=== PATIENT | male | born 1965 | race Two or more races ===

== ENCOUNTER 2023-04-23 14:32 | Outpatient (REF) | payer OTHER, SELFPAY ==
[2023-04-23 17:08] LABS: Alanine Aminotransferase 30 U/L (0-40); Albumin Level 4.4 g/dL (3.5-5.0); Alkaline Phosphatase 66 U/L (39-117); Aspartate Amino Transferase 29 U/L (5-37); Bilirubin Direct 0.1 mg/dL (0.0-0.5); Bilirubin Total 0.4 mg/dL (0.0-1.0); Total Protein 7.9 g/dL (6.5-8.0)
[2023-04-24 04:56] LABS: ~HepC Num1 0.17 S/CO (0.00-0.79); ~Hepatitis C Antibody Nonreactive (Nonreactive)
[2023-04-24 05:01] LABS: HBc Num1 0.12 S/CO (0.00-0.79); Hepatitis B Core Antibody Nonreactive (Nonreactive)
[2023-04-24 05:11] LABS: Hepatitis A Antibody IgG REACTIVE (Nonreactive); ~Hepatitis A Antibody IgG 11.66 S/CO (0.00-0.99)
[2023-04-24 05:17] LABS: HBsAGNum1 0.34 S/CO (0.00-0.99); HIV AB/AG Nonreactive (Nonreactive); HIV Num 1 0.06 S/CO (0.00-0.99); Hepatitis B Surface Antigen Negative (Negative)
== END 2023-04-23 14:33 | disposition home or self-care (01) ==
LOC: HO.HHCL 14:32
PROVIDERS: Visit Provider Emergency Medicine
DX: F11.20 Opioid dependence, uncomplicated (principal)
CPT/HCPCS: 36415; 80076; 86704; 86708; 86803; 87340; 87389

== ENCOUNTER 2023-05-24 00:02 | Emergency (ER) | payer MEDICARE, SELFPAY ==
--- NOTE | 2023-05-24 | ECG_ITS ---
Test Reason : chest pain Blood Pressure : / mmHG Vent. Rate : 090 BPM Atrial Rate : 090 BPM P-R Int : 158 ms QRS Dur : 080 ms QT Int : 384 ms P-R-T Axes : 064 005 023 degrees QTc Int : 469 ms Normal sinus rhythm Possible Left atrial enlargement Borderline ECG When compared with ECG of 23-OCT-2004 02:49, Non-specific change in ST segment in Inferior leads QT has lengthened Referred By: Generic ED Physician Electronically Signed By:JARED DIETRICH
[2023-05-24 00:11] VITALS: BP 122/76; BP 132/78; PULSE 91; PULSE 93; RESP 15; TEMP 36.6; O2SAT 93; O2SAT 94; BMI 32.8
[2023-05-24 00:39] LABS: MANUAL DIFF FLAG NO
[2023-05-24 00:40] VITALS: BP 111/73; PULSE 95; RESP 18; O2SAT 100
[2023-05-24 00:43] LABS: Basophils Absolute Auto 0.1 X10*3/uL (0.0-0.2); Basophils Percent Auto 0.6 % (0-2); Eosinophils Absolute Auto 0.1 X10*3/uL (0.0-0.4); Eosinophils Percent Auto 0.6 % (0-4); Hematocrit 42.5 % (42.0-52.0); Hemoglobin 14.4 g/dl (14.0-18.0); Imm Gran Abs Auto 0.03 X10*3/uL (0.00-0.03); Imm Gran Pct Auto 0.3 % (0.0-0.4); Lymphocytes Absolute Auto 2.8 X10*3/uL (1.2-4.9); Lymphocytes Percent Auto 32.1 % (20-40); Mean Corpuscular HGB Conc 33.9 g/dl (31.0-36.0); Mean Corpuscular Hemoglobin 30.8 pg (27.0-33.0); Mean Corpuscular Volume 90.8 fL (80.0-98.0); Mean Platelet Volume 8.3 fL (9.4-12.4); Monocytes Absolute Auto 0.9 X10*3/uL (0.1-1.2); Monocytes Percent Auto 10.3 % (2-11); Neutrophils Absolute Auto 4.9 x10*3/uL (2.0-8.3); Neutrophils Percent Auto 56.1 % (45-73); Platelet Count 261 X10*3/uL (160-400); Red Blood Count 4.68 X10*6/uL (4.60-5.80); Red Cell Distribution Width 14.6 % (11.0-16.0); White Blood Count 8.7 X10*3/uL (4.8-10.8)
[2023-05-24 00:56] LABS: Alanine Aminotransferase 42 U/L (0-40); Albumin Level 4.5 g/dL (3.5-5.0); Alkaline Phosphatase 71 U/L (39-117); Anion Gap 18 (12-20); Aspartate Amino Transferase 66 U/L (5-37); Bilirubin Total 0.3 mg/dL (0.0-1.0); Blood Urea Nitrogen 22 mg/dL (9-16); Carbon Dioxide 21 mmol/L (22-29); Chloride 105 mmol/L (96-108); Creatinine Clr Calc Pharmacy 97.4; Estimated Glomerular Filt Rate > 60; Ethanol 83 mg/dL; Glucose Random 109 mg/dL (60-115); Potassium 3.8 mmol/L (3.3-5.1); Sodium 140 mmol/L (135-145)
--- OUTSIDE RECORDS SUMMARY | 2023-05-24 00:58 | XMS_ITS | Continuity of Care Document ---
Author Name Unknown Organization [facility] ter Address [address] [place] [id number] Care Team Providers Care Bulb Inspector Name Role Phone Mathieu Christina MD Primary Care Physician Encounter [facility] Date(s): 01/12/23 - 01/16/[address] [id number] Discharge Disposition: Disch/Trans to IP Rehab or unit w/in Hos Attending Physician: Ponce LIND, Noor Admitting Physician: Bart Pino MD Referring Physician: Not on Staff, Referring MD Allergies, Adverse Reactions, Alerts No Known Allergies Immunizations Given and Recorded Vaccine Date Status Refusal Reason SARS-CoV-2 (COVID-19) mRNA-1273 vaccine 03/03/21 R ecorded SARS-CoV-2 (COVID-19) mRNA-1273 vaccine 02/02/21 R ecorded influenza virus vaccine, inactivated 1 10/21/20 Gi angélica influenza virus vaccine, inactivated 06/25/19 Jairo rded influenza virus vaccine, inactivated 07/21/18 Jairo rded influenza virus vaccine, inactivated 2 08/22/16 Re corded influenza virus vaccine, inactivated 07/25/15 Give n influenza virus vaccine, inactivated 10/20/11 Give n tetanus/diphtheria/pertussis, acel(Tdap) 06/08/15 Given pneumococcal 23-valent vaccine 10/20/11 Given 1Result Comment: [facility] [place] 2[place]# [id number] 2Location History[facility] Medications 1 each 1 each, See Instructions, # 1 each, Refills 0, Tot. Refills 0, Maintenance, please supply one knee brace. diagnosis: left knee injury, 01/15/19 13:39:43 EDT, Compound Start Date: 01/15/19 Status: Ordered Albuterol (Eqv-ProAir HFA) 90 mcg/inh inhalation aerosol 1 puffs, Inhalation, Every 6 hours, PRN NEEDED FOR WHEEZING/SHORTNESS OF BREATH, # 8.5 each, 5 Refills, 11/08/22 15:58:00 EST, [facility]/pharmacy #[id number], 30, 1 puffs Inhalation Every 6 hours,PRN: NEEDED FOR WHEEZING/SHORTNESS OF BREATH, 165, cm, ... Start Date: 11/08/22 Status: Ordered albuterol-ipratropium 3 mg-0.5 mg/3 ml inhalation solution 1 vials, Inhalation, 4 times a day, # 360 mL, 0 Refills, Maintenance, 11/08/22 15:58:00 EST, [facility]/pharmacy #[id number], 30, 1 vials Inhalation 4 times a day, 165, cm, 08/17/22 7:14:00 EST, Height, 82, kg, 08/06/22 12:30:00 EDT, Dry Weight Start Date: 11/08/22 Status: Ordered amoxicillin-clavulanate 875 mg-125 mg oral tablet 1 tablet, By Mouth, 2 times a day, for 2 days, # 4 tablet, 0 Refills, Acute 01/17/23 12:40:00 EDT, 01/15/23 12:40:00 EDT, Tablet, [facility], Partial fill upon patient request if the prescription is for a schedule II opioid drug., 164, c... Start Date: 01/15/23 Stop Date: 01/17/23 Status: Ordered buprenorphine-naloxone 2 mg-0.5 mg sublingual film 1 film, Sublingual, Daily, dissolve under the tongue, # 14 film, 0 Refills, Maintenance, 01/16/23 11:03:00 EDT, Film, [facility], Partial fill upon patient request if the prescription is for a schedule II opioid drug., 1 film Sublingual... Start Date: 01/16/23 Stop Date: 01/30/23 Status: Ordered buprenorphine-naloxone 8 mg-2 mg sublingual film 2 film, Sublingual, Daily, # 28 film, 0 Refills, Maintenance, 01/16/23 11:04:00 EDT, Film, [facility], Partial fill upon patient request if the prescription is for a schedule II opioid drug., 2 film Sublingual Daily,x14 days, 164, cm, 04... Start Date: 01/16/23 Stop Date: 01/30/23 Status: Ordered docusate sodium 100 mg oral capsule 1 capsule, By Mouth, 2 times a day, PRN NEEDED FOR CONSTIPATION, # 100 capsule, 0 Refills, Maintenance, 09/13/20 17:22:00 EST, [facility] STORE [id number], 166, cm, 07/26/20 9:41:00 EDT, Height, 87, kg, 10/14/18 13:06:00 EST, Dry Weight Start Date: 09/13/20 Status: Ordered doxycycline monohydrate 100 mg oral tablet = 100 mg, By Mouth, Every 12 hours, for 2 days, # 4 tablet, 0 Refills, Acute 01/17/23 12:40:00 EDT,01/15/23 12:40:00 EDT, Tablet, [facility] 3, Partial fill upon patient request if the prescription is for a schedule II opioid drug., 164,... Start Date: 01/15/23 Stop Date: 01/17/23 Status: Ordered Mouth piece for Nebulizer Mouth piece for Nebulizer, See Instructions, # 3 each, Refills 3, Tot. Refills 3, Maintenance, Use as instructed, 01/11/21 18:16:00 EDT, ICD 10 is J44.9, Supply, 166, cm, 12/21/20 16:08:00 EDT, Height Start Date: 01/11/21 Status: Ordered QUEtiapine 25 mg oral tablet 50 mg, 2, tablet, By Mouth, Daily, PRN, # 120 tablet, Refills 0, Maintenance, Anxiety, 01/12/23 12:26:00 EDT, Partial fill upon patient request if the prescription is for a schedule II opioid drug. Start Date: 01/12/23 Status: Ordered sildenafil 50 mg oral tablet 1 tablet = 50 mg, By Mouth, Daily, 1 hour before sexual activity, # 10 tablet, 3 Refills, Maintenance, 01/01/22 12:31:00 EDT, Tablet, [facility]/pharmacy #[id number], 165, cm, 10/14/21 14:50:00 EST, Height, 78.6,kg, 10/14/21 14:50:00 EST, Dry Weight Start Date: 01/01/22 Status: Ordered simvastatin 10 mg oral tablet 1, tablet, By Mouth, Daily at bedtime, # 90 tablet, Refills 1, Maintenance, 07/12/22 17:09:00 EDT, Route to Pharmacy Electronically, [id number], 165, cm, 05/30/22 13:27:00 EDT, Height, 78.6, kg,10/14/21 14:50:00 EST, Dry Weight Start Date: 07/12/22 Status: Ordered traZODone 100 mg oral tablet 2 tablets, By Mouth, Daily at bedtime, # 180 tablet, Refills 0, Maintenance, 10/09/18 9:38:26 EST Start Date: 10/09/18 Status: Ordered Problem List Condition Confirmation Course Effective Dates Status H ealth Status Informant Allergic rhinitis Confirmed Active Bipolar disorder Confirmed Active Chronic obstructive pulmonary disease (COPD) Confirmed Active Degeneration of lumbar intervertebral disc Confirmed Active Depression Confirmed Active GERD (gastroesophageal reflux disease) Confirmed Active Hoarseness Confirmed Active IFG (impaired fasting glucose) Confirmed Active Erectile dysfunction Confirmed Active Chronic pain of right knee Confirmed Active Left knee pain Confirmed Active Combined hyperlipidemia Confirmed Active Opioid dependence Confirmed Active Polysubstance abuse Confirmed Active Pterygium of left eye Confirmed Active PTSD - Post-traumatic stress disorder Confirmed Active Results Radiology Reports * Exam Date Time Procedure Performing Provider Status 01/12/23 6:37 AM Chest Portable Sandra Thibodeaux; Auth ( Verified) Notes: (Chest Portable) Reason For Exam: Shortness of Breath RESULT: Chest Portable Chest Portable Reason: Shortness of Breath; Clinical Question(s): CHF COMPARISON: 10/14/2021 FINDINGS: Right lung base opacity with small right pleural effusion. Left lung is clear. No left pleural effusion. No pneumothorax. Normal heart size. No acute osseous change. IMPRESSION: Right lung base opacity, which could represent atelectasis or infection, with small right pleural effusion. WSN: [id number] Ordering Physician: Yimi Jiménez Dictated By: Lili Awad MD Dictated Date/Time: 01/12/23 10:39 a Reviewed By: Lili Awad MD Signed By: Lili Awad MD Signed Date/Time: 01/12/23 10:39 am Transcribed By: DEEPTHI Transcribed Date/Time: 01/12/23 10:38 am Vital Signs Most recent to oldest [Reference Range]: 1 2 3 Height 164 cm (01/16/23 4:52 AM) 164 cm (01/15/23 7:47 PM) 164 cm (01/15/23 2:45 PM) Weight 77.1 kg (01/12/23 10:53 AM) 77.1 kg (01/12/23 10:00 AM) 75 kg (01/12/23 8:09 AM) Oxygen Saturation [94-100 %] 96 % (01/16/23 4:52 AM) 93 % *L* (01/15/23 7:47 PM) 97 % (01/15/23 2:45 PM) Pulse Rate [55-90 bpm] 93 bpm *H* (01/16/23 4:52 AM) 105 bpm *H* (01/15/23 7:47 PM) 92 bpm *H* (01/15/23 2:45 PM) Body Mass Index [18.5-24.99 kg/m2] 28.67 kg/m2 *H* (01/12/23 10:53 AM) 27.89 kg/m2 *H* (01/12/23 8:09 AM) 27.89 kg/m2 *H* (01/12/23 7:40 AM) Blood Pressure [90-138/55-84 mm Hg] 108/65mm Hg (01/16/23 4:52 AM) 125/76mm Hg (01/15/23 7:47 PM) 130/79mm Hg (01/15/23 2:45 PM) Respiratory Rate [16-30 br/min] 18 br/min (01/16/23 4:52 AM) 18 br/min (01/15/23 7:47 PM) 20 br/min (01/15/23 2:45 PM) Temperature [96.8-100.4 DegF] 97.9 DegF (01/16/23 4:52 AM) 97.5 DegF (01/15/23 7:47 PM) 98.6 DegF (01/15/23 2:45 PM) Liters per Minute 2 L/min (01/14/23 4:16 AM) 2 L/min (01/13/23 8:11 PM) 1 L/min (01/13/23 3:00 PM) Mode of Delivery (Oxygen) Room air (01/16/23 4:52 AM) Room air (01/15/23 7:47 PM) Room air (01/15/23 2:45 PM) Blood pressure sites Arm, left (01/16/23 4:52 AM) Arm, left (01/15/23 7:47 PM) Arm, left (01/15/23 2:45 PM) Temperature Route Oral (01/16/23 4:52 AM) Oral (01/15/23 7:47 PM) Oral (01/15/23 2:45 PM) Dry Weight 77.1 kg (01/12/23 10:53 AM) 75 kg (01/12/23 8:09 AM) 75 kg (01/12/23 7:40 AM) Weight Obtained Via Bed scale (01/12/23 10:00 AM) Social History Social History Type Response Smoking Status 5-9 cigarettes (betw een 1/4 to 1/2 pack)/day in last 30 days; Tobacco user in household: Yes entered on: 06/15/20 Sex History and physical note * Brissa LIND, Alexi Tejeda: PERFORM Event Display: History and Physical Hospital Authored Date: Patient: ??CATHRYN BROWN ? Age:??57 Years?Sex:??Male?:??1965?? Chief Complaint/Reason for Consultation Patient currently being treated at [facility] reh for opiate recovery. Was found by staff to be difficult to respond, nodding off. O2 on room air initially 76%, now 94% on 2 ltr. Pt drowsy but rouseable to voice. History of Present Illness 57-year-old male??with history of??COPD, tobacco abuse,??polysubstance abuse??(opioids, cocaine), bipolar disorder,??PTSD,??hyperlipidemia, GERD, and??impaired fasting glucose who was brought to the emergency department from [facility] inpatient detox earlier this morning with hypoxia.?? The patient ap parently checked into [facility] rehab yesterday for opiate recovery, and this morning was found to behypoxic to the 70s on room air.?? He was noted by staff to be somnolent, and complained of shortness of breath.?? EMS was called, and the patient was transitioned onto CPAP, satting in the high 90s.?? He did not complain of chest pain.?? He did not have a fever.?? Unfortunately there is no current EMR or written medical documentation aside from the nursing intake, and remaining history is unclearas the patient is on BiPAP.?? The patient is awake and speaking to me through the BiPAP mask,??stating that he does feel better but the mask is too tight.?? He is requesting water. ??He does not appear to be coughing.?? He denies??abdominal pain, diarrhea, or urinary symptoms. ?? In the emergency department, the patient's max temperature is 100.2.?? He is saturating 96 to 98% on BiPAP (he desatted to 88% on 4 L nasal cannula oxygen with significant tachypnea). ??He remainshemodynamically stable with mild tachycardia in the 90s and 100s, sinus tachycardia on the monitor.?? He is diffusely wheezy??at the time of my evaluation.?? Thus far he has received ceftriaxone 1 g and azithromycin 500 mg IV for possible community-acquired pneumonia.?? He received 4 mg of IV ondansetron earlier.?? No other medications given in the medical record. Review of Systems Other than those positives as noted in the HPI above, the remaining comprehensive 14-point review of systems is not obtainable at this time. Objective Measurements?? Height: 164 cm (01/12/23) Weight: 77.1 kg (01/12/23) Dry Weight: 77.1 kg (01/12/23) Body Mass Index:??28.67 kg/m2??High (01/12/23) ? Vital Signs?? Temperature: 100.2 DegF (01/12/23 12:00:00) Temperature Route: Temporal (01/12/23 12:00:00) Pulse Rate:??94 bpm??High (01/12/23 12:00:00) Heart Rate Monitored:??96 bpm??High (01/12/23 11:48:00) Respiratory Rate: 19 br/min (01/12/23 12:00:00) Systolic Blood Pressure: 120 mm Hg (01/12/23 12:00:00) Diastolic Blood Pressure: 71 mm Hg (01/12/23 12:00:00) Blood pressure sites: Arm, left (01/12/23 12:00:00) Mean Arterial Pressure: 106 mm Hg (01/12/23 10:53:00) Pulse Pressure: 49 mm Hg (01/12/23 12:00:00) Oxygen Saturation: 96 % (01/12/23 12:00:00) Liters per Minute: 40 L/min (01/12/23 08:09:00) Mode of Delivery (Oxygen): BiPAP (01/12/23 12:00:00) FiO2: 30 % (01/12/23 11:48:00) Early Warning Score: 0 (01/12/23 12:22:52) ? Pain Scores 1 - 10 Pain Scale Score: 0 (06:53) ? Physical Exam General Appearance: Alert, appears in mild respiratory distress,??mentating normally and able to answer questions yes/no and follow commands HEENT: Normocephalic, atraumatic, PERRL, EOMI, no scleral icterus, no facial droop, moist mucous membranes, no oropharynx lesions?? Neck: Supple, no JVD, no LAD Cardiac: Tachycardic, regular rhythm,??S1 & S2 present, no m / r / g appreciated Chest: Diffuse rhonchi and expiratory wheezes, no tenderness to percussion Abdomen: Soft, nontender, no distention, no rebound or guarding, no masses, no organomegaly, normalbowel sounds in all quadrants Extremities: No clubbing, cyanosis, or edema. ??2+ distal pulses. ??Capillary refill < 3 seconds. ??No calf tenderness or cords Skin: Warm, no rash or open wounds Neuro: ??A & O x 3, no focal motor or sensory deficits appreciated Psych: ??Stable mood Assessment/Plan Assessment:??57-year-old male with history of COPD, tobacco abuse, polysubstance abuse (opioids, cocaine), bipolar disorder, PTSD, hyperlipidemia, GERD, and impaired fasting glucose who was brought to the emergency department from [facility] earlier this morning with hypoxic respiratory failure.??Work-up is consistent with??COPD exacerbation and possible??right basilar??pneumonia. ?? Acute respiratory failure with hypoxia (J96.01):??I suspect acute??respiratory failure with hypoxiain the setting of COPD exacerbation. He is significantly bronchospastic on exam.??No steroids or bronchodilators??given??thus far??in the emergency department.??He does have right lung atelectasis versus small infiltrate with small effusion, and will be covered for community-acquired pneumonia as well.??He appears euvolemic on exam??with??negative troponin, BNP is pending.??No complaints of chestpain or ischemic EKG changes. He appears comfortable on BiPAP at this time with pulse oximetry 96 to 98%.??We will attempt to titrate??with goal pulse oximetry greater than 88%. Treatment plan as outlined. ?? COPD with acute exacerbation (J44.1):?? Significant bronchospasm on exam.?? Maintaining pulse oximetry on BiPap with less tachypnea. 1.?? Admit to [facility], continuous pulse oximetry monitoring 2.?? Titrate supplemental oxygen to keep pulse oximetry > 88% 3.?? Start Solumedrol 125 mg IV now, followed by??SoluMedrol 40 mg IV every??8 hours, with transition to oral prednisone??as he improves 4.?? Scheduled DuoNebs 4 times daily and every 4 hours as needed??for bronchospasm and shortness ofbreath 5.?? Continue antibiotics as outlined 6.?? Gentle IVF hydration wtih LR at 100 cc/hr while NPO on BiPap 7. ??Guaifenesin as needed for cough ?? Community acquired pneumonia (J18.9):??Currently the patient has max temp 100.2. No sick contacts and SARS-CoV-2 RNA testing is negative.?? Initial criteria for sepsis included heart rate greater than 90 and respiratory rate greater than 20.?? No significant leukocytosis, and??the patient remains hemodynamically stable, with lactic acid level reassuring. 1. Continue Rocephin 1 g IV daily and azithromycin 500 mg IV daily 2. Check sputum culture if he can expectorate 3. Check streptococcal and Legionella urinary antigens 4. Monitor CBC with differential and blood cultures; check procalcitonin level 5. Monitor metabolic panel ?? Polysubstance abuse (F19.10):??Patient reports last use of cocaine 2 days ago.??He has been prescribed Suboxone, unclear timing of last use of opiates. He denies??current alcohol abuse.??He does smoke cigarettes. We will continue??Suboxone as has been??recently??prescribed in the EMR??(2??mg- 0.5 mg??film once daily). Nicotine??patch??21 mg daily. Consider Addiction Medicine consultation when medically stable. ?? Bipolar disorder (F31.9):??The patient was previously prescribed quetiapine as needed for anxiety, and trazodone daily at bedtime. These will be continued in the hospital. No other current psychotropic medications prescribed in the outpatient medication reconciliation. ?? GERD (gastroesophageal reflux disease) (K21.9):??Start Protonix 40 mg IV??daily for stress ulcer prophylaxis. ?? VTE Prophylaxis:??Lovenox 40 mg subcutaneously daily. ?VTE Prophylaxis Assessment:??VTE Prophylaxis Ordered ?? Code Status:??FULL. ?Order Code Status:??Code Status Ordered ?? Discharge Planning:??Disposition pending;??anticipate 2 to 3 days??hospitalization. ?? I spent a total of??88 minutes today reviewing the chart / medical records, evaluating the patient,evaluating and interpreting laboratory and imaging data, formulating and discussing the treatment plan, and documenting the encounter. ? Histories Allergies Allergies ?(Active and Proposed Allergies Only) NKA? (Severity: Unknown severity, Onset: Unknown) ? Past Medical History/Problem List Active Problems??(16) Allergic rhinitis Bipolar disorder Chronic obstructive pulmonary disease (COPD) Chronic pain of right knee Combined hyperlipidemia Degeneration of lumbar intervertebral disc Depression Erectile dysfunction GERD (gastroesophageal reflux disease) Hoarseness IFG (impaired fasting glucose) Left knee pain Opioid dependence Polysubstance abuse Pterygium of left eye PTSD - Post-traumatic stress disorder ? Past Surgical History Arthroscopy, right knee (x3) Lumbar spine fusion x2, (L4-L5, L3-L4) ? Social History Alcohol Details:??Use: Past.?? Currently denies. Employment/School Details:??Status: Disabled. Exercise Details:??Regular exercise: No. Home/Environment Details:??Living situation: Home/Independent. ??Lives with: friend. ??Feels unsafe at home: No. Nutrition/Health Details:??Diet: Regular. Sexual Details:??Sexually involved in last 6 months: No. ??Sexual orientation: Heterosexual. ??Gender identity: Male. ??Preferred pronoun: She/her. Substance Abuse Details:??Use: Current. ??Type: Cocaine, Prescription medications.?? Currently at [facility]. Tobacco Details:??Use: 5-9 cigarettes (between 1/4 to 1/2 pack)/day in last 30 days. ??Tobacco user in household: Yes. ? Family History Father: Stroke; Throat cancer? Mother (): Heart disease? Medications Home Medications Albuterol (Albuterol (Eqv-ProAir HFA) 90 mcg/inh inhalation aerosol)?1?puff(s)?Inhalation?Every 6 hours?as needed? NEEDED FOR WHEEZING/SHORTNESS OF BREATH Albuterol/Ipratropium (albuterol-ipratropium 3 mg-0.5 mg/3 ml inhalation solution)?1?vials?Inhalation?4 times a day Buprenorphine-Naloxone (buprenorphine-naloxone 2 mg-0.5 mg sublingual film)?1?Film?Sublingual?Daily?dissolve under the tongue Docusate (docusate sodium 100 mg oral capsule)?1?capsule?By Mouth?2 times a day?as needed? NEEDED FOR CONSTIPATION Durable Medical Equipment (1 each)?See Instructions?please supply one knee brace.diagnosis: left knee injury Durable Medical Equipment (Mouth piece for Nebulizer)?See Instructions?Use as instructed Quetiapine (QUEtiapine 25 mg oral tablet)?50?Milligram?2?tablet?By Mouth?Daily?as needed?Anxiety Sildenafil (sildenafil 50 mg oral tablet)?1?tab(s)?50?Milligram?By Mouth?Daily?1 hour before sexual activity Simvastatin (simvastatin 10 mg oral tablet)?1?tablet?By Mouth?Daily at bedtime Trazodone (traZODone 100 mg oral tablet)?2 tablets?By Mouth?Daily at bedtime ? Results Recent Labs BLOOD COUNT & DIFF WBC 7.1 k/mm3 ()?? 01/12/2023 06:52 RBC 4.21 m/mm3 (Low)?? 01/12/2023 06:52 Hgb 13.5 Gm/dL (Low)?? 01/12/2023 06:52 Hct 41.0 % ()?? 01/12/2023 06:52 MCV 97.4 femtoliters (High)?? 01/12/2023 06:52 MCH 32.1 pg ()?? 01/12/2023 06:52 MCHC 32.9 g/dL (Low)?? 01/12/2023 06:52 Platelet Count 174 k/mm3 ()?? 01/12/2023 06:52 RDW-SD 45.2 femtoliters ()?? 01/12/2023 06:52 MPV 9.4 femtoliters ()?? 01/12/2023 06:52 Nucleated RBC (Automated) 0.0 #/100 WBC'S ()?? 01/12/2023 06:52 Abs. NRBC 0.0 k/mm3 ()?? 01/12/2023 06:52 Abs. Neut 4.4 k/mm3 ()?? 01/12/2023 06:52 Abs. Lymph 2.1 k/mm3 ()?? 01/12/2023 06:52 Abs. Clark 0.5 k/mm3 ()?? 01/12/2023 06:52 Abs. Eo 0.1 k/mm3 ()?? 01/12/2023 06:52 Abs. Baso 0.0 k/mm3 ()?? 01/12/2023 06:52 Neut % 61.6 % ()?? 01/12/2023 06:52 Lymph % 30.1 % ()?? 01/12/2023 06:52 Clark % 6.5 % ()?? 01/12/2023 06:52 Eos % 1.1 % ()?? 01/12/2023 06:52 Baso % 0.4 % ()?? 01/12/2023 06:52 Imm Gran 0.3 % ()?? 01/12/2023 06:52 Abs. Imm Gran 0.0 k/mm3 ()?? 01/12/2023 06:52 ?? CARDIAC High Sensitivity Troponin (HSTnT) 7 ng/L ()?? 01/12/2023 06:53 ?? CHEM GENERAL Sodium 140 mmol/L ()?? 01/12/2023 06:53 Potassium 4.2 mmol/L ()?? 01/12/2023 06:53 Chloride 107 mmol/L ()?? 01/12/2023 06:53 Bicarbonate Level 26 mmol/L ()?? 01/12/2023 06:53 Anion Gap 7 ()?? 01/12/2023 06:53 Glucose Level 105 mg/dL (High)?? 01/12/2023 06:53 BUN 11 mg/dL ()?? 01/12/2023 06:53 Creatinine-Blood 1.0 mg/dL ()?? 01/12/2023 06:53 Estimated GFR Creatinine 91 ML/MIN/1.73 M2 ()?? 01/12/2023 06:53 Lactate 1.1 mmol/L ()?? 01/12/2023 06:53 ?? TOXICOLOGY/TDM Ethanol, Serum or Plasma NONE DETECTED mg/dL ()?? 01/12/2023 06:53 ?? VIROLOGY COVID-19 by RT-PCR NEGATIVE ()?? 01/12/2023 06:30 ? Imaging(s) ?Chest Portable ?? 01/12/2023 06:37??by Lili Awad MD ?IMPRESSION: Right lung base opacity, which could represent atelectasis or infection, with small right pleural effusion. ?ECG 12-Lead ?? 01/12/2023 06:43??by Alexi Hodges DO ?Ventricular Rate: 86 BPM Atrial Rate: 86 BPM P-R Interval: 160 ms QRS Duration: 80 ms Q-T Interval: 360 ms QTC Calculation(Bazett): 430 ms P De Beque: 78 degrees R De Beque: 22 degrees T De Beque: 1 degrees Normal sinus rhythm Normal ECG When compared with ECG of 14-OCT-2018 09:45, No significant change was found Confirmed by ALEXI HODGES MD () on 01/12/2023 10:59:32 AM ? EKG study * Event Display: ECG 12-Lead Authored Date: Please click on pdf link to open report * Event Display: ECG 12-Lead Authored Date: Ventricular Rate: 86 BPM Atrial Rate: 86 BPM P-R Interval: 160 ms QRS Duration: 80 ms Q-T Interval: 360 ms QTC Calculation(Bazett): 430 ms P De Beque: 78 degrees R De Beque: 22 degrees T De Beque: 1 degrees Normal sinus rhythm Normal ECG When compared with ECG of 14-OCT-2018 09:45, No significant change was found Confirmed by ALEXI HODGES MD ([id number]) on 01/12/2023 10:59:32 AM Willard: ALEXI HODGES MD Note * Cali Webb RN: PERFORM Event Display: Discharge/Transfer Note Hospital Authored Date: Nursing Discharge Note Entered On: 01/16/2023 12:11 EDT Performed On: 01/16/2023 12:05 EDT by Cali Webb RN Nursing Discharge Note 2 Discharge Time : 01/16/2023 12:05 EDT Discharge Level of Care at Discharge : Inpatient Rehab Facility/Unit Patient Left Unit Via : Wheelchair Patient Accompanied Off Unit with : Other: S64 staff DC Instructions Provided & Signed by Pt : Yes Patient Understands D/C Instructions : Yes Patient Instructions Discharge Signed : Yes Discharge Comments : Patient discharged to [facility]. Agreeable with plan, instructions signed, able to teach back. No IV access. Pt alert & oriented, VSS, no signs of distress. Left unit with belongings. Escorted to d/c lounge, transport to be arranged. Did Pt have Specialty Bed or Wound Vac : No Tracey TAPIA, Cali - 01/16/2023 12:08 EDT * Ponce LIND, Noor: PERFORM Event Display: Discharge/Transfer Note Hospital Authored Date: [id number] Patient: ??CATHRYN BROWN ? Age:??57 Years?Sex:??Male?:??1965?? Patient Information Discharge Location: [facility] Primary Care Physician: Mathieu Christina MD Admit Date/Time: 01/12/23 08:14 Discharge Disposition Discharge Disposition: Detox facility Discharge Diagnosis Acute respiratory failure with hypoxia (J96.01) COPD with acute exacerbation (J44.1) Community acquired pneumonia (J18.9) Polysubstance abuse (F19.10) Bipolar disorder (F31.9) GERD (gastroesophageal reflux disease) (K21.9) ?? _ Discharge Medications Albuterol (Albuterol (Eqv-ProAir HFA) 90 mcg/inh inhalation aerosol)?1?puff(s)?Inhalation?Every 6 hours?as needed? NEEDED FOR WHEEZING/SHORTNESS OF BREATH Albuterol/Ipratropium (albuterol-ipratropium 3 mg-0.5 mg/3 ml inhalation solution)?1?vials?Inhalation?4 times a day Amoxicillin-Clavulanate (amoxicillin-clavulanate 875 mg-125 mg oral tablet)?1?tab(s)?By Mouth?2 times a day?for 2?Days Buprenorphine-Naloxone (buprenorphine-naloxone 2 mg-0.5 mg sublingual film)?1?Film?Sublingual?Daily?for 14?Days?dissolve under the tongue Buprenorphine-Naloxone (buprenorphine-naloxone 8 mg-2 mg sublingual film)?2?Film?Sublingual?Daily?for 14?Days Docusate (docusate sodium 100 mg oral capsule)?1?capsule?By Mouth?2 times a day?as needed? NEEDED FOR CONSTIPATION Doxycycline (doxycycline monohydrate 100 mg oral tablet)?100?Milligram?By Mouth?Every 12 hours?for 2?Days Durable Medical Equipment (1 each)?See Instructions?please supply one knee brace.diagnosis: left knee injury Durable Medical Equipment (Mouth piece for Nebulizer)?See Instructions?Use as instructed PredniSONE (predniSONE 20 mg oral tablet)?2?tab(s)?40?Milligram?By Mouth?Daily?for 1?Days Quetiapine (QUEtiapine 25 mg oral tablet)?50?Milligram?2?tablet?By Mouth?Daily?as needed?Anxiety Sildenafil (sildenafil 50 mg oral tablet)?1?tab(s)?50?Milligram?By Mouth?Daily?1 hour before sexual activity Simvastatin (simvastatin 10 mg oral tablet)?1?tablet?By Mouth?Daily at bedtime Trazodone (traZODone 100 mg oral tablet)?2 tablets?By Mouth?Daily at bedtime ? Quality Measures Tobacco Use Treatment:? Medications Started Augmentin??today will be last day -Continue??home Suboxone??as mentioned in instructions Allergies Allergies ?(Active and Proposed Allergies Only) NKA? (Severity: Unknown severity, Onset: Unknown) ? Future Appointments Saturday. 2022 10:00 AM EDT ?? With: Mathieu Christina MD Where: [facility] [place] [address]- Hospital Course 57 y/o M with a PMH COPD-not on home oxygen, Tobacco dependence, PSA incl cocaine inhalation, Bipolar disorder/PTSD who was admitted from [facility] detox program with acute severe SOB, wheezing and hypoxia. He does admit to active cocaine use/inhalation and urine tox screen positive suggestive very recent use.?Patient was??admitted for??acute on chronic??COPD exacerbation??as well as right lowerlung??pneumonia. .Was started on??antibiotics,??steroids and??breathing treatment which she responded well??and??successfully weaned off??oxygen supplementation and currently breathing??comfortably on room air??,??no wheeze??or respiratory distress noted??.?No other active issues ongoing??.?Hemodynamically stable and??okay to be discharged??preferably back to??Detox . ? Following recommendations??upon discharge??: -Take-Augmentin and Doxy??until??01/16/2023 to complete total 5 days of antibiotic??. -Continue taking inhalers as before.?? -Giving prescription??of Suboxone??for total 14 days.?He takes??Suboxone??8 mg??2 films??along with Suboxone 2 mg 1 film??daily??in the morning..?? -Continue rest of the home medications as before -Would recommend smoking cessation. -Continue detox program ? Objective Assessment and Plan Assessment:?Acute??Hypoxia ??PNA ??COPD exacerbation: ??Tobacco dependence: ??Probable crack lung: ??Procalcitonin 0.08 however CXR ~ RLL opacity and worsening leucocytosis, will start pt on Abx. ??- Augmentin and doxy for 5 days ??- Prednisone 40 mg po qd x 5 days?- Smoking cessation, NRT ??- Refrain from cocaine inhalation/snorting!!! (reviewed risk of lung injury in length with patient) ? PSA ??- Pt motivated to return to [facility] (he is homeless) ??- Refrain from illicit drug use! ?? Bipolar disorder: ??PTSD: ??- Seroquel 600 mg po qhs and 50 mg PRN ??- Trazodone 100 mg po qhs ? Vital Signs?? Temperature: 97.9 DegF (01/16/23 04:52:00) Temperature Route: Oral (01/16/23 04:52:00) Pulse Rate:??93 bpm??High (01/16/23 04:52:00) Respiratory Rate: 18 br/min (01/16/23 04:52:00) Systolic Blood Pressure: 108 mm Hg (01/16/23 04:52:00) Diastolic Blood Pressure: 65 mm Hg (01/16/23 04:52:00) Blood pressure sites: Arm, left (01/16/23 04:52:00) Mean Arterial Pressure: 79 mm Hg (01/16/23 04:52:00) Pulse Pressure: 43 mm Hg (01/16/23 04:52:00) Oxygen Saturation: 96 % (01/16/23 04:52:00) Mode of Delivery (Oxygen): Room air (01/16/23 04:52:00) Early Warning Score: 2 (01/16/23 04:52:28) ? . Physical Exam Respiratory:??CTAB, no wheezing Cardiovascular:??Heart sounds normal. No thrills. Regular rate and rhythm, no murmurs, rubs or gallops. Gastrointestinal:??Abdomen soft, non-tender, non-distended. Pending Results Add On Lab Order ordered on 01/12/2023 Add On Lab Order ordered on 01/13/2023 Add On Lab Order ordered on 01/13/2023 Sputum Culture w/ Gram Smear ordered on 01/12/2023 Follow-Up Appointments Added Follow Up ?Time Frame ?Comments Mathieu Christina MD?1 to 2 weeks Patient Instructions ?? Following recommendations upon discharge : -Take-Augmentin and Doxy until 01/16/2023 to complete total 5 days of antibiotic . -Continue taking inhalers as before.?? -Giving prescription of Suboxone for total 14 days. He takes Suboxone 8 mg 2 films along with Suboxone 2 mg 1 film daily in the morning.. -Continue rest of the home medications as before -Would recommend smoking cessation. -Continue detox program Post Discharge Care Diet: Regular Diet Code Status: ?? Full Resuscitation Condition: fair Prognosis: Fair Discharge ?01/16/23 11:08:00 EDT Discharge Prescriptions ?ePrescribed, ??01/16/23 11:08:00 EDT Home Health Face to Face ^HomeHealthFTF Results Discharge Labs BACTERIOLOGY MRSA PCR Result Negative, MRSA target DNA not detected. ()?? 01/13/2023 09:10 S Aureus ??PCR Result Negative, SA target DNA not detected. ()?? 01/13/2023 09:10 ?? BLOOD COUNT & DIFF WBC 15.0 k/mm3 (High)?? 01/15/2023 00:07 RBC 3.94 m/mm3 (Low)?? 01/15/2023 00:07 Hgb 12.5 Gm/dL (Low)?? 01/15/2023 00:07 Hct 37.9 % (Low)?? 01/15/2023 00:07 MCV 96.2 femtoliters (High)?? 01/15/2023 00:07 MCH 31.7 pg ()?? 01/15/2023 00:07 MCHC 33.0 g/dL ()?? 01/15/2023 00:07 Platelet Count 220 k/mm3 ()?? 01/15/2023 00:07 RDW-SD 46.1 femtoliters ()?? 01/15/2023 00:07 MPV 10.0 femtoliters ()?? 01/15/2023 00:07 Nucleated RBC (Automated) 0.0 #/100 WBC'S ()?? 01/15/2023 00:07 Abs. NRBC 0.0 k/mm3 ()?? 01/15/2023 00:07 Abs. Neut 19.3 k/mm3 (High)?? 01/14/2023 05:21 Abs. Lymph 2.1 k/mm3 ()?? 01/14/2023 05:21 Abs. Clark 1.3 k/mm3 ()?? 01/14/2023 05:21 Abs. Eo 0.0 k/mm3 ()?? 01/14/2023 05:21 Abs. Baso 0.0 k/mm3 ()?? 01/14/2023 05:21 Neut % 84.2 % (High)?? 01/14/2023 05:21 Lymph % 9.0 % (Low)?? 01/14/2023 05:21 Clark % 5.7 % ()?? 01/14/2023 05:21 Eos % 0.0 % ()?? 01/14/2023 05:21 Baso % 0.1 % ()?? 01/14/2023 05:21 Imm Gran 1.0 % ()?? 01/14/2023 05:21 Abs. Imm Gran 0.2 k/mm3 ()?? 01/14/2023 05:21 ?? CARDIAC Nt-Probnp 200 pg/mL (High)?? 01/12/2023 06:53 High Sensitivity Troponin (HSTnT) 7 ng/L ()?? 01/12/2023 06:53 ?? CHEM GENERAL Sodium 142 mmol/L ()?? 01/15/2023 00:07 Potassium 4.9 mmol/L ()?? 01/15/2023 00:07 Chloride 106 mmol/L ()?? 01/15/2023 00:07 Bicarbonate Level 26 mmol/L ()?? 01/15/2023 00:07 Anion Gap 10 ()?? 01/15/2023 00:07 Glucose Level 95 mg/dL ()?? 01/15/2023 00:07 BUN 14 mg/dL ()?? 01/15/2023 00:07 Creatinine-Blood 0.8 mg/dL ()?? 01/15/2023 00:07 Estimated GFR Creatinine 106 ML/MIN/1.73 M2 ()?? 01/15/2023 00:07 Calcium 9.3 mg/dL ()?? 01/15/2023 00:07 Phosphorus 1.9 mg/dL (Low)?? 01/13/2023 06:49 Magnesium 2.1 mg/dL ()?? 01/13/2023 06:49 Protein, Total 5.8 Gm/dL (Low)?? 01/13/2023 06:49 Albumin 3.6 Gm/dL ()?? 01/13/2023 06:49 AG Ratio 1.6 ()?? 01/13/2023 06:49 Alkaline Phosphatase 52 units/L ()?? 01/13/2023 06:49 AST (SGOT) 45 units/L (High)?? 01/13/2023 06:49 ALT (SGPT) 25 units/L ()?? 01/13/2023 06:49 Bilirubin, Total 0.3 mg/dL ()?? 01/13/2023 06:49 Lactate 1.1 mmol/L ()?? 01/12/2023 06:53 ?? MISC. CHEMISTRY Procalcitonin 0.08 ng/mL ()?? 01/13/2023 06:49 Hold Gel Top SPECIMEN DISCARDED AFTER 1 WEEK ()?? 01/14/2023 05:18 ?? SEROLOGY INF DISEASE Hepatitis C Ab NEGATIVE (N)?? 01/13/2023 06:49 Legionella pneumophila Antigen NEGATIVE ()?? 01/12/2023 19:10 S. Pneumococcus Urinary Ag NEGATIVE ()?? 01/12/2023 19:10 HIV 4th Generation Ab-Ag Result NEGATIVE (N)?? 01/13/2023 06:49 ?? TOXICOLOGY/TDM Ethanol, Serum or Plasma NONE DETECTED mg/dL ()?? 01/12/2023 06:53 Cocaine Metabolite Screen, Urine POSITIVE (Abnormal)?? 01/13/2023 08:35 Opiate Screen, Urine NONE DETECTED ()?? 01/13/2023 08:35 ? VIROLOGY Adenovirus by PCR NEGATIVE ()?? 01/12/2023 19:20 Coronavirus 229E by PCR (not COVID-19) NEGATIVE ()?? 01/12/2023 19:20 Coronavirus HKU1 by PCR (not COVID-19) NEGATIVE ()?? 01/12/2023 19:20 Coronavirus NL63 by PCR (not COVID-19) NEGATIVE ()?? 01/12/2023 19:20 Coronavirus OC43 by PCR (not COVID-19) NEGATIVE ()?? 01/12/2023 19:20 Human Metapneumovirus by PCR NEGATIVE ()?? 01/12/2023 19:20 Rhinovirus/Enterovirus by PCR NEGATIVE ()?? 01/12/2023 19:20 Influenza A by PCR NEGATIVE ()?? 01/12/2023 19:20 Influenza B by PCR NEGATIVE ()?? 01/12/2023 19:20 Parainfluenza 1 by PCR NEGATIVE ()?? 01/12/2023 19:20 Parainfluenza 2 by PCR NEGATIVE ()?? 01/12/2023 19:20 Parainfluenza 3 by PCR NEGATIVE ()?? 01/12/2023 19:20 Parainfluenza 4 by PCR NEGATIVE ()?? 01/12/2023 19:20 RSV by PCR NEGATIVE ()?? 01/12/2023 19:20 Bordetella Pertussis by PCR NEGATIVE ()?? 01/12/2023 19:20 Chlamydophila Pneumoniae by PCR NEGATIVE ()?? 01/12/2023 19:20 Mycoplasma Pneumoniae by PCR NEGATIVE ()?? 01/12/2023 19:20 COVID-19 by RT-PCR NEGATIVE ()?? 01/15/2023 13:35 COVID-19 (SARS-CoV-2) by PCR NEGATIVE ()?? 01/12/2023 19:20 Bordetella Parapertussis by PCR NEGATIVE ()?? 01/12/2023 19:20 ? 40 ??minutes spent on discharge * Cali Webb RN: PERFORM Event Display: Patient Education/Instruction Authored Date: Inpatient Adult Discharge Instructions [address] [address] Name: CATHRYN BROWN : 1965 Visit: 01/12/2023 08:14:00 Current Date: 01/16/2023 11:12 Account: [id number] Inpatient Adult Discharge Instructions We would like to thank you for allowing us to assist you with your healthcare needs. The following includes patient education materials and information regarding your injury/illness. Our entire staffstrives to provide an excellent experience for our patients and their families. PLEASE ENSURE YOU FOLLOW-UP PER THE INSTRUCTIONS BELOW! ?? YOUR OPINION IS IMPORTANT TO US! Please complete the survey you may receive by mail or email. Your feedback will be used to make improvements to the healthcare experiences of our patients and their families. Surveys are administered by [employer]. ?? If further treatment with your primary care physician or another doctor is recommended, it is important for you to keep the appointment. Call your primary care physician or return to the Emergency Department immediately if your condition worsens, fails to improve, or new symptoms develop. If you need to find a doctor, you can call [facility] [employer] for a referral at [phone] or toll free at [phone] ([phone]) or log in to [email or web address] ?? You can view and manage your care through the patient portal or by using a health care soto of your choosing. [employer] is a website that allows you to securely view your medical information including your hospital discharge summary, office visit summaries, medications and follow-up visits. You can also request appointments, renew medications, and request access to your medical information using a health care soto of your choosing, or just ask a question. You can enroll at [email or web address] or register during your next office visit. You have been discharged from [facility], Patient Care Unit: S64. If you have any questions regarding these instructions after you leave, please call us and we will be happy to assist you. [facility] Your Care Team Attending Physician Ponce LIND, Noor Discharging Providers Ponce LIND, Monicaor Reason for Admission Patient currently being treated at [facility] for opiate recovery. Was found by staff to be difficult to respond, nodding off. O2 on room air initially 76%, now 94% on 2 ltr. Pt drowsy but rouseable to voice. Your Diagnosis Acute respiratory failure with hypoxia COPD with acute exacerbation Community acquired pneumonia Bipolar disorder GERD (gastroesophageal reflux disease) Polysubstance abuse Tests Performed Below is a partial list of the tests performed during your hospitalization. You may have had other tests and procedures not included in this list. Please discuss all test results with your provider. Alcohol Level ANTI-HEPATITIS C Basic Metabolic Panel BUN CBC CBC w/ Differential Comprehensive Metabolic Panel COVID-19 (NOVEL CORONAVIRUS), PCR Creatinine Electrolytes Glucose Level High??Sensitivity??Troponin T HIV AB-AG 4TH GENERATION HOLD GEL TUBE Lactate Level Legionella Antigen Urine Magnesium Level MRSA PCR Nasal Swab Phosphorus Level PROBNP Procalcitonin Level Respiratory Pathogen PCR with COVID-19 Strep Pneumoniae Urinary Ag Urine Cocaine Screen Urine Opiate Screen XR Chest Portable Primary Care Provider Mathieu Christina MD Advance Directive Health Care Proxy on File No Discharge Vitals Temperature: 97.9 DegF Height: 164 cm Pulse Rate:??93 bpm??High Weight: 77.1 kg Respiratory Rate: 18 br/min Body Mass Index:??28.67 kg/m2??High Systolic Blood Pressure: 108 mm Hg Body surface area: 1.87 Diastolic Blood Pressure: 65 mm Hg ?? Oxygen Saturation: 96 % ?? Studies Pending All tests and labs ordered during this hospital stay have been completed unless listed below. Please discuss all pending results with your provider listed above in these instructions. ?? Add On Lab Order (Lab Add On Order) Sputum Culture w/ Gram Smear What to do next Instructions From Your Doctor ?? Following recommendations upon discharge : -Take-Augmentin and Doxy until 01/16/2023 to complete total 5 days of antibiotic . -Continue taking inhalers as before.?? -Giving prescription of Suboxone for total 14 days. He takes Suboxone 8 mg 2 films along with Suboxone 2 mg 1 film daily in the morning.. -Continue rest of the home medications as before -Would recommend smoking cessation. -Continue detox program Discharge Orders Diet:??Regular Diet Code Status:?? Full Resuscitation Condition:??fair Prognosis:??Fair Scheduled Follow-Up Appointments Saturday. 2022 10:00 AM EDT ?? With: Mathieu Christina MD Where: [address] [address]- You Need to Schedule the Following Appointments Follow Up with??Mathieu Christina MD When??Within 1 to 2 weeks Where: ?? Discharge Medications CATHRYN BROWN :1965 Visit Date:01/12/2023 Medications: Please continue your medications until treatment is completed or stopped by your provider. Medications not listed below should be discontinued. Discuss any questions related to medications with your provider. What How Much When Why Instructions Next Dose New Amoxicillin-Clavulanate (amoxicillin-clavulanate 875 mg-125 mg oral tablet) 1 tab(s) Oral Twice a day Duration: 2 Days Pickup at [address] 01/16 ?? Given once this morning New Doxycycline (doxycycline monohydrate 100 mg oral tablet) 100 Milligram Oral Every 12 hours Duration: 2 Days Pickup at [address] 01/16 ?? Given once this morning at 9am New PredniSONE (predniSONE 20 mg oral tablet) 2 tab(s) Oral Daily Duration: 1 Days Pickup at [place] [address] [place]/17 ?? Given this morning 01/16 Changed Buprenorphine-Naloxone (buprenorphine-naloxone 2 mg-0.5 mg sublingual film) 1 Film Sublingual Daily Duration: 14 Days dissolve under the tongue ?? Pickup at [place] [address] [place]17 ?? Given this morning 01/16 Changed Buprenorphine-Naloxone (buprenorphine-naloxone 8 mg-2 mg sublingual film) 2 Film Sublingual Daily Duration: 14 Days Pickup at [place] [address] [place]17 ?? Given this morning 01/16 Changed Docusate (docusate sodium 100 mg oral capsule) 1 capsule Oral Twice a day as needed for NEEDED FOR CONSTIPATION As needed ?? Not given today 01/16 Changed Quetiapine (QUEtiapine 25 mg oral tablet) 2 tab(s) Oral Daily as needed for Anxiety As needed ?? Not given today 01/16 Unchanged Albuterol (Albuterol (Eqv-ProAir HFA) 90 mcg/ inh inhalation aerosol) 1 puff(s) Inhalation Every 6 hours as needed for NEEDED FOR WHEEZING/SHORTNESS OF BREATH As needed ?? Not given today 01/16 Unchanged Albuterol/ Ipratropium (albuterol-ipratropium 3 mg-0.5 mg/ 3 ml inhalation solution) 1 vials Inhalation 4 times a day Three more doses today 01/16 ?? Given once this morning Unchanged Durable Medical Equipment (1 each) See instructions please supply one knee brace. diagnosis: left knee injury ?? Unchanged Durable Medical Equipment (Mouth piece for Nebulizer) See instructions Chronic obstructive pulmonary disease Use as instructed ?? Unchanged Sildenafil (sildenafil 50 mg oral tablet) 1 tab(s) Oral Daily 1 hour before sexual activity ?? Today 01/16 ?? Not given Unchanged Simvastatin (simvastatin 10 mg oral tablet) 1 tab(s) Oral Daily at Bedtime Tonight 01/16 Unchanged Trazodone (traZODone 100 mg oral tablet) 2 tablets Oral Daily at Bedtime Tonight 01/16 Pharmacy Information [facility] 3: [address], [place] [id number] [phone] ?? What How Much When Why Comments Stop Taking Betamethasone Topical (betamethasone topical dipropionate 0.05% cream) See instructions APPLY TO THE AFFECTED AREA TWICE A DAY ?? Stop Taking Chlorhexidine Topical (Hibiclens 4% soap) See instructions Wash affected areas twice daily. ?? Stop Taking Famotidine (famotidine 40 mg oral tablet) 1 tab(s) Oral Daily at Bedtime Stop Taking Fluticasone Nasal (Flonase 50 mcg/ inh nasal spray) 2 spray(s) Nares, Both Twice a day Stop Taking Ibuprofen (ibuprofen 800 mg oral tablet) 1 tab(s) Oral Twice a day with food or milk ?? Stop Taking Methylcellulose (Citrucel 2 gm/ 19 gm oral powder for reconstitution) 2 gram Oral Twice a day Stop Taking Omeprazole (omeprazole 20 mg oral enteric coated capsule) See instructions TAKE 1 CAPSULE BY MOUTH EVERY DAY -CAPS PER INSURANCE ?? Stop Taking PEG Electrolyte Solution (NuLYTELY with Flavor Packs oral powder for reconstitution) See instructions Drink 240mL every 15-20 minutes until first half is gone. ??Repeat 6 hours prior to procedure. ?? Stop Taking PEG Electrolyte Solution (NuLYTELY with Flavor Packs oral powder for reconstitution) See instructions Drink 240mL every 15-20 minutes until first half is gone. ??Repeat 6 hours prior to procedure. ?? Stop Taking Permethrin Topical (permethrin 5% topical cream) See instructions Rash 1 application Topically Once Apply from head to toe, leave on for 8-14 hr, rinse; may reapply in 7 days if live mites reappear ?? Stop Taking Sumatriptan (SUMAtriptan 50 mg oral tablet) 1 tab(s) Oral Daily as needed for NEEDED FOR MIGRAINES, MAY REPEAT DOSE AFTER 2 HOURS, MAXIMUM OF 2 DOSES Test Results Below is a partial list of the most recent Laboratory test results done prior to this discharge. You may have had other tests and procedures not included in this list. Please discuss all test resultswith your provider. Alcohol Level (01/12/2023) ???Ethanol, Serum or Plasma - NONE DETECTED ANTI-HEPATITIS C (01/13/2023) ???Hepatitis C Ab - NEGATIVE Basic Metabolic Panel (01/15/2023) ???Sodium - 142 mmol/L???Potassium - 4.9 mmol/L???Chloride - 106 mmol/L???Bicarbonate Level - 26 mmol/L???Anion Gap - 10???Glucose Level - 95 mg/dL???BUN - 14 mg/dL???Creatinine-Blood - 0.8 mg/dL???Estimated GFR Creatinine - 106 ML/MIN/1.73 M2???Calcium - 9.3 mg/dL BUN (01/12/2023) ???BUN - 11 mg/dL CBC (01/15/2023) ???WBC - 15.0 k/mm3???RBC - 3.94 m/mm3???Hgb - 12.5 Gm/dL???Hct - 37.9 %???MCV - 96.2 femtoliters???MCH - 31.7 pg???MCHC - 33.0 g/dL???Platelet Count - 220 k/mm3???RDW-SD - 46.1 femtoliters???MPV - 10.0 femtoliters???Nucleated RBC (Automated) - 0.0 #/100 WBC'S???Abs. NRBC - 0.0 k/mm3 CBC w/ Differential (01/14/2023) ???WBC - 23.0 k/mm3???RBC - 3.77 m/mm3???Hgb - 12.0 Gm/dL???Hct - 36.7 %???MCV - 97.3 femtoliters???MCH - 31.8 pg???MCHC - 32.7 g/dL???Platelet Count - 208 k/mm3???RDW-SD - 46.6 femtoliters???MPV - 10.1 femtoliters???Nucleated RBC (Automated) - 0.0 #/100 WBC'S???Abs. NRBC - 0.0 k/mm3???Abs. Neut - 19.3 k/mm3???Abs. Lymph - 2.1 k/mm3???Abs. Clark - 1.3 k/mm3???Abs. Eo - 0.0 k/mm3???Abs. Baso - 0.0 k/mm3???Neut % - 84.2 %???Lymph % - 9.0 %???Clark % - 5.7 %???Eos % - 0.0 %???Baso % - 0.1 %???Imm Gran - 1.0 %???Abs. Imm Gran - 0.2 k/mm3 Comprehensive Metabolic Panel (01/13/2023) ???Sodium - 140 mmol/L???Potassium - 4.4 mmol/L???Chloride - 106 mmol/L???Bicarbonate Level - 26 mmol/L???Anion Gap - 8???Glucose Level - 108 mg/dL???BUN - 14 mg/dL???Creatinine-Blood - 0.7 mg/dL???Estimated GFR Creatinine - 108 ML/MIN/1.73 M2???Calcium - 9.0 mg/dL???Protein, Total - 5.8 Gm/dL???Alb umin - 3.6 Gm/dL???AG Ratio - 1.6???Alkaline Phosphatase - 52 units/L???AST (SGOT) - 45 units/L???ALT (SGPT) - 25 units/L???Bilirubin, Total - 0.3 mg/dL COVID-19 (NOVEL CORONAVIRUS), PCR (01/15/2023) ???COVID-19 by RT-PCR - NEGATIVE Creatinine (01/12/2023) ???Creatinine-Blood - 1.0 mg/dL???Estimated GFR Creatinine - 91 ML/MIN/1.73 M2 Electrolytes (01/12/2023) ???Sodium - 140 mmol/L???Potassium - 4.2 mmol/L???Chloride - 107 mmol/L???Bicarbonate Level - 26 mmol/L???Anion Gap - 7 Glucose Level (01/12/2023) ???Glucose Level - 105 mg/dL High??Sensitivity??Troponin T (01/12/2023) ???High Sensitivity Troponin (HSTnT) - 7 ng/L HIV AB-AG 4TH GENERATION (01/13/2023) ???HIV 4th Generation Ab-Ag Result - NEGATIVE HOLD GEL TUBE (01/14/2023) ???Hold Gel Top - SPECIMEN DISCARDED AFTER 1 WEEK Lactate Level (01/12/2023) ???Lactate - 1.1 mmol/L Legionella Antigen Urine (01/12/2023) ???Legionella pneumophila Antigen - NEGATIVE Magnesium Level (01/13/2023) ???Magnesium - 2.1 mg/dL MRSA PCR Nasal Swab (01/13/2023) ???MRSA PCR Result - Negative, MRSA target DNA not detected.???S Aureus PCR Result - Negative, SA target DNA not detected. Phosphorus Level (01/13/2023) ???Phosphorus - 1.9 mg/dL PROBNP (01/12/2023) ???Nt-Probnp - 200 pg/mL Procalcitonin Level (01/13/2023) ???Procalcitonin - 0.08 ng/mL Respiratory Pathogen PCR with COVID-19 (01/12/2023) ???Adenovirus by PCR - NEGATIVE???Coronavirus 229E by PCR (not COVID-19) - NEGATIVE???Coronavirus HKU1 by PCR (not COVID-19) - NEGATIVE???Coronavirus NL63 by PCR (not COVID-19) - NEGATIVE???Coronavirus OC43 by PCR (not COVID-19) - NEGATIVE???Human Metapneumovirus by PCR - NEGATIVE???Rhinovirus/Enterovirus by PCR - NEGATIVE???Influenza A by PCR - NEGATIVE???Influenza B by PCR - NEGATIVE???Parainfluenza 1 by PCR - NEGATIVE???Parainfluenza 2 by PCR - NEGATIVE???Parainfluenza 3 by PCR - NEGATIVE???Parainfluenza 4 by PCR - NEGATIVE???RSV by PCR - NEGATIVE???Bordetella Pertussis by PCR - NEGATIVE??? Chlamydophila Pneumoniae by PCR - NEGATIVE???Mycoplasma Pneumoniae by PCR - NEGATIVE???COVID-19 (SARS-CoV-2) by PCR - NEGATIVE???Bordetella Parapertussis by PCR - NEGATIVE Strep Pneumoniae Urinary Ag (01/12/2023) ???S. Pneumococcus Urinary Ag - NEGATIVE Urine Cocaine Screen (01/13/2023) ???Cocaine Metabolite Screen, Urine - POSITIVE Urine Opiate Screen (01/13/2023) ???Opiate Screen, Urine - NONE DETECTED Allergies (NKA means No Known Allergies) NKA Problems Active Problems??(16) Allergic rhinitis?? Bipolar disorder?? Chronic obstructive pulmonary disease (COPD)?? Chronic pain of right knee?? Combined hyperlipidemia?? Degeneration of lumbar intervertebral disc?? Depression?? Erectile dysfunction?? GERD (gastroesophageal reflux disease)?? Hoarseness?? IFG (impaired fasting glucose)?? Left knee pain?? Opioid dependence?? Polysubstance abuse?? Pterygium of left eye?? PTSD - Post-traumatic stress disorder?? Education Materials Below is the list of Educational Leaflet Providered with your Discharge Instructions. Valuables and Belongings I fully understand and agree that [facility] accepts no responsibility for all my personal property including clothing, toilet articles, radios, jewelry, dentures, hearing aids, rings, money, or any other property that is in my possession or is brought to me after admission. I understand certain valuables may be placed in a hospital safe for a short period of time. I understand that the hospital is not liable for loss or damage due to accident, fire, or other natural occurrence while said property is in the safe. I accept full responsibility for any personal property that I keep with me, and will not hold the hospital responsible in case of loss or disappearance. I acknowledge that i have been encouraged to send valuables and belongings home. ?? No Valuables/Belongings: No valuables/belongings present Review of Valuable and Belonging List: With witness Date for Pt to Sign Valuables/Belongings: 01/12/23 10:52:00 ?? Other Discharge Information ? Pulmonary Rehab Status?? Pulmonary Rehab Discharge Status?? CPAP/BiPAP Mask Type: Full CPAP/BiPAP Mask Size: Medium Respiratory Rate: 18 br/min ? Common Emergency Awareness Tips IS IT A STROKE? Act FAST and Check for these signs: FACE Does the face look uneven? ARM Does one arm drift down? SPEECH Does their speech sound strange? TIME Call at any sign of stroke ?? Heart Attack Signs Chest discomfort: Most heart attacks involve discomfort in the center of the chest and lasts more than a few minutes, or goes away and comes back. It can feel like uncomfortable pressure, squeezing, fullness or pain. Discomfort in upper body: Symptoms can include pain or discomfort in one or both arms, back, neck, jaw or stomach. Shortness of breath: With or without discomfort. Other signs: Breaking out in a cold sweat, nausea, or lightheaded. Remember, MINUTES DO MATTER. If you experience any of these heart attack warning signs, call to get immediate medical attention! ?? Smoking can increase your chances of developing chronic health problems and can cause harmful effects to other family members in your house. If you smoke, you are strongly encouraged to quit. Please call [facility] at [phone] or [phone] ([phone]) or log in to [email or web address] for referrals to smoking cessation programs. ?? The National Suicide Prevention Hotline is available 29/04 if you or someone you know needs to find a reason to keep living. By calling 7-822-124-[employer] (0637) you'll be connected to a skilled, trained counselor at a crisis center in your area. INPATIENT DISCHARGE INSTRUCTIONS SIGNATURE YISEL BROWNSADAAN Location:[facility] Registration Date and Time:01/12/2023 08:14 EDT Primary Care Physician: Mathieu Christina MD, CATHRYN LANGE, have received the above patient education materials/instructions and have verbalizedunderstanding. If ambulance or transport services are being used I further acknowledge being given a choice of service. ?? If you need to contact me, please call me at this number: . Patient/Heavy Coil Winder Name: Patient/Heavy Coil Winder Signature: Relationship to Patient: Witness Name/Signature: Date: * Event Display: Cardiac Rhythm Strips Authored Date: * Ponce LIND, Noor: PERFORM, MODIFY Event Display: Discharge/Transfer Note Hospital Authored Date: Patient: ??CATHRYN BROWN ? Age:??57 Years?Sex:??Male?:??1965?? Patient Information Discharge Location: [facility] Primary Care Physician: Mathieu Christina MD Admit Date/Time: 01/12/23 08:14 Discharge Disposition Discharge Disposition: [facility]??detox program Discharge Diagnosis Acute respiratory failure with hypoxia (J96.01) COPD with acute exacerbation (J44.1) Community acquired pneumonia (J18.9) Polysubstance abuse (F19.10) Bipolar disorder (F31.9) GERD (gastroesophageal reflux disease) (K21.9) ?? _ Discharge Medications Albuterol (Albuterol (Eqv-ProAir HFA) 90 mcg/inh inhalation aerosol)?1?puff(s)?Inhalation?Every 6 hours?as needed? NEEDED FOR WHEEZING/SHORTNESS OF BREATH Albuterol/Ipratropium (albuterol-ipratropium 3 mg-0.5 mg/3 ml inhalation solution)?1?vials?Inhalation?4 times a day Amoxicillin-Clavulanate (amoxicillin-clavulanate 875 mg-125 mg oral tablet)?1?tab(s)?By Mouth?2 times a day?for 2?Days Buprenorphine-Naloxone (buprenorphine-naloxone 2 mg-0.5 mg sublingual film)?1?Film?Sublingual?Daily?dissolve under the tongue Docusate (docusate sodium 100 mg oral capsule)?1?capsule?By Mouth?2 times a day?as needed? NEEDED FOR CONSTIPATION Doxycycline (doxycycline monohydrate 100 mg oral tablet)?100?Milligram?By Mouth?Every 12 hours?for 2?Days Durable Medical Equipment (1 each)?See Instructions?please supply one knee brace.diagnosis: left knee injury Durable Medical Equipment (Mouth piece for Nebulizer)?See Instructions?Use as instructed PredniSONE (predniSONE 20 mg oral tablet)?2?tab(s)?40?Milligram?By Mouth?Daily?for 1?Days Quetiapine (QUEtiapine 25 mg oral tablet)?50?Milligram?2?tablet?By Mouth?Daily?as needed?Anxiety Sildenafil (sildenafil 50 mg oral tablet)?1?tab(s)?50?Milligram?By Mouth?Daily?1 hour before sexual activity Simvastatin (simvastatin 10 mg oral tablet)?1?tablet?By Mouth?Daily at bedtime Trazodone (traZODone 100 mg oral tablet)?2 tablets?By Mouth?Daily at bedtime ? Quality Measures Tobacco Use Treatment:? Medications Started Augmentin and doxycycline??until 01/16 Prednisone??40 mg??until 01/16 Allergies Allergies ?(Active and Proposed Allergies Only) NKA? (Severity: Unknown severity, Onset: Unknown) ? PCP Follow-Up/Heads-Up Smoking cessation, illicit drug use abstinence COPD??outpatient management Future Appointments Saturday. 2022 10:00 AM EDT ?? With: Carri LIND, Mathieu Where: [facility] [address] [address]- Hospital Course 57 y/o M with a PMH COPD-not on home oxygen, Tobacco dependence, PSA incl cocaine inhalation, Bipolar disorder/PTSD who was admitted from [facility] detox program with acute severe SOB, wheezing and hypoxia. He does admit to active cocaine use/inhalation and urine tox screen positive suggestive very recent use.?Patient was??admitted for??acute on chronic??COPD exacerbation??as well as right lowerlung??pneumonia. .Was started on??antibiotics,??steroids and??breathing treatment which she responded well??and??successfully weaned off??oxygen supplementation and currently breathing??comfortably on room air??,??no wheeze??or respiratory distress noted??.?No other active issues ongoing??.?Hemodynamically stable and??okay to be discharged??preferably back to??Detox . ? Following recommendations??upon discharge??: -Take-Augmentin and Doxy??until??01/16/2023 to complete total 5 days of antibiotic??. -Continue taking inhalers as before.?? -Continue rest of the home medications as before -Take 40 mg prednisone??tomorrow??only 1 dose.??To complete total 5-day course of steroid. -Would recommend smoking cessation. -Continue??detox program at [facility].. ? Objective Assessment and Plan Assessment:?Acute??Hypoxia ??PNA ??COPD exacerbation: ??Tobacco dependence: ??Probable crack lung: ??Procalcitonin 0.08 however CXR ~ RLL opacity and worsening leucocytosis, will start pt on Abx. ??- Augmentin and doxy for 5 days ??- Prednisone 40 mg po qd x 5 days?- Smoking cessation, NRT ??- Refrain from cocaine inhalation/snorting!!! (reviewed risk of lung injury in length with patient) ? PSA ??- Pt motivated to return to [facility] program (he is homeless) ??- Refrain from illicit drug use! ?? Bipolar disorder: ??PTSD: ??- Seroquel 600 mg po qhs and 50 mg PRN ??- Trazodone 100 mg po qhs ? Vital Signs?? Temperature: 97.7 DegF (01/15/23 06:00:00) Temperature Route: Oral (01/15/23 06:00:00) Pulse Rate:??95 bpm??High (01/15/23 06:00:00) Respiratory Rate: 19 br/min (01/15/23 06:00:00) Systolic Blood Pressure: 135 mm Hg (01/15/23 06:00:00) Diastolic Blood Pressure: 75 mm Hg (01/15/23 06:00:00) Blood pressure sites: Arm, left (01/15/23 06:00:00) Pulse Pressure: 41 mm Hg (01/14/23 14:00:00) Oxygen Saturation: 95 % (01/15/23 06:00:00) Mode of Delivery (Oxygen): Room air (01/15/23 06:00:00) Early Warning Score: 4 (01/15/23 06:10:25) ? . Physical Exam Respiratory:??CTAB, no wheezing Cardiovascular:??Heart sounds normal. No thrills. Regular rate and rhythm, no murmurs, rubs or gallops. Gastrointestinal:??Abdomen soft, non-tender, non-distended. Pending Results Add On Lab Order ordered on 01/12/2023 Add On Lab Order ordered on 01/13/2023 Add On Lab Order ordered on 01/13/2023 Sputum Culture w/ Gram Smear ordered on 01/12/2023 Follow-Up Appointments Added Follow Up ?Time Frame ?Comments Mathieu Christina MD?1 to 2 weeks Patient Instructions ? Following recommendations upon discharge : -Take-Augmentin and Doxy until 01/16/2023 to complete total 5 days of antibiotic . -Continue taking inhalers as before.?? -Continue rest of the home medications as before -Take 40 mg prednisone tomorrow only 1 dose. To complete total 5-day course of steroid. -Would recommend smoking cessation. -Continue detox program at [facility].. Post Discharge Care Diet: Regular Diet Code Status: ?? Full Resuscitation Condition: fair Home Health Face to Face ^HomeHealthFTF Results Discharge Labs BACTERIOLOGY MRSA PCR Result Negative, MRSA target DNA not detected. ()?? 01/13/2023 09:10 S Aureus ??PCR Result Negative, SA target DNA not detected. ()?? 01/13/2023 09:10 ?? BLOOD COUNT & DIFF WBC 15.0 k/mm3 (High)?? 01/15/2023 00:07 RBC 3.94 m/mm3 (Low)?? 01/15/2023 00:07 Hgb 12.5 Gm/dL (Low)?? 01/15/2023 00:07 Hct 37.9 % (Low)?? 01/15/2023 00:07 MCV 96.2 femtoliters (High)?? 01/15/2023 00:07 MCH 31.7 pg ()?? 01/15/2023 00:07 MCHC 33.0 g/dL ()?? 01/15/2023 00:07 Platelet Count 220 k/mm3 ()?? 01/15/2023 00:07 RDW-SD 46.1 femtoliters ()?? 01/15/2023 00:07 MPV 10.0 femtoliters ()?? 01/15/2023 00:07 Nucleated RBC (Automated) 0.0 #/100 WBC'S ()?? 01/15/2023 00:07 Abs. NRBC 0.0 k/mm3 ()?? 01/15/2023 00:07 Abs. Neut 19.3 k/mm3 (High)?? 01/14/2023 05:21 Abs. Lymph 2.1 k/mm3 ()?? 01/14/2023 05:21 Abs. Clark 1.3 k/mm3 ()?? 01/14/2023 05:21 Abs. Eo 0.0 k/mm3 ()?? 01/14/2023 05:21 Abs. Baso 0.0 k/mm3 ()?? 01/14/2023 05:21 Neut % 84.2 % (High)?? 01/14/2023 05:21 Lymph % 9.0 % (Low)?? 01/14/2023 05:21 Clark % 5.7 % ()?? 01/14/2023 05:21 Eos % 0.0 % ()?? 01/14/2023 05:21 Baso % 0.1 % ()?? 01/14/2023 05:21 Imm Gran 1.0 % ()?? 01/14/2023 05:21 Abs. Imm Gran 0.2 k/mm3 ()?? 01/14/2023 05:21 ?? CARDIAC Nt-Probnp 200 pg/mL (High)?? 01/12/2023 06:53 High Sensitivity Troponin (HSTnT) 7 ng/L ()?? 01/12/2023 06:53 ?? CHEM GENERAL Sodium 142 mmol/L ()?? 01/15/2023 00:07 Potassium 4.9 mmol/L ()?? 01/15/2023 00:07 Chloride 106 mmol/L ()?? 01/15/2023 00:07 Bicarbonate Level 26 mmol/L ()?? 01/15/2023 00:07 Anion Gap 10 ()?? 01/15/2023 00:07 Glucose Level 95 mg/dL ()?? 01/15/2023 00:07 BUN 14 mg/dL ()?? 01/15/2023 00:07 Creatinine-Blood 0.8 mg/dL ()?? 01/15/2023 00:07 Estimated GFR Creatinine 106 ML/MIN/1.73 M2 ()?? 01/15/2023 00:07 Calcium 9.3 mg/dL ()?? 01/15/2023 00:07 Phosphorus 1.9 mg/dL (Low)?? 01/13/2023 06:49 Magnesium 2.1 mg/dL ()?? 01/13/2023 06:49 Protein, Total 5.8 Gm/dL (Low)?? 01/13/2023 06:49 Albumin 3.6 Gm/dL ()?? 01/13/2023 06:49 AG Ratio 1.6 ()?? 01/13/2023 06:49 Alkaline Phosphatase 52 units/L ()?? 01/13/2023 06:49 AST (SGOT) 45 units/L (High)?? 01/13/2023 06:49 ALT (SGPT) 25 units/L ()?? 01/13/2023 06:49 Bilirubin, Total 0.3 mg/dL ()?? 01/13/2023 06:49 Lactate 1.1 mmol/L ()?? 01/12/2023 06:53 ?? MISC. CHEMISTRY Procalcitonin 0.08 ng/mL ()?? 01/13/2023 06:49 Hold Gel Top SPECIMEN DISCARDED AFTER 1 WEEK ()?? 01/14/2023 05:18 ?? SEROLOGY INF DISEASE Hepatitis C Ab NEGATIVE (N)?? 01/13/2023 06:49 Legionella pneumophila Antigen NEGATIVE ()?? 01/12/2023 19:10 S. Pneumococcus Urinary Ag NEGATIVE ()?? 01/12/2023 19:10 HIV 4th Generation Ab-Ag Result NEGATIVE (N)?? 01/13/2023 06:49 ?? TOXICOLOGY/TDM Ethanol, Serum or Plasma NONE DETECTED mg/dL ()?? 01/12/2023 06:53 Cocaine Metabolite Screen, Urine POSITIVE (Abnormal)?? 01/13/2023 08:35 Opiate Screen, Urine NONE DETECTED ()?? 01/13/2023 08:35 ? VIROLOGY Adenovirus by PCR NEGATIVE ()?? 01/12/2023 19:20 Coronavirus 229E by PCR (not COVID-19) NEGATIVE ()?? 01/12/2023 19:20 Coronavirus HKU1 by PCR (not COVID-19) NEGATIVE ()?? 01/12/2023 19:20 Coronavirus NL63 by PCR (not COVID-19) NEGATIVE ()?? 01/12/2023 19:20 Coronavirus OC43 by PCR (not COVID-19) NEGATIVE ()?? 01/12/2023 19:20 Human Metapneumovirus by PCR NEGATIVE ()?? 01/12/2023 19:20 Rhinovirus/Enterovirus by PCR NEGATIVE ()?? 01/12/2023 19:20 Influenza A by PCR NEGATIVE ()?? 01/12/2023 19:20 Influenza B by PCR NEGATIVE ()?? 01/12/2023 19:20 Parainfluenza 1 by PCR NEGATIVE ()?? 01/12/2023 19:20 Parainfluenza 2 by PCR NEGATIVE ()?? 01/12/2023 19:20 Parainfluenza 3 by PCR NEGATIVE ()?? 01/12/2023 19:20 Parainfluenza 4 by PCR NEGATIVE ()?? 01/12/2023 19:20 RSV by PCR NEGATIVE ()?? 01/12/2023 19:20 Bordetella Pertussis by PCR NEGATIVE ()?? 01/12/2023 19:20 Chlamydophila Pneumoniae by PCR NEGATIVE ()?? 01/12/2023 19:20 Mycoplasma Pneumoniae by PCR NEGATIVE ()?? 01/12/2023 19:20 COVID-19 by RT-PCR NEGATIVE ()?? 01/12/2023 06:30 COVID-19 (SARS-CoV-2) by PCR NEGATIVE ()?? 01/12/2023 19:20 Bordetella Parapertussis by PCR NEGATIVE ()?? 01/12/2023 19:20 ? 35 ??minutes spent on discharge * Ponce LIND, Noor: PERFORM Event Display: Discharge/Transfer Note Hospital Authored Date: ??? Postponed until tomorrow due to unavailability of??facility. Hospital Progress note * Kristin Aguilera RN: PERFORM, SIGN, VERIFY Event Display: Progress Note Hospital Authored Date: Patient: CATHRYN BROWN Age: 57 years Sex: Male : 1965 Associated Diagnoses: None Author: Kristin Aguilera RN Findings Problem Related to Alteration in Respiratory Function (new) : Alteration in Respiratory Function/new 01/15/2023 2:00 EDT Alteration in Resp Status Related to COPD, Pneumonia, Other: ?cocaine inhalation Goals & Outcomes, Respiratory Pt will maintain adequate nutritional intake, Pt will maintain/resume normal fluid/electrolyte balance Interventions, Respiratory Assess for and report S&S of respiratory distress, Position for comfort & optimal oxygenation BH Goals/Interventions, Respiratory Yes Respiratory, Problem Start 01/11/2023 17:05 Reviewed Plan with, Respiratory Patient Patient Progression, Respiratory Patient progressing according to plan . Nursing Data Vital Signs : VITAL SIGNS SECTION 01/15/2023 19:47 EDT Early Warning Score 5.00 01/15/2023 19:47 EDT Temperature 97.5 DegF Temperature Route Oral Pulse Rate 105 bpm H Respiratory Rate 18 br/min Systolic Blood Pressure 125 mm Hg Diastolic Blood Pressure 76 mm Hg Blood pressure sites Arm, left Mean Arterial Pressure 92 mm Hg Pulse Pressure 49 mm Hg Oxygen Saturation 93 % L Mode of Delivery (Oxygen) Room air . Evaluation Patient alert and oriented this evening. No complaints of pain noted or expressed on this shift.VS within patient's normal limits. No SOB noted. Patient ambulates with supervision to the bathroom. Accepts medications with no complication. Patient resting in bed with eyes close. Bed in low position,call light within reach.. * Cali Webb RN: VERIFY, PERFORM, SIGN Event Display: Progress Note Hospital Authored Date: [id number] Patient: CATHRYN BROWN Age: 57 years Sex: Male : 1965 Associated Diagnoses: None Author: Cali Webb RN Findings Nursing Data Vital Signs : VITAL SIGNS SECTION 01/15/2023 14:45 EDT Temperature 98.6 DegF Temperature Route Oral Pulse Rate 92 bpm H (Modified) Respiratory Rate 20 br/min (Modified) Systolic Blood Pressure 130 mm Hg (Modified) Diastolic Blood Pressure 79 mm Hg (Modified) Blood pressure sites Arm, left (Modified) Mean Arterial Pressure 96 mm Hg (Modified) Pulse Pressure 51 mm Hg (Modified) Oxygen Saturation 97 % Mode of Delivery (Oxygen) Room air . Narrative/Incidental No acute events. Patient awake, alert & oriented, calm & cooperative throughout the day. Medications administered per orders. Denies pain, resting comfortably. Eating and eliminating without difficulty. OOB ambulating with steady gait. Vitals stable on room air. No signs of distress. Patient safety maintained.. * Kristin Aguilera RN: VERIFY, PERFORM, SIGN Event Display: Progress Note Hospital Authored Date: [id number] Patient: CATHRYN BROWN Age: 57 years Sex: Male : 1965 Associated Diagnoses: None Author: Kristin Aguilera RN Findings Problem Related to Alteration in Respiratory Function (new) : Alteration in Respiratory Function/new 01/15/2023 2:00 EDT Alteration in Resp Status Related to COPD, Pneumonia, Other: ?cocaine inhalation Goals & Outcomes, Respiratory Pt will maintain adequate nutritional intake, Pt will maintain/resume normal fluid/electrolyte balance Interventions, Respiratory Assess for and report S&S of respiratory distress, Position for comfort & optimal oxygenation Goals/Interventions, Respiratory Yes Respiratory, Problem Start 01/11/2023 17:05 Reviewed Plan with, Respiratory Patient Patient Progression, Respiratory Patient progressing according to plan . Nursing Data Vital Signs : VITAL SIGNS SECTION 01/14/2023 20:00 EDT Temperature 97.3 DegF Temperature Route Oral Pulse Rate 88 bpm Respiratory Rate 18 br/min Systolic Blood Pressure 114 mm Hg Diastolic Blood Pressure 64 mm Hg Blood pressure sites Arm, left Oxygen Saturation 94 % Mode of Delivery (Oxygen) Room air . Narrative/Incidental Patient pleasant, alert and oriented x 4 this evening. Patient's vital signs within his normal limits. Patient had no complaints of pain. Able to ambulate to the bathroom with no incident. Patient did have wheezing noted upon exam no SOB noted. Patient resting in bed with eyes closed at this time. Bed in low position with call light within reach.. Portable XR Chest Views * BHSPowerscribe , CIS S: TRANSCRIBE Lili Awad MD: VERIFY Event Display: Result: Authored Date: [id number] Chest Portable Reason: Shortness of Breath; Clinical Question(s): CHF COMPARISON: 10/14/2021 FINDINGS: Right lung base opacity with small right pleural effusion. Left lung is clear. No left pleural effusion. No pneumothorax. Normal heart size. No acute osseous change. IMPRESSION: Right lung base opacity, which could represent atelectasis or infection, with small right pleural effusion. WSN: [id number] Ordering Physician: Yimi Jiménez Dictated By: Lili Awad MD Dictated Date/Time: 01/12/23 10:39 a Reviewed By: Lili Awad MD Signed By: Lili Awad MD Signed Date/Time: 01/12/23 10:39 am Transcribed By: DEEPTHI Transcribed Date/Time: 01/12/23 10:38 am Patient Care team information Care Team Personnel Name: Maverick Patel Position: [facility] Cardio/Pulm Mgr ([facility]) Member Role: Primary Care Nurse Name: Apryl Gray RN Position: [facility] RN Member Role: Primary Care Nurse Name: Mathieu Christina MD Position: [facility] Primary Care Physician Member Role: PCP Address: Address: [address] [place] [id number]- Name: *CHET Inlety Attending Position: [facility] ED Medicine Name: Genoveva Rojas Position: [facility] ED TA [facility] Member Role: [employer] Engineer Name: Josh Boss RN Position: [facility] ED RN W/OE and Tasks Member Role: Patient Care Provider Name: Emily Grant DO Position: [facility] Resident Member Role: ED Resident Address: Address: [address] [place] [address] [place] [address]- Care Team Related Persons Name: MONA MANUEL Address: [address] Name: MONA MANUEL Address: home [address] [place] [id number] Name: BOUCHRA VELOZ Address: home NONE GIVEN Name: MONA BROWN Address: home [address] [place] [address]
--- OUTSIDE RECORDS SUMMARY | 2023-05-24 00:58 | XMS_ITS | Continuity of Care Document ---
Author Name Unknown Organization [facility] Address [address] [place] [address]- Care Team Providers Care Cigarette Catcher Name Role Phone Mathieu Christina MD Primary Care Physician Encounter [facility] Date(s): 07/17/22 - 10/12/22 [facility] [address] [place] [address]- Attending Physician: Mathieu Christina MD Allergies, Adverse Reactions, Alerts No Known [...] pneumococcal 23-valent vaccine 10/20/11 Given 1Result Comment: [facility]# [id number] 2Location History[facility] 1 each, See Instructions, # 1 each, Refills 0, Tot. Refills 0, Maintenance, please supply one knee brace. diagnosis: left knee injury, 01/15/19 13:39:43 EDT, Compound Start Date: 01/15/19 Status: Ordered Albuterol (Eqv-ProAir HFA) 90 mcg/inh inhalation aerosol 1 puffs, Inhalation, Every 6 hours, PRN NEEDED FOR WHEEZING/SHORTNESS OF BREATH, # 8.5 each, 5 Refills, [facility], 30, TAKE 1 PUFF BY MOUTH EVERY 6 HOURS NEEDED FOR WHEEZING/SHORTNESS OF BREATH, 165, cm, 10/14/21 14:50:00 EST, Height, 78.6... Start Date: 05/13/22 Status: Ordered albuterol-ipratropium 3 mg-0.5 mg/3 ml inhalation solution 1 vials, Inhalation, 4 times a day, # 360 mL, 0 Refills, Maintenance, 02/03/21 7:44:00 EDT, [facility]14[facility], 30, USE 1 VIAL WITH NEBULIZER FOUR TIMES A DAY, 166, cm, 12/21/20 16:08:00 EDT, Height Start Date: 02/03/21 Status: Ordered betamethasone topical dipropionate 0.05% cream See Instructions, APPLY TO THE AFFECTED AREA TWICE A DAY, # 15 Gm, 3 Refills, Maintenance, 04/18/2110:54:00 EDT, [facility] #[id number], 7, APPLY TO THE AFFECTED AREA TWICE A DAY, 166, cm, 04/18/21 10:20:00 EDT, Height Start Date: 04/18/21 Status: Ordered Citrucel 2 gm/19 gm oral powder for reconstitution = 2 Gm, By Mouth, 2 times a day, # 507 Gm, 1 Refills, Maintenance, 03/27/21 9:12:00 EDT, [facility] #[id number], Partial fill upon patient request if the prescription is for a schedule II opioiddrug., 166, cm, 12/21/20 16:08:00 EDT, Height Start Date: 03/27/21 Status: Ordered Colace Clear 50 mg oral capsule 1 capsule = 50 mg, By Mouth, Daily, Decrease use to every other day if diarrhea develops., # 30 capsule, 0 Refills, Maintenance, 07/20/21 13:29:00 EDT, [facility]/pharmacy #1111, Partial fill upon patient request if the prescription is for a schedule II opio... Start Date: 07/20/21 Stop Date: 08/19/21 Status: Ordered docusate sodium 100 mg oral capsule 1 capsule, By Mouth, 2 times a day, PRN NEEDED FOR CONSTIPATION, # 100 capsule, 0 Refills, Maintenance, 09/13/20 17:22:00 EST, [facility] STORE 83114, 166, cm, 07/26/20 9:41:00 EDT, Height, 87, kg, 10/14/18 13:06:00 EST, Dry Weight Start Date: 09/13/20 Status: Ordered famotidine 40 mg oral tablet 1 tablet, By Mouth, Daily at bedtime, # 30 tablet, 2 Refills, Maintenance, 09/05/20 9:40:00 EST, [facility]/pharmacy #1111, 166, cm, 07/26/20 9:41:00 EDT, Height, 87, kg, 10/14/18 13:06:00 EST, Dry Weight Start Date: 09/05/20 Status: Ordered Flonase 50 mcg/inh nasal spray 2 sprays = 100 mcg, Nares, Both, 2 times a day, # 1 each, 5 Refills, Maintenance, 01/31/21 8:43:00 EDT, [place], [facility]/pharmacy #1111, 2 sprays Nares, Both 2 times a day, 166, cm, 12/21/20 16:08:00 EDT, Height Start Date: 01/31/21 Status: Ordered Hibiclens 4% soap See Instructions, Wash affected areas twice daily., # 240 mL, 1 Refills, Soft Stop, 07/20/21 13:30:00 EDT, [facility]/pharmacy #1111, Partial fill upon patient request if the prescription is for a schedule II opioid drug., Wash affected areas twice daily., 1... Start Date: 07/20/21 Status: Ordered ibuprofen 800 mg oral tablet 800 mg, 1, tablet, By Mouth, 2 times a day, with food or milk, # 60 tablet, Refills 1, Tot. Refills1, Maintenance, 01/28/19 10:46:50 EDT, Route to Pharmacy Electronically, [id number], [facility]/pharmacy #1111 Start Date: 01/28/19 Status: Ordered Mouth piece for Nebulizer Mouth piece for Nebulizer, See Instructions, # 3 each, Refills 3, Tot. Refills 3, Maintenance, Use as instructed, 01/11/21 18:16:00 EDT, ICD 10 is J44.9, Supply, 166, cm, 12/21/20 16:08:00 EDT, Height Start Date: 01/11/21 Status: Ordered NuLYTELY with Flavor Packs oral powder for reconstitution See Instructions, Drink 240mL every 15-20 minutes until first half is gone. Repeat 6 hours prior toprocedure., # 4,000 mL, 0 Refills, Maintenance, 07/17/21 13:06:00 EDT, [facility]/pharmacy #1111, Please fill with any available gallon colon prep, Drink 240... Start Date: 07/17/21 Status: Ordered NuLYTELY with Flavor Packs oral powder for reconstitution See Instructions, Drink 240mL every 15-20 minutes until first half is gone. Repeat 6 hours prior toprocedure., # 4,000 mL, 0 Refills, Maintenance, 07/12/22 9:55:00 EDT, [facility]/pharmacy #1111, Partial fill upon patient request if the prescription is for... Start Date: 07/12/22 Status: Ordered omeprazole 20 mg oral enteric coated capsule See Instructions, TAKE 1 CAPSULE BY MOUTH EVERY DAY -CAPS PER INSURANCE, # 90 capsule, 0 Refills, 08/22/21 17:04:00 EST, [facility], 166, cm, 04/18/21 10:20:00 EDT, Height Start Date: 08/22/21 Status: Ordered permethrin 5% topical cream See Instructions, 1 application Topically Once Apply from head to toe, leave on for 8-14 hr, rinse;may reapply in 7 days if live mites reappear, # 60 Gm, 0 Refills, Maintenance, 06/01/21 12:45:00 EDT, Cream, [facility]/pharmacy #1111, Partial fill upon pat... Start Date: 06/01/21 Status: Ordered QUEtiapine 25 mg oral tablet 25 mg, 1, tablet, By Mouth, Daily, PRN, or agitation, Anxiety Start Date: 10/14/18 Status: Ordered QUEtiapine 300 mg oral tablet 2 tablet = 600 mg, By Mouth, Daily at bedtime Start Date: 10/14/18 Status: Ordered sildenafil 50 mg oral tablet 1 tablet = 50 mg, By Mouth, Daily, 1 hour before sexual activity, # 10 tablet, 3 Refills, Maintenance, 01/01/22 12:31:00 EDT, Tablet, [facility], 165, cm, 10/14/21 14:50:00 EST, Height, 78.6,kg, 10/14/21 14:50:00 EST, Dry Weight Start Date: 01/01/22 Status: Ordered simvastatin 10 mg oral tablet 1, tablet, By Mouth, Daily at bedtime, # 90 tablet, Refills 1, Maintenance, 07/12/22 17:09:00 EDT, Route to Pharmacy Electronically, [facility], 165, cm, 05/30/22 13:27:00 EDT, Height, 78.6, kg,10/14/21 14:50:00 EST, Dry Weight Start Date: 07/12/22 Status: Ordered Suboxone 8 mg-2 mg sublingual film 2.5 each, Sublingual, Daily, 0 Refills, Maintenance, 06/08/15 10:28:14 EDT Start Date: 06/08/15 Status: Ordered SUMAtriptan 50 mg oral tablet 1 tablet, By Mouth, Daily, PRN NEEDED FOR MIGRAINES, MAY REPEAT DOSE AFTER 2 HOURS, MAXIMUM OF 2DOSES, # 9 tablet, 2 Refills, [facility], 165, cm, 10/14/21 14:50:00 EST, Height, 78.6, kg, 10/14/21 14:50:00 EST, Dry Weight Start Date: 01/29/22 Status: Ordered traZODone 100 mg oral tablet 2 tablets, By Mouth, Daily at bedtime, # 180 tablet, Refills 0, Maintenance, 10/09/18 9:38:26 EST Start Date: 10/09/18 Status: Ordered Problem List Condition Confirmation Course Effective Dates Status H ealth Status Informant Allergic rhinitis Confirmed Active Bipolar disorder Confirmed Active Chronic obstructive pulmonary disease (COPD) Confirmed Active Chronic post-traumatic stress disorder Confirmed Active Degeneration of lumbar intervertebral disc [...] PTSD - Post-traumatic stress disorder Confirmed Active Reflux Confirmed Active Social History Social History Type Response Smoking Status 5-9 cigarettes (betw een 1/4 to 1/2 pack)/day in last 30 days; Tobacco user in household: Yes entered on: 06/15/20 Sex Patient Care team information Care Team Personnel Name: Maverick Patel Position: [facility] Cardio/Pulm Mgr ([facility]) Member Role: Primary Care Nurse Name: Mathieu Christina MD Position: [facility] Primary Care Physician Member Role: PCP Address: Address: [address] [place] [address] Care Team Related Persons Name: MONA MANUEL Address: home [address] [place] [id number] Name: MONA MANUEL Address: home [address] [place] [address] Name: BOUCHRA VELOZ Address: home NONE GIVEN Name: MONA BROWN Address: home [address] [place] [address]
--- OUTSIDE RECORDS SUMMARY | 2023-05-24 00:58 | XMS_ITS | Continuity of Care Document ---
Author Name Unknown Organization [facility] Address [address] [place] [address]- Care Team Providers Care Ballast Regulator Operator Name Role Phone Mathieu Christina MD Primary Care Physician [phone] [facility] Date(s): 11/08/22 - [facility] [address] [place] [address]- Attending Physician: David Fox MD Referring Physician: Gumaro WEINBERG, Batsheva Burrell Allergies, Adverse Reactions, Alerts No Known Allergies [...] pneumococcal 23-valent vaccine 10/20/11 Given 1Result Comment: [facility]# [id number] 2[facility] History[facility] 1 [...] 8.5 each, 5 Refills, 11/08/22 15:58:00 EST, [facility]/pharmacy #1111, 30, 1 puffs Inhalation Every 6 hours,PRN: NEEDED FOR WHEEZING/SHORTNESS OF BREATH, 165, cm, ... Start Date: 11/08/22 Status: Ordered albuterol-ipratropium 3 mg-0.5 mg/3 ml inhalation solution 1 vials, Inhalation, 4 times a day, # 360 mL, 0 Refills, Maintenance, 11/08/22 15:58:00 EST, [facility]/pharmacy #1111, 30, 1 vials Inhalation 4 times a day, 165, cm, 08/17/22 7:14:00 EST, Height, 82, kg, 08/06/22 12:30:00 EDT, Dry Weight Start Date: 11/08/22 Status: Ordered betamethasone topical dipropionate 0.05% cream See Instructions, APPLY TO THE AFFECTED AREA TWICE A DAY, # 15 Gm, 3 Refills, Maintenance, 04/18/2110:54:00 EDT, [facility] #[id number], 7, APPLY TO THE AFFECTED AREA TWICE A DAY, 166, cm, 04/18/21 10:20:00 EDT, Height Start Date: 04/18/21 Status: Ordered Citrucel 2 gm/19 gm oral powder for reconstitution = 2 Gm, By Mouth, 2 times a day, # 507 Gm, 1 Refills, Maintenance, 03/27/21 9:12:00 EDT, [facility] #[id number], Partial fill upon patient request if the prescription is for a schedule II opioiddrug., 166, cm, 12/21/20 16:08:00 EDT, Height Start Date: 03/27/21 Status: Ordered Colace Clear 50 mg oral capsule 1 capsule = 50 mg, By Mouth, Daily, Decrease use to every other day if diarrhea develops., # 30 capsule, 0 Refills, Maintenance, 07/20/21 13:29:00 EDT, [facility]/pharmacy #1111, Partial fill upon patient request if the prescription is for a schedule II opio... Start Date: 07/20/21 Stop Date: 08/19/21 Status: Ordered docusate sodium 100 mg oral capsule 1 capsule, By Mouth, 2 times a day, PRN NEEDED FOR CONSTIPATION, # 100 capsule, 0 Refills, Maintenance, 09/13/20 17:22:00 EST, [facility] STORE 87468, 166, cm, 07/26/20 9:41:00 EDT, Height, 87, kg, 10/14/18 13:06:00 EST, Dry Weight Start Date: 09/13/20 Status: Ordered famotidine 40 mg oral tablet 1 tablet, By Mouth, Daily at bedtime, # 30 tablet, 2 Refills, Maintenance, 09/05/20 9:40:00 EST, [facility]/pharmacy #1111, 166, cm, 07/26/20 9:41:00 EDT, Height, 87, kg, 10/14/18 13:06:00 EST, Dry Weight Start Date: 09/05/20 Status: Ordered Flonase 50 mcg/inh nasal spray 2 sprays = 100 mcg, Nares, Both, 2 times a day, # 1 each, 5 Refills, Maintenance, 01/31/21 8:43:00 EDT, [place], [facility]/pharmacy #1111, 2 sprays Nares, Both 2 times a day, 166, cm, 12/21/20 16:08:00 EDT, Height Start Date: 01/31/21 Status: Ordered Hibiclens 4% soap See Instructions, Wash affected areas twice daily., # 240 mL, 1 Refills, Soft Stop, 07/20/21 13:30:00 EDT, [facility]/pharmacy #1111, Partial fill upon patient request if the prescription is for a schedule II opioid drug., Wash affected areas twice daily., 1... Start Date: 07/20/21 Status: Ordered ibuprofen 800 mg oral tablet 800 mg, 1, tablet, By Mouth, 2 times a day, with food or milk, # 60 tablet, Refills 1, Tot. Refills1, Maintenance, 01/28/19 10:46:50 EDT, Route to Pharmacy Electronically, [id number], [facility]/pharmacy #1111 Start Date: 01/28/19 Status: [...] mL, 0 Refills, Maintenance, 07/17/21 13:06:00 EDT, [facility], Please fill with any available gallon colon prep, Drink 240... Start Date: 07/17/21 Status: Ordered NuLYTELY with Flavor Packs oral powder for reconstitution See Instructions, Drink 240mL every 15-20 minutes until first half is gone. Repeat 6 hours prior toprocedure., # 4,000 mL, 0 Refills, Maintenance, 07/12/22 9:55:00 EDT, [facility], Partial fill upon patient request if [...] 0 Refills, Maintenance, 06/01/21 12:45:00 EDT, Cream, [facility], Partial fill upon pat... Start Date: [...] 3 Refills, Maintenance, 01/01/22 12:31:00 EDT, Tablet, [facility]/pharmacy #1111, 165, cm, 10/14/21 14:50:00 EST, Height, 78.6,kg, 10/14/21 14:50:00 EST, Dry Weight Start Date: 01/01/22 Status: Ordered simvastatin 10 mg oral tablet 1, tablet, By Mouth, Daily at bedtime, # 90 tablet, Refills 1, Maintenance, 07/12/22 17:09:00 EDT, Route to Pharmacy Electronically, [facility], 165, cm, 05/30/22 13:27:00 EDT, Height, 78.6, [...] # 9 tablet, 2 Refills, [facility], 165, cm, 10/14/21 14:50:00 EST, Height, 78.6, [...] Care Team Personnel Name: Maverick Patel Position: [facility] Cardio/Pulm Mgr ([facility]) Member Role: Primary Care Nurse Name: Mathieu Christina MD Position: [facility] Primary Care Physician Member Role: PCP Address: Address: [address] [place] [address]- Care Team Related Persons Name: MONA MANUEL Address: home [address] [place] [phone] Name: MONA MANUEL Address: home [address] [place] [id number] Name: BOUCHRA VELOZ Address: home NONE GIVEN Name: MONA BROWN Address: home [address] [place] [address]
--- OUTSIDE RECORDS SUMMARY | 2023-05-24 00:59 | XMS_ITS | Continuity of Care Document ---
Author Name Unknown Organization [facility] Address [address] [place] [address]- Care Team Providers Care School Childcare Attendant Name Role Phone Mathieu Christina MD Primary Care Physician [phone] Encounter [facility] Date(s): 03/21/22 - [facility] [address] [place] [address]- [place] Allergies, Adverse Reactions, Alerts No Known Allergies [...] 23-valent vaccine 10/20/11 Given 1Result Comment: [facility]# [id number] 2Location History[facility] 1 each, See Instructions, # 1 each, Refills 0, Tot. Refills 0, Maintenance, please supply one knee brace. diagnosis: left knee injury, 01/15/19 13:39:43 EDT, Compound Start Date: 01/15/19 Status: Ordered Albuterol (Eqv-ProAir HFA) 90 mcg/inh inhalation aerosol See Instructions, TAKE 1 PUFF BY MOUTH EVERY 6 HOURS NEEDED FOR WHEEZING/SHORTNESS OF BREATH, # 8.5 each, 2 Refills, [facility], 30, TAKE 1 PUFF BY MOUTH EVERY 6 HOURS NEEDED FOR WHEEZING/SHORTNESS OF BREATH, 165, cm, 10/14/21 14:50:00 EST,... Start Date: 02/18/22 Status: Ordered albuterol-ipratropium 3 mg-0.5 mg/3 ml inhalation solution 1 vials, Inhalation, 4 times a day, # 360 mL, 0 Refills, Maintenance, 02/03/21 7:44:00 EDT, [facility] 770[facility], 30, USE 1 VIAL WITH NEBULIZER FOUR TIMES A DAY, 166, cm, 12/21/20 16:08:00 EDT, Height Start Date: 02/03/21 Status: Ordered betamethasone topical dipropionate 0.05% cream See Instructions, APPLY TO THE AFFECTED AREA TWICE A DAY, # 15 Gm, 3 Refills, Maintenance, 04/18/2110:54:00 EDT, [facility] #[id number], 7, APPLY TO THE AFFECTED AREA TWICE A DAY, 166, cm, 04/18/21 10:20:00 EDT, Height Start Date: 04/18/21 Status: Ordered Colace Clear 50 mg oral capsule 1 capsule = 50 mg, By Mouth, Daily, Decrease use to every other day if diarrhea develops., # 30 capsule, 0 Refills, Maintenance, 07/20/21 13:29:00 EDT, [facility]/pharmacy #1111, Partial fill upon patient request if the prescription is for a schedule II opio... Start Date: 07/20/21 Stop Date: 08/19/21 Status: Ordered docusate sodium 100 mg oral capsule 1 capsule, By Mouth, 2 times a day, PRN NEEDED FOR CONSTIPATION, # 100 capsule, 0 Refills, Maintenance, 09/13/20 17:22:00 EST, [facility], 166, cm, 07/26/20 9:41:00 EDT, Height, 87, kg, 10/14/18 13:06:00 EST, Dry Weight Start Date: 09/13/20 Status: Ordered doxycycline monohydrate 100 mg oral tablet 1 tablet = 100 mg, By Mouth, 2 times a day, # 20 tablet, 0 Refills, Soft Stop, 07/20/21 13:29:00 EDT, [facility]/pharmacy #1111, Partial fill upon patient request if the prescription is for a schedule II opioid drug., 166, cm, 04/18/21 10:20:00 EDT, Height Start Date: 07/20/21 Stop Date: 07/30/21 Status: Ordered famotidine 40 mg oral tablet 1 tablet, By Mouth, Daily at bedtime, # 30 tablet, 2 Refills, Maintenance, 09/05/20 9:40:00 EST, [facility]/pharmacy #1111, 166, cm, 07/26/20 9:41:00 EDT, Height, 87, kg, 10/14/18 13:06:00 EST, Dry Weight Start Date: 09/05/20 Status: Ordered Flonase 50 mcg/inh nasal spray 2 sprays = 100 mcg, Nares, Both, 2 times a day, # 1 each, 5 Refills, Maintenance, 01/31/21 8:43:00 EDT, [place], [facility]/pharmacy #1111, 2 sprays Nares, Both 2 times a day, 166, cm, 12/21/20 16:08:00 EDT, Height Start Date: 01/31/21 Status: Ordered Hibiclens 4% soap See Instructions, Wash affected areas twice daily., # 240 mL, 1 Refills, Soft Stop, 07/20/21 13:30:00 EDT, [facility]/pharmacy #1111, Partial fill upon patient request if the prescription is for a schedule II opioid drug., Wash affected areas twice daily., 1... Start Date: 07/20/21 Status: Ordered ibuprofen 800 mg oral tablet 800 mg, 1, tablet, By Mouth, 2 times a day, with food or milk, # 60 tablet, Refills 1, Tot. Refills1, Maintenance, 01/28/19 10:46:50 EDT, Route to Pharmacy Electronically, [id number], [facility]/pharmacy #1111 Start Date: 01/28/19 Status: Ordered Mouth piece for Nebulizer Mouth piece for Nebulizer, See Instructions, # 3 each, Refills 3, Tot. Refills 3, Maintenance, Use as instructed, 01/11/21 18:16:00 EDT, ICD 10 is J44.9, Supply, 166, cm, 12/21/20 16:08:00 EDT, Height Start Date: 01/11/21 Status: Ordered omeprazole 20 mg oral enteric coated capsule See Instructions, TAKE 1 CAPSULE BY MOUTH EVERY DAY -CAPS PER INSURANCE, # 90 capsule, 0 Refills, 08/22/21 17:04:00 EST, [facility]/pharmacy #1111, 166, cm, 04/18/21 10:20:00 EDT, Height Start Date: 08/22/21 Status: Ordered permethrin 5% topical cream See Instructions, 1 application Topically Once Apply from head to toe, leave on for 8-14 hr, rinse;may reapply in 7 days if live mites reappear, # 60 Gm, 0 Refills, Maintenance, 06/01/21 12:45:00 EDT, Cream, [facility]/pharmacy #1111, Partial fill upon pat... Start [...] 3 Refills, Maintenance, 01/01/22 12:31:00 EDT, Tablet, [facility]/pharmacy #1111, 165, cm, 10/14/21 14:50:00 EST, Height, 78.6,kg, 10/14/21 14:50:00 EST, Dry Weight Start Date: 01/01/22 Status: Ordered simvastatin 10 mg oral tablet 1, tablet, By Mouth, Daily at bedtime, # 90 tablet, Refills 1, Route to Pharmacy Electronically, [facility]ORE 80684, 165, cm, 10/14/21 14:50:00 EST, Height, 78.6, kg, 10/14/21 14:50:00 EST, Dry Weight Start Date: 01/13/22 Status: Ordered Suboxone 8 mg-2 mg sublingual film 2.5 each, Sublingual, Daily, 0 Refills, Maintenance, 06/08/15 10:28:14 EDT Start Date: 06/08/15 Status: Ordered SUMAtriptan 50 mg oral tablet 1 tablet, By Mouth, Daily, PRN NEEDED FOR MIGRAINES, MAY REPEAT DOSE AFTER 2 HOURS, MAXIMUM OF 2DOSES, # 9 tablet, 2 Refills, [facility], 165, cm, 10/14/21 14:50:00 EST, Height, 78.6, kg, 10/14/21 14:50:00 EST, Dry Weight Start Date: 01/29/22 Status: Ordered traZODone 100 mg oral tablet 2 tablets, By Mouth, Daily at bedtime, # 180 tablet, Refills 0, Maintenance, 10/09/18 9:38:26 EST Start Date: 10/09/18 Status: Ordered Problem List Condition Effective Dates Status Health Status Inform ant Allergic rhinitis(Confirmed) Active Bipolar disorder(Confirmed) Active Chronic obstructive pulmonar y disease (COPD)(Confirmed) Active Chronic post-traumatic stres s disorder(Confirmed) Active Degeneration of lumbar inter vertebral disc(Confirmed) Active Depression(Confirmed) Active GERD (gastroesophageal reflu x disease)(Confirmed) Active Hoarseness(Confirmed) Active IFG (impaired fasting glucose)(Confirmed) Active Erectile dysfunction(Confirmed) Active Chronic pain of right knee(Confirmed) Active Left knee pain(Confirmed) Active Combined hyperlipidemia(Confirmed) Active Opioid dependence(Confirmed) Active Polysubstance abuse(Confirmed) Active Pterygium of left eye(Confirmed) Active PTSD - Post-traumatic stress disorder(Confirmed) Active Reflux(Confirmed) Active Social History Social History Type Response Smoking Status 5-9 cigarettes (betw een 1/4 to 1/2 pack)/day in last 30 days; Tobacco user in household: Yes entered on: 06/15/20 Sex
--- OUTSIDE RECORDS SUMMARY | 2023-05-24 00:59 | XMS_ITS | Continuity of Care Document ---
Author Name Unknown Organization [facility] Charity Chery Surger y Address [address] [facility] [address] [place] [address]- Care Team Providers Care Graphics Production Specialist Name Role Phone Mathieu Christina MD Primary Care Physician Encounter [facility] Date(s): 10/26/20 - 11/02/20 [facility] Charity Chery Surgery [address], [facility] [address] [place] [address]- Attending Physician: Anel Carlson DO Referring Physician: Sandro LIND, Charity Burrell Allergies, Adverse Reactions, Alerts Substance Reaction Severity Status NKA Active Immunizations Given and Recorded Vaccine Date Status Refusal Reason influenza virus vaccine, inactivated 1 10/21/20 Gi angélica influenza virus vaccine, inactivated 2 08/22/16 Re corded influenza virus vaccine, inactivated 07/25/15 Give n influenza virus vaccine, inactivated 10/20/11 Give n tetanus/diphtheria/pertussis, acel(Tdap) 06/08/15 Given pneumococcal 23-valent vaccine 10/20/11 Given 1Result Comment: [facility]# [id number] 2[facility] 1 each 1 each, See Instructions, # 1 each, Refills 0, Tot. Refills 0, Maintenance, please supply one knee brace. diagnosis: left knee injury, 01/15/19 13:39:43 EDT, Compound Start Date: 01/15/19 Status: Ordered albuterol 90 mcg/inh inhalation powder 2 puffs, Inhalation, Every 4 hours, PRN as needed, # 1 each, 6 Refills, Maintenance, 01/12/20 9:31:00 EDT, Powder, [facility], 2 puffs Inhalation Every 4 hours,PRN:as needed, 166, cm, 07/13/19 9:25:00 EDT, Height, 87, kg, 10/14/18 13:06:00 EST... Start Date: 01/12/20 Status: Ordered albuterol-ipratropium 3 mg-0.5 mg/3 ml inhalation solution 3 mL, Neb, 4 times a day, # 360 mL, 1 Refills, Maintenance, 10/16/18 12:21:30 EST, Inhalation Solution Start Date: 10/16/18 Stop Date: 12/15/18 Status: Ordered betamethasone topical dipropionate 0.05% cream See Instructions, APPLY TO THE AFFECTED AREA TWICE A DAY, # 15 Gm, 3 Refills, Maintenance, 208:01:00 EDT, [facility]/pharmacy #1111, 7, APPLY TO THE AFFECTED AREA TWICE A DAY, 166, cm, 06/15/20 7:38:00 EDT, Height, 87, kg, 10/14/18 13:06:00 EST, Dry W... Start Date: 06/15/20 Status: Ordered docusate sodium 100 mg oral capsule 1 capsule, By Mouth, 2 times a day, PRN NEEDED FOR CONSTIPATION, # 100 capsule, 0 Refills, Maintenance, 09/13/20 17:22:00 EST, [facility] STORE [facility]368, 166, cm, 07/26/20 9:41:00 EDT, Height, 87, kg, 10/14/18 13:06:00 EST, Dry Weight Start Date: 09/13/20 Status: Ordered famotidine 40 mg oral tablet 1 tablet, By Mouth, Daily at bedtime, # 30 tablet, 2 Refills, Maintenance, 09/05/20 9:40:00 EST, [facility]/pharmacy #1111, 166, cm, 07/26/20 9:41:00 EDT, Height, 87, kg, 10/14/18 13:06:00 EST, Dry Weight Start Date: 09/05/20 Status: Ordered Flonase 50 mcg/inh nasal spray 2 sprays = 100 mcg, Nares, Both, 2 times a day, # 1 each, 5 Refills, Maintenance, 06/15/20 8:01:00 EDT, [place], [facility]/pharmacy #1111, 2 sprays Nares, Both 2 times a day, 166, cm, 06/15/20 7:38:00 EDT, Height, 87, kg, 10/14/18 13:06:00 EST, Dry Weight Start Date: 06/15/20 Status: Ordered ibuprofen 800 mg oral tablet 800 mg, 1, tablet, By Mouth, 2 times a day, with food or milk, # 60 tablet, Refills 1, Tot. Refills1, Maintenance, 01/28/19 10:46:50 EDT, Route to Pharmacy Electronically, [id number], [facility]/pharmacy #1111 Start Date: 01/28/19 Status: Ordered omeprazole 20 mg oral delayed release tablet 1 tablet = 20 mg, By Mouth, Daily, # 90 tablet, 2 Refills, Maintenance, 06/15/20 8:01:00 EDT, EC Tablet, [facility]/pharmacy #1111, 166, cm, 06/15/20 7:38:00 EDT, Height, 87, kg, 10/14/18 13:06:00 EST, Dry Weight Start Date: 06/15/20 Stop Date: 03/12/21 Status: Ordered predniSONE 10 mg oral tablet See Instructions, Start with 5 tablets daily for 5 days, then 4 tabs daily x 4 days, 3 tabs daily x3 days, 2 tabs daily x 2 days and then 1 tab daily x 1 day, # 55 tablet, 0 Refills, Maintenance, 07/26/20 10:00:00 EDT, Tablet, [facility]/pharmacy #1111, 166... Start Date: 07/26/20 Status: Ordered ProAir HFA 90 mcg/inh inhalation aerosol with adapter 1, puffs, Inhalation, Every 6 hours, PRN, # 18 Gm, Refills 5, Tot. Refills 5, Maintenance, 208:01:00 EDT, Aerosol, Route to Pharmacy Electronically, [id number], [facility]/pharmacy #1111, 166, cm, 06/15/20 7:38:00 EDT, Height... Start Date: 06/15/20 Status: Ordered QUEtiapine 25 mg oral tablet [...] activity, # 10 tablet, 3 Refills, Maintenance, 06/15/20 8:01:00 EDT, Tablet, [facility]/pharmacy #1111, 166, cm, 06/15/20 7:38:00 EDT, Height, 87, kg,10/14/18 13:06:00 EST, Dry Weight Start Date: 06/15/20 Status: Ordered simvastatin 10 mg oral tablet 10 mg, 1, tablet, By Mouth, Daily at bedtime, # 30 tablet, Refills 5, Tot. Refills 5, Maintenance, 07/26/20 10:04:00 EDT, Route to Pharmacy Electronically, [facility]/pharmacy #1111, 166, cm, 07/26/20 9:41:00 EDT, Height, 87, kg, 10/14/18 13:06:00 EST, Dry W... Start Date: 07/26/20 Status: Ordered Suboxone 8 mg-2 mg sublingual film 2.5 each, Sublingual, Daily, 0 Refills, Maintenance, 06/08/15 10:28:14 EDT Start Date: 06/08/15 Status: Ordered traZODone 100 mg oral tablet [...] - Post-traumatic stress disorder(Confirmed) Active Reflux(Confirmed) Active Vital Signs Most recent to oldest [Reference Range]: 1 Height 166 cm (10/26/20 9:58 AM) Weight 83.5 kg (10/26/20 9:58 AM) Oxygen Saturation [94-100 %] 95 % (10/26/20 9:58 AM) Pulse Rate [55-90 bpm] 80 bpm (10/26/20 9:58 AM) Body Mass Index [18.5-24.99] 30.3 *>HHI* (10/26/20 9:58 AM) Social History Social History Type Response Smoking Status 5-9 cigarettes (betw een 1/4 to 1/2 pack)/day in last 30 days; Tobacco user in household: Yes entered on: 06/15/20 Sex
--- OUTSIDE RECORDS SUMMARY | 2023-05-24 00:59 | XMS_ITS | Continuity of Care Document ---
Author Name Unknown Organization [facility] al Address [address] [place] [address]- Care Team Providers Care Terrazzo Laborer Name Role Phone Mathieu Christina MD Primary Care Physician Encounter [facility] Date(s): 09/15/21 - 10/20/[address] [address] Attending Physician: Kristi Toney MD Admitting Physician: Kristi Toney MD Referring Physician: Kristi Toney MD Allergies, Adverse Reactions, Alerts No Known [...] pneumococcal 23-valent vaccine 10/20/11 Given 1Result Comment: [facility]# [id number] 2[facility] each 1 each, See Instructions, # 1 each, Refills 0, Tot. Refills 0, Maintenance, please supply one knee brace. diagnosis: left knee injury, 01/15/19 13:39:43 EDT, Compound Start Date: 01/15/19 Status: Ordered albuterol-ipratropium 3 mg-0.5 mg/3 ml inhalation solution 1 vials, Inhalation, 4 times a day, # 360 mL, 0 Refills, Maintenance, 02/03/21 7:44:00 EDT, [facility] ST[facility], 30, USE 1 VIAL WITH NEBULIZER FOUR TIMES A DAY, 166, cm, 12/21/20 16:08:00 EDT, Height Start Date: 02/03/21 Status: Ordered betamethasone topical dipropionate 0.05% cream See Instructions, APPLY TO THE AFFECTED AREA TWICE A DAY, # 15 Gm, 3 Refills, Maintenance, 04/18/2110:54:00 EDT, [facility] #[id number], 7, APPLY TO THE AFFECTED AREA TWICE A DAY, 166, cm, 04/18/21 10:20:00 EDT, Height Start Date: 04/18/21 Status: Ordered Colace Clear 50 mg oral capsule 1 capsule = 50 mg, By Mouth, Daily, Decrease use to every other day if diarrhea develops., # 30 capsule, 0 Refills, Maintenance, 07/20/21 13:29:00 EDT, [facility]/pharmacy #1111, Partial fill upon patient request if the prescription is for a schedule II opio... Start Date: 07/20/21 Stop Date: 08/19/21 Status: Ordered docusate sodium 100 mg oral capsule 1 capsule, By Mouth, 2 times a day, PRN NEEDED FOR CONSTIPATION, # 100 capsule, 0 Refills, Maintenance, 09/13/20 17:22:00 EST, [facility], 166, cm, 07/26/20 9:41:00 EDT, Height, 87, kg, 10/14/18 13:06:00 EST, Dry Weight Start Date: 09/13/20 Status: Ordered doxycycline monohydrate 100 mg oral tablet 1 tablet = 100 mg, By Mouth, 2 times a day, # 20 tablet, 0 Refills, Soft Stop, 07/20/21 13:29:00 EDT, [facility], Partial fill upon patient request if the prescription is for a schedule II opioid drug., 166, cm, 04/18/21 10:20:00 EDT, Height Start Date: 07/20/21 Stop Date: 07/30/21 Status: Ordered famotidine 40 mg oral tablet 1 tablet, By Mouth, Daily at bedtime, # 30 tablet, 2 Refills, Maintenance, 09/05/20 9:40:00 EST, [facility]/pharmacy #1111, 166, cm, 07/26/20 9:41:00 EDT, Height, 87, kg, 10/14/18 13:06:00 EST, Dry Weight Start Date: 09/05/20 Status: Ordered Flonase 50 mcg/inh nasal spray 2 sprays = 100 mcg, Nares, Both, 2 times a day, # 1 each, 5 Refills, Maintenance, 01/31/21 8:43:00 EDT, [place], [facility]/pharmacy #1111, 2 sprays Nares, Both 2 times a day, 166, cm, 12/21/20 16:08:00 EDT, Height Start Date: 01/31/21 Status: Ordered Hibiclens 4% soap See Instructions, Wash affected areas twice daily., # 240 mL, 1 Refills, Soft Stop, 07/20/21 13:30:00 EDT, [facility]/pharmacy #1111, Partial fill upon patient request if the prescription is for a schedule II opioid drug., Wash affected areas twice daily., 1... Start Date: 07/20/21 Status: Ordered ibuprofen 800 mg oral tablet 800 mg, 1, tablet, By Mouth, 2 times a day, with food or milk, # 60 tablet, Refills 1, Tot. Refills1, Maintenance, 01/28/19 10:46:50 EDT, Route to Pharmacy Electronically, [id number], [facility]/pharmacy #1111 Start Date: 01/28/19 Status: Ordered [...] 0 Refills, Maintenance, 06/01/21 12:45:00 EDT, Cream, [facility]/pharmacy #1111, Partial fill upon pat... Start Date: 06/01/21 Status: Ordered ProAir HFA 90 mcg/inh inhalation aerosol with adapter 1, puffs, Inhalation, Every 6 hours, PRN, # 18 Gm, Refills 5, Tot. Refills 5, Maintenance, 08/21/2111:56:00 EST, Aerosol, Route to Pharmacy Electronically, [id number], [facility]/pharmacy #1111, 166, cm, 04/18/21 10:20:00 EDT, Height Start Date: 08/21/21 Status: Ordered propranolol 80 mg oral tablet 1 tablet, By Mouth, 2 times a day, for 30 days, # 60 tablet, 0 Refills, Physician Stop, [facility] ST[facility] [address], 166, cm, 09/19/21 10:45:00 EST, Height Start Date: 10/05/21 Stop Date: 11/04/21 Status: Ordered QUEtiapine 25 mg oral tablet [...] 3 Refills, Maintenance, 06/15/20 8:01:00 EDT, Tablet, [facility]/pharmacy #1111, 166, cm, 06/15/20 7:38:00 EDT, Height, 87, kg,10/14/18 13:06:00 EST, Dry Weight Start Date: 06/15/20 Status: Ordered simvastatin 10 mg oral tablet See Instructions, TAKE 1 TABLET BY MOUTH EVERYDAY AT BEDTIME, # 90 tablet, Refills 1, Instructions Replace Required Details, Route to Pharmacy Electronically, [facility], 166, cm, 04/18/21 10:20:00 EDT, Height Start Date: 07/18/21 Status: Ordered Suboxone 8 mg-2 mg sublingual film 2.5 each, Sublingual, Daily, 0 Refills, Maintenance, 06/08/15 10:28:14 EDT Start Date: 06/08/15 Status: Ordered SUMAtriptan 50 mg oral tablet 1 tablet = 50 mg, By Mouth, Daily, PRN for migraine headache, for 30 days, may repeat dose after 2 hours up to a maximum of 2, # 9 tablet, 1 Refills, Acute 11/18/21 10:56:00 EST, 09/19/21 10:56:00 EST, Tablet, [facility]/pharmacy #1111, Partial fill upon pat... Start Date: 09/19/21 Stop Date: 11/18/21 Status: Ordered SUMAtriptan 50 mg oral tablet 1 tablet = 50 mg, By Mouth, Daily, PRN for migraine headache, for 30 days, may repeat dose after 2 hours up to a maximum of 2, # 9 tablet, 1 Refills, Acute 01/17/22 10:56:00 EDT, 11/18/21 10:56:00 EST, Tablet, [facility]/pharmacy #1111, Partial fill upon pat... Start Date: 11/18/21 Stop Date: 01/17/22 Status: Ordered traZODone 100 mg oral tablet [...] Type Response Smoking Status 5-9 cigarettes (betw eerosalie 1/4 to 1/2 pack)/day in last 30 days; Tobacco user in household: Yes entered on: 06/15/20 Sex
--- OUTSIDE RECORDS SUMMARY | 2023-05-24 00:59 | XMS_ITS | Continuity of Care Document ---
Author Name Unknown Organization [facility] Address [address] [place] [address]- Care Team Providers Care Millinery Teacher Name Role Phone Mathieu Christina MD Primary Care Physician Encounter [facility] Date(s): 07/18/21 - [facility]17[facility] [address] [place] [address]- [place] Allergies, Adverse Reactions, Alerts Substance Reaction Severity Status NKA Active Immunizations Given and Recorded Vaccine Date Status Refusal Reason influenza virus vaccine, inactivated 1 10/21/20 Gi angélica influenza virus vaccine, inactivated 2 08/22/16 Re corded influenza virus vaccine, inactivated 07/25/15 Give n influenza virus vaccine, inactivated 10/20/11 Give n tetanus/diphtheria/pertussis, acel(Tdap) 06/08/15 Given pneumococcal 23-valent vaccine 10/20/11 Given 1Result Comment: [facility]# [id number] 2Location History: [facility] Medications 1 each 1 each, See Instructions, # 1 each, Refills 0, Tot. Refills 0, Maintenance, please supply one knee brace. diagnosis: left knee injury, 01/15/19 13:39:43 EDT, Compound Start Date: 01/15/19 Status: Ordered albuterol-ipratropium 3 mg-0.5 mg/3 ml inhalation solution 1 vials, Inhalation, 4 times a day, # 360 mL, 0 Refills, Maintenance, 02/03/21 7:44:00 EDT, [facility], 30, USE 1 VIAL WITH NEBULIZER FOUR TIMES A DAY, 166, cm, 12/21/20 16:08:00 EDT, Height Start Date: 02/03/21 Status: Ordered betamethasone topical dipropionate 0.05% cream See Instructions, APPLY TO THE AFFECTED AREA TWICE A DAY, # 15 Gm, 3 Refills, Maintenance, 04/18/2110:54:00 EDT, [facility] #[id number], 7, APPLY TO THE AFFECTED AREA TWICE A DAY, 166, cm, 04/18/21 10:20:00 EDT, Height Start Date: 04/18/21 Status: Ordered Colace Clear 50 mg oral capsule 1 capsule = 50 mg, By Mouth, Daily, Decrease use to every other day if diarrhea develops., # 30 capsule, 0 Refills, Maintenance, 07/20/21 13:29:00 EDT, [facility]/pharmacy #1111, Partial fill upon patient request if the prescription is for a schedule II opio... Start Date: 07/20/21 Stop Date: 08/19/21 Status: Ordered docusate sodium 100 mg oral capsule 1 capsule, By Mouth, 2 times a day, PRN NEEDED FOR CONSTIPATION, # 100 capsule, 0 Refills, Maintenance, 09/13/20 17:22:00 EST, [facility], 166, cm, 07/26/20 9:41:00 EDT, Height, 87, [...] tablet, 2 Refills, Maintenance, 09/05/20 9:40:00 EST, [facility], 166, cm, 07/26/20 9:41:00 EDT, Height, 87, kg, 10/14/18 13:06:00 EST, Dry Weight Start Date: 09/05/20 Status: Ordered Flonase 50 mcg/inh nasal spray 2 sprays = 100 mcg, Nares, Both, 2 times a day, # 1 each, 5 Refills, Maintenance, 01/31/21 8:43:00 EDT, [place], [facility]/pharmacy #1111, 2 sprays Nares, Both 2 times a day, 166, cm, 12/21/20 16:08:00 EDT, Height Start Date: 01/31/21 Status: Ordered Hibiclens 4% soap See Instructions, Wash affected areas twice daily., # 240 mL, 1 Refills, Soft Stop, 07/20/21 13:30:00 EDT, [facility]/pharmacy #1111, Partial fill upon patient request if the prescription is for a schedule II opioid drug., Wash affected areas twice daily., 1... Start Date: 07/20/21 Status: Ordered ibuprofen 800 mg oral tablet 800 mg, 1, tablet, By Mouth, 2 times a day, with food or milk, # 60 tablet, Refills 1, Tot. Refills1, Maintenance, 01/28/19 10:46:50 EDT, Route to Pharmacy Electronically, [id number], [facility]/pharmacy #1111 Start Date: 01/28/19 Status: Ordered Mouth [...] PER INSURANCE, # 90 capsule, 0 Refills, [facility] STORE [address]1460, 166, cm, 04/18/21 10:20:00 EDT, Height Start Date: 05/30/21 Status: Ordered permethrin 5% topical cream See Instructions, 1 application Topically Once Apply from head to toe, leave on for 8-14 hr, rinse;may reapply in 7 days if live mites reappear, # 60 Gm, 0 Refills, Maintenance, 06/01/21 12:45:00 EDT, Cream, [facility]/pharmacy #1111, Partial fill upon pat... Start Date: 06/01/21 Status: Ordered ProAir HFA 90 mcg/inh inhalation aerosol with adapter 1, puffs, Inhalation, Every 6 hours, PRN, # 18 Gm, Refills 5, Tot. Refills 5, Maintenance, 04/18/2110:54:00 EDT, Aerosol, Route to Pharmacy Electronically, [id number], [facility] #[id number], 166, cm, 04/18/21 10:20:00... Start Date: 04/18/21 Status: Ordered QUEtiapine 25 mg oral tablet [...] 3 Refills, Maintenance, 06/15/20 8:01:00 EDT, Tablet, [facility]/pharmacy #1111, 166, cm, 06/15/20 7:38:00 EDT, Height, 87, kg,10/14/18 13:06:00 EST, Dry Weight Start Date: 06/15/20 Status: Ordered simvastatin 10 mg oral tablet See Instructions, TAKE 1 TABLET BY MOUTH EVERYDAY AT BEDTIME, # 90 tablet, Refills 1, Instructions Replace Required Details, Route to Pharmacy Electronically, [facility] [address], 166, cm, 04/18/21 10:20:00 EDT, Height Start [...] 1/4 to 1/2 pack)/day in last 30 days entered on: 04/18/21 Sex
--- OUTSIDE RECORDS SUMMARY | 2023-05-24 00:59 | XMS_ITS | Continuity of Care Document ---
Author Name Unknown Organization [facility] [place] [facility] Address [address] [place] [address]- Care Team Providers Care Technical Mgr Name Role Phone Mathieu Christina MD Primary Care Physician Encounter [facility] Date(s): 03/29/21 - [facility]27/[facility] [address] [place], [place] [address]- Attending Physician: Mathieu Christina MD Allergies, Adverse Reactions, Alerts Substance Reaction Severity Status NKA Active Immunizations Given and Recorded Vaccine Date Status Refusal Reason influenza virus vaccine, inactivated 1 10/21/20 Gi angélica influenza virus vaccine, inactivated 2 08/22/16 Re corded influenza virus vaccine, inactivated 07/25/15 Give n influenza virus vaccine, inactivated 10/20/11 Give n tetanus/diphtheria/pertussis, acel(Tdap) 06/08/15 Given pneumococcal 23-valent vaccine 10/20/11 Given 1Result Comment: [facility]# [id number] 2[facility] 1 each 1 each, See Instructions, # 1 each, Refills 0, Tot. Refills 0, Maintenance, please supply one knee brace. diagnosis: left knee injury, 01/15/19 13:39:43 EDT, Compound Start Date: 01/15/19 Status: Ordered albuterol-ipratropium 3 mg-0.5 mg/3 ml inhalation solution 1 vials, Inhalation, 4 times a day, # 360 mL, 0 Refills, Maintenance, 02/03/21 7:44:00 EDT, [facility], 30, USE 1 VIAL WITH NEBULIZER FOUR TIMES A DAY, 166, cm, 12/21/20 16:08:00 EDT, Height Start Date: 02/03/21 Status: Ordered betamethasone topical dipropionate 0.05% cream See Instructions, APPLY TO THE AFFECTED AREA TWICE A DAY, # 15 Gm, 3 Refills, Maintenance, 04/18/2110:54:00 EDT, [facility] #[id number], 7, APPLY TO THE AFFECTED AREA TWICE A DAY, 166, cm, 04/18/21 10:20:00 EDT, Height Start Date: 04/18/21 Status: Ordered Colace Clear 50 mg oral capsule 1 capsule = 50 mg, By Mouth, Daily, Decrease use to every other day if diarrhea develops., # 30 capsule, 0 Refills, Maintenance, 07/20/21 13:29:00 EDT, [facility], Partial fill upon patient request if the prescription is for a schedule II opio... Start Date: 07/20/21 Stop Date: 08/19/21 Status: Ordered docusate sodium 100 mg oral capsule 1 capsule, By Mouth, 2 times a day, PRN NEEDED FOR CONSTIPATION, # 100 capsule, 0 Refills, Maintenance, 09/13/20 17:22:00 EST, [facility], 166, cm, 07/26/20 9:41:00 EDT, Height, 87, [...] each, 5 Refills, Maintenance, 01/31/21 8:43:00 EDT, [place], [facility]/pharmacy #1111, 2 sprays Nares, Both 2 times a day, 166, cm, 12/21/20 16:08:00 EDT, Height Start Date: 01/31/21 Status: Ordered Hibiclens 4% soap See Instructions, Wash affected areas twice daily., # 240 mL, 1 Refills, Soft Stop, 07/20/21 13:30:00 EDT, [facility]/pharmacy #1111, Partial fill upon patient request if the prescription is for a schedule II opioid drug., Wash affected areas twice daily., 1... Start Date: 07/20/21 Status: Ordered ibuprofen 800 mg oral tablet 800 mg, 1, tablet, By Mouth, 2 times a day, with food or milk, # 60 tablet, Refills 1, Tot. Refills1, Maintenance, 01/28/19 10:46:50 EDT, Route to Pharmacy Electronically, [id number], [facility]/pharmacy #1111 Start Date: 01/28/19 Status: Ordered Mouth [...] PER INSURANCE, # 90 capsule, 0 Refills, [facility] STORE [address]92, 166, cm, 04/18/21 10:20:00 EDT, Height Start Date: 05/30/21 Status: Ordered permethrin 5% topical cream See Instructions, 1 application Topically Once Apply from head to toe, leave on for 8-14 hr, rinse;may reapply in 7 days if live mites reappear, # 60 Gm, 0 Refills, Maintenance, 06/01/21 12:45:00 EDT, Cream, [facility]/pharmacy #1111, Partial fill upon pat... Start Date: 06/01/21 Status: Ordered ProAir HFA 90 mcg/inh inhalation aerosol with adapter 1, puffs, Inhalation, Every 6 hours, PRN, # 18 Gm, Refills 5, Tot. Refills 5, Maintenance, 04/18/2110:54:00 EDT, Aerosol, Route to Pharmacy Electronically, [id number], [id number], 166, cm, 04/18/21 10:20:00... Start Date: 04/18/21 [...] 3 Refills, Maintenance, 06/15/20 8:01:00 EDT, Tablet, [facility]/pharmacy #1111, 166, cm, 06/15/20 7:38:00 EDT, Height, 87, kg,10/14/18 13:06:00 EST, Dry Weight Start Date: 06/15/20 Status: Ordered simvastatin 10 mg oral tablet See Instructions, TAKE 1 TABLET BY MOUTH EVERYDAY AT BEDTIME, # 90 tablet, Refills 1, Instructions Replace Required Details, Route to Pharmacy Electronically, [facility] [address], 166, cm, 04/18/21 10:20:00 EDT, Height Start [...]
--- OUTSIDE RECORDS SUMMARY | 2023-05-24 00:59 | XMS_ITS | Continuity of Care Document ---
Author Name Unknown Organization [employer], later [facility] Address [address] [place] [address]- Care Team Providers Care Assisted Living Assistant Name Role Phone Mathieu Christina MD Primary Care Physician Encounter [facility] Date(s): 03/25/20 - 04/27/20 [facility] [place] [address] [place] [address]- [facility] Attending Physician: Mathieu Christina MD Allergies, Adverse Reactions, Alerts Substance Reaction Severity Status NKA Active Immunizations Given and Recorded Vaccine Date Status Refusal Reason influenza virus vaccine, inactivated 1 08/22/16 Re corded influenza virus vaccine, inactivated 07/25/15 Give n influenza virus vaccine, inactivated 10/20/11 Give n tetanus/diphtheria/pertussis, acel(Tdap) 06/08/15 Given pneumococcal 23-valent vaccine 10/20/11 Given 1[facility] each, [...] Status: Ordered betamethasone topical dipropionate 0.05% cream 1 application, Topically, 2 times a day, to affected area, # 15 Gm, 0 Refills, Maintenance, 03/29/20 17:17:00 EDT, Cream, [facility]/pharmacy #1111, 1 application Topically 2 times a day,Instr:to affected area, 166, cm, 03/29/20 13:47:00 EDT, Height, 87, kg,... Start Date: 03/29/20 Status: Ordered docusate sodium 100 mg oral capsule 100 mg, 1, capsule, By Mouth, 2 times a day, PRN, # 100 capsule, Refills 0, Tot. Refills 0, Maintenance, for constipation, 03/29/20 17:19:00 EDT, Route to Pharmacy Electronically, [facility]/pharmacy #1111,166, cm, 03/29/20 13:47:00 EDT, Height, 87, kg, 01/... Start Date: 03/29/20 Stop Date: 06/27/20 Status: Ordered Flonase 50 mcg/inh nasal spray 2 sprays = 100 mcg, Nares, Both, 2 times a day, # 1 each, 5 Refills, Maintenance, 01/12/20 9:32:00 EDT, [place], [facility]/pharmacy #1111, 2 sprays Nares, Both 2 times a day, 166, cm, 07/13/19 9:25:00 EDT, Height, 87, kg, 10/14/18 13:06:00 EST, Dry Weight Start Date: 01/12/20 Status: Ordered ibuprofen 800 mg oral tablet 800 mg, 1, tablet, By Mouth, 2 times a day, with food or milk, # 60 tablet, Refills 1, Tot. Refills1, Maintenance, 01/28/19 10:46:50 EDT, Route to Pharmacy Electronically, [id number], [facility]/pharmacy #1111 Start Date: 01/28/19 Status: Ordered omeprazole 20 mg oral delayed release tablet 1 tablet = 20 mg, By Mouth, Daily, # 90 tablet, 2 Refills, Maintenance, 02/03/18 14:32:45 EDT, EC Tablet Start Date: 02/03/18 Stop Date: 10/31/18 Status: Ordered ProAir HFA 90 mcg/inh inhalation aerosol with adapter 1, puffs, Inhalation, Every 6 hours, PRN, # 18 Gm, Refills 5, Tot. Refills 5, Maintenance, 01/14/2015:26:00 EDT, Aerosol, Route to Pharmacy Electronically, [id number], [facility]/pharmacy #1111, 166, cm, 07/13/19 9:25:00 EDT, He[place]... Start Date: 01/15/20 Status: Ordered QUEtiapine 25 mg oral tablet [...] hour before sexual activity, # 10 tablet, 1 Refills, Maintenance, 07/13/19 10:09:44 EDT, Tablet Start Date: 07/13/19 Status: Ordered Suboxone 8 mg-2 mg sublingual [...] Tobacco user in household: Yes entered on: 10/23/18 Sex
--- OUTSIDE RECORDS SUMMARY | 2023-05-24 00:59 | XMS_ITS | Continuity of Care Document ---
Author Name Unknown Organization [facility] Address [address] [place] [address]- Care Team Providers Care Print Controller Name Role Phone Mathieu Christina MD Primary Care Physician [phone] Encounter [facility] Date(s): 02/26/20 - 06/15/20 [facility] [place] [address] [place] [address]- [facility] Attending Physician: Mathieu Christina MD Allergies, Adverse [...] 15 Gm, 3 Refills, Maintenance, 208:01:00 EDT, [facility]/pharmacy #1111, 7, APPLY TO THE AFFECTED AREA TWICE A DAY, 166, cm, 06/15/20 7:38:00 EDT, Height, 87, kg, 10/14/18 13:06:00 EST, Dry W... Start Date: 06/15/20 Status: Ordered docusate sodium 100 mg oral capsule 100 mg, 1, capsule, By Mouth, 2 times a day, PRN, # 100 capsule, Refills 0, Tot. Refills 0, Maintenance, for constipation, 03/29/20 17:19:00 EDT, Route to Pharmacy Electronically, [facility]/pharmacy #1111,166, cm, 03/29/20 13:47:00 EDT, Height, 87, kg, ... Start Date: 03/29/20 Stop Date: 06/27/20 Status: Ordered Flonase 50 mcg/inh nasal spray 2 sprays = 100 mcg, Nares, Both, 2 times a day, # 1 each, 5 Refills, Maintenance, 06/15/20 8:01:00 EDT, [place], [facility]/pharmacy #1111, 2 sprays Nares, Both 2 times a day, 166, cm, 06/15/20 7:38:00 EDT, Height, 87, kg, 10/14/18 13:06:00 EST, Dry Weight Start Date: 06/15/20 Status: Ordered ibuprofen 800 mg oral tablet 800 mg, 1, tablet, By Mouth, 2 times a day, with food or milk, # 60 tablet, Refills 1, Tot. Refills1, Maintenance, 01/28/19 10:46:50 EDT, Route to Pharmacy Electronically, [id number], [facility]/pharmacy #1111 Start Date: 01/28/19 Status: Ordered omeprazole 20 mg oral delayed release tablet 1 tablet = 20 mg, By Mouth, Daily, # 90 tablet, 2 Refills, Maintenance, 06/15/20 8:01:00 EDT, EC Tablet, [facility]/pharmacy #1111, 166, cm, 06/15/20 7:38:00 EDT, Height, 87, kg, 10/14/18 13:06:00 EST, Dry Weight Start Date: 06/15/20 Stop Date: 03/12/21 Status: Ordered ProAir HFA 90 mcg/inh inhalation aerosol with adapter 1, puffs, Inhalation, Every 6 hours, PRN, # 18 Gm, Refills 5, Tot. Refills 5, Maintenance, :01:00 EDT, Aerosol, Route to Pharmacy Electronically, [id number], [facility]/pharmacy #1111, 166, cm, 06/15/20 7:38:00 EDT, Height... [...] 3 Refills, Maintenance, 06/15/20 8:01:00 EDT, Tablet, [facility]/pharmacy #1111, 166, cm, 06/15/20 7:38:00 EDT, Height, 87, kg,10/14/18 13:06:00 EST, Dry Weight Start Date: 06/15/20 Status: Ordered Suboxone 8 mg-2 mg sublingual [...]
--- OUTSIDE RECORDS SUMMARY | 2023-05-24 00:59 | XMS_ITS | Continuity of Care Document ---
Author Name Unknown Organization [facility] Address [address] [place] [id number]- Care Team Providers Care African Studies Professor Name Role Phone Mathieu Christina MD Primary Care Physician Encounter [facility] Date(s): 12/19/20 - 01/18/21 [facility] [address] [place] [address]- Allergies, Adverse Reactions, Alerts Substance Reaction Severity Status NKA Active Immunizations Given and Recorded Vaccine Date Status Refusal Reason influenza virus vaccine, inactivated 1 10/21/20 Gi angélica influenza virus vaccine, inactivated 2 08/22/16 Re corded influenza virus vaccine, inactivated 07/25/15 Give n influenza virus vaccine, inactivated 10/20/11 Give n tetanus/diphtheria/pertussis, acel(Tdap) 06/08/15 Given pneumococcal 23-valent vaccine 10/20/11 Given 1Result Comment: [facility]# [id number] 2Location History[facility] [...] day, # 360 mL, 0 Refills, Maintenance, 03/10/21 14:43:00 EDT, Inhalation [facility], [facility], ICD 10 is J44.9, 3 mL Neb 4 times a day, 166, cm, 12/21/20 16:08:00 EDT, Height Start Date: 03/10/21 Status: Ordered albuterol-ipratropium 3 mg-0.5 mg/3 ml inhalation solution 3 mL, Neb, 4 times a day, for 30 days, # 360 mL, 1 Refills, Hard Stop 03/10/21 14:43:00 EDT, 01/09/21 14:43:00 EDT, Inhalation Solution, [facility]/pharmacy #1111, 166, cm, 12/21/20 16:08:00 EDT, Height Start Date: 01/09/21 Stop Date: 03/10/21 Status: Ordered betamethasone topical dipropionate 0.05% cream See Instructions, APPLY TO THE AFFECTED AREA TWICE A DAY, # 15 Gm, 3 Refills, Maintenance, :01:00 EDT, [facility], 7, APPLY TO THE AFFECTED AREA TWICE A DAY, 166, cm, 06/15/20 7:38:00 EDT, Height, 87, kg, 10/14/18 13:06:00 EST, Dry W... Start Date: 06/15/20 Status: Ordered docusate sodium 100 mg oral capsule 1 capsule, By Mouth, 2 times a day, PRN NEEDED FOR CONSTIPATION, # 100 capsule, 0 Refills, Maintenance, 09/13/20 17:22:00 EST, [facility], 166, cm, 07/26/20 9:41:00 EDT, Height, 87, [...] each, 5 Refills, Maintenance, 06/15/20 8:01:00 EDT, [place], [facility]/pharmacy #1111, 2 sprays Nares, Both 2 times a day, 166, cm, 06/15/20 7:38:00 EDT, Height, 87, kg, 10/14/18 13:06:00 EST, Dry Weight Start Date: 06/15/20 Status: Ordered ibuprofen 800 mg oral tablet 800 mg, 1, tablet, By Mouth, 2 times a day, with food or milk, # 60 tablet, Refills 1, Tot. Refills1, Maintenance, 01/28/19 10:46:50 EDT, Route to Pharmacy Electronically, [id number], [facility]/pharmacy #1111 Start Date: 01/28/19 Status: Ordered Mouth piece for Nebulizer Mouth piece for Nebulizer, See Instructions, # 3 each, Refills 3, Tot. Refills 3, Maintenance, Use as instructed, 01/11/21 18:16:00 EDT, ICD 10 is J44.9, Supply, 166, cm, 12/21/20 16:08:00 EDT, Height Start Date: 01/11/21 Status: Ordered omeprazole 20 mg oral delayed release tablet 1 tablet = 20 mg, By Mouth, Daily, # 90 tablet, 2 Refills, Maintenance, 06/15/20 8:01:00 EDT, EC Tablet, [facility]/pharmacy #1111, 166, cm, 06/15/20 7:38:00 EDT, Height, 87, kg, 10/14/18 13:06:00 EST, Dry Weight Start Date: 06/15/20 Stop Date: 03/12/21 Status: Ordered ProAir HFA 90 mcg/inh inhalation aerosol with adapter 1, puffs, Inhalation, Every 6 hours, PRN, # 18 Gm, Refills 5, Tot. Refills 5, Maintenance, 208:01:00 EDT, Aerosol, Route to Pharmacy Electronically, [id number], [facility]/pharmacy #1111, 166, cm, 06/15/20 7:38:00 EDT, [...] 3 Refills, Maintenance, 06/15/20 8:01:00 EDT, Tablet, [facility]/pharmacy #1111, 166, cm, 06/15/20 7:38:00 EDT, Height, 87, kg,10/14/18 13:06:00 EST, Dry Weight Start Date: 06/15/20 Status: Ordered simvastatin 10 mg oral tablet 10 mg, 1, tablet, By Mouth, Daily at bedtime, # 30 tablet, Refills 5, Tot. Refills 5, Maintenance, 07/26/20 10:04:00 EDT, Route to Pharmacy Electronically, [facility]/pharmacy #1111, 166, cm, 07/26/20 9:41:00 EDT, Height, [...]
--- OUTSIDE RECORDS SUMMARY | 2023-05-24 00:59 | XMS_ITS | Continuity of Care Document ---
Author Name Unknown Organization [facility] Address [address] [place] [address]- Care Team Providers Care Batch And Furnace Manager Name Role Phone Mathieu Christina MD Primary Care Physician Encounter [facility] Date(s): 02/05/23 - 03/07/23 [facility] [address] [place] [address]- Attending Physician: Austin Swan Admitting Physician: Admtr, ArLinda Referring Physician: Admtr, Ar8 Allergies, Adverse Reactions, Alerts No Known Allergies [...] pneumococcal 23-valent vaccine 10/20/11 Given 1Result Comment: [facility]# [id number] 2Location History[facility] 1 [...] 8.5 each, 5 Refills, 11/08/22 15:58:00 EST, [facility]/pharmacy #1111, 30, 1 puffs Inhalation Every 6 hours,PRN: NEEDED FOR WHEEZING/SHORTNESS OF BREATH, 165, cm, ... Start Date: 11/08/22 Status: Ordered albuterol-ipratropium 3 mg-0.5 mg/3 ml inhalation solution 1 vials, Inhalation, 4 times a day, # 360 mL, 0 Refills, Maintenance, 11/08/22 15:58:00 EST, [facility]/pharmacy #1111, 30, 1 vials Inhalation 4 times a day, 165, cm, 08/17/22 7:14:00 EST, Height, 82, kg, 08/06/22 12:30:00 EDT, Dry Weight Start Date: 11/08/22 Status: Ordered buprenorphine-naloxone 2 mg-0.5 mg sublingual film 1 film, Sublingual, Daily, dissolve under the tongue, # 14 film, 0 Refills, Maintenance, 01/16/23 11:03:00 EDT, [place], [facility], Partial fill upon patient request if the prescription is for a schedule II opioid drug., 1 film Sublingual... Start Date: 01/16/23 Stop Date: 01/30/23 Status: Ordered buprenorphine-naloxone 8 mg-2 mg sublingual film 2 film, Sublingual, Daily, # 28 film, 0 Refills, Maintenance, 01/16/23 11:04:00 EDT, [place], [facility], Partial fill upon patient request if the prescription is for a schedule II opioid drug., 2 film Sublingual Daily,x14 days, 164, cm, 04... Start Date: 01/16/23 Stop Date: 01/30/23 Status: Ordered docusate sodium 100 mg oral capsule 1 capsule, By Mouth, 2 times a day, PRN NEEDED FOR CONSTIPATION, # 100 capsule, 0 Refills, Maintenance, 09/13/20 17:22:00 EST, [facility] STORE [facility], 166, cm, 07/26/20 9:41:00 EDT, Height, 87, kg, 10/14/18 13:06:00 EST, Dry Weight Start Date: 09/13/20 Status: Ordered Mouth piece for Nebulizer Mouth [...] 3 Refills, Maintenance, 01/01/22 12:31:00 EDT, Tablet, [facility]/pharmacy #1111, 165, cm, 10/14/21 14:50:00 EST, Height, 78.6,kg, 10/14/21 14:50:00 EST, Dry Weight Start Date: 01/01/22 Status: Ordered simvastatin 10 mg oral tablet 1, tablet, By Mouth, Daily at bedtime, # 90 tablet, Refills 1, Maintenance, 07/12/22 17:09:00 EDT, Route to Pharmacy Electronically, [facility], 165, cm, 05/30/22 13:27:00 EDT, Height, 78.6, [...] PTSD - Post-traumatic stress disorder Confirmed Active Social History Social History Type Response Smoking Status 5-9 cigarettes (betw een 1/4 to 1/2 pack)/day in last 30 days; Tobacco user in household: Yes entered on: 06/15/20 Sex Patient Care team information Care Team Personnel Name: Maverick Patel Position: [facility] Cardio/Pulm Mgr ([facility]) Member Role: Primary Care Nurse Name: Apryl Gray RN Position: [facility] RN Member Role: Primary Care Nurse Name: Mathieu Christina MD Position: [facility] Physician - Primary Care Member Role: PCP Address: Address: [address] [place] [address]- Care Team Related Persons Name: MONA MANUEL Address: [address] [place] [id number] Name: MONA MANUEL Address: home [address] [place] [id number] Name: BOUCHRA VELOZ Address: home NONE GIVEN Name: MONA BROWN Address: home [address] [place] [id number]
--- OUTSIDE RECORDS SUMMARY | 2023-05-24 00:59 | XMS_ITS | Continuity of Care Document ---
Author Name Unknown Organization [facility] Address [address] [place] [address]- Care Team Providers Care Physician Assistant Surgery Name Role Phone Mathieu Christina MD Primary Care Physician [phone] Encounter [facility] Date(s): 10/10/21 - 11/09/21 [facility] [employer] [facility] [address] [place] [address]- Attending Physician: AdmAustin dykes Admitting Physician: Admtr, Ar8 Referring Physician: Admtr, Ar8 Allergies, Adverse Reactions, [...] pneumococcal 23-valent vaccine 10/20/11 Given 1Result Comment: [facility]# [id number] 2Location History[facility] 1 each, See Instructions, # 1 each, Refills 0, Tot. Refills 0, Maintenance, please supply one knee brace. diagnosis: left knee injury, 01/15/19 13:39:43 EDT, Compound Start Date: 01/15/19 Status: Ordered albuterol-ipratropium 3 mg-0.5 mg/3 ml inhalation solution 1 vials, Inhalation, 4 times a day, # 360 mL, 0 Refills, Maintenance, 02/03/21 7:44:00 EDT, [facility], 30, USE 1 VIAL WITH NEBULIZER FOUR TIMES A DAY, 166, cm, 12/21/20 16:08:00 EDT, Height Start Date: 02/03/21 Status: Ordered betamethasone topical dipropionate 0.05% cream See Instructions, APPLY TO THE AFFECTED AREA TWICE A DAY, # 15 Gm, 3 Refills, Maintenance, 04/18/2110:54:00 EDT, [facility] #[id number], 7, APPLY TO THE AFFECTED AREA TWICE A DAY, 166, cm, 04/18/21 10:20:00 EDT, Height Start Date: 04/18/21 Status: Ordered Colace Clear 50 mg oral capsule 1 capsule = 50 mg, By Mouth, Daily, Decrease use to every other day if diarrhea develops., # 30 capsule, 0 Refills, Maintenance, 07/20/21 13:29:00 EDT, [facility]/pharmacy #1111, Partial fill upon patient request if the prescription is for a schedule II opio... Start Date: 07/20/21 Stop Date: 08/19/21 Status: Ordered docusate sodium 100 mg oral capsule 1 capsule, By Mouth, 2 times a day, PRN NEEDED FOR CONSTIPATION, # 100 capsule, 0 Refills, Maintenance, 09/13/20 17:22:00 EST, [facility], 166, cm, 07/26/20 9:41:00 EDT, Height, 87, [...] tablet, 2 Refills, Maintenance, 09/05/20 9:40:00 EST, [facility]/pharmacy #1111, 166, cm, 07/26/20 9:41:00 EDT, Height, 87, kg, 10/14/18 13:06:00 EST, Dry Weight Start Date: 09/05/20 Status: Ordered Flonase 50 mcg/inh nasal spray 2 sprays = 100 mcg, Nares, Both, 2 times a day, # 1 each, 5 Refills, Maintenance, 01/31/21 8:43:00 EDT, [place], [facility]/pharmacy #1111, 2 sprays Nares, Both 2 times a day, 166, cm, 12/21/20 16:08:00 EDT, Height Start Date: 01/31/21 Status: Ordered Hibiclens 4% soap See Instructions, Wash affected areas twice daily., # 240 mL, 1 Refills, Soft Stop, 07/20/21 13:30:00 EDT, [facility]/pharmacy #1111, Partial fill upon patient request if the prescription is for a schedule II opioid drug., Wash affected areas twice daily., 1... Start Date: 07/20/21 Status: Ordered ibuprofen 800 mg oral tablet 800 mg, 1, tablet, By Mouth, 2 times a day, with food or milk, # 60 tablet, Refills 1, Tot. Refills1, Maintenance, 01/28/19 10:46:50 EDT, Route to Pharmacy Electronically, [id number], [facility]/pharmacy #1111 Start Date: 01/28/19 Status: Ordered Mouth [...] 0 Refills, Maintenance, 06/01/21 12:45:00 EDT, Cream, [facility]/pharmacy #1111, Partial fill upon pat... Start Date: 06/01/21 Status: Ordered ProAir HFA 90 mcg/inh inhalation aerosol with adapter 1, puffs, Inhalation, Every 6 hours, PRN, # 18 Gm, Refills 5, Tot. Refills 5, Maintenance, 08/21/2111:56:00 EST, Aerosol, Route to Pharmacy Electronically, [id number], [facility], 166, cm, 04/18/21 10:20:00 EDT, Height Start Date: 08/21/21 Status: Ordered QUEtiapine 25 mg oral tablet [...] 3 Refills, Maintenance, 06/15/20 8:01:00 EDT, Tablet, [facility]/pharmacy #1111, 166, cm, 06/15/20 7:38:00 EDT, Height, 87, kg,10/14/18 13:06:00 EST, Dry Weight Start Date: 06/15/20 Status: Ordered simvastatin 10 mg oral tablet See Instructions, TAKE 1 TABLET BY MOUTH EVERYDAY AT BEDTIME, # 90 tablet, Refills 1, Instructions Replace Required Details, Route to Pharmacy Electronically, [id number], 166, cm, 04/18/21 10:20:00 EDT, Height Start [...] 11/18/21 10:56:00 EST, 09/19/21 10:56:00 EST, Tablet, [facility]/pharmacy #1111, Partial fill upon pat... Start Date: 09/19/21 Stop Date: 11/18/21 Status: Ordered SUMAtriptan 50 mg oral tablet 1 tablet = 50 mg, By Mouth, Daily, PRN for migraine headache, for 30 days, may repeat dose after 2 hours up to a maximum of 2, # 9 tablet, 1 Refills, Acute 01/17/22 10:56:00 EDT, 11/18/21 10:56:00 EST, Tablet, [facility]/pharmacy #1111, Partial fill upon pat... Start Date: [...]
--- OUTSIDE RECORDS SUMMARY | 2023-05-24 00:59 | XMS_ITS | Continuity of Care Document ---
Author Name Unknown Organization [facility] Address [address] [place] [address]- Care Team Providers Care Community Mental Health Social Worker Name Role Phone Mathieu Christina MD Primary Care Physician [phone] [place] [facility] [place]): 06[place]01[place]21 - 06/08/21 [facility] [address] [place] [address]- Encounter Diagnosis Rash(Discharge Diagnosis) - 06/01/21 Attending Physician: Not on Staff, Attending MD Referring Physician: Mathieu Christina MD Allergies, Adverse Reactions, [...] pneumococcal 23-valent vaccine 10/20/11 Given 1Result Comment: [facility]# [id number] 2Location History[facility] 1 each, See Instructions, # 1 each, Refills 0, Tot. Refills 0, Maintenance, please supply one knee brace. diagnosis: left knee injury, 01/15/19 13:39:43 EDT, Compound Start Date: 01/15/19 Status: Ordered albuterol-ipratropium 3 mg-0.5 mg/3 ml inhalation solution 1 vials, Inhalation, 4 times a day, # 360 mL, 0 Refills, Maintenance, 02/03/21 7:44:00 EDT, [facility], 30, USE 1 VIAL WITH NEBULIZER FOUR TIMES A DAY, 166, cm, 12/21/20 16:08:00 EDT, Height Start Date: 02/03/21 Status: Ordered betamethasone topical dipropionate 0.05% cream See Instructions, APPLY TO THE AFFECTED AREA TWICE A DAY, # 15 Gm, 3 Refills, Maintenance, 04/18/2110:54:00 EDT, [facility], 7, APPLY TO THE AFFECTED AREA TWICE A DAY, 166, cm, 04/18/21 10:20:00 EDT, Height Start Date: 04/18/21 Status: Ordered docusate sodium 100 mg oral capsule 1 capsule, By Mouth, 2 times a day, PRN NEEDED FOR CONSTIPATION, # 100 capsule, 0 Refills, Maintenance, 09/13/20 17:22:00 EST, [facility], 166, cm, 07/26/20 9:41:00 EDT, Height, 87, kg, 10/14/18 13:06:00 EST, Dry Weight Start Date: 09/13/20 Status: Ordered famotidine 40 mg oral tablet 1 tablet, By Mouth, Daily at bedtime, # 30 tablet, 2 Refills, Maintenance, 09/05/20 9:40:00 EST, [facility]/pharmacy #1111, 166, cm, 07/26/20 9:41:00 EDT, Height, 87, kg, 10/14/18 13:06:00 EST, Dry Weight Start Date: 09/05/20 Status: Ordered Flonase 50 mcg/inh nasal spray 2 sprays = 100 mcg, Nares, Both, 2 times a day, # 1 each, 5 Refills, Maintenance, 01/31/21 8:43:00 EDT, [place], [facility]/pharmacy #1111, 2 sprays Nares, Both 2 times a day, 166, cm, 12/21/20 16:08:00 EDT, Height Start Date: 01/31/21 Status: Ordered ibuprofen 800 mg oral tablet 800 mg, 1, tablet, By Mouth, 2 times a day, with food or milk, # 60 tablet, Refills 1, Tot. Refills1, Maintenance, 01/28/19 10:46:50 EDT, Route to Pharmacy Electronically, [id number], [facility]/pharmacy #1111 Start Date: 01/28/19 Status: [...] PER INSURANCE, # 90 capsule, 0 Refills, [facility], 166, cm, 04/18/21 10:20:00 EDT, Height Start [...] 04/18/2110:54:00 EDT, Aerosol, Route to Pharmacy Electronically, [id number], [facility] #[id number], 166, cm, 04/18/21 10:20:00... Start Date: 04/18/21 [...] 3 Refills, Maintenance, 06/15/20 8:01:00 EDT, Tablet, [facility], 166, cm, 06/15/20 7:38:00 EDT, Height, 87, kg,10/14/18 13:06:00 EST, Dry Weight Start Date: 06/15/20 Status: Ordered simvastatin 10 mg oral tablet 10 mg, 1, tablet, By Mouth, Daily at bedtime, # 90 tablet, Refills 1, Tot. Refills 1, Maintenance, 01/23/21 16:37:00 EDT, Route to Pharmacy Electronically, [facility]/pharmacy #1111, 166, cm, 12/21/20 16:08:00 EDT, Height Start Date: 01/23/21 Stop Date: 07/22/21 Status: Ordered Suboxone 8 mg-2 mg sublingual [...] - Post-traumatic stress disorder(Confirmed) Active Reflux(Confirmed) Active Diagnosis Diagnosis Type Effective Dates Health Status Clini lori Service Informant Rash Discharge Diagnosis 06/01/21 Social History Social History Type Response Smoking Status 5-9 cigarettes (betw een 1/4 to 1/2 pack)/day in last 30 days entered on: 04/18/21 Sex
--- OUTSIDE RECORDS SUMMARY | 2023-05-24 00:59 | XMS_ITS | Continuity of Care Document ---
Author Name Unknown Organization [facility] Address [address] [place] [address]- Care Team Providers Care Blind Escort Name Role Phone Mathieu Christina MD Primary Care Physician Encounter [facility] Date(s): 09/18/21 - 10/18/21 [email or web address] [address] [place] [address]- [place] Allergies, Adverse Reactions, Alerts Substance Reaction [...] pneumococcal 23-valent vaccine 10/20/11 Given 1Result Comment: [facility]# [id number] 2Location History[facility] 1 each, See Instructions, # 1 each, Refills 0, Tot. Refills 0, Maintenance, please supply one knee brace. diagnosis: left knee injury, 01/15/19 13:39:43 EDT, Compound Start Date: 01/15/19 Status: Ordered albuterol-ipratropium 3 mg-0.5 mg/3 ml inhalation solution 1 vials, Inhalation, 4 times a day, # 360 mL, 0 Refills, Maintenance, 02/03/21 7:44:00 EDT, [facility], 30, USE 1 VIAL WITH NEBULIZER FOUR TIMES A DAY, 166, cm, 12/21/20 16:08:00 EDT, Height Start Date: 02/03/21 Status: Ordered betamethasone topical dipropionate 0.05% cream See Instructions, APPLY TO THE AFFECTED AREA TWICE A DAY, # 15 Gm, 3 Refills, Maintenance, 04/18/2110:54:00 EDT, [facility] #[id number], 7, APPLY TO THE AFFECTED AREA TWICE A DAY, 166, cm, 04/18/21 10:20:00 EDT, Height Start Date: 04/18/21 Status: Ordered Colace Clear 50 mg oral capsule 1 capsule = 50 mg, By Mouth, Daily, Decrease use to every other day if diarrhea develops., # 30 capsule, 0 Refills, Maintenance, 07/20/21 13:29:00 EDT, [facility]/pharmacy #1111, Partial fill upon patient request if the prescription is for a schedule II opio... Start Date: 07/20/21 Stop Date: 08/19/21 Status: Ordered docusate sodium 100 mg oral capsule 1 capsule, By Mouth, 2 times a day, PRN NEEDED FOR CONSTIPATION, # 100 capsule, 0 Refills, Maintenance, 09/13/20 17:22:00 EST, [facility], 166, cm, 07/26/20 9:41:00 EDT, Height, 87, [...] tablet, 2 Refills, Maintenance, 09/05/20 9:40:00 EST, [facility]/pharmacy #1111, 166, cm, 07/26/20 9:41:00 EDT, Height, 87, kg, 10/14/18 13:06:00 EST, Dry Weight Start Date: 09/05/20 Status: Ordered Flonase 50 mcg/inh nasal spray 2 sprays = 100 mcg, Nares, Both, 2 times a day, # 1 each, 5 Refills, Maintenance, 01/31/21 8:43:00 EDT, [place], [facility], 2 sprays Nares, Both 2 times a day, 166, cm, 12/21/20 16:08:00 EDT, Height Start Date: 01/31/21 Status: Ordered Hibiclens 4% soap See Instructions, Wash affected areas twice daily., # 240 mL, 1 Refills, Soft Stop, 07/20/21 13:30:00 EDT, [facility], Partial fill upon patient request if the prescription is for a schedule II opioid drug., Wash affected areas twice daily., 1... Start Date: 07/20/21 Status: Ordered ibuprofen 800 mg oral tablet 800 mg, 1, tablet, By Mouth, 2 times a day, with food or milk, # 60 tablet, Refills 1, Tot. Refills1, Maintenance, 01/28/19 10:46:50 EDT, Route to Pharmacy Electronically, [id number], [facility] Start Date: 01/28/19 Status: Ordered Mouth [...] 0 Refills, Maintenance, 06/01/21 12:45:00 EDT, Cream, [facility]/pharmacy #1111, Partial fill upon pat... Start Date: 06/01/21 Status: Ordered ProAir HFA 90 mcg/inh inhalation aerosol with adapter 1, puffs, Inhalation, Every 6 hours, PRN, # 18 Gm, Refills 5, Tot. Refills 5, Maintenance, 08/21/2111:56:00 EST, Aerosol, Route to Pharmacy Electronically, [id number], [facility]/pharmacy #1111, 166, cm, 04/18/21 10:20:00 EDT, Height Start Date: 08/21/21 Status: Ordered propranolol 80 mg oral tablet 1 tablet, By Mouth, 2 times a day, for 30 days, # 60 tablet, 0 Refills, Physician Stop, [facility], 166, cm, 09/19/21 10:45:00 EST, Height Start [...] 3 Refills, Maintenance, 06/15/20 8:01:00 EDT, Tablet, [facility]/pharmacy #1111, 166, cm, 06/15/20 7:38:00 EDT, Height, 87, kg,10/14/18 13:06:00 EST, Dry Weight Start Date: 06/15/20 Status: Ordered simvastatin 10 mg oral tablet See Instructions, TAKE 1 TABLET BY MOUTH EVERYDAY AT BEDTIME, # 90 tablet, Refills 1, Instructions Replace Required Details, Route to Pharmacy Electronically, [facility], 166, cm, 04/18/21 10:20:00 EDT, Height Start [...] 11/18/21 10:56:00 EST, 09/19/21 10:56:00 EST, Tablet, [facility]/pharmacy #1111, Partial fill upon pat... Start Date: 09/19/21 Stop Date: 11/18/21 Status: Ordered SUMAtriptan 50 mg oral tablet 1 tablet = 50 mg, By Mouth, Daily, PRN for migraine headache, for 30 days, may repeat dose after 2 hours up to a maximum of 2, # 9 tablet, 1 Refills, Acute 01/17/22 10:56:00 EDT, 11/18/21 10:56:00 EST, Tablet, [facility]/pharmacy #1111, Partial fill upon pat... Start Date: [...]
--- OUTSIDE RECORDS SUMMARY | 2023-05-24 00:59 | XMS_ITS | Continuity of Care Document ---
Author Name Unknown Organization [facility] Address [address] [place] [id number]- Care Team Providers Care Cement Sprayer Helper Name Role Phone Mathieu Christina MD Primary Care Physician Encounter [facility] Date(s): 10/21/20 - 10/28/20 [facility] [address] [place] [address]- Attending Physician: Charity Jo MD Allergies, Adverse Reactions, Alerts Substance Reaction Severity Status NKA Active Immunizations Given and Recorded Vaccine Date Status Refusal Reason influenza virus vaccine, inactivated 1 10/21/20 Gi angélica influenza virus vaccine, inactivated 2 08/22/16 Re corded influenza virus vaccine, inactivated 07/25/15 Give n influenza virus vaccine, inactivated 10/20/11 Give n tetanus/diphtheria/pertussis, acel(Tdap) 06/08/15 Given pneumococcal 23-valent vaccine 10/20/11 Given 1Result Comment: [facility]# [id number] 2Location History: [facility] 1 [...] 15 Gm, 3 Refills, Maintenance, 208:01:00 EDT, [facility]/pharmacy #1111, 7, APPLY TO THE AFFECTED AREA TWICE A DAY, 166, cm, 06/15/20 7:38:00 EDT, Height, 87, kg, 10/14/18 13:06:00 EST, Dry W... Start Date: 06/15/20 Status: Ordered docusate sodium 100 mg oral capsule 1 capsule, By Mouth, 2 times a day, PRN NEEDED FOR CONSTIPATION, # 100 capsule, 0 Refills, Maintenance, 09/13/20 17:22:00 EST, [facility], 166, cm, 07/26/20 9:41:00 EDT, Height, 87, kg, 10/14/18 13:06:00 EST, Dry Weight Start Date: 09/13/20 Status: Ordered famotidine 40 mg oral tablet 1 tablet, By Mouth, Daily at bedtime, # 30 tablet, 2 Refills, Maintenance, 09/05/20 9:40:00 EST, [facility]/pharmacy #1111, 166, cm, 07/26/20 9:41:00 EDT, Height, 87, kg, 10/14/18 13:06:00 EST, Dry Weight Start Date: 09/05/20 Status: Ordered Flonase 50 mcg/inh nasal spray 2 sprays = 100 mcg, Nares, Both, 2 times a day, # 1 each, 5 Refills, Maintenance, 06/15/20 8:01:00 EDT, [place], [facility]/pharmacy #1111, 2 sprays Nares, Both 2 times a day, 166, cm, 06/15/20 7:38:00 EDT, Height, 87, kg, 10/14/18 13:06:00 EST, Dry Weight Start Date: 06/15/20 Status: Ordered ibuprofen 800 mg oral tablet 800 mg, 1, tablet, By Mouth, 2 times a day, with food or milk, # 60 tablet, Refills 1, Tot. Refills1, Maintenance, 01/28/19 10:46:50 EDT, Route to Pharmacy Electronically, [id number], [facility]/pharmacy #1111 Start Date: 01/28/19 Status: Ordered omeprazole 20 mg oral delayed release tablet 1 tablet = 20 mg, By Mouth, Daily, # 90 tablet, 2 Refills, Maintenance, 06/15/20 8:01:00 EDT, EC Tablet, [facility], 166, cm, 06/15/20 7:38:00 [...] 0 Refills, Maintenance, 07/26/20 10:00:00 EDT, Tablet, [facility]/pharmacy #1111, 166... Start Date: 07/26/20 Status: Ordered ProAir HFA 90 mcg/inh inhalation aerosol with adapter 1, puffs, Inhalation, Every 6 hours, PRN, # 18 Gm, Refills 5, Tot. Refills 5, Maintenance, 208:01:00 EDT, Aerosol, Route to Pharmacy Electronically, [id number], [facility]/pharmacy #1111, 166, cm, 06/15/20 7:38:00 EDT, Height... [...] 3 Refills, Maintenance, 06/15/20 8:01:00 EDT, Tablet, [facility]/pharmacy #1111, 166, cm, 06/15/20 7:38:00 EDT, Height, 87, kg,10/14/18 13:06:00 EST, Dry Weight Start Date: 06/15/20 Status: Ordered simvastatin 10 mg oral tablet 10 mg, 1, tablet, By Mouth, Daily at bedtime, # 30 tablet, Refills 5, Tot. Refills 5, Maintenance, 07/26/20 10:04:00 EDT, Route to Pharmacy Electronically, [facility]/pharmacy #1111, 166, cm, 07/26/20 9:41:00 [...] oldest [Reference Range]: 1 Height 166 cm (10/21/20 10:35 AM) Weight 84 kg (10/21/20 10:35 AM) Oxygen Saturation [94-100 %] 97 % (10/21/20 10:35 AM) Pulse Rate [55-90 bpm] 80 bpm (10/21/20 10:35 AM) Body Mass Index [18.5-24.99] 30.48 *>HHI* (10/21/20 10:35 AM) Blood Pressure [90-138/55-84 mm Hg] 130/ 60mm Hg (10/21/20 10:35 AM) Blood pressure sites Arm, left (10/21/20 10:35 AM) Social History Social History Type Response Smoking Status 5-9 cigarettes (betw een 1/4 to 1/2 pack)/day in last 30 days; Tobacco user in household: Yes entered on: 06/15/20 Sex
--- OUTSIDE RECORDS SUMMARY | 2023-05-24 00:59 | XMS_ITS | Continuity of Care Document ---
Author Name Unknown Organization [facility] Address [address] [place] [address]- Care Team Providers Care Supervisor Cigar Processing Name Role Phone Mathieu Christina MD Primary Care Physician Encounter [facility] Date(s): 10/14/21 - 10/14/[address] [address]- Encounter Diagnosis Sore throat(Final) - 10/14/21 Discharge Disposition: A-D/C Home Attending Physician: Sherri Sorto MD Admitting Physician: Sherri Sorto MD Referring Physician: Not on Staff, Referring MD Allergies, Adverse Reactions, Alerts Substance Reaction [...] 1Result Comment: [facility]# [id number] 2Location History[facility] each 1 each, See Instructions, # 1 each, Refills 0, Tot. Refills 0, Maintenance, please supply one knee brace. diagnosis: left knee injury, 01/15/19 13:39:43 EDT, Compound Start Date: 01/15/19 Status: Ordered albuterol-ipratropium 3 mg-0.5 mg/3 ml inhalation solution 1 vials, Inhalation, 4 times a day, # 360 mL, 0 Refills, Maintenance, 02/03/21 7:44:00 EDT, [facility], 30, USE 1 VIAL WITH NEBULIZER FOUR TIMES A DAY, 166, cm, 12/21/20 16:08:00 EDT, Height Start Date: 02/03/21 Status: Ordered betamethasone topical dipropionate 0.05% cream See Instructions, APPLY TO THE AFFECTED AREA TWICE A DAY, # 15 Gm, 3 Refills, Maintenance, 04/18/2110:54:00 EDT, [facility] #[id number], 7, APPLY TO THE AFFECTED AREA TWICE A DAY, 166, cm, 04/18/21 10:20:00 EDT, Height Start Date: 04/18/21 Status: Ordered Colace Clear 50 mg oral capsule 1 capsule = 50 mg, By Mouth, Daily, Decrease use to every other day if diarrhea develops., # 30 capsule, 0 Refills, Maintenance, 07/20/21 13:29:00 EDT, [facility]/pharmacy #1111, Partial fill upon patient request if the prescription is for a schedule II opio... Start Date: 07/20/21 Stop Date: 08/19/21 Status: Ordered docusate sodium 100 mg oral capsule 1 capsule, By Mouth, 2 times a day, PRN NEEDED FOR CONSTIPATION, # 100 capsule, 0 Refills, Maintenance, 09/13/20 17:22:00 EST, [facility], 166, cm, 07/26/20 9:41:00 EDT, Height, 87, kg, 10/14/18 13:06:00 EST, Dry Weight Start Date: 09/13/20 Status: Ordered doxycycline monohydrate 100 mg oral tablet 1 tablet = 100 mg, By Mouth, 2 times a day, # 20 tablet, 0 Refills, Soft Stop, 07/20/21 13:29:00 EDT, [facility]/pharmacy #1111, Partial fill upon patient request if the prescription is for a schedule II opioid drug., 166, cm, 04/18/21 10:20:00 EDT, Height Start Date: 07/20/21 Stop Date: 07/30/21 Status: Ordered famotidine 40 mg oral tablet 1 tablet, By Mouth, Daily at bedtime, # 30 tablet, 2 Refills, Maintenance, 09/05/20 9:40:00 EST, [facility]/pharmacy #1111, 166, cm, 07/26/20 9:41:00 EDT, Height, 87, kg, 10/14/18 13:06:00 EST, Dry Weight Start Date: 09/05/20 Status: Ordered Flonase 50 mcg/inh nasal spray 2 sprays = 100 mcg, Nares, Both, 2 times a day, # 1 each, 5 Refills, Maintenance, 01/31/21 8:43:00 EDT, Given, [facility]/pharmacy #1111, 2 sprays Nares, Both 2 times a day, 166, cm, 12/21/20 16:08:00 EDT, Height Start Date: 01/31/21 Status: Ordered Hibiclens 4% soap See Instructions, Wash affected areas twice daily., # 240 mL, 1 Refills, Soft Stop, 07/20/21 13:30:00 EDT, [facility]/pharmacy #1111, Partial fill upon patient request if the prescription is for a schedule II opioid drug., Wash affected areas twice daily., 1... Start Date: 07/20/21 Status: Ordered ibuprofen 800 mg oral tablet 800 mg, 1, tablet, By Mouth, 2 times a day, with food or milk, # 60 tablet, Refills 1, Tot. Refills1, Maintenance, 01/28/19 10:46:50 EDT, Route to Pharmacy Electronically, [id number], [facility]/pharmacy #1111 Start Date: 01/28/19 Status: Ordered [...] 90 capsule, 0 Refills, 08/22/21 17:04:00 EST, [facility]/pharmacy #1111, 166, cm, 04/18/21 10:20:00 EDT, Height Start Date: 08/22/21 Status: Ordered permethrin 5% topical cream See Instructions, 1 application Topically Once Apply from head to toe, leave on for 8-14 hr, rinse;may reapply in 7 days if live mites reappear, # 60 Gm, 0 Refills, Maintenance, 06/01/21 12:45:00 EDT, Cream, [facility]/pharmacy #1111, Partial fill upon pat... Start Date: 06/01/21 Status: Ordered ProAir HFA 90 mcg/inh inhalation aerosol with adapter 1, puffs, Inhalation, Every 6 hours, PRN, # 18 Gm, Refills 5, Tot. Refills 5, Maintenance, 08/21/2111:56:00 EST, Aerosol, Route to Pharmacy Electronically, [id number], [facility]/pharmacy #1111, 166, cm, 04/18/21 10:20:00 EDT, Height Start Date: 08/21/21 Status: Ordered propranolol 80 mg oral tablet 1 tablet, By Mouth, 2 times a day, for 30 days, # 60 tablet, 0 Refills, Physician Stop, [facility] ST[facility]862, 166, cm, 09/19/21 10:45:00 EST, Height Start [...] 3 Refills, Maintenance, 06/15/20 8:01:00 EDT, Tablet, [facility]/pharmacy #1111, 166, cm, 06/15/20 7:38:00 EDT, Height, 87, kg,10/14/18 13:06:00 EST, Dry Weight Start Date: 06/15/20 Status: Ordered simvastatin 10 mg oral tablet See Instructions, TAKE 1 TABLET BY MOUTH EVERYDAY AT BEDTIME, # 90 tablet, Refills 1, Instructions Replace Required Details, Route to Pharmacy Electronically, [facility], 166, cm, 04/18/21 10:20:00 EDT, Height Start [...] 11/18/21 10:56:00 EST, 09/19/21 10:56:00 EST, Tablet, [facility]/pharmacy #1111, Partial fill upon pat... Start Date: 09/19/21 Stop Date: 11/18/21 Status: Ordered SUMAtriptan 50 mg oral tablet 1 tablet = 50 mg, By Mouth, Daily, PRN for migraine headache, for 30 days, may repeat dose after 2 hours up to a maximum of 2, # 9 tablet, 1 Refills, Acute 01/17/22 10:56:00 EDT, 11/18/21 10:56:00 EST, Tablet, [facility]/pharmacy #1111, Partial fill upon pat... Start [...] - Post-traumatic stress disorder(Confirmed) Active Reflux(Confirmed) Active Results Orders for Microbiology Reports Name Date Group A Strep Screen and Culture 10/14/21 Microbiology Reports TEST:Group A Strep Screen and Culture STATUS:Unauthenticated BODY SITE: SOURCE:THROAT COLLECTED DATE/TIME:10/14/21 5:55 PM Group A Strep Screen and Culture SPECIMEN DESCRIPTION : THROAT SWAB SPECIAL REQUESTS : NONE DIRECT EXAM : RAPID GROUP A RESULT IS NEGATIVE, REFER TO CULTURE RESULT. REPORT STATUS : PRELIMINARY REPORT Radiology Reports * Exam Date Time Procedure Performing Provider Status 10/14/21 7:04 PM Chest Special View Catherine Giron; Auth (Verified) Notes: (Chest Special View) Reason For Exam: Cough RESULT: Chest Special View Chest Special View Hx of Present Illness: Cough, sore throat x 2 weeks. No known exposures; Reason: Cough; Clinical Question(s): Pneumonia; pt just needs a lateral chest; Order Comment: pt not in room when went to get for xray COMPARISON: AP view from earlier today, CT from 10/14/2018 FINDINGS: LINES AND TUBES: None. LUNGS AND PLEURA: The lungs are slightly hyperinflated with flattening of the diaphragm on the lateral view. The lungbases are clear. The upper lung mccann are less well seen on the lateral view due to shoulder artifact but no significant consolidation is seen on the earlier frontal projection. Tiny tree-in-bud nodules seen on 2019 CT are not apparent on x-ray. There is chronic scarring in the lingula unchanged from prior exam. No pleural effusion. No pneumothorax. HEART, MEDIASTINUM AND LESLY: Heart is normal in size. Normal upper mediastinal and hilar contour. BONES AND SOFT TISSUES: No acute abnormality. IMPRESSION: No pneumonia. Hyperinflated lungs more apparent on lateral view which could be seen with mild COPD or asthma. No effusions to suggest CHF. WSN: [id number] Ordering Physician: Sherri Sorto Dictated By: Charles Bailey MD Dictated Date/Time: 10/14/21 7:09 pm Reviewed By: Charles Bailey MD Signed By: Charles Bailey MD Signed Date/Time: 10/14/21 7:09 pm Transcribed By: DEEPTHI Transcribed Date/Time: 10/14/21 7:06 pm * Exam Date Time Procedure Performing Provider Status 10/14/21 6:07 PM Chest Portable Socorro Fossalbin T; Auth ( Verified) Notes: (Chest Portable) Reason For Exam: Shortness of Breath RESULT: Chest Portable Chest Portable Hx of Present Illness: Cough, sore throat x 2 weeks. No known exposures; Reason: Shortness of Breath; Clinical Question(s): CHF COMPARISON: 10/14/2018 FINDINGS: LINES AND TUBES: None. LUNGS AND PLEURA: There is chronic scarring in the lingula unchanged from prior exam. No consolidation or volume loss. No pleural effusion. No pneumothorax. HEART, MEDIASTINUM AND LESLY: Heart is normal in size. Normal upper mediastinal and hilar contour. BONES AND SOFT TISSUES: No acute abnormality. IMPRESSION: No acute abnormality. Minimal scarring in the lingula at the left lung base. WSN: [id number] Ordering Physician: Ja Wolfe Dictated By: Charles Bailey MD Dictated Date/Time: 10/14/21 6:08 pm Reviewed By: Charles Bailey MD Signed By: Charles Bailey MD Signed Date/Time: 10/14/21 6:08 pm Transcribed By: DEEPTHI Transcribed Date/Time: 10/14/21 6:08 pm Vital Signs Most recent to oldest [Reference Range]: 1 2 Height 165 cm (10/14/21 2:50 PM) 165 cm (10/14/21 2:48 PM) Weight 78.6 kg (10/14/21 2:50 PM) 78.6 kg (10/14/21 2:48 PM) Oxygen Saturation [94-100 %] 99 % (10/14/21 7:21 PM) 96 % (10/14/21 2:48 PM) Pulse Rate [55-90 bpm] 70 bpm (10/14/21 7:21 PM) 63 bpm (10/14/21 2:48 PM) Body Mass Index [18.5-24.99] 28.87 *H* (10/14/21 2:48 PM) Blood Pressure [90-138/55-84 mm Hg] 126/ 76mm Hg (10/14/21 7:21 PM) 121/74mm Hg (10/14/21 2:48 PM) Respiratory Rate [16-30 br/min] 16 br/mi n (10/14/21 7:21 PM) 16 br/min (10/14/21 2:48 PM) Temperature [96.8-100.4 DegF] 98.0 DegF (10/14/21 2:48 PM) Mode of Delivery (Oxygen) Room air (10/14/21 7:21 PM) Room air (10/14/21 2:48 PM) Blood pressure sites Arm, right (10/14/21 2:48 PM) Temperature Route Oral (10/14/21 2:48 PM) Dry Weight 78.6 kg (10/14/21 2:50 PM) Social History Social History Type Response Smoking Status 5-9 cigarettes (betw een 1/4 to 1/2 pack)/day in last 30 days; Tobacco user in household: Yes entered on: 06/15/20 Sex
--- OUTSIDE RECORDS SUMMARY | 2023-05-24 00:59 | XMS_ITS | Continuity of Care Document ---
Author Name Unknown Organization [facility] Address [address] [place] [phone]- Care Team Providers Care Facing End Trimmer Name Role Phone Mathieu Christina MD Primary Care Physician Encounter [facility] Date(s): [facility]16[facility]22 [facility] [address] [place] [address]- Allergies, Adverse Reactions, Alerts No Known Allergies [...] 10/20/11 Given 1Result Comment: [facility]# [id number] 2Location History: [facility] 1 [facility] 1 each, See Instructions, # 1 each, Refills 0, Tot. Refills 0, Maintenance, please supply one knee brace. diagnosis: left knee injury, 01/15/19 13:39:43 EDT, Compound Start Date: 01/15/19 Status: Ordered Albuterol (Eqv-ProAir HFA) 90 mcg/inh inhalation aerosol 1 puffs, Inhalation, Every 6 hours, PRN NEEDED FOR WHEEZING/SHORTNESS OF BREATH, # 8.5 each, 5 Refills, [facility], 30, TAKE 1 PUFF BY MOUTH EVERY 6 HOURS NEEDED FOR WHEEZING/SHORTNESS OF BREATH, 165, cm, 10/14/21 14:50:00 EST, Height, 78.6... Start Date: 05/13/22 Status: Ordered albuterol-ipratropium 3 mg-0.5 mg/3 ml inhalation solution 1 vials, Inhalation, 4 times a day, # 360 mL, 0 Refills, Maintenance, 02/03/21 7:44:00 EDT, [facility] 72542, 30, USE 1 VIAL WITH NEBULIZER FOUR TIMES A DAY, 166, cm, 12/21/20 16:08:00 EDT, Height Start Date: 02/03/21 Status: Ordered betamethasone topical dipropionate 0.05% cream See Instructions, APPLY TO THE AFFECTED AREA TWICE A DAY, # 15 Gm, 3 Refills, Maintenance, 04/18/2110:54:00 EDT, [facility] #[id number], 7, APPLY TO THE AFFECTED AREA TWICE A DAY, 166, cm, 04/18/21 10:20:00 EDT, Height Start Date: 04/18/21 Status: Ordered Citrucel 2 gm/19 gm oral powder for reconstitution = 2 Gm, By Mouth, 2 times a day, # 507 Gm, 1 Refills, Maintenance, 03/27/21 9:12:00 EDT, [facility] #[id number], Partial fill upon patient request if the prescription is for a schedule II opioiddrug., 166, cm, 12/21/20 16:08:00 EDT, Height Start Date: 03/27/21 Status: Ordered Colace Clear 50 mg oral capsule 1 capsule = 50 mg, By Mouth, Daily, Decrease use to every other day if diarrhea develops., # 30 capsule, 0 Refills, Maintenance, 07/20/21 13:29:00 EDT, [facility]/pharmacy #1111, Partial fill upon patient request if the prescription is for a schedule II opio... Start Date: 07/20/21 Stop Date: 08/19/21 Status: Ordered docusate sodium 100 mg oral capsule 1 capsule, By Mouth, 2 times a day, PRN NEEDED FOR CONSTIPATION, # 100 capsule, 0 Refills, Maintenance, 09/13/20 17:22:00 EST, [facility] 51820, 166, cm, 07/26/20 9:41:00 EDT, Height, 87, kg, 10/14/18 13:06:00 EST, Dry Weight Start Date: 09/13/20 Status: Ordered famotidine 40 mg oral tablet 1 tablet, By Mouth, Daily at bedtime, # 30 tablet, 2 Refills, Maintenance, 09/05/20 9:40:00 EST, [facility]/pharmacy #1111, 166, cm, 07/26/20 9:41:00 EDT, Height, 87, kg, 10/14/18 13:06:00 EST, Dry Weight Start Date: 09/05/20 Status: Ordered Flonase 50 mcg/inh nasal spray 2 sprays = 100 mcg, Nares, Both, 2 times a day, # 1 each, 5 Refills, Maintenance, 01/31/21 8:43:00 EDT, [place], [facility]/pharmacy #1111, 2 sprays Nares, Both 2 times a day, 166, cm, 12/21/20 16:08:00 EDT, Height Start Date: 01/31/21 Status: Ordered Hibiclens 4% soap See Instructions, Wash affected areas twice daily., # 240 mL, 1 Refills, Soft Stop, 07/20/21 13:30:00 EDT, [facility]/pharmacy #1111, Partial fill upon patient request if the prescription is for a schedule II opioid drug., Wash affected areas twice daily., 1... Start Date: 07/20/21 Status: Ordered ibuprofen 800 mg oral tablet 800 mg, 1, tablet, By Mouth, 2 times a day, with food or milk, # 60 tablet, Refills 1, Tot. Refills1, Maintenance, 01/28/19 10:46:50 EDT, Route to Pharmacy Electronically, [id number], [facility]/pharmacy #1111 Start Date: 01/28/19 Status: Ordered [...] EDT, Route to [facility] Electronically, [facility], 165, cm, 05/30/22 13:27:00 EDT, Height, 78.6, [...] # 9 tablet, 2 Refills, [facility], 165, cm, 10/14/21 14:50:00 EST, Height, 78.6, [...] Care Team Personnel Name: Maverick Patel Position: [facility] Cardio/Pulm Mgr ([facility] Member Role: Primary Care Nurse Name: Mathieu Christina MD Position: [facility] Primary Care Physician Member Role: PCP Address: Address: [address] [place] [address] Care Team Related Persons Name: MONA MANUEL Address: home [address] [place] [address] Name: MONA MANUEL Address: home [address] [place] [address] Name: BOUCHRA VELOZ Address: home NONE GIVEN Name: MONA BROWN Address: home [address] [place] [address]
--- OUTSIDE RECORDS SUMMARY | 2023-05-24 00:59 | XMS_ITS | Continuity of Care Document ---
Author Name Unknown Organization [facility] Address [address] [place] [address]- Care Team Providers Care Reed Dipper Name Role Phone Mathieu Christina MD Primary Care Physician [phone] Encounter [facility] Date(s): 04/20/21 - 08/16/[address] [address] Attending Physician: Kristi Toney MD Admitting Physician: Kristi Toney MD Allergies, Adverse Reactions, Alerts Substance Reaction Severity Status NKA Active Immunizations Given and Recorded Vaccine Date Status Refusal Reason influenza virus vaccine, inactivated 1 10/21/20 Gi angélica influenza virus vaccine, inactivated 2 08/22/16 Re corded influenza virus vaccine, inactivated 07/25/15 Give n influenza virus vaccine, inactivated 10/20/11 Give n tetanus/diphtheria/pertussis, acel(Tdap) 06/08/15 Given pneumococcal 23-valent vaccine 10/20/11 Given 1Result Comment: [facility]# [id number] 2Location History: [facility] Medications 1 each 1 each, See Instructions, # 1 each, Refills 0, Tot. Refills 0, Maintenance, please supply one knee brace. diagnosis: left knee injury, 01/15/19 13:39:43 EDT, Compound Start Date: 01/15/19 Status: Ordered albuterol-ipratropium 3 mg-0.5 mg/3 ml inhalation solution 1 vials, Inhalation, 4 times a day, # 360 mL, 0 Refills, Maintenance, 02/03/21 7:44:00 EDT, [facility], 30, USE 1 VIAL WITH NEBULIZER FOUR TIMES A DAY, 166, cm, 12/21/20 16:08:00 EDT, Height Start Date: 02/03/21 Status: Ordered betamethasone topical dipropionate 0.05% cream See Instructions, APPLY TO THE AFFECTED AREA TWICE A DAY, # 15 Gm, 3 Refills, Maintenance, 04/18/2110:54:00 EDT, [facility] #[id number], 7, APPLY TO THE AFFECTED AREA TWICE A DAY, 166, cm, 04/18/21 10:20:00 EDT, Height Start Date: 04/18/21 Status: Ordered Colace Clear 50 mg oral capsule 1 capsule = 50 mg, By Mouth, Daily, Decrease use to every other day if diarrhea develops., # 30 capsule, 0 Refills, Maintenance, 07/20/21 13:29:00 EDT, [facility]/pharmacy #1111, Partial fill upon patient request if the prescription is for a schedule II opio... Start Date: 07/20/21 Stop Date: 08/19/21 Status: Ordered docusate sodium 100 mg oral capsule 1 capsule, By Mouth, 2 times a day, PRN NEEDED FOR CONSTIPATION, # 100 capsule, 0 Refills, Maintenance, 09/13/20 17:22:00 EST, [facility] 09445, 166, cm, 07/26/20 9:41:00 EDT, Height, 87, [...] tablet, 2 Refills, Maintenance, 09/05/20 9:40:00 EST, [facility]/pharmacy #1111, 166, cm, 07/26/20 9:41:00 EDT, Height, 87, kg, 10/14/18 13:06:00 EST, Dry Weight Start Date: 09/05/20 Status: Ordered Flonase 50 mcg/inh nasal spray 2 sprays = 100 mcg, Nares, Both, 2 times a day, # 1 each, 5 Refills, Maintenance, 01/31/21 8:43:00 EDT, [place], [facility]/pharmacy #1111, 2 sprays Nares, Both 2 times a day, 166, cm, 12/21/20 16:08:00 EDT, Height Start Date: 01/31/21 Status: Ordered Hibiclens 4% soap See Instructions, Wash affected areas twice daily., # 240 mL, 1 Refills, Soft Stop, 07/20/21 13:30:00 EDT, [facility]/pharmacy #1111, Partial fill upon patient request if the prescription is for a schedule II opioid drug., Wash affected areas twice daily., 1... Start Date: 07/20/21 Status: Ordered ibuprofen 800 mg oral tablet 800 mg, 1, tablet, By Mouth, 2 times a day, with food or milk, # 60 tablet, Refills 1, Tot. Refills1, Maintenance, 01/28/19 10:46:50 EDT, Route to Pharmacy Electronically, [id number], [facility]/pharmacy #1111 Start Date: 01/28/19 Status: Ordered Mouth [...] PER INSURANCE, # 90 capsule, 0 Refills, [facility] STORE 93383, 166, cm, 04/18/21 10:20:00 EDT, Height Start Date: 05/30/21 Status: Ordered permethrin 5% topical cream See Instructions, 1 application Topically Once Apply from head to toe, leave on for 8-14 hr, rinse;may reapply in 7 days if live mites reappear, # 60 Gm, 0 Refills, Maintenance, 06/01/21 12:45:00 EDT, Cream, [facility]/pharmacy #1111, Partial fill upon pat... Start Date: 06/01/21 Status: Ordered ProAir HFA 90 mcg/inh inhalation aerosol with adapter 1, puffs, Inhalation, Every 6 hours, PRN, # 18 Gm, Refills 5, Tot. Refills 5, Maintenance, 04/18/2110:54:00 EDT, Aerosol, Route to Pharmacy Electronically, [id number], [id number] 166, cm, 04/18/21 10:20:00... Start Date: 04/18/21 [...] 3 Refills, Maintenance, 06/15/20 8:01:00 EDT, Tablet, [facility]/pharmacy #1111, 166, cm, 06/15/20 7:38:00 EDT, Height, 87, kg,10/14/18 13:06:00 EST, Dry Weight Start Date: 06/15/20 Status: Ordered simvastatin 10 mg oral tablet See Instructions, TAKE 1 TABLET BY MOUTH EVERYDAY AT BEDTIME, # 90 tablet, Refills 1, Instructions Replace Required Details, Route to Pharmacy Electronically, [facility] 39607, 166, cm, 04/18/21 10:20:00 EDT, Height Start [...]
--- OUTSIDE RECORDS SUMMARY | 2023-05-24 00:59 | XMS_ITS | Continuity of Care Document ---
Author Name Unknown Organization [facility] [place] Address [address] [place] [address]- Care Team Providers Care Traffic Operator Name Role Phone Mathieu Christina MD Primary Care Physician Encounter [facility] Date(s): 01/03/22 - 02/02/22 [facility] [place] [address] [place] [address]- Allergies, Adverse Reactions, Alerts No Known Allergies [...] pneumococcal 23-valent vaccine 10/20/11 Given 1Result Comment: [facility]# [id number] 2Location History: [facility] 1 each 1 each, See Instructions, # 1 each, Refills 0, Tot. Refills 0, Maintenance, please supply one knee brace. diagnosis: left knee injury, 01/15/19 13:39:43 EDT, Compound Start Date: 01/15/19 Status: Ordered albuterol-ipratropium 3 mg-0.5 mg/3 ml inhalation solution 1 vials, Inhalation, 4 times a day, # 360 mL, 0 Refills, Maintenance, 02/03/21 7:44:00 EDT, [facility], 30, USE 1 VIAL WITH NEBULIZER FOUR TIMES A DAY, 166, cm, 12/21/20 16:08:00 EDT, Height Start Date: 02/03/21 Status: Ordered betamethasone topical dipropionate 0.05% cream See Instructions, APPLY TO THE AFFECTED AREA TWICE A DAY, # 15 Gm, 3 Refills, Maintenance, 04/18/2110:54:00 EDT, [facility] #55082, 7, APPLY TO THE AFFECTED AREA TWICE A DAY, 166, cm, 04/18/21 10:20:00 EDT, Height Start Date: 04/18/21 Status: Ordered Colace Clear 50 mg oral capsule 1 capsule = 50 mg, By Mouth, Daily, Decrease use to every other day if diarrhea develops., # 30 capsule, 0 Refills, Maintenance, 07/20/21 13:29:00 EDT, [facility]/pharmacy #1111, Partial fill upon patient request if the prescription is for a schedule II opio... Start Date: 07/20/21 Stop Date: 08/19/21 Status: Ordered docusate sodium 100 mg oral capsule 1 capsule, By Mouth, 2 times a day, PRN NEEDED FOR CONSTIPATION, # 100 capsule, 0 Refills, Maintenance, 09/13/20 17:22:00 EST, [facility] 28470, 166, cm, 07/26/20 9:41:00 EDT, Height, 87, [...] tablet, 2 Refills, Maintenance, 09/05/20 9:40:00 EST, [facility]/pharmacy #1111, 166, cm, 07/26/20 9:41:00 EDT, Height, 87, kg, 10/14/18 13:06:00 EST, Dry Weight Start Date: 09/05/20 Status: Ordered Flonase 50 mcg/inh nasal spray 2 sprays = 100 mcg, Nares, Both, 2 times a day, # 1 each, 5 Refills, Maintenance, 01/31/21 8:43:00 EDT, [place], [facility]/pharmacy #1111, 2 sprays Nares, Both 2 [...] 01/28/19 10:46:50 EDT, Route to Pharmacy Electronically, [id number], [facility] Start Date: 01/28/19 Status: Ordered [...] 0 Refills, Maintenance, 06/01/21 12:45:00 EDT, Cream, [facility]/pharmacy #1111, Partial fill upon pat... Start Date: 06/01/21 Status: Ordered ProAir HFA 90 mcg/inh inhalation aerosol with adapter 1, puffs, Inhalation, Every 6 hours, PRN, # 18 Gm, Refills 5, Tot. Refills 5, Maintenance, 08/21/2111:56:00 EST, Aerosol, Route to Pharmacy Electronically, [id number], [facility]/pharmacy #1111, 166, cm, 04/18/21 10:20:00 EDT, [...] 3 Refills, Maintenance, 01/01/22 12:31:00 EDT, Tablet, [facility]/pharmacy #1111, 165, cm, 10/14/21 14:50:00 EST, Height, 78.6,kg, 10/14/21 14:50:00 EST, Dry Weight Start Date: 01/01/22 Status: Ordered simvastatin 10 mg oral tablet 1, tablet, By Mouth, Daily at bedtime, # 90 tablet, Refills 1, Route to Pharmacy Electronically, [facility] STORE 88003, 165, cm, 10/14/21 14:50:00 EST, Height, 78.6, [...] # 9 tablet, 2 Refills, [facility], 165, cm, 10/14/21 14:50:00 EST, Height, 78.6, [...]
--- OUTSIDE RECORDS SUMMARY | 2023-05-24 00:59 | XMS_ITS | Continuity of Care Document ---
Author Name Unknown Organization [facility] Address [address] [place] [address]- Care Team Providers Care Software Security Consultant Name Role Phone Mathieu Christina MD Primary Care Physician [phone] Encounter [facility] Date(s): 09/25/22 - 10/25/22 [facility] [employer] [address] [place] [address]- Allergies, Adverse Reactions, Alerts No Known Allergies [...] pneumococcal 23-valent vaccine 10/20/11 Given 1Result Comment: [facility]# [id number] 2Location History: [facility] 1 each 1 each, See Instructions, # 1 each, Refills 0, Tot. Refills 0, Maintenance, please supply one knee brace. diagnosis: left knee injury, 01/15/19 13:39:43 EDT, Compound Start Date: 01/15/19 Status: Ordered Albuterol (Eqv-ProAir HFA) 90 mcg/inh inhalation aerosol 1 puffs, Inhalation, Every 6 hours, PRN NEEDED FOR WHEEZING/SHORTNESS OF BREATH, # 8.5 each, 5 Refills, [facility], 30, TAKE 1 PUFF BY MOUTH EVERY 6 HOURS NEEDED FOR WHEEZING/SHORTNESS OF BREATH, 165, cm, 10/14/21 14:50:00 EST, Height, 78.6... Start Date: 05/13/22 Status: Ordered albuterol-ipratropium 3 mg-0.5 mg/3 ml inhalation solution 1 vials, Inhalation, 4 times a day, # 360 mL, 0 Refills, Maintenance, 02/03/21 7:44:00 EDT, [facility] 05190, 30, USE 1 VIAL WITH NEBULIZER FOUR TIMES A DAY, 166, cm, 12/21/20 16:08:00 EDT, Height Start Date: 02/03/21 Status: Ordered betamethasone topical dipropionate 0.05% cream See Instructions, APPLY TO THE AFFECTED AREA TWICE A DAY, # 15 Gm, 3 Refills, Maintenance, 04/18/2110:54:00 EDT, [facility] #[id number], 7, APPLY TO THE AFFECTED AREA TWICE A DAY, 166, cm, 04/18/21 10:20:00 EDT, Height Start Date: 04/18/21 Status: Ordered Citrucel 2 gm/19 gm oral powder for reconstitution = 2 Gm, By Mouth, 2 times a day, # 507 Gm, 1 Refills, Maintenance, 03/27/21 9:12:00 EDT, [facility] #[id number], Partial fill upon patient request if the prescription is for a schedule II opioiddrug., 166, cm, 12/21/20 16:08:00 EDT, Height Start Date: 03/27/21 Status: Ordered Colace Clear 50 mg oral capsule 1 capsule = 50 mg, By Mouth, Daily, Decrease use to every other day if diarrhea develops., # 30 capsule, 0 Refills, Maintenance, 07/20/21 13:29:00 EDT, [facility]/pharmacy #1111, Partial fill upon patient request if the prescription is for a schedule II opio... Start Date: 07/20/21 Stop Date: 08/19/21 Status: Ordered docusate sodium 100 mg oral capsule 1 capsule, By Mouth, 2 times a day, PRN NEEDED FOR CONSTIPATION, # 100 capsule, 0 Refills, Maintenance, 09/13/20 17:22:00 EST, [facility] 80896, 166, cm, 07/26/20 9:41:00 EDT, Height, 87, kg, 10/14/18 13:06:00 EST, Dry Weight Start Date: 09/13/20 Status: Ordered famotidine 40 mg oral tablet 1 tablet, By Mouth, Daily at bedtime, # 30 tablet, 2 Refills, Maintenance, 09/05/20 9:40:00 EST, [facility]/pharmacy #1111, 166, cm, 07/26/20 9:41:00 EDT, Height, 87, kg, 10/14/18 13:06:00 EST, Dry Weight Start Date: 09/05/20 Status: Ordered Flonase 50 mcg/inh nasal spray 2 sprays = 100 mcg, Nares, Both, 2 times a day, # 1 each, 5 Refills, Maintenance, 01/31/21 8:43:00 EDT, [place], [facility]/pharmacy #1111, 2 sprays Nares, Both 2 times a day, 166, cm, 12/21/20 16:08:00 EDT, Height Start Date: 01/31/21 Status: Ordered Hibiclens 4% soap See Instructions, Wash affected areas twice daily., # 240 mL, 1 Refills, Soft Stop, 07/20/21 13:30:00 EDT, [facility]/pharmacy #1111, Partial fill upon patient request if the prescription is for a schedule II opioid drug., Wash affected areas twice daily., 1... Start Date: 07/20/21 Status: Ordered ibuprofen 800 mg oral tablet 800 mg, 1, tablet, By Mouth, 2 times a day, with food or milk, # 60 tablet, Refills 1, Tot. Refills1, Maintenance, 01/28/19 10:46:50 EDT, Route to Pharmacy Electronically, [id number], [facility]/pharmacy #1111 Start Date: 01/28/19 Status: [...] EDT, Route to Pharmacy Electronically, [facility], 165, cm, 05/30/22 13:27:00 EDT, Height, 78.6, [...] # 9 tablet, 2 Refills, [facility], 165, cm, 10/14/21 14:50:00 EST, Height, 78.6, [...] Care Team Personnel Name: Maverick Patel Position: [facility] Cardio/Pulm Mgr ([facility]) Member Role: Primary Care Nurse Name: Mathieu Christina MD Position: [facility] Primary Care Physician Member Role: PCP Address: Address: [address] [place] [address] Care Team Related Persons Name: MONA MANUEL Address: home [address] [place] [address] Name: MONA MANUEL Address: home [address] [place] [address] Name: BOUCHRA VELOZ Address: home NONE GIVEN Name: MONA BROWN Address: home [address] [place] [address]
--- OUTSIDE RECORDS SUMMARY | 2023-05-24 00:59 | XMS_ITS | Continuity of Care Document ---
Author Name Unknown Organization [facility] [place] Address [address] [place] [address]- Care Team Providers Care Physical Laboratory Assistant Name Role Phone Mathieu Christina MD Primary Care Physician Encounter [facility] Date(s): 07/17/21 - 08/16/21 [facility] [place] [address] [place] [address]- Allergies, Adverse Reactions, Alerts Substance Reaction Severity Status NKA Active Immunizations Given and Recorded Vaccine Date Status Refusal Reason influenza virus vaccine, inactivated 1 10/21/20 Gi angélica influenza virus vaccine, inactivated 2 08/22/16 Re corded influenza virus vaccine, inactivated 07/25/15 Give n influenza virus vaccine, inactivated 10/20/11 Give n tetanus/diphtheria/pertussis, acel(Tdap) 06/08/15 Given pneumococcal 23-valent vaccine 10/20/11 Given 1Result Comment: [facility]# [id number] 2Location History: [facility] each 1 each, See Instructions, # 1 each, Refills 0, Tot. Refills 0, Maintenance, please supply one knee brace. diagnosis: left knee injury, 01/15/19 13:39:43 EDT, Compound Start Date: 01/15/19 Status: Ordered albuterol-ipratropium 3 mg-0.5 mg/3 ml inhalation solution 1 vials, Inhalation, 4 times a day, # 360 mL, 0 Refills, Maintenance, 02/03/21 7:44:00 EDT, [facility], 30, USE 1 VIAL WITH NEBULIZER FOUR TIMES A DAY, 166, cm, 12/21/20 16:08:00 EDT, Height Start Date: 02/03/21 Status: Ordered betamethasone topical dipropionate 0.05% cream See Instructions, APPLY TO THE AFFECTED AREA TWICE A DAY, # 15 Gm, 3 Refills, Maintenance, 04/18/2110:54:00 EDT, [facility] #60055, 7, APPLY TO THE AFFECTED AREA TWICE A DAY, 166, cm, 04/18/21 10:20:00 EDT, Height Start Date: 04/18/21 Status: Ordered Colace Clear 50 mg oral capsule 1 capsule = 50 mg, By Mouth, Daily, Decrease use to every other day if diarrhea develops., # 30 capsule, 0 Refills, Maintenance, 07/20/21 13:29:00 EDT, [facility]/pharmacy #1111, Partial fill upon patient request if the prescription is for a schedule II opio... Start Date: 07/20/21 Stop Date: 08/19/21 Status: Ordered docusate sodium 100 mg oral capsule 1 capsule, By Mouth, 2 times a day, PRN NEEDED FOR CONSTIPATION, # 100 capsule, 0 Refills, Maintenance, 09/13/20 17:22:00 EST, [facility] STORE 79213, 166, cm, 07/26/20 9:41:00 EDT, Height, 87, [...] each, 5 Refills, Maintenance, 01/31/21 8:43:00 EDT, [place], [facility]/pharmacy #1111, 2 sprays Nares, Both 2 times a day, 166, cm, 12/21/20 16:08:00 EDT, Height Start Date: 01/31/21 Status: Ordered Hibiclens 4% soap See Instructions, Wash affected areas twice daily., # 240 mL, 1 Refills, Soft Stop, 07/20/21 13:30:00 EDT, [facility]/pharmacy #1111, Partial fill upon patient request if the prescription is for a schedule II opioid drug., Wash affected areas twice daily., 1... Start Date: 07/20/21 Status: Ordered ibuprofen 800 mg oral tablet 800 mg, 1, tablet, By Mouth, 2 times a day, with food or milk, # 60 tablet, Refills 1, Tot. Refills1, Maintenance, 01/28/19 10:46:50 EDT, Route to Pharmacy Electronically, [id number], [facility]/pharmacy #1111 Start Date: 01/28/19 Status: Ordered [...] PER INSURANCE, # 90 capsule, 0 Refills, [facility] STORE 62106, 166, cm, 04/18/21 10:20:00 EDT, Height Start Date: 05/30/21 Status: Ordered permethrin 5% topical cream See Instructions, 1 application Topically Once Apply from head to toe, leave on for 8-14 hr, rinse;may reapply in 7 days if live mites reappear, # 60 Gm, 0 Refills, Maintenance, 06/01/21 12:45:00 EDT, [place], [facility]/pharmacy #1111, Partial fill upon pat... Start Date: 06/01/21 Status: Ordered ProAir HFA 90 mcg/inh inhalation aerosol with adapter 1, puffs, Inhalation, Every 6 hours, PRN, # 18 Gm, Refills 5, Tot. Refills 5, Maintenance, 04/18/2110:54:00 EDT, Aerosol, Route to Pharmacy Electronically, [id number], [id number], 166, cm, 04/18/21 10:20:00... Start Date: 04/18/21 [...] 3 Refills, Maintenance, 06/15/20 8:01:00 EDT, Tablet, [facility]/pharmacy #1111, 166, cm, 06/15/20 7:38:00 EDT, Height, 87, kg,10/14/18 13:06:00 EST, Dry Weight Start Date: 06/15/20 Status: Ordered simvastatin 10 mg oral tablet See Instructions, TAKE 1 TABLET BY MOUTH EVERYDAY AT BEDTIME, # 90 tablet, Refills 1, Instructions Replace Required Details, Route to Pharmacy Electronically, [facility], 166, cm, 04/18/21 10:20:00 EDT, Height Start [...]
--- OUTSIDE RECORDS SUMMARY | 2023-05-24 00:59 | XMS_ITS | Continuity of Care Document ---
Author Name Unknown Organization [facility] Charity Chery Surger y Address [address], [address] [place] [address]- Care Team Providers Care Filter Assembler Name Role Phone Mathieu Christina MD Primary Care Physician [phone] Encounter [facility] Date(s): 10/26/20 - 11/25/20 [facility] [address], [address] [place] [address]- Attending Physician: Admtr, Donnie8 Admitting Physician: AdmtrAustin Referring Physician: Admtr, Ar8 Allergies, Adverse Reactions, Alerts Substance Reaction Severity Status NKA Active Immunizations Given and Recorded Vaccine Date Status Refusal Reason influenza virus vaccine, inactivated 1 10/21/20 Gi angélica influenza virus vaccine, inactivated 2 08/22/16 Re corded influenza virus vaccine, inactivated 07/25/15 Give n influenza virus vaccine, inactivated 10/20/11 Give n tetanus/diphtheria/pertussis, acel(Tdap) 06/08/15 Given pneumococcal 23-valent vaccine 10/20/11 Given 1Result Comment: [facility]# [id number] 2Location History: [facility] 1 [...] 15 Gm, 3 Refills, Maintenance, :01:00 EDT, [facility]/pharmacy #1111, 7, APPLY TO THE AFFECTED AREA TWICE A DAY, 166, cm, 06/15/20 7:38:00 EDT, Height, 87, kg, 10/14/18 13:06:00 EST, Dry W... Start Date: 06/15/20 Status: Ordered docusate sodium 100 mg oral capsule 1 capsule, By Mouth, 2 times a day, PRN NEEDED FOR CONSTIPATION, # 100 capsule, 0 Refills, Maintenance, 09/13/20 17:22:00 EST, [facility], 166, cm, 07/26/20 9:41:00 EDT, Height, 87, kg, 10/14/18 13:06:00 EST, Dry Weight Start Date: 09/13/20 Status: Ordered famotidine 40 mg oral tablet 1 tablet, By Mouth, Daily at bedtime, # 30 tablet, 2 Refills, Maintenance, 09/05/20 9:40:00 EST, [facility]/pharmacy #1111, 166, cm, 07/26/20 9:41:00 EDT, Height, 87, kg, 10/14/18 13:06:00 EST, Dry Weight Start Date: 09/05/20 Status: Ordered Flonase 50 mcg/inh nasal spray 2 sprays = 100 mcg, Nares, Both, 2 times a day, # 1 each, 5 Refills, Maintenance, 06/15/20 8:01:00 EDT, [place], [facility]/pharmacy #1111, 2 sprays Nares, Both 2 times a day, 166, cm, 06/15/20 7:38:00 EDT, Height, 87, kg, 10/14/18 13:06:00 EST, Dry Weight Start Date: 06/15/20 Status: Ordered ibuprofen 800 mg oral tablet 800 mg, 1, tablet, By Mouth, 2 times a day, with food or milk, # 60 tablet, Refills 1, Tot. Refills1, Maintenance, 01/28/19 10:46:50 EDT, Route to Pharmacy Electronically, [id number], [facility]/pharmacy #1111 Start Date: 01/28/19 Status: Ordered omeprazole 20 mg oral delayed release tablet 1 tablet = 20 mg, By Mouth, Daily, # 90 tablet, 2 Refills, Maintenance, 06/15/20 8:01:00 EDT, EC Tablet, [facility]/pharmacy #1111, 166, cm, 06/15/20 7:38:00 EDT, Height, [...] 0 Refills, Maintenance, 07/26/20 10:00:00 EDT, Tablet, [facility]/pharmacy #1111, 166... Start Date: 07/26/20 Status: Ordered ProAir HFA 90 mcg/inh inhalation aerosol with adapter 1, puffs, Inhalation, Every 6 hours, PRN, # 18 Gm, Refills 5, Tot. Refills 5, Maintenance, 208:01:00 EDT, Aerosol, Route to Pharmacy Electronically, [id number], [facility]/pharmacy #1111, 166, cm, 06/15/20 7:38:00 EDT, Height... [...] 3 Refills, Maintenance, 06/15/20 8:01:00 EDT, Tablet, [facility]/pharmacy #1111, 166, cm, 06/15/20 7:38:00 EDT, Height, 87, kg,10/14/18 13:06:00 EST, Dry Weight Start Date: 06/15/20 Status: Ordered simvastatin 10 mg oral tablet 10 mg, 1, tablet, By Mouth, Daily at bedtime, # 30 tablet, Refills 5, Tot. Refills 5, Maintenance, 07/26/20 10:04:00 EDT, Route to Pharmacy Electronically, [facility]/pharmacy #1111, 166, cm, 07/26/20 9:41:00 EDT, Height, [...]
--- OUTSIDE RECORDS SUMMARY | 2023-05-24 00:59 | XMS_ITS | Continuity of Care Document ---
Author Name Unknown Organization [facility] Address [address] [place] [address]- Care Team Providers Care Diagnostics Sales Developer Name Role Phone Mathieu Christina MD Primary Care Physician En[facility] Date(s): 09/19/21 - [facility] [address] [place], [place] [id number]- Attending Physician: Donny Navarrete Allergies, Adverse Reactions, Alerts Substance Reaction Severity [...] Comment: [facility]# [id number] 2Location History: [facility] 1 each, See Instructions, # 1 each, Refills 0, Tot. Refills 0, Maintenance, please supply one knee brace. diagnosis: left knee injury, 01/15/19 13:39:43 EDT, Compound Start Date: 01/15/19 Status: Ordered albuterol-ipratropium 3 mg-0.5 mg/3 ml inhalation solution 1 vials, Inhalation, 4 times a day, # 360 mL, 0 Refills, Maintenance, 02/03/21 7:44:00 EDT, [facility], 30, USE 1 VIAL WITH NEBULIZER FOUR TIMES A DAY, 166, cm, 12/21/20 16:08:00 EDT, Height Start Date: 02/03/21 Status: Ordered betamethasone topical dipropionate 0.05% cream See Instructions, APPLY TO THE AFFECTED AREA TWICE A DAY, # 15 Gm, 3 Refills, Maintenance, 04/18/2110:54:00 EDT, [facility] #[id number], 7, APPLY TO THE AFFECTED AREA TWICE [...] capsule, 0 Refills, Maintenance, 09/13/20 17:22:00 EST, [facility], 166, cm, 07/26/20 9:41:00 EDT, Height, 87, [...] Refills, Maintenance, 01/31/21 8:43:00 EDT, [place], [facility]/pharmacy #1111, 2 sprays Nares, Both 2 times a day, 166, cm, 12/21/20 16:08:00 EDT, Height Start Date: 01/31/21 Status: Ordered Hibiclens 4% soap See Instructions, Wash affected areas twice daily., # 240 mL, 1 Refills, Soft Stop, 07/20/21 13:30:00 EDT, [facility]/pharmacy #1111, Partial fill upon patient request if the prescription is for a schedule II opioid drug., Wash affected areas twice daily., 1... Start Date: 07/20/21 Status: Ordered ibuprofen 800 mg oral tablet 800 mg, 1, tablet, By Mouth, 2 times a day, with food or milk, # 60 tablet, Refills 1, Tot. Refills1, Maintenance, 01/28/19 10:46:50 EDT, Route to Pharmacy Electronically, [id number], [facility]/pharmacy #1111 Start Date: 01/28/19 Status: Ordered Mouth [...] 0 Refills, Maintenance, 06/01/21 12:45:00 EDT, Cream, [facility]/pharmacy #1111, Partial fill upon pat... Start Date: 06/01/21 Status: Ordered ProAir HFA 90 mcg/inh inhalation aerosol with adapter 1, puffs, Inhalation, Every 6 hours, PRN, # 18 Gm, Refills 5, Tot. Refills 5, Maintenance, 08/21/2111:56:00 EST, Aerosol, Route to Pharmacy Electronically, [id number], [facility]/pharmacy #1111, 166, cm, 04/18/21 10:20:00 EDT, Height [...] 3 Refills, Maintenance, 06/15/20 8:01:00 EDT, Tablet, [facility]/pharmacy #1111, 166, cm, 06/15/20 7:38:00 EDT, Height, 87, kg,10/14/18 13:06:00 EST, Dry Weight Start Date: 06/15/20 Status: Ordered simvastatin 10 mg oral tablet See Instructions, TAKE 1 TABLET BY MOUTH EVERYDAY AT BEDTIME, # 90 tablet, Refills 1, Instructions Replace Required Details, Route to Pharmacy Electronically, [facility]ORE [facility], 166, cm, 04/18/21 10:20:00 EDT, Height Start [...] 11/18/21 10:56:00 EST, 09/19/21 10:56:00 EST, Tablet, [facility], Partial fill upon pat... Start Date: 09/19/21 Stop Date: 11/18/21 Status: Ordered traZODone 100 mg oral tablet [...] oldest [Reference Range]: 1 Height 166 cm (09/19/21 10:45 AM) Weight 79.0 kg (09/19/21 10:45 AM) Oxygen Saturation [94-100 %] 96 % (09/19/21 10:45 AM) Pulse Rate [55-90 bpm] 99 bpm *H* (09/19/21 10:45 AM) Body Mass Index [18.5-24.99] 28.67 *H* (09/19/21 10:45 AM) Blood Pressure [90-138/55-84 mm Hg] 126/ 84mm Hg (09/19/21 10:45 AM) Temperature [96.8-100.4 DegF] 98.4 DegF (09/19/21 10:45 AM) Liters per Minute 0 L/min (09/19/21 10:45 AM) Mode of Delivery (Oxygen) Room air (09/19/21 10:45 AM) Blood pressure sites Arm, left (09/19/21 10:45 AM) Temperature Route Temporal (09/19/21 10:45 AM) Weight Obtained Via Standing scale (09/19/21 10:45 AM) Social History Social History Type Response Smoking Status 5-9 cigarettes (betw een 1/4 to 1/2 pack)/day in last 30 days; Tobacco user in household: Yes entered on: 06/15/20 Sex
--- OUTSIDE RECORDS SUMMARY | 2023-05-24 00:59 | XMS_ITS | Continuity of Care Document ---
Author Name Unknown Organization [email or web address] Address [address] [place] [address]- Care Team Providers Care Kettle Skimmer Name Role Phone Mathieu Christina MD Primary Care Physician Encounter [facility] Date(s): 09/22/21 - 10/22/21 [facility] [address] [place] [address]- Allergies, Adverse Reactions, Alerts No Known Allergies [...] Given 1Result Comment: [facility]# [id number] 2Location History: [facility] 1 each, See Instructions, # 1 each, Refills 0, Tot. Refills 0, Maintenance, please supply one knee brace. diagnosis: left knee injury, 01/15/19 13:39:43 EDT, Compound Start Date: 01/15/19 Status: Ordered albuterol-ipratropium 3 mg-0.5 mg/3 ml inhalation solution 1 vials, Inhalation, 4 times a day, # 360 mL, 0 Refills, Maintenance, 02/03/21 7:44:00 EDT, [facility], 30, USE 1 VIAL WITH NEBULIZER FOUR TIMES A DAY, 166, cm, 12/21/20 16:08:00 EDT, Height Start Date: 02/03/21 Status: Ordered betamethasone topical dipropionate 0.05% cream See Instructions, APPLY TO THE AFFECTED AREA TWICE A DAY, # 15 Gm, 3 Refills, Maintenance, 04/18/2110:54:00 EDT, [facility] #71624, 7, APPLY TO THE AFFECTED AREA TWICE [...] capsule, 0 Refills, Maintenance, 09/13/20 17:22:00 EST, [facility] 137[facility], 166, cm, 07/26/20 9:41:00 EDT, Height, 87, [...] tablet, 2 Refills, Maintenance, 09/05/20 9:40:00 EST, [facility]/pharmacy #1111, 166, cm, 07/26/20 9:41:00 EDT, Height, 87, kg, 10/14/18 13:06:00 EST, Dry Weight Start Date: 09/05/20 Status: Ordered Flonase 50 mcg/inh nasal spray 2 sprays = 100 mcg, Nares, Both, 2 times a day, # 1 each, 5 Refills, Maintenance, 01/31/21 8:43:00 EDT, [place], [facility]/pharmacy #1111, 2 sprays Nares, Both [...] 01/28/19 10:46:50 EDT, Route to Pharmacy Electronically, [id number], [facility] Start Date: 01/28/19 Status: Ordered [...] 08/21/2111:56:00 EST, Aerosol, Route to Pharmacy Electronically, [id number], [facility]/pharmacy #1111, 166, cm, 04/18/21 10:20:00 EDT, Height Start Date: 08/21/21 Status: Ordered propranolol 80 mg oral tablet 1 tablet, By Mouth, 2 times a day, for 30 days, # 60 tablet, 0 Refills, Physician Stop, [facility], 166, cm, 09/19/21 10:45:00 EST, Height Start [...] Replace Required Details, Route to Pharmacy Electronically, [facility] [address], 166, cm, 04/18/21 10:20:00 EDT, Height Start [...] 11/18/21 10:56:00 EST, 09/19/21 10:56:00 EST, Tablet, [facility]/pharmacy #1111, Partial fill upon pat... Start Date: 09/19/21 Stop Date: 11/18/21 Status: Ordered SUMAtriptan 50 mg oral tablet 1 tablet = 50 mg, By Mouth, Daily, PRN for migraine headache, for 30 days, may repeat dose after 2 hours up to a maximum of 2, # 9 tablet, 1 Refills, Acute 01/17/22 10:56:00 EDT, 11/18/21 10:56:00 EST, Tablet, [facility]/pharmacy #1111, Partial fill upon pat... [...]
--- OUTSIDE RECORDS SUMMARY | 2023-05-24 00:59 | XMS_ITS | Continuity of Care Document ---
Author Name Unknown Organization [facility] Address [address] [place] [address]- Care Team Providers Care Trades Helper Name Role Phone Mathieu Christina MD Primary Care Physician Encounter [facility] Date(s): 06/01/21 - 07/01/21 [facility] [address] [place] [address]- Attending Physician: Austin Swan Admitting Physician: AdmtrAustin Referring Physician: Admtr, ArLinda Allergies, Adverse Reactions, Alerts Substance Reaction Severity Status NKA Active Immunizations Given and Recorded Vaccine Date Status Refusal Reason influenza virus vaccine, inactivated 1 10/21/20 Gi angélica influenza virus vaccine, inactivated 2 08/22/16 Re corded influenza virus vaccine, inactivated 07/25/15 Give n influenza virus vaccine, inactivated 10/20/11 Give n tetanus/diphtheria/pertussis, acel(Tdap) 06/08/15 Given pneumococcal 23-valent vaccine 10/20/11 Given 1Result Comment: [facility]# [id number] 2Location History: [facility] 1 each, See Instructions, # 1 each, Refills 0, Tot. Refills 0, Maintenance, please supply one knee brace. diagnosis: left knee injury, 01/15/19 13:39:43 EDT, Compound Start Date: 01/15/19 Status: Ordered albuterol-ipratropium 3 mg-0.5 mg/3 ml inhalation solution 1 vials, Inhalation, 4 times a day, # 360 mL, 0 Refills, Maintenance, 02/03/21 7:44:00 EDT, [facility], 30, USE 1 VIAL WITH NEBULIZER FOUR TIMES A DAY, 166, cm, 12/21/20 16:08:00 EDT, Height Start Date: 02/03/21 Status: Ordered betamethasone topical dipropionate 0.05% cream See Instructions, APPLY TO THE AFFECTED AREA TWICE A DAY, # 15 Gm, 3 Refills, Maintenance, 04/18/2110:54:00 EDT, [facility] #07438, 7, APPLY TO THE AFFECTED AREA TWICE A DAY, 166, cm, 04/18/21 10:20:00 EDT, Height Start Date: 04/18/21 Status: Ordered docusate sodium 100 mg oral capsule 1 capsule, By Mouth, 2 times a day, PRN NEEDED FOR CONSTIPATION, # 100 capsule, 0 Refills, Maintenance, 09/13/20 17:22:00 EST, [facility] [address], 166, cm, 07/26/20 9:41:00 EDT, Height, 87, [...] each, 5 Refills, Maintenance, 01/31/21 8:43:00 EDT, [employer], [facility]/pharmacy #1111, 2 sprays Nares, Both 2 times a day, 166, cm, 12/21/20 16:08:00 EDT, Height Start Date: 01/31/21 Status: Ordered ibuprofen 800 mg oral tablet 800 mg, 1, tablet, By Mouth, 2 times a day, with food or milk, # 60 tablet, Refills 1, Tot. Refills1, Maintenance, 01/28/19 10:46:50 EDT, Route to Pharmacy Electronically, [id number], [facility]/pharmacy #1111 [...] # 90 capsule, 0 Refills, [facility], 166, cm, 04/18/21 10:20:00 EDT, Height Start [...] 04/18/2110:54:00 EDT, Aerosol, Route to Pharmacy Electronically, [id number], [facility], 166, cm, 04/18/21 10:20:00... Start Date: 04/18/21 [...] 01/23/21 16:37:00 EDT, Route to Pharmacy Electronically, [facility]/pharmacy #1111, 166, cm, 12/21/20 16:08:00 EDT, Height [...]
--- OUTSIDE RECORDS SUMMARY | 2023-05-24 00:59 | XMS_ITS | Continuity of Care Document ---
Author Name Unknown Organization [facility] Address [address] [place] [address]- Care Team Providers Care Upper Inspector Name Role Phone Mathieu Christina MD Primary Care Physician [phone] Encounter [facility] Date(s): 03/30/22 - [facility]/29/22 [facility] [address] [address]- Attending Physician: AdmtrAustin Admitting Physician: AdmtrAutsin Referring Physician: Admtr, Ar8 Allergies, Adverse Reactions, [...] pneumococcal 23-valent vaccine 10/20/11 Given 1Result Comment: [facility]# [id number] 2Location History: [facility] 1 [...] OF BREATH, # 8.5 each, 2 Refills, [facility]84, 30, TAKE 1 PUFF BY MOUTH EVERY 6 HOURS NEEDED FOR WHEEZING/SHORTNESS OF BREATH, 165, cm, 10/14/21 14:50:00 EST,... Start Date: 02/18/22 Status: Ordered albuterol-ipratropium 3 mg-0.5 mg/3 ml inhalation solution 1 vials, Inhalation, 4 times a day, # 360 mL, 0 Refills, Maintenance, 02/03/21 7:44:00 EDT, [facility]1335, 30, USE 1 VIAL WITH NEBULIZER FOUR TIMES A DAY, 166, cm, 12/21/20 16:08:00 EDT, Height Start Date: 02/03/21 Status: Ordered betamethasone topical dipropionate 0.05% cream See Instructions, APPLY TO THE AFFECTED AREA TWICE A DAY, # 15 Gm, 3 Refills, Maintenance, 04/18/2110:54:00 EDT, [facility] #07653, 7, APPLY TO THE AFFECTED AREA TWICE A DAY, 166, cm, 04/18/21 10:20:00 EDT, Height Start Date: 04/18/21 Status: Ordered Colace Clear 50 mg oral capsule 1 capsule = 50 mg, By Mouth, Daily, Decrease use to every other day if diarrhea develops., # 30 capsule, 0 Refills, Maintenance, 07/20/21 13:29:00 EDT, [facility]/pharmacy #1111, Partial fill upon patient request if the prescription is for a schedule II opio... Start Date: 07/20/21 Stop Date: 08/19/21 Status: Ordered docusate sodium 100 mg oral capsule 1 capsule, By Mouth, 2 times a day, PRN NEEDED FOR CONSTIPATION, # 100 capsule, 0 Refills, Maintenance, 09/13/20 17:22:00 EST, [facility] [address], 166, cm, 07/26/20 9:41:00 EDT, Height, 87, kg, 10/14/18 13:06:00 EST, Dry Weight Start Date: 09/13/20 Status: Ordered doxycycline monohydrate 100 mg oral tablet 1 tablet = 100 mg, By Mouth, 2 times a day, # 20 tablet, 0 Refills, Soft Stop, 07/20/21 13:29:00 EDT, [facility]/pharmacy #1111, Partial fill upon patient [...] each, 5 Refills, Maintenance, 01/31/21 8:43:00 EDT, [place], [facility]/pharmacy #1111, 2 sprays Nares, Both [...] 01/28/19 10:46:50 EDT, Route to Pharmacy Electronically, [id number], [facility]/pharmacy #1111 Start Date: 01/28/19 Status: [...] 90 capsule, 0 Refills, 08/22/21 17:04:00 EST, [facility]/pharmacy #1111, 166, cm, 04/18/21 10:20:00 EDT, Height Start Date: 08/22/21 Status: Ordered permethrin 5% topical cream See Instructions, 1 application Topically Once Apply from head to toe, leave on for 8-14 hr, rinse;may reapply in 7 days if live mites reappear, # 60 Gm, 0 Refills, Maintenance, 06/01/21 12:45:00 EDT, Cream, [facility]/pharmacy #1111, Partial fill upon pat... [...] 3 Refills, Maintenance, 01/01/22 12:31:00 EDT, Tablet, [facility]/pharmacy #1111, 165, cm, 10/14/21 14:50:00 EST, Height, 78.6,kg, 10/14/21 14:50:00 EST, Dry Weight Start Date: 01/01/22 Status: Ordered simvastatin 10 mg oral tablet 1, tablet, By Mouth, Daily at bedtime, # 90 tablet, Refills 1, Route to Pharmacy Electronically, [facility] STORE 81249, 165, cm, 10/14/21 14:50:00 EST, Height, 78.6, [...] OF 2DOSES, # 9 tablet, 2 Refills, [facility] 11793, 165, cm, 10/14/21 14:50:00 EST, Height, 78.6, [...]
--- OUTSIDE RECORDS SUMMARY | 2023-05-24 00:59 | XMS_ITS | Continuity of Care Document ---
Author Name Unknown Organization [facility] Address [address] [place] [address]- Care Team Providers Care Pattern Attendant Name Role Phone Mathieu Christina MD Primary Care Physician Encounter [facility] Date(s): 10/26/22 - [facility]25/[facility] [address] [place] [address]- [place] Allergies, Adverse Reactions, Alerts No Known [...] 10/20/11 Given 1Result Comment: [facility]# [id number] 2Location History: [facility] 1 [...] 8.5 each, 5 Refills, 11/08/22 15:58:00 EST, [facility]/pharmacy #1111, 30, 1 puffs Inhalation Every 6 hours,PRN: NEEDED FOR WHEEZING/SHORTNESS OF BREATH, 165, cm, ... Start Date: 11/08/22 Status: Ordered albuterol-ipratropium 3 mg-0.5 mg/3 ml inhalation solution 1 vials, Inhalation, 4 times a day, # 360 mL, 0 Refills, Maintenance, 11/08/22 15:58:00 EST, [facility]/pharmacy #1111, 30, 1 vials Inhalation 4 times a day, 165, cm, 08/17/22 7:14:00 EST, Height, 82, kg, 08/06/22 12:30:00 EDT, Dry Weight Start Date: 11/08/22 Status: Ordered betamethasone topical dipropionate 0.05% cream See Instructions, APPLY TO THE AFFECTED AREA TWICE A DAY, # 15 Gm, 3 Refills, Maintenance, 04/18/2110:54:00 EDT, [facility] #44236, 7, APPLY TO THE AFFECTED AREA TWICE A DAY, 166, cm, 04/18/21 10:20:00 EDT, Height Start Date: 04/18/21 Status: Ordered Citrucel 2 gm/19 gm oral powder for reconstitution = 2 Gm, By Mouth, 2 times a day, # 507 Gm, 1 Refills, Maintenance, 03/27/21 9:12:00 EDT, [facility] #16588, Partial fill upon patient request if the prescription is for a schedule II opioiddrug., 166, cm, 12/21/20 16:08:00 EDT, Height Start Date: 03/27/21 Status: Ordered Colace Clear 50 mg oral capsule 1 capsule = 50 mg, By Mouth, Daily, Decrease use to every other day if diarrhea develops., # 30 capsule, 0 Refills, Maintenance, 07/20/21 13:29:00 EDT, [facility]/pharmacy #1111, Partial fill upon patient request if the prescription is for a schedule II opio... Start Date: 07/20/21 Stop Date: 08/19/21 Status: Ordered docusate sodium 100 mg oral capsule 1 capsule, By Mouth, 2 times a day, PRN NEEDED FOR CONSTIPATION, # 100 capsule, 0 Refills, Maintenance, 09/13/20 17:22:00 EST, [facility] ST[facility] 94859, 166, cm, 07/26/20 9:41:00 EDT, Height, 87, kg, 10/14/18 13:06:00 EST, Dry Weight Start Date: 09/13/20 Status: Ordered famotidine 40 mg oral tablet 1 tablet, By Mouth, Daily at bedtime, # 30 tablet, 2 Refills, Maintenance, 09/05/20 9:40:00 EST, [facility]/pharmacy #1111, 166, cm, 07/26/20 9:41:00 EDT, Height, 87, kg, 10/14/18 13:06:00 EST, Dry Weight Start Date: 09/05/20 Status: Ordered Flonase 50 mcg/inh nasal spray 2 sprays = 100 mcg, Nares, Both, 2 times a day, # 1 each, 5 Refills, Maintenance, 01/31/21 8:43:00 EDT, [place], [facility]/pharmacy #1111, 2 sprays Nares, Both 2 times a day, 166, cm, 12/21/20 16:08:00 EDT, Height Start Date: 01/31/21 Status: Ordered Hibiclens 4% soap See Instructions, Wash affected areas twice daily., # 240 mL, 1 Refills, Soft Stop, 07/20/21 13:30:00 EDT, [facility]/pharmacy #1111, Partial fill upon patient request if the prescription is for a schedule II opioid drug., Wash affected areas twice daily., 1... Start Date: 07/20/21 Status: Ordered ibuprofen 800 mg oral tablet 800 mg, 1, tablet, By Mouth, 2 times a day, with food or milk, # 60 tablet, Refills 1, Tot. Refills1, Maintenance, 01/28/19 10:46:50 EDT, Route to Pharmacy Electronically, [id number], [facility]/pharmacy #1111 Start Date: 01/28/19 Status: Ordered Mouth [...] 3 Refills, Maintenance, 01/01/22 12:31:00 EDT, Tablet, [facility]/pharmacy #1111, 165, cm, 10/14/21 14:50:00 EST, Height, 78.6,kg, 10/14/21 14:50:00 EST, Dry Weight Start Date: 01/01/22 Status: Ordered simvastatin 10 mg oral tablet 1, tablet, By Mouth, Daily at bedtime, # 90 tablet, Refills 1, Maintenance, 07/12/22 17:09:00 EDT, Route to Pharmacy Electronically, [facility], 165, cm, 05/30/22 13:27:00 EDT, Height, 78.6, [...] # 9 tablet, 2 Refills, [facility], 165, cm, 10/14/21 14:50:00 EST, Height, 78.6, [...] Care Team Personnel Name: Maverick Patel Position: [facility] Cardio/Pulm Mgr ([facility]) Member Role: Primary Care Nurse Name: Mathieu Christina MD Position: [facility] Primary Care Physician Member Role: PCP Address: Address: [address] [place] [address] Care Team Related Persons Name: MONA MANUEL Address: home [address] [place] [id number] Name: MONA MANUEL Address: home [address] [place] [address] Name: BOUCHRA VELOZ Address: home NONE GIVEN Name: MONA BROWN Address: home [address] [place] [address]
--- OUTSIDE RECORDS SUMMARY | 2023-05-24 00:59 | XMS_ITS | Continuity of Care Document ---
Author Name Unknown Organization [facility] Address [address] [place] [id number]- Care Team Providers Care Tube And Rod Straightener Name Role Phone Mathieu Christina MD Primary Care Physician Encounter [facility] Date(s): 01/01/22 - 01/31/22 [facility] [address] [place] [phone]- [place] Allergies, Adverse Reactions, Alerts No Known [...] 23-valent vaccine 10/20/11 Given 1Result Comment: [facility]# [id number] 2Location History: [facility] 1 each, See Instructions, # 1 each, Refills 0, Tot. Refills 0, Maintenance, please supply one knee brace. diagnosis: left knee injury, 01/15/19 13:39:43 EDT, Compound Start Date: 01/15/19 Status: Ordered albuterol-ipratropium 3 mg-0.5 mg/3 ml inhalation solution 1 vials, Inhalation, 4 times a day, # 360 mL, 0 Refills, Maintenance, 02/03/21 7:44:00 EDT, [facility], 30, USE 1 VIAL WITH NEBULIZER FOUR TIMES A DAY, 166, cm, 12/21/20 16:08:00 EDT, Height Start Date: 02/03/21 Status: Ordered betamethasone topical dipropionate 0.05% cream See Instructions, APPLY TO THE AFFECTED AREA TWICE A DAY, # 15 Gm, 3 Refills, Maintenance, 04/18/2110:54:00 EDT, [facility] #[id number], 7, APPLY TO THE AFFECTED AREA TWICE A DAY, 166, cm, 04/18/21 10:20:00 EDT, Height Start Date: 04/18/21 Status: Ordered Colace Clear 50 mg oral capsule 1 capsule = 50 mg, By Mouth, Daily, Decrease use to every other day if diarrhea develops., # 30 capsule, 0 Refills, Maintenance, 07/20/21 13:29:00 EDT, [facility]/pharmacy #1111, Partial fill upon patient request if the prescription is for a schedule II opio... Start Date: 07/20/21 Stop Date: 08/19/21 Status: Ordered docusate sodium 100 mg oral capsule 1 capsule, By Mouth, 2 times a day, PRN NEEDED FOR CONSTIPATION, # 100 capsule, 0 Refills, Maintenance, 09/13/20 17:22:00 EST, [facility], 166, cm, 07/26/20 9:41:00 EDT, Height, 87, [...] each, 5 Refills, Maintenance, 01/31/21 8:43:00 EDT, [place], [facility]/pharmacy #1111, 2 sprays Nares, Both 2 times a day, 166, cm, 12/21/20 16:08:00 EDT, Height Start Date: 01/31/21 Status: Ordered Hibiclens 4% soap See Instructions, Wash affected areas twice daily., # 240 mL, 1 Refills, Soft Stop, 07/20/21 13:30:00 EDT, [facility]/pharmacy #1111, Partial fill upon patient request if the prescription is for a schedule II opioid drug., Wash affected areas twice daily., 1... Start Date: 07/20/21 Status: Ordered ibuprofen 800 mg oral tablet 800 mg, 1, tablet, By Mouth, 2 times a day, with food or milk, # 60 tablet, Refills 1, Tot. Refills1, Maintenance, 01/28/19 10:46:50 EDT, Route to Pharmacy Electronically, [id number], [facility]/pharmacy #1111 Start Date: 01/28/19 Status: [...] 90 capsule, 0 Refills, 08/22/21 17:04:00 EST, [facility]/pharmacy #1111, 166, cm, 04/18/21 10:20:00 EDT, Height Start Date: 08/22/21 Status: Ordered permethrin 5% topical cream See Instructions, 1 application Topically Once Apply from head to toe, leave on for 8-14 hr, rinse;may reapply in 7 days if live mites reappear, # 60 Gm, 0 Refills, Maintenance, 06/01/21 12:45:00 EDT, Cream, [facility]/pharmacy #1111, Partial fill upon pat... Start Date: 06/01/21 Status: Ordered ProAir HFA 90 mcg/inh inhalation aerosol with adapter 1, puffs, Inhalation, Every 6 hours, PRN, # 18 Gm, Refills 5, Tot. Refills 5, Maintenance, 08/21/2111:56:00 EST, Aerosol, Route to Pharmacy Electronically, [id number], [facility]/pharmacy #1111, 166, cm, 04/18/21 10:20:00 EDT, [...] 3 Refills, Maintenance, 01/01/22 12:31:00 EDT, Tablet, [facility]/pharmacy #1111, 165, cm, 10/14/21 14:50:00 EST, Height, 78.6,kg, 10/14/21 14:50:00 EST, Dry Weight Start Date: 01/01/22 Status: Ordered simvastatin 10 mg oral tablet 1, tablet, By Mouth, Daily at bedtime, # 90 tablet, Refills 1, Route to Pharmacy Electronically, [facility] STORE [facility]144, 165, cm, 10/14/21 14:50:00 EST, Height, 78.6, [...] # 9 tablet, 2 Refills, [facility], 165, cm, 10/14/21 14:50:00 EST, Height, 78.6, [...]
--- OUTSIDE RECORDS SUMMARY | 2023-05-24 01:00 | XMS_ITS | Continuity of Care Document ---
Author Name Unknown Organization [facility] Address [address] [place] [address]- Care Team Providers Care Disaster Recovery Specialist Name Role Phone Mathieu Christina MD Primary Care Physician Encounter [facility] Date(s): 01/12/20 - 01/22/20 [facility] [place] [address] [place] [address]- [facility] Attending Physician: Admtr, Ar8 Admitting Physician: Admtr, Ar8 Referring Physician: Admtr, [...] Date: 10/16/18 Stop Date: 12/15/18 Status: Ordered Flonase 50 mcg/inh nasal spray 2 sprays = 100 mcg, Nares, Both, 2 times a day, # 1 each, 5 Refills, Maintenance, 01/12/20 9:32:00 EDT, [place], [facility]/pharmacy #1111, 2 sprays Nares, Both 2 times a day, 166, cm, 07/13/19 9:25:00 EDT, Height, 87, kg, 10/14/18 13:06:00 EST, Dry Weight Start Date: 01/12/20 Status: Ordered hydrocortisone 1% topical ointment See Instructions, apply in a thin film to the affected skin and rub in gently and completely, twicea day, # 110 Gm, 2 Refills, Maintenance, 10/23/18 13:38:00 EST, apply in a thin film to the affected skin and rub in gently and completely, twice a day Start Date: 10/23/18 Stop Date: 10/26/19 Status: Ordered ibuprofen 800 mg oral tablet 800 mg, 1, tablet, By Mouth, 2 times a day, with food or milk, # 60 tablet, Refills 1, Tot. Refills1, Maintenance, 01/28/19 10:46:50 EDT, Route to Pharmacy Electronically, [id number], [facility]/pharmacy #1111 Start Date: 01/28/19 Status: Ordered MiraLax oral powder for reconstitution = 17 Gm, By Mouth, Daily, dissolve in water before taking, # 527 Gm, 5 Refills, Maintenance, 01/12/20 9:33:00 EDT, REC Powder, [facility]/pharmacy #1111, 17 Gm By Mouth Daily,Instr:dissolve in water before taking, 166, cm, 07/13/19 9:25:00 EDT, Height, 87, k... Start Date: 01/12/20 Status: Ordered omeprazole 20 mg oral delayed [...] 01/14/2015:26:00 EDT, Aerosol, Route to Pharmacy Electronically, [id number], [facility]/pharmacy #1111, 166, cm, 07/13/19 9:25:00 EDT, [...]
--- OUTSIDE RECORDS SUMMARY | 2023-05-24 01:00 | XMS_ITS | Continuity of Care Document ---
Author Name Unknown Organization [facility] Address [address] [place] [address]- Care Team Providers Care Cuff Setter Overlock Name Role Phone Mathieu Christina MD Primary Care Physician Encounter [facility] Date(s): 07/20/21 - [facility] [address] [place], [place] [id number]- Attending Physician: Donny Navarrete Allergies, Adverse Reactions, [...] 23-valent vaccine 10/20/11 Given 1Result Comment: [facility]# [id number] 2Location History: [facility] each 1 each, See Instructions, # 1 each, Refills 0, Tot. Refills 0, Maintenance, please supply one knee brace. diagnosis: left knee injury, 01/15/19 13:39:43 EDT, Compound Start Date: 01/15/19 Status: Ordered albuterol-ipratropium 3 mg-0.5 mg/3 ml inhalation solution 1 vials, Inhalation, 4 times a day, # 360 mL, 0 Refills, Maintenance, 02/03/21 7:44:00 EDT, [facility], 30, USE 1 VIAL WITH NEBULIZER FOUR TIMES A DAY, 166, cm, 12/21/20 16:08:00 EDT, Height Start Date: 02/03/21 Status: Ordered betamethasone topical dipropionate 0.05% cream See Instructions, APPLY TO THE AFFECTED AREA TWICE A DAY, # 15 Gm, 3 Refills, Maintenance, 04/18/2110:54:00 EDT, [facility] #[id number], 7, APPLY TO THE AFFECTED AREA TWICE [...] capsule, 0 Refills, Maintenance, 09/13/20 17:22:00 EST, [facility]ORE [address]21, 166, cm, 07/26/20 9:41:00 EDT, Height, 87, [...] each, 5 Refills, Maintenance, 01/31/21 8:43:00 EDT, [place], [facility]/pharmacy #1111, 2 sprays Nares, Both 2 times a day, 166, cm, 12/21/20 16:08:00 EDT, Height Start Date: 01/31/21 Status: Ordered Hibiclens 4% soap See Instructions, Wash affected areas twice daily., # 240 mL, 1 Refills, Soft Stop, 07/20/21 13:30:00 EDT, [facility]/pharmacy #1111, Partial fill upon patient request if the prescription is for a schedule II opioid drug., Wash affected areas twice daily., 1... Start Date: 07/20/21 Status: Ordered ibuprofen 800 mg oral tablet 800 mg, 1, tablet, By Mouth, 2 times a day, with food or milk, # 60 tablet, Refills 1, Tot. Refills1, Maintenance, 01/28/19 10:46:50 EDT, Route to Pharmacy Electronically, [id number], [facility]/pharmacy #1111 Start [...] PER INSURANCE, # 90 capsule, 0 Refills, [facility] STORE [address]364, 166, cm, 04/18/21 10:20:00 EDT, Height Start Date: 05/30/21 Status: Ordered permethrin 5% topical cream See Instructions, 1 application Topically Once Apply from head to toe, leave on for 8-14 hr, rinse;may reapply in 7 days if live mites reappear, # 60 Gm, 0 Refills, Maintenance, 06/01/21 12:45:00 EDT, [place], [facility]/pharmacy #1111, Partial fill upon pat... Start Date: 06/01/21 Status: Ordered ProAir HFA 90 mcg/inh inhalation aerosol with adapter 1, puffs, Inhalation, Every 6 hours, PRN, # 18 Gm, Refills 5, Tot. Refills 5, Maintenance, 04/18/2110:54:00 EDT, Aerosol, Route to Pharmacy Electronically, [id number], [id number], 166, cm, 04/18/21 10:20:00... Start Date: 04/18/21 [...] Replace Required Details, Route to Pharmacy Electronically, [facility]ORE [address]74, 166, cm, 04/18/21 10:20:00 EDT, Height Start [...]
--- OUTSIDE RECORDS SUMMARY | 2023-05-24 01:00 | XMS_ITS | Continuity of Care Document ---
Author Name Unknown Organization [facility] Address [address] [id number]- Care Team Providers Care Superintendent Maintenance Name Role Phone Mathieu Christina MD Primary Care Physician [phone] [facility] Date(s): 05/30/21 - 06/29/21 [facility] [address] [place] [address]- [place] Allergies, Adverse Reactions, Alerts Substance Reaction [...] Comment: [facility]# [id number] 2Location History: [facility] each 1 each, See Instructions, # 1 each, Refills 0, Tot. Refills 0, Maintenance, please supply one knee brace. diagnosis: left knee injury, 01/15/19 13:39:43 EDT, Compound Start Date: 01/15/19 Status: Ordered albuterol-ipratropium 3 mg-0.5 mg/3 ml inhalation solution 1 vials, Inhalation, 4 times a day, # 360 mL, 0 Refills, Maintenance, 02/03/21 7:44:00 EDT, [facility], 30, USE 1 VIAL WITH NEBULIZER FOUR TIMES A DAY, 166, cm, 12/21/20 16:08:00 EDT, Height Start Date: 02/03/21 Status: Ordered betamethasone topical dipropionate 0.05% cream See Instructions, APPLY TO THE AFFECTED AREA TWICE A DAY, # 15 Gm, 3 Refills, Maintenance, 04/18/2110:54:00 EDT, [facility] #54910, 7, APPLY TO THE AFFECTED AREA TWICE A DAY, 166, cm, 04/18/21 10:20:00 EDT, Height Start Date: 04/18/21 Status: Ordered docusate sodium 100 mg oral capsule 1 capsule, By Mouth, 2 times a day, PRN NEEDED FOR CONSTIPATION, # 100 capsule, 0 Refills, Maintenance, 09/13/20 17:22:00 EST, [facility] STORE 85327, 166, cm, 07/26/20 9:41:00 EDT, Height, 87, kg, 10/14/18 13:06:00 EST, Dry Weight Start Date: 09/13/20 Status: Ordered famotidine 40 mg oral tablet 1 tablet, By Mouth, Daily at bedtime, # 30 tablet, 2 Refills, Maintenance, 09/05/20 9:40:00 EST, [facility]/pharmacy #1111, 166, cm, 07/26/20 9:41:00 EDT, Height, 87, kg, 10/14/18 13:06:00 EST, Dry Weight Start Date: 09/05/20 Status: Ordered Flonase 50 mcg/inh nasal spray 2 sprays = 100 mcg, Nares, Both, 2 times a day, # 1 each, 5 Refills, Maintenance, 01/31/21 8:43:00 EDT, [place], [facility]/pharmacy #1111, 2 sprays Nares, Both 2 times a day, 166, cm, 12/21/20 16:08:00 EDT, Height Start Date: 01/31/21 Status: Ordered ibuprofen 800 mg oral tablet 800 mg, 1, tablet, By Mouth, 2 times a day, with food or milk, # 60 tablet, Refills 1, Tot. Refills1, Maintenance, 01/28/19 10:46:50 EDT, Route to Pharmacy Electronically, [id number], [facility]/pharmacy #1111 Start Date: 01/28/19 [...] # 90 capsule, 0 Refills, [facility], 166, cm, 04/18/21 10:20:00 EDT, Height Start Date: 05/30/21 Status: Ordered permethrin 5% topical cream See Instructions, 1 application Topically Once Apply from head to toe, leave on for 8-14 hr, rinse;may reapply in 7 days if live mites reappear, # 60 Gm, 0 Refills, Maintenance, 06/01/21 12:45:00 EDT, [place], [facility]/pharmacy #1111, Partial fill upon pat... Start Date: 06/01/21 Status: Ordered ProAir HFA 90 mcg/inh inhalation aerosol with adapter 1, puffs, Inhalation, Every 6 hours, PRN, # 18 Gm, Refills 5, Tot. Refills 5, Maintenance, 04/18/2110:54:00 EDT, Aerosol, Route to Pharmacy Electronically, [id number], [id number], 166, cm, 04/18/21 10:20:00... Start Date: 04/18/21 [...] 3 Refills, Maintenance, 06/15/20 8:01:00 EDT, Tablet, [facility]/pharmacy #1111, 166, cm, 06/15/20 7:38:00 EDT, Height, 87, kg,10/14/18 13:06:00 EST, Dry Weight Start Date: 06/15/20 Status: Ordered simvastatin 10 mg oral tablet 10 mg, 1, tablet, By Mouth, Daily at bedtime, # 90 tablet, Refills 1, Tot. Refills 1, Maintenance, 01/23/21 16:37:00 EDT, Route to Pharmacy Electronically, [facility]/pharmacy #1111, 166, cm, 12/21/20 16:08:00 EDT, [...]
--- OUTSIDE RECORDS SUMMARY | 2023-05-24 01:00 | XMS_ITS | Continuity of Care Document ---
Author Name Unknown Organization [facility] [place] Address [address] [place] [address]- Care Team Providers Care Grinder Lap Name Role Phone Mathieu Christina MD Primary Care Physician Encounter [facility] Date(s): 01/02/22 - 02/01/22 [facility] [address] [place] [address]- Allergies, Adverse Reactions, Alerts No Known Allergies [...] 10/20/11 Given 1Result Comment: [facility]# [id number] 2Location History: [facility] 1 each, See Instructions, # 1 each, Refills 0, Tot. Refills 0, Maintenance, please supply one knee brace. diagnosis: left knee injury, 01/15/19 13:39:43 EDT, Compound Start Date: 01/15/19 Status: Ordered albuterol-ipratropium 3 mg-0.5 mg/3 ml inhalation solution 1 vials, Inhalation, 4 times a day, # 360 mL, 0 Refills, Maintenance, 02/03/21 7:44:00 EDT, [facility], 30, USE 1 VIAL WITH NEBULIZER FOUR TIMES A DAY, 166, cm, 12/21/20 16:08:00 EDT, Height Start Date: 02/03/21 Status: Ordered betamethasone topical dipropionate 0.05% cream See Instructions, APPLY TO THE AFFECTED AREA TWICE A DAY, # 15 Gm, 3 Refills, Maintenance, 04/18/2110:54:00 EDT, [facility] #09137, 7, APPLY TO THE AFFECTED AREA TWICE A DAY, 166, cm, 04/18/21 10:20:00 EDT, Height Start Date: 04/18/21 Status: Ordered Colace Clear 50 mg oral capsule 1 capsule = 50 mg, By Mouth, Daily, Decrease use to every other day if diarrhea develops., # 30 capsule, 0 Refills, Maintenance, 07/20/21 13:29:00 EDT, [facility]/pharmacy #1111, Partial fill upon patient request if the prescription is for a schedule II opio... Start Date: 07/20/21 Stop Date: 08/19/21 Status: Ordered docusate sodium 100 mg oral capsule 1 capsule, By Mouth, 2 times a day, PRN NEEDED FOR CONSTIPATION, # 100 capsule, 0 Refills, Maintenance, 09/13/20 17:22:00 EST, [facility] [address], 166, cm, 07/26/20 9:41:00 EDT, Height, 87, [...] Refills, Maintenance, 09/05/20 9:40:00 EST, [facility]/pharmacy #1111, 166, cm, 07/26/20 9:41:00 EDT, Height, 87, kg, 10/14/18 13:06:00 EST, Dry Weight Start Date: 09/05/20 Status: Ordered Flonase 50 mcg/inh nasal spray 2 sprays = 100 mcg, Nares, Both, 2 times a day, # 1 each, 5 Refills, Maintenance, 01/31/21 8:43:00 EDT, [place], [facility]/pharmacy #1111, 2 sprays Nares, [...] 01/28/19 10:46:50 EDT, Route to Pharmacy Electronically, [id number], [facility] Start Date: 01/28/19 Status: Ordered [...] 0 Refills, Maintenance, 06/01/21 12:45:00 EDT, Cream, [facility]/pharmacy #1111, Partial fill upon pat... Start Date: 06/01/21 Status: Ordered ProAir HFA 90 mcg/inh inhalation aerosol with adapter 1, puffs, Inhalation, Every 6 hours, PRN, # 18 Gm, Refills 5, Tot. Refills 5, Maintenance, 08/21/2111:56:00 EST, Aerosol, Route to Pharmacy Electronically, [id number], [facility]/pharmacy #1111, 166, cm, 04/18/21 [...] 3 Refills, Maintenance, 01/01/22 12:31:00 EDT, Tablet, [facility]/pharmacy #1111, 165, cm, 10/14/21 14:50:00 EST, Height, 78.6,kg, 10/14/21 14:50:00 EST, Dry Weight Start Date: 01/01/22 Status: Ordered simvastatin 10 mg oral tablet 1, tablet, By Mouth, Daily at bedtime, # 90 tablet, Refills 1, Route to Pharmacy Electronically, [facility] STORE 74626, 165, cm, 10/14/21 14:50:00 EST, Height, 78.6, [...] # 9 tablet, 2 Refills, [facility], 165, cm, 10/14/21 14:50:00 EST, Height, 78.6, [...]
--- OUTSIDE RECORDS SUMMARY | 2023-05-24 01:00 | XMS_ITS | Continuity of Care Document ---
Author Name Unknown Organization [facility] Address [address] [place] [phone]- Care Team Providers Care Heeler Name Role Phone Mathieu Christina MD Primary Care Physician En[facility] Date(s): 07/06/20 - [facility] [address] [place] [address]- Attending Physician: David Fox MD Allergies, Adverse Reactions, Alerts Substance Reaction [...] Date: 10/16/18 Stop Date: 12/15/18 Status: Ordered amoxicillin 500 mg oral capsule See Instructions, 2 capsule By Mouth for first dose then 1 capsule by mouth every 6 hours until finished, 0 Refills, Maintenance, 07/06/20 11:28:00 EDT Start Date: 07/06/20 Status: Ordered betamethasone topical dipropionate 0.05% cream See Instructions, APPLY TO THE AFFECTED AREA TWICE A DAY, # 15 Gm, 3 Refills, Maintenance, 208:01:00 EDT, [facility]/pharmacy #1111, 7, APPLY TO THE AFFECTED AREA TWICE A DAY, 166, cm, 06/15/20 7:38:00 EDT, Height, 87, kg, 10/14/18 13:06:00 EST, Dry W... Start Date: 06/15/20 Status: Ordered docusate sodium 100 mg oral capsule 100 mg, 1, capsule, By Mouth, 2 times a day, PRN, # 100 capsule, Refills 0, Tot. Refills 0, Maintenance, for constipation, 03/29/20 17:19:00 EDT, Route to Pharmacy Electronically, [facility]/pharmacy #1111,166, cm, 03/29/20 13:47:00 EDT, Height, 87, kg, ... Start Date: 03/29/20 Stop Date: 06/27/20 Status: Ordered famotidine 40 mg oral tablet 1 tablet = 40 mg, By Mouth, Daily at bedtime, # 30 tablet, 0 Refills, Maintenance, 07/06/20 11:50:00 EDT, Tablet, [facility]/pharmacy #1111, 166, cm, 07/06/20 11:19:00 EDT, Height, 87, kg, 10/14/18 13:06:00EST, Dry Weight Start Date: 07/06/20 Status: Ordered Flonase 50 mcg/inh nasal spray 2 sprays = 100 mcg, Nares, Both, 2 times a day, # 1 each, 5 Refills, Maintenance, 06/15/20 8:01:00 EDT, [place], [facility]/pharmacy #1111, 2 sprays Nares, Both 2 times a day, 166, cm, 06/15/20 7:38:00 EDT, Height, 87, kg, 10/14/18 13:06:00 EST, Dry Weight Start Date: 06/15/20 Status: Ordered ibuprofen 800 mg oral tablet 800 mg, 1, tablet, By Mouth, 2 times a day, with food or milk, # 60 tablet, Refills 1, Tot. Refills1, Maintenance, 01/28/19 10:46:50 EDT, Route to Pharmacy Electronically, [id number], [facility]/pharmacy #1111 Start Date: 01/28/19 Status: Ordered omeprazole 20 mg oral delayed release tablet 1 tablet = 20 mg, By Mouth, Daily, # 90 tablet, 2 Refills, Maintenance, 06/15/20 8:01:00 EDT, EC Tablet, [facility]/pharmacy #1111, 166, cm, 06/15/20 7:38:00 EDT, Height, 87, kg, 10/14/18 13:06:00 EST, Dry Weight Start Date: 06/15/20 Stop Date: 03/12/21 Status: Ordered ProAir HFA 90 mcg/inh inhalation aerosol with adapter 1, puffs, Inhalation, Every 6 hours, PRN, # 18 Gm, Refills 5, Tot. Refills 5, Maintenance, 208:01:00 EDT, Aerosol, Route to Pharmacy Electronically, [id number], [facility]/pharmacy #1111, 166, cm, 06/15/20 7:38:00 EDT, Height... [...] 9:38:26 EST Start Date: 10/09/18 Status: Ordered ZyrTEC 10 mg oral tablet 1 tablet = 10 mg, By Mouth, Daily, # 30 tablet, 0 Refills, Maintenance, 07/08/20 16:35:00 EDT, Tablet, [facility], 166, cm, 07/06/20 11:19:00 EDT, Height, 87, kg, 10/14/18 13:06:00 EST, Dry Weight Start Date: 07/08/20 Status: Ordered Problem List Condition Effective Dates [...] oldest [Reference Range]: 1 Height 166 cm (07/06/20 11:19 AM) Weight 84.8 kg (07/06/20 11:19 AM) Oxygen Saturation [94-100 %] 94 % (07/06/20 11:19 AM) Pulse Rate [55-90 bpm] 76 bpm (07/06/20 11:19 AM) Body Mass Index [18.5-24.99] 30.77 *>HHI* (07/06/20 11:19 AM) Blood Pressure [90-138/55-84 mm Hg] 120/ 78mm Hg (07/06/20 11:19 AM) Respiratory Rate [16-30 br/min] 18 br/mi n (07/06/20 11:19 AM) Temperature [96.8-100.4 DegF] 98.8 DegF (07/06/20 11:19 AM) Mode of Delivery (Oxygen) Room air (07/06/20 11:19 AM) Blood pressure sites Arm, left (07/06/20 11:19 AM) Temperature Route Temporal (07/06/20 11:19 AM) Social History Social History Type Response Smoking Status 5-9 cigarettes (betw een 1/4 to 1/2 pack)/day in last 30 days; Tobacco user in household: Yes entered on: 06/15/20 Sex
--- OUTSIDE RECORDS SUMMARY | 2023-05-24 01:00 | XMS_ITS | Continuity of Care Document ---
Author Name Unknown Organization [facility] Address [address] [place] [address]- Care Team Providers Care Nutritionalist Name Role Phone Mathieu Christina MD Primary Care Physician Encounter [facility] Date(s): 10/18/22 - 11[facility]17/[facility] [address] [place] [address]- [place] Allergies, Adverse Reactions, Alerts No Known [...] vaccine 10/20/11 Given 1Result Comment: [facility]# [id number] 2[facility] 1 [...] 8.5 each, 5 Refills, 11/08/22 15:58:00 EST, [facility]/pharmacy #[id number], 30, 1 puffs Inhalation Every 6 hours,PRN: NEEDED FOR WHEEZING/SHORTNESS OF BREATH, 165, cm, ... Start Date: 11/08/22 Status: Ordered albuterol-ipratropium 3 mg-0.5 mg/3 ml inhalation solution 1 vials, Inhalation, 4 times a day, # 360 mL, 0 Refills, Maintenance, 11/08/22 15:58:00 EST, [facility]/pharmacy #1111, 30, 1 vials Inhalation 4 times a day, 165, cm, 08/17/22 7:14:00 EST, Height, 82, kg, 08/06/22 12:30:00 EDT, Dry Weight Start Date: 11/08/22 Status: Ordered betamethasone topical dipropionate 0.05% cream See Instructions, APPLY TO THE AFFECTED AREA TWICE A DAY, # 15 Gm, 3 Refills, Maintenance, 04/18/2110:54:00 EDT, [facility] #[id number], 7, APPLY TO THE AFFECTED AREA TWICE A DAY, 166, cm, 04/18/21 10:20:00 EDT, Height Start Date: 04/18/21 Status: Ordered Citrucel 2 gm/19 gm oral powder for reconstitution = 2 Gm, By Mouth, 2 times a day, # 507 Gm, 1 Refills, Maintenance, 03/27/21 9:12:00 EDT, [facility] #[id number], Partial fill upon patient request if the prescription is for a schedule II opioiddrug., 166, cm, 12/21/20 16:08:00 EDT, Height Start Date: 03/27/21 Status: Ordered Colace Clear 50 mg oral capsule 1 capsule = 50 mg, By Mouth, Daily, Decrease use to every other day if diarrhea develops., # 30 capsule, 0 Refills, Maintenance, 07/20/21 13:29:00 EDT, [facility]/pharmacy #1111, Partial fill upon patient request if the prescription is for a schedule II opio... Start Date: 07/20/21 Stop Date: 08/19/21 Status: Ordered docusate sodium 100 mg oral capsule 1 capsule, By Mouth, 2 times a day, PRN NEEDED FOR CONSTIPATION, # 100 capsule, 0 Refills, Maintenance, 09/13/20 17:22:00 EST, [facility]ORE [id number], 166, cm, 07/26/20 9:41:00 EDT, Height, 87, kg, 10/14/18 13:06:00 EST, Dry Weight Start Date: 09/13/20 Status: Ordered famotidine 40 mg oral tablet 1 tablet, By Mouth, Daily at bedtime, # 30 tablet, 2 Refills, Maintenance, 09/05/20 9:40:00 EST, [facility]/pharmacy #1111, 166, cm, 07/26/20 9:41:00 EDT, Height, 87, kg, 10/14/18 13:06:00 EST, Dry Weight Start Date: 09/05/20 Status: Ordered Flonase 50 mcg/inh nasal spray 2 sprays = 100 mcg, Nares, Both, 2 times a day, # 1 each, 5 Refills, Maintenance, 01/31/21 8:43:00 EDT, [place], [facility]/pharmacy #1111, 2 sprays Nares, Both 2 times a day, 166, cm, 12/21/20 16:08:00 EDT, Height Start Date: 01/31/21 Status: Ordered Hibiclens 4% soap See Instructions, Wash affected areas twice daily., # 240 mL, 1 Refills, Soft Stop, 07/20/21 13:30:00 EDT, [facility]/pharmacy #1111, Partial fill upon patient request if the prescription is for a schedule II opioid drug., Wash affected areas twice daily., 1... Start Date: 07/20/21 Status: Ordered ibuprofen 800 mg oral tablet 800 mg, 1, tablet, By Mouth, 2 times a day, with food or milk, # 60 tablet, Refills 1, Tot. Refills1, Maintenance, 01/28/19 10:46:50 EDT, Route to Pharmacy Electronically, [id number], [facility]/pharmacy #1111 Start Date: 01/28/19 Status: [...] 3 Refills, Maintenance, 01/01/22 12:31:00 EDT, Tablet, [facility]/pharmacy #1111, 165, cm, 10/14/21 14:50:00 EST, Height, 78.6,kg, 10/14/21 14:50:00 EST, Dry Weight Start Date: 01/01/22 Status: Ordered simvastatin 10 mg oral tablet 1, tablet, By Mouth, Daily at bedtime, # 90 tablet, Refills 1, Maintenance, 07/12/22 17:09:00 EDT, [facility] Electronically, [id number], 165, cm, 05/30/22 13:27:00 EDT, Height, 78.6, [...] # 9 tablet, 2 Refills, [facility], 165, cm, 10/14/21 14:50:00 EST, Height, 78.6, [...] Care Team Personnel Name: Maverick Patel Position: [facility] Cardio/Pulm Mgr ([facility]) Member Role: Primary Care Nurse Name: Mathieu Christina MD Position: [facility] Primary Care Physician Member Role: PCP Address: Address: [address] [place] [address] Care Team Related Persons Name: MONA MANUEL Address: home [address] [place] [id number] Name: MONA MANUEL Address: home [address] [place] [address] Name: BOUCHRA VELOZ Address: home NONE GIVEN Name: MONA BROWN Address: home [address] [place] [address]
--- OUTSIDE RECORDS SUMMARY | 2023-05-24 01:00 | XMS_ITS | Continuity of Care Document ---
Author Name Unknown Organization [facility] Address [address] [place] [address]- Care Team Providers Care Strip Catcher Name Role Phone Mathieu Christina MD Primary Care Physician Encounter [facility] Date(s): 08/06/22 - 08/06/[address] [address] Discharge Disposition: A-D/C Home Attending Physician: Kristi Toney MD Admitting Physician: [...] pneumococcal 23-valent vaccine 10/20/11 Given 1Result Comment: [facility]# [id number] 2[facility] 1 each, See Instructions, # 1 each, Refills 0, Tot. Refills 0, Maintenance, please supply one knee brace. diagnosis: left knee injury, 01/15/19 13:39:43 EDT, Compound Start Date: 01/15/19 Status: Ordered Albuterol (Eqv-ProAir HFA) 90 mcg/inh inhalation aerosol 1 puffs, Inhalation, Every 6 hours, PRN NEEDED FOR WHEEZING/SHORTNESS OF BREATH, # 8.5 each, 5 Refills, [facility], 30, TAKE 1 PUFF BY MOUTH EVERY 6 HOURS NEEDED FOR WHEEZING/SHORTNESS OF BREATH, 165, cm, 10/14/21 14:50:00 EST, Height, 78.6... Start Date: 05/13/22 Status: Ordered albuterol-ipratropium 3 mg-0.5 mg/3 ml inhalation solution 1 vials, Inhalation, 4 times a day, # 360 mL, 0 Refills, Maintenance, 02/03/21 7:44:00 EDT, [facility]55, 30, USE 1 VIAL WITH NEBULIZER FOUR TIMES A DAY, 166, cm, 12/21/20 16:08:00 EDT, Height Start Date: 02/03/21 Status: Ordered betamethasone topical dipropionate 0.05% cream See Instructions, APPLY TO THE AFFECTED AREA TWICE A DAY, # 15 Gm, 3 Refills, Maintenance, 04/18/2110:54:00 EDT, [facility] #[id number], 7, APPLY TO THE AFFECTED AREA TWICE A DAY, 166, cm, 04/18/21 10:20:00 EDT, Height Start Date: 04/18/21 Status: Ordered Citrucel 2 gm/19 gm oral powder for reconstitution = 2 Gm, By Mouth, 2 times a day, # 507 Gm, 1 Refills, Maintenance, 03/27/21 9:12:00 EDT, [facility] #[id number], Partial fill upon patient request if the prescription is for a schedule II opioiddrug., 166, cm, 12/21/20 16:08:00 EDT, Height Start Date: 03/27/21 Status: Ordered Colace Clear 50 mg oral capsule 1 capsule = 50 mg, By Mouth, Daily, Decrease use to every other day if diarrhea develops., # 30 capsule, 0 Refills, Maintenance, 07/20/21 13:29:00 EDT, [facility]/pharmacy #1111, Partial fill upon patient request if the prescription is for a schedule II opio... Start Date: 07/20/21 Stop Date: 08/19/21 Status: Ordered docusate sodium 100 mg oral capsule 1 capsule, By Mouth, 2 times a day, PRN NEEDED FOR CONSTIPATION, # 100 capsule, 0 Refills, Maintenance, 09/13/20 17:22:00 EST, [facility]ORE 78864, 166, cm, 07/26/20 9:41:00 EDT, Height, 87, kg, 10/14/18 13:06:00 EST, Dry Weight Start Date: 09/13/20 Status: Ordered doxycycline monohydrate 100 mg oral tablet 1 tablet = 100 mg, By Mouth, 2 times a day, # 20 tablet, 0 Refills, Soft Stop, 07/20/21 13:29:00 EDT, [facility]/pharmacy #1111, Partial fill upon patient request if the prescription is for a schedule II opioid drug., 166, cm, 04/18/21 10:20:00 EDT, Height Start Date: 07/20/21 Stop Date: 07/30/21 Status: Ordered famotidine 40 mg oral tablet 1 tablet, By Mouth, Daily at bedtime, # 30 tablet, 2 Refills, Maintenance, 09/05/20 9:40:00 EST, [facility]/pharmacy #1111, 166, cm, 07/26/20 9:41:00 EDT, Height, 87, kg, 10/14/18 13:06:00 EST, Dry Weight Start Date: 09/05/20 Status: Ordered Flonase 50 mcg/inh nasal spray 2 sprays = 100 mcg, Nares, Both, 2 times a day, # 1 each, 5 Refills, Maintenance, 01/31/21 8:43:00 EDT, [place], [facility]/pharmacy #1111, 2 sprays Nares, Both 2 times a day, 166, cm, 12/21/20 16:08:00 EDT, Height Start Date: 01/31/21 Status: Ordered Hibiclens 4% soap See Instructions, Wash affected areas twice daily., # 240 mL, 1 Refills, Soft Stop, 07/20/21 13:30:00 EDT, [facility]/pharmacy #1111, Partial fill upon patient request if the prescription is for a schedule II opioid drug., Wash affected areas twice daily., 1... Start Date: 07/20/21 Status: Ordered ibuprofen 800 mg oral tablet 800 mg, 1, tablet, By Mouth, 2 times a day, with food or milk, # 60 tablet, Refills 1, Tot. Refills1, Maintenance, 01/28/19 10:46:50 EDT, Route to Pharmacy Electronically, [id number], [facility]/pharmacy #1111 Start Date: 01/28/19 Status: Ordered Mouth [...] mL, 0 Refills, Maintenance, 07/17/21 13:06:00 EDT, [facility]/pharmacy #1111, Please fill with any available gallon [...] Refills, Maintenance, 06/01/21 12:45:00 EDT, Cream, [facility]/pharmacy #1111, Partial fill upon pat... Start Date: [...] 3 Refills, Maintenance, 01/01/22 12:31:00 EDT, Tablet, [facility]/pharmacy #1111, 165, cm, 10/14/21 14:50:00 EST, Height, 78.6,kg, 10/14/21 14:50:00 EST, Dry Weight Start Date: 01/01/22 Status: Ordered simvastatin 10 mg oral tablet 1, tablet, By Mouth, Daily at bedtime, # 90 tablet, Refills 1, Maintenance, 07/12/22 17:09:00 EDT, Route to [facility]acy Electronically, [id number], 165, cm, 05/30/22 13:27:00 EDT, Height, 78.6, [...] # 9 tablet, 2 Refills, [facility], 165, cm, 10/14/21 14:50:00 EST, Height, 78.6, [...] stress disorder Confirmed Active Reflux Confirmed Active Vital Signs Most recent to oldest [Reference Range]: 1 2 3 Oxygen Saturation [94-100 %] 97 % (08/06/22 2:10 PM) 98 % (08/06/22 2:00 PM) 97 % (08/06/22 1:50 PM) Pulse Rate [55-90 bpm] 67 bpm (08/06/22 12:26 PM) Blood Pressure [90-138/55-84 mm Hg] 132/89mm Hg (08/06/22 2:10 PM) 132/89mm Hg (08/06/22 2:00 PM) 132/88mm Hg (08/06/22 1:50 PM) Respiratory Rate [16-30 br/min] 20 br/min (08/06/22 2:10 PM) 17 br/min (08/06/22 2:00 PM) 20 br/min (08/06/22 1:50 PM) Temperature [96.8-100.4 DegF] 98.1 DegF (08/06/22 12:26 PM) Mode of Delivery (Oxygen) Room air (08/06/22 1:40 PM) Room air (08/06/22 12:26 PM) Blood pressure sites Arm, right (08/06/22 1:45 PM) Arm, right (08/06/22 12:26 PM) Temperature Route Temporal (08/06/22 12:26 PM) Dry Weight 82 kg (08/06/22 12:26 PM) Dry Weight Obtained Via Patient/family s tated (08/06/22 12:26 PM) Social History Social History Type Response Smoking Status 5-9 cigarettes (betw een 1/4 to 1/2 pack)/day in last 30 days; Tobacco user in household: Yes entered on: 06/15/20 Sex Patient Care team information Personnel Name: Mathieu Christina MD Address: Address: [address] [place] [address], [place], [place] [address] [[email or web address]]
--- OUTSIDE RECORDS SUMMARY | 2023-05-24 01:00 | XMS_ITS | Continuity of Care Document ---
Author Name Unknown Organization [facility] Address [address] [place] [id number]- Care Team Providers Care Human Resources Professional Name Role Phone Mathieu Christina MD Primary Care Physician Encounter [facility] Date(s): 06/15/20 [facility] [address] [place] [id number]- Encounter Diagnosis Chronic obstructive pulmonary disease (COPD)(Discharge Diagnosis) - 06/15/20 GERD (gastroesophageal reflux disease)(Discharge Diagnosis) - 06/15/20 ED (erectile dysfunction)(Discharge Diagnosis) - 06/15/20 HLD (hyperlipidemia)(Discharge Diagnosis) - 06/15/20 Polysubstance abuse(Discharge Diagnosis) - 06/15/20 Attending Physician: Mathieu Christina MD Allergies, Adverse [...] 15 Gm, 3 Refills, Maintenance, 208:01:00 EDT, [facility]/pharmacy #1111, 7, APPLY TO THE AFFECTED AREA TWICE A DAY, 166, cm, 06/15/20 7:38:00 EDT, Height, 87, kg, 10/14/18 13:06:00 EST, Dry W... Start Date: 06/15/20 Status: Ordered docusate sodium 100 mg oral capsule 100 mg, 1, capsule, By Mouth, 2 times a day, PRN, # 100 capsule, Refills 0, Tot. Refills 0, Maintenance, for constipation, 03/29/20 17:19:00 EDT, Route to Pharmacy Electronically, [facility]/pharmacy #1111,166, cm, 03/29/20 13:47:00 EDT, Height, 87, kg, ... Start Date: 03/29/20 Stop Date: 06/27/20 Status: Ordered Flonase 50 mcg/inh nasal spray 2 sprays = 100 mcg, Nares, Both, 2 times a day, # 1 each, 5 Refills, Maintenance, 06/15/20 8:01:00 EDT, [place], [facility]/pharmacy #1111, 2 sprays Nares, Both 2 times a day, 166, cm, 06/15/20 7:38:00 EDT, Height, 87, kg, 10/14/18 13:06:00 EST, Dry Weight Start Date: 06/15/20 Status: Ordered ibuprofen 800 mg oral tablet 800 mg, 1, tablet, By Mouth, 2 times a day, with food or milk, # 60 tablet, Refills 1, Tot. Refills1, Maintenance, 01/28/19 10:46:50 EDT, Route to Pharmacy Electronically, [id number], [facility]/pharmacy #1111 Start Date: 01/28/19 Status: Ordered omeprazole 20 mg oral delayed release tablet 1 tablet = 20 mg, By Mouth, Daily, # 90 tablet, 2 Refills, Maintenance, 06/15/20 8:01:00 EDT, [place] Tablet, [facility]/pharmacy #1111, 166, cm, 06/15/20 7:38:00 EDT, Height, 87, kg, 10/14/18 13:06:00 EST, Dry Weight Start Date: 06/15/20 Stop Date: 03/12/21 Status: Ordered ProAir HFA 90 mcg/inh inhalation aerosol with adapter 1, puffs, Inhalation, Every 6 hours, PRN, # 18 Gm, Refills 5, Tot. Refills 5, Maintenance, 208:01:00 EDT, Aerosol, Route to Pharmacy Electronically, [id number], [facility]/pharmacy #1111, 166, cm, 06/15/20 7:38:00 EDT, Height... [...] Refills, Maintenance, 06/15/20 8:01:00 EDT, Tablet, [facility]/pharmacy #1111, 166, cm, 06/15/20 7:38:00 EDT, [...] Diagnosis Diagnosis Type Effective Dates Health Status Clinical Service Informant Chronic obstructive pulmonary disease (COPD) Discharge Diagnosis 06/15/20 GERD (gastroesophageal reflux disease) Discharge Diagnosis 06/15/20 ED (erectile dysfunction) Discharge Diagnosis 06/15/20 HLD (hyperlipidemia) Discharge Diagnosis 06/15/20 Polysubstance abuse Discharge Diagnosis 06/15/20 Vital Signs Most recent to oldest [Reference Range]: 1 Height 166 cm (06/15/20 7:38 AM) Weight 84.7 kg (06/15/20 7:38 AM) Oxygen Saturation [94-100 %] 94 % (06/15/20 7:38 AM) Pulse Rate [55-90 bpm] 82 bpm (06/15/20 7:38 AM) Body Mass Index [18.5-24.99] 30.74 *>HHI* (06/15/20 7:38 AM) Blood Pressure [90-138/55-84 mm Hg] 110/ 70mm Hg (06/15/20 7:38 AM) Liters per Minute 0 L/min (06/15/20 7:38 AM) Mode of Delivery (Oxygen) Room air (06/15/20 7:38 AM) Blood pressure sites Arm, right (06/15/20 7:38 AM) Weight Obtained Via Standing scale (06/15/20 7:38 AM) Social History Social History Type Response Smoking Status 5-9 cigarettes (betw een 1/4 to 1/2 pack)/day in last 30 days; Tobacco user in household: Yes entered on: 06/15/20 Sex
--- OUTSIDE RECORDS SUMMARY | 2023-05-24 01:00 | XMS_ITS | Continuity of Care Document ---
Author Name Unknown Organization [facility] Address [address] [place] [address]- Care Team Providers Care Director Physical Name Role Phone Mathieu Christina MD Primary Care Physician Encounter [facility] Date(s): 10/10/21 - 10/17/21 [facility] [address] [place] [address]- Attending Physician: David Fox MD Allergies, Adverse [...] pneumococcal 23-valent vaccine 10/20/11 Given 1Result Comment: [facility]# [id number] 2Location History[facility] 1 each, See Instructions, # 1 each, Refills 0, Tot. Refills 0, Maintenance, please supply one knee brace. diagnosis: left knee injury, 01/15/19 13:39:43 EDT, Compound Start Date: 01/15/19 Status: Ordered albuterol-ipratropium 3 mg-0.5 mg/3 ml inhalation solution 1 vials, Inhalation, 4 times a day, # 360 mL, 0 Refills, Maintenance, 02/03/21 7:44:00 EDT, [facility], 30, USE 1 VIAL WITH NEBULIZER FOUR TIMES A DAY, 166, cm, 12/21/20 16:08:00 EDT, Height Start Date: 02/03/21 Status: Ordered betamethasone topical dipropionate 0.05% cream See Instructions, APPLY TO THE AFFECTED AREA TWICE A DAY, # 15 Gm, 3 Refills, Maintenance, 04/18/2110:54:00 EDT, [facility] #[id number], 7, APPLY TO THE AFFECTED AREA TWICE A DAY, 166, cm, 04/18/21 10:20:00 EDT, Height Start Date: 04/18/21 Status: Ordered Colace Clear 50 mg oral capsule 1 capsule = 50 mg, By Mouth, Daily, Decrease use to every other day if diarrhea develops., # 30 capsule, 0 Refills, Maintenance, 07/20/21 13:29:00 EDT, [facility]/pharmacy #1111, Partial fill upon patient request if the prescription is for a schedule II opio... Start Date: 07/20/21 Stop Date: 08/19/21 Status: Ordered docusate sodium 100 mg oral capsule 1 capsule, By Mouth, 2 times a day, PRN NEEDED FOR CONSTIPATION, # 100 capsule, 0 Refills, Maintenance, 09/13/20 17:22:00 EST, [facility], 166, cm, 07/26/20 9:41:00 EDT, Height, 87, kg, 10/14/18 13:06:00 EST, Dry Weight Start Date: 09/13/20 Status: Ordered doxycycline monohydrate 100 mg oral tablet 1 tablet = 100 mg, By Mouth, 2 times a day, # 20 tablet, 0 Refills, Soft Stop, 07/20/21 13:29:00 EDT, [facility]/pharmacy #1111, Partial fill upon patient request if the prescription is for a schedule II opioid drug., 166, cm, 04/18/21 10:20:00 EDT, Height Start Date: 07/20/21 Stop Date: 07/30/21 Status: Ordered famotidine 40 mg oral tablet 1 tablet, By Mouth, Daily at bedtime, # 30 tablet, 2 Refills, Maintenance, 09/05/20 9:40:00 EST, [facility]/pharmacy #1111, 166, cm, 07/26/20 9:41:00 EDT, Height, 87, kg, 10/14/18 13:06:00 EST, Dry Weight Start Date: 09/05/20 Status: Ordered Flonase 50 mcg/inh nasal spray 2 sprays = 100 mcg, Nares, Both, 2 times a day, # 1 each, 5 Refills, Maintenance, 01/31/21 8:43:00 EDT, [place], 2 sprays Nares, Both 2 [...] 01/28/19 10:46:50 EDT, Route to Pharmacy Electronically, [id number], [facility] Start Date: 01/28/19 Status: Ordered [...] 0 Refills, Maintenance, 06/01/21 12:45:00 EDT, Cream, [facility]/pharmacy #1111, Partial fill upon pat... Start Date: 06/01/21 Status: Ordered ProAir HFA 90 mcg/inh inhalation aerosol with adapter 1, puffs, Inhalation, Every 6 hours, PRN, # 18 Gm, Refills 5, Tot. Refills 5, Maintenance, 08/21/2111:56:00 EST, Aerosol, Route to Pharmacy Electronically, [id number], [facility]/pharmacy #1111, 166, cm, 04/18/21 10:20:00 EDT, Height Start Date: 08/21/21 Status: Ordered propranolol 80 mg oral tablet 1 tablet, By Mouth, 2 times a day, for 30 days, # 60 tablet, 0 Refills, Physician Stop, [facility], 166, cm, 09/19/21 10:45:00 EST, Height Start [...] 3 Refills, Maintenance, 06/15/20 8:01:00 EDT, Tablet, [facility]/pharmacy #1111, 166, cm, 06/15/20 7:38:00 EDT, Height, 87, kg,10/14/18 13:06:00 EST, Dry Weight Start Date: 06/15/20 Status: Ordered simvastatin 10 mg oral tablet See Instructions, TAKE 1 TABLET BY MOUTH EVERYDAY AT BEDTIME, # 90 tablet, Refills 1, Instructions Replace Required Details, Route to Pharmacy Electronically, [facility], 166, cm, 04/18/21 10:20:00 EDT, Height Start [...] 11/18/21 10:56:00 EST, 09/19/21 10:56:00 EST, Tablet, [facility]/pharmacy #1111, Partial fill upon pat... Start Date: 09/19/21 Stop Date: 11/18/21 Status: Ordered SUMAtriptan 50 mg oral tablet 1 tablet = 50 mg, By Mouth, Daily, PRN for migraine headache, for 30 days, may repeat dose after 2 hours up to a maximum of 2, # 9 tablet, 1 Refills, Acute 01/17/22 10:56:00 EDT, 11/18/21 10:56:00 EST, Tablet, [facility]/pharmacy #1111, Partial fill upon pat... Start Date: [...] Response Smoking Status 5-9 cigarettes (betw een 10/10 to 10/08 pack)/day in last 30 days; Tobacco user in household: Yes entered on: 06/15/20 Sex
--- OUTSIDE RECORDS SUMMARY | 2023-05-24 01:00 | XMS_ITS | Continuity of Care Document ---
Author Name Unknown Organization [facility] Address [address] [place] [address]- Care Team Providers Care Spool Hauler Name Role Phone Mathieu Christina MD Primary Care Physician [phone] Encounter [facility] Date(s): 05/30/22 - 06/29/22 [facility] [address] [address]- Attending Physician: Admtr, Ar8 Admitting Physician: Admtr, [...] Comment: [facility] [place]NOTE 2]# [id number] 2Location History[facility] 1 each, See Instructions, # 1 each, Refills 0, Tot. Refills 0, Maintenance, please supply one knee brace. diagnosis: left knee injury, 01/15/19 13:39:43 EDT, Compound Start Date: 01/15/19 Status: Ordered Albuterol (Eqv-ProAir HFA) 90 mcg/inh inhalation aerosol 1 puffs, Inhalation, Every 6 hours, PRN NEEDED FOR WHEEZING/SHORTNESS OF BREATH, # 8.5 each, 5 Refills, [facility], 30, TAKE 1 PUFF BY MOUTH EVERY 6 HOURS NEEDED FOR WHEEZING/SHORTNESS OF BREATH, 165, cm, 10/14/21 14:50:00 EST, Height, 78.6... Start Date: 05/13/22 Status: Ordered albuterol-ipratropium 3 mg-0.5 mg/3 ml inhalation solution 1 vials, Inhalation, 4 times a day, # 360 mL, 0 Refills, Maintenance, 02/03/21 7:44:00 EDT, [facility], 30, USE 1 VIAL WITH NEBULIZER FOUR TIMES A DAY, 166, cm, 12/21/20 16:08:00 EDT, Height Start Date: 02/03/21 Status: Ordered betamethasone topical dipropionate 0.05% cream See Instructions, APPLY TO THE AFFECTED AREA TWICE A DAY, # 15 Gm, 3 Refills, Maintenance, 04/18/2110:54:00 EDT, [facility] #[id number], 7, APPLY TO THE AFFECTED AREA TWICE A DAY, 166, cm, 04/18/21 10:20:00 EDT, Height Start Date: 04/18/21 Status: Ordered Citrucel 2 gm/19 gm oral powder for reconstitution = 2 Gm, By Mouth, 2 times a day, # 507 Gm, 1 Refills, Maintenance, 03/27/21 9:12:00 EDT, [facility] #[id number], Partial fill upon patient request if the prescription is for a schedule II opioiddrug., 166, cm, 12/21/20 16:08:00 EDT, Height Start Date: 03/27/21 Status: Ordered Colace Clear 50 mg oral capsule 1 capsule = 50 mg, By Mouth, Daily, Decrease use to every other day if diarrhea develops., # 30 capsule, 0 Refills, Maintenance, 07/20/21 13:29:00 EDT, [facility]/pharmacy #1111, Partial fill upon patient request if the prescription is for a schedule II opio... Start Date: 07/20/21 Stop Date: 08/19/21 Status: Ordered docusate sodium 100 mg oral capsule 1 capsule, By Mouth, 2 times a day, PRN NEEDED FOR CONSTIPATION, # 100 capsule, 0 Refills, Maintenance, 09/13/20 17:22:00 EST, [facility] STORE [id number], 166, cm, 07/26/20 9:41:00 EDT, Height, 87, kg, 10/14/18 13:06:00 EST, Dry Weight Start Date: 09/13/20 Status: Ordered doxycycline monohydrate 100 mg oral tablet 1 tablet = 100 mg, By Mouth, 2 times a day, # 20 tablet, 0 Refills, Soft Stop, 07/20/21 13:29:00 EDT, [facility]/pharmacy #1111, Partial fill upon patient request if the prescription is for a schedule II opioid drug., 166, cm, 04/18/21 10:20:00 EDT, Height Start Date: 07/20/21 Stop Date: 07/30/21 Status: Ordered famotidine 40 mg oral tablet 1 tablet, By Mouth, Daily at bedtime, # 30 tablet, 2 Refills, Maintenance, 09/05/20 9:40:00 EST, [facility]/pharmacy #1111, 166, cm, 07/26/20 9:41:00 EDT, Height, 87, kg, 10/14/18 13:06:00 EST, Dry Weight Start Date: 09/05/20 Status: Ordered Flonase 50 mcg/inh nasal spray 2 sprays = 100 mcg, Nares, Both, 2 times a day, # 1 each, 5 Refills, Maintenance, 01/31/21 8:43:00 EDT, [place], [facility]/pharmacy #1111, 2 sprays Nares, Both 2 times a day, 166, cm, 12/21/20 16:08:00 EDT, Height Start Date: 01/31/21 Status: Ordered Hibiclens 4% soap See Instructions, Wash affected areas twice daily., # 240 mL, 1 Refills, Soft Stop, 07/20/21 13:30:00 EDT, [facility]/pharmacy #1111, Partial fill upon patient request if the prescription is for a schedule II opioid drug., Wash affected areas twice daily., 1... Start Date: 07/20/21 Status: Ordered ibuprofen 800 mg oral tablet 800 mg, 1, tablet, By Mouth, 2 times a day, with food or milk, # 60 tablet, Refills 1, Tot. Refills1, Maintenance, 01/28/19 10:46:50 EDT, Route to Pharmacy Electronically, [id number], [facility]/pharmacy #1111 Start Date: 01/28/19 Status: Ordered [...] mL, 0 Refills, Maintenance, 07/17/21 13:06:00 EDT, [facility]/pharmacy #1111, Please fill with any available gallon colon prep, Drink 240... Start Date: 07/17/21 Status: Ordered NuLYTELY with Flavor Packs oral powder for reconstitution See Instructions, Drink 240mL every 15-20 minutes until first half is gone. Repeat 6 hours prior toprocedure., # 4,000 mL, 0 Refills, Maintenance, 01/03/22 11:36:00 EDT, [facility]/pharmacy #1111, Partial fill upon patient request if the prescription is fo... Start Date: 01/03/22 Status: Ordered omeprazole 20 mg oral enteric coated capsule See Instructions, TAKE 1 CAPSULE BY MOUTH EVERY DAY -CAPS PER INSURANCE, # 90 capsule, 0 Refills, 08/22/21 17:04:00 EST, [facility]/pharmacy #1111, 166, cm, 04/18/21 10:20:00 EDT, [...] 3 Refills, Maintenance, 01/01/22 12:31:00 EDT, Tablet, [facility]/pharmacy #1111, 165, cm, 10/14/21 14:50:00 EST, Height, 78.6,kg, 10/14/21 14:50:00 EST, Dry Weight Start Date: 01/01/22 Status: Ordered simvastatin 10 mg oral tablet 1, tablet, By Mouth, Daily at bedtime, # 90 tablet, Refills 1, Route to Pharmacy Electronically, [facility], 165, cm, 10/14/21 14:50:00 EST, Height, 78.6, [...] OF 2DOSES, # 9 tablet, 2 Refills, [facility], 165, cm, 10/14/21 14:50:00 EST, Height, 78.6, [...] in household: Yes entered on: 06/15/20 Sex Care Team Personnel Name: Mathieu Christina MD Address: [address] [place] [address] Medical [facility], [place], [place] [address]
--- OUTSIDE RECORDS SUMMARY | 2023-05-24 01:00 | XMS_ITS | Continuity of Care Document ---
Author Name Unknown Organization [facility] Address [address] [place] [address]- Care Team Providers Care Holter Technician Name Role Phone Mathieu Christina MD Primary Care Physician Encounter [facility] Date(s): 03/19/22 - 04/20/22 [facility] [address] [place] [address]- Attending Physician: Mathieu Christina MD Allergies, Adverse [...] 10/20/11 Given 1Result Comment: [facility]# [id number] 2Location History: [facility] 1 [...] OF BREATH, # 8.5 each, 2 Refills, [facility], 30, TAKE 1 PUFF BY MOUTH EVERY 6 HOURS NEEDED FOR WHEEZING/SHORTNESS OF BREATH, 165, cm, 10/14/21 14:50:00 EST,... Start Date: 02/18/22 Status: Ordered albuterol-ipratropium 3 mg-0.5 mg/3 ml inhalation solution 1 vials, Inhalation, 4 times a day, # 360 mL, 0 Refills, Maintenance, 02/03/21 7:44:00 EDT, [facility], 30, USE 1 VIAL WITH NEBULIZER FOUR TIMES A DAY, 166, cm, 12/21/20 16:08:00 EDT, Height Start Date: 02/03/21 Status: Ordered betamethasone topical dipropionate 0.05% cream See Instructions, APPLY TO THE AFFECTED AREA TWICE A DAY, # 15 Gm, 3 Refills, Maintenance, 04/18/2110:54:00 EDT, [facility] #[id number], 7, APPLY TO THE AFFECTED AREA TWICE A DAY, 166, cm, 04/18/21 10:20:00 EDT, Height Start Date: 04/18/21 Status: Ordered Colace Clear 50 mg oral capsule 1 capsule = 50 mg, By Mouth, Daily, Decrease use to every other day if diarrhea develops., # 30 capsule, 0 Refills, Maintenance, 07/20/21 13:29:00 EDT, [facility]/pharmacy #1111, Partial fill upon patient request if the prescription is for a schedule II opio... Start Date: 07/20/21 Stop Date: 08/19/21 Status: Ordered docusate sodium 100 mg oral capsule 1 capsule, By Mouth, 2 times a day, PRN NEEDED FOR CONSTIPATION, # 100 capsule, 0 Refills, Maintenance, 09/13/20 17:22:00 EST, [facility], 166, cm, 07/26/20 9:41:00 EDT, Height, 87, kg, 10/14/18 13:06:00 EST, Dry Weight Start Date: 09/13/20 Status: Ordered doxycycline monohydrate 100 mg oral tablet 1 tablet = 100 mg, By Mouth, 2 times a day, # 20 tablet, 0 Refills, Soft Stop, 07/20/21 13:29:00 EDT, [facility]/pharmacy #1111, Partial fill upon patient request if the prescription is for a schedule II opioid drug., 166, cm, 04/18/21 10:20:00 EDT, Height Start Date: 07/20/21 Stop Date: 07/30/21 Status: Ordered famotidine 40 mg oral tablet 1 tablet, By Mouth, Daily at bedtime, # 30 tablet, 2 Refills, Maintenance, 09/05/20 9:40:00 EST, [facility]/pharmacy #1111, 166, cm, 07/26/20 9:41:00 EDT, Height, 87, kg, 10/14/18 13:06:00 EST, Dry Weight Start Date: 09/05/20 Status: Ordered Flonase 50 mcg/inh nasal spray 2 sprays = 100 mcg, Nares, Both, 2 times a day, # 1 each, 5 Refills, Maintenance, 01/31/21 8:43:00 EDT, [place], [facility]/pharmacy #1111, 2 sprays Nares, Both 2 times a day, 166, cm, 12/21/20 16:08:00 EDT, Height Start Date: 01/31/21 Status: Ordered Hibiclens 4% soap See Instructions, Wash affected areas twice daily., # 240 mL, 1 Refills, Soft Stop, 07/20/21 13:30:00 EDT, [facility]/pharmacy #1111, Partial fill upon patient request if the prescription is for a schedule II opioid drug., Wash affected areas twice daily., 1... Start Date: 07/20/21 Status: Ordered ibuprofen 800 mg oral tablet 800 mg, 1, tablet, By Mouth, 2 times a day, with food or milk, # 60 tablet, Refills 1, Tot. Refills1, Maintenance, 01/28/19 10:46:50 EDT, Route to Pharmacy Electronically, [id number], [facility]/pharmacy #1111 Start Date: 01/28/19 Status: Ordered [...] 90 capsule, 0 Refills, 08/22/21 17:04:00 EST, [facility]/pharmacy #1111, 166, cm, 04/18/21 10:20:00 EDT, Height Start Date: 08/22/21 Status: Ordered permethrin 5% topical cream See Instructions, 1 application Topically Once Apply from head to toe, leave on for 8-14 hr, rinse;may reapply in 7 days if live mites reappear, # 60 Gm, 0 Refills, Maintenance, 06/01/21 12:45:00 EDT, Cream, [facility]/pharmacy #1111, Partial fill upon pat... Start [...] 3 Refills, Maintenance, 01/01/22 12:31:00 EDT, Tablet, [facility]/pharmacy #1111, 165, cm, 10/14/21 14:50:00 EST, Height, 78.6,kg, 10/14/21 14:50:00 EST, Dry Weight Start Date: 01/01/22 Status: Ordered simvastatin 10 mg oral tablet 1, tablet, By Mouth, Daily at bedtime, # 90 tablet, Refills 1, Route to Pharmacy Electronically, [id number], 165, cm, 10/14/21 14:50:00 EST, Height, 78.6, [...] # 9 tablet, 2 Refills, [facility], 165, cm, 10/14/21 14:50:00 EST, Height, 78.6, [...]
--- OUTSIDE RECORDS SUMMARY | 2023-05-24 01:00 | XMS_ITS | Continuity of Care Document ---
Author Name Unknown Organization [facility] Address [address] [place] [address]- Care Team Providers Care Housekeeping/Laundry Supervisor Name Role Phone Mathieu Christina MD Primary Care Physician [phone] Encounter [facility] Date(s): 11/17/21 - 04/26/[address] [address] [place] Attending Physician: Kristi Toney MD Admitting Physician: [...] pneumococcal 23-valent vaccine 10/20/11 Given 1Result Comment: [facility]# [id number] 2Location History: [facility] 1 [...] OF BREATH, # 8.5 each, 2 Refills, [facility], 30, TAKE 1 PUFF BY MOUTH EVERY 6 HOURS NEEDED FOR WHEEZING/SHORTNESS OF BREATH, 165, cm, 10/14/21 14:50:00 EST,... Start Date: 02/18/22 Status: Ordered albuterol-ipratropium 3 mg-0.5 mg/3 ml inhalation solution 1 vials, Inhalation, 4 times a day, # 360 mL, 0 Refills, Maintenance, 02/03/21 7:44:00 EDT, [facility], 30, USE 1 VIAL WITH NEBULIZER FOUR TIMES A DAY, 166, cm, 12/21/20 16:08:00 EDT, Height Start Date: 02/03/21 Status: Ordered betamethasone topical dipropionate 0.05% cream See Instructions, APPLY TO THE AFFECTED AREA TWICE A DAY, # 15 Gm, 3 Refills, Maintenance, 04/18/2110:54:00 EDT, [email or web address] #[id number], 7, APPLY TO THE AFFECTED AREA TWICE A DAY, 166, cm, 04/18/21 10:20:00 EDT, Height Start Date: 04/18/21 Status: Ordered Colace Clear 50 mg oral capsule 1 capsule = 50 mg, By Mouth, Daily, Decrease use to every other day if diarrhea develops., # 30 capsule, 0 Refills, Maintenance, 07/20/21 13:29:00 EDT, [facility]/pharmacy #1111, Partial fill upon patient request if the prescription is for a schedule II opio... Start Date: 07/20/21 Stop Date: 08/19/21 Status: Ordered docusate sodium 100 mg oral capsule 1 capsule, By Mouth, 2 times a day, PRN NEEDED FOR CONSTIPATION, # 100 capsule, 0 Refills, Maintenance, 09/13/20 17:22:00 EST, [facility], 166, cm, 07/26/20 9:41:00 EDT, Height, 87, kg, 10/14/18 13:06:00 EST, Dry Weight Start Date: 09/13/20 Status: Ordered doxycycline monohydrate 100 mg oral tablet 1 tablet = 100 mg, By Mouth, 2 times a day, # 20 tablet, 0 Refills, Soft Stop, 07/20/21 13:29:00 EDT, [facility]/pharmacy #1111, Partial fill upon patient request if the prescription is for a schedule II opioid drug., 166, cm, 04/18/21 10:20:00 EDT, Height Start Date: 07/20/21 Stop Date: 07/30/21 Status: Ordered famotidine 40 mg oral tablet 1 tablet, By Mouth, Daily at bedtime, # 30 tablet, 2 Refills, Maintenance, 09/05/20 9:40:00 EST, [facility]/pharmacy #1111, 166, cm, 07/26/20 9:41:00 EDT, Height, 87, kg, 10/14/18 13:06:00 EST, Dry Weight Start Date: 09/05/20 Status: Ordered Flonase 50 mcg/inh nasal spray 2 sprays = 100 mcg, Nares, Both, 2 times a day, # 1 each, 5 Refills, Maintenance, 01/31/21 8:43:00 EDT, [place], [facility]/pharmacy #1111, 2 sprays Nares, Both 2 times a day, 166, cm, 12/21/20 16:08:00 EDT, Height Start Date: 01/31/21 Status: Ordered Hibiclens 4% soap See Instructions, Wash affected areas twice daily., # 240 mL, 1 Refills, Soft Stop, 07/20/21 13:30:00 EDT, [facility]/pharmacy #1111, Partial fill upon patient request if the prescription is for a schedule II opioid drug., Wash affected areas twice daily., 1... Start Date: 07/20/21 Status: Ordered ibuprofen 800 mg oral tablet 800 mg, 1, tablet, By Mouth, 2 times a day, with food or milk, # 60 tablet, Refills 1, Tot. Refills1, Maintenance, 01/28/19 10:46:50 EDT, Route to Pharmacy Electronically, [id number], [facility]/pharmacy #1111 Start Date: 01/28/19 Status: [...] 90 capsule, 0 Refills, 08/22/21 17:04:00 EST, [facility]/pharmacy #1111, 166, cm, 04/18/21 10:20:00 EDT, Height Start Date: 08/22/21 Status: Ordered permethrin 5% topical cream See Instructions, 1 application Topically Once Apply from head to toe, leave on for 8-14 hr, rinse;may reapply in 7 days if live mites reappear, # 60 Gm, 0 Refills, Maintenance, 06/01/21 12:45:00 EDT, Cream, [facility]/pharmacy #1111, Partial fill upon pat... [...] 3 Refills, Maintenance, 01/01/22 12:31:00 EDT, Tablet, [facility]/pharmacy #1111, 165, cm, 10/14/21 14:50:00 EST, Height, 78.6,kg, 10/14/21 14:50:00 EST, Dry Weight Start Date: 01/01/22 Status: Ordered simvastatin 10 mg oral tablet 1, tablet, By Mouth, Daily at bedtime, # 90 tablet, Refills 1, Route to Pharmacy Electronically, [facility] 47750, 165, cm, 10/14/21 14:50:00 EST, Height, 78.6, [...] # 9 tablet, 2 Refills, [facility], 165, cm, 10/14/21 14:50:00 EST, Height, 78.6, [...]
--- OUTSIDE RECORDS SUMMARY | 2023-05-24 01:00 | XMS_ITS | Continuity of Care Document ---
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 Name Role Phone Mathieu Christina MD Primary Care Physician Encounter [facility] [place] Date(s): 01/20/23 - 01/21/[address] [id number]- Encounter Diagnosis Chest pain(Final) - 01/21/23 Discharge Disposition: A-D/C AMA Attending Physician: Reinaldo Carrizales MD Admitting Physician: Scott LIND, Boris Referring Physician: Not on Staff, Referring MD [...] pneumococcal 23-valent vaccine 10/20/11 Given 1Result Comment: [facility]# [id number] 2[facility] 1 each 1 [...] 8.5 each, 5 Refills, 11/08/22 15:58:00 EST, [facility]/pharmacy #[id number], 30, 1 puffs Inhalation Every 6 hours,PRN: NEEDED FOR WHEEZING/SHORTNESS OF BREATH, 165, cm, ... Start Date: 11/08/22 Status: Ordered albuterol-ipratropium 3 mg-0.5 mg/3 ml inhalation solution 1 vials, Inhalation, 4 times a day, # 360 mL, 0 Refills, Maintenance, 11/08/22 15:58:00 EST, [facility]/pharmacy #[id number], 30, 1 vials Inhalation 4 times a day, 165, cm, 08/17/22 7:14:00 EST, Height, 82, kg, 08/06/22 12:30:00 EDT, Dry Weight Start Date: 11/08/22 Status: Ordered buprenorphine-naloxone 2 mg-0.5 mg sublingual film 1 film, Sublingual, Daily, dissolve under the tongue, # 14 film, 0 Refills, Maintenance, 01/16/23 11:03:00 EDT, Film, [facility], Partial fill upon patient request if the prescription is for a schedule II opioid drug., 1 film Sublingual... Start Date: 01/16/23 Stop Date: 01/30/23 Status: Ordered buprenorphine-naloxone 8 mg-2 mg sublingual film 2 film, Sublingual, Daily, # 28 film, 0 Refills, Maintenance, 01/16/23 11:04:00 EDT, [facility], Partial fill upon patient request if the prescription is for a schedule II opioid drug., 2 film Sublingual Daily,x14 days, 164, cm, 04... Start Date: 01/16/23 Stop Date: 01/30/23 Status: Ordered docusate sodium 100 mg oral capsule 1 capsule, By Mouth, 2 times a day, PRN NEEDED FOR CONSTIPATION, # 100 capsule, 0 Refills, Maintenance, 09/13/20 17:22:00 EST, [id number], 166, cm, 07/26/20 9:41:00 EDT, Height, 87, [...] 3 Refills, Maintenance, 01/01/22 12:31:00 EDT, Tablet, [facility]/pharmacy #[id number], 165, cm, 10/14/21 14:50:00 EST, Height, 78.6,kg, 10/14/21 14:50:00 EST, Dry Weight Start Date: 01/01/22 Status: Ordered simvastatin 10 mg oral tablet 1, tablet, By Mouth, Daily at bedtime, # 90 tablet, Refills 1, Maintenance, 07/12/22 17:09:00 EDT, Route to Pharmacy Electronically, [id number], 165, cm, 05/30/22 13:27:00 EDT, Height, 78.6, [...] Exam Date Time Procedure Performing Provider Status 01/20/23 11:17 AM Chest 2 Views Frontal and Lat Page z , Chanel; Auth (Verified) Notes: (Chest 2 Views Frontal and Lat) Reason For Exam: Chest Pain;Other: RESULT: Chest 2 Views Frontal and Lat Chest 2 Views Frontal and Lat Hx of Present Illness: Acute onset of LSCP after eating this morning. Non radiating and unable to reproduce. states he took 324 asa from EMS. denies any SOB or n v d.; Reason: Other:; Chest Pain; Clinical Question(s): Other: COMPARISON: 01/12/2023 and 10/14/2021 FINDINGS: LINES AND TUBES: None. LUNGS AND PLEURA: Improved atelectasis at the right lung base, with minor linear residual. Lungs otherwise clear. No pulmonary vascular congestion. No pleural effusion. No pneumothorax. HEART, MEDIASTINUM AND LESLY: Heart is normal in size. Normal mediastinal and hilar contour. BONES AND SOFT TISSUES: No acute abnormality. IMPRESSION: Minor atelectasis at the right lung base. Otherwise no acute cardiopulmonary disease. WSN: [id number] Ordering Physician: Javad Patel Dictated By: Zulema Szymanski MD, I Dictated Date/Time: 01/20/23 11:35 a Reviewed By: Zulema Szymanski MD, I Signed By: Zulema Szymanski MD, I Signed Date/Time: 01/20/23 11:35 am Transcribed By: [email or web address] Transcribed Date/Time: 01/20/23 11:33 am Vital Signs Most recent to oldest [Reference Range]: 1 2 3 Oxygen Saturation [94-100 %] 99 % (01/21/23 4:38 PM) 95 % (01/21/23 9:06 AM) 95 % (01/21/23 5:50 AM) Pulse Rate [55-90 bpm] 71 bpm (01/21/23 4:38 PM) 67 bpm (01/21/23 9:06 AM) 91 bpm *H* (01/21/23 5:50 AM) Blood Pressure [90-138/55-84 mm Hg] 119/75mm Hg (01/21/23 4:38 PM) 119/76mm Hg (01/21/23 9:06 AM) 114/80mm Hg (01/21/23 5:50 AM) Respiratory Rate [16-30 br/min] 15 br/min *L* (01/21/23 4:38 PM) 15 br/min *L* (01/21/23 9:06 AM) 18 br/min (01/21/23 5:50 AM) Temperature [96.8-100.4 DegF] 97.8 DegF (01/21/23 9:06 AM) 97.6 DegF (01/21/23 5:50 AM) 97.7 DegF (01/20/23 11:02 PM) Mode of Delivery (Oxygen) Room air (01/21/23 4:38 PM) Room air (01/21/23 9:06 AM) Room air (01/21/23 5:50 AM) Blood pressure sites Arm, right (01/21/23 4:38 PM) Arm, left (01/21/23 9:06 AM) Arm, left (01/21/23 5:50 AM) Temperature Route Oral (01/21/23 9:06 AM) Oral (01/21/23 5:50 AM) Oral (01/20/23 11:02 PM) Social History Social History Type Response Smoking Status 5-9 cigarettes (betw een 1/4 to 1/2 pack)/day in last 30 days; Tobacco user in household: Yes entered on: 06/15/20 Sex Admission evaluation note * Reinaldo Carrizales MD: MODIFY Reinaldo Carrizales MD: MODIFY, MODIFY, PERFORM Eva DO, Isaac Warren: PERFORM, MODIFY Eva DO, Isaac T: MODIFY, MODIFY Eva DO, Isaac T: MODIFY, MODIFY Eva DO, Isaac Warren: MODIFY Event Display: Admission Note Authored Date: [id number] Patient: ??CATHRYN BROWN ? Age:??57 Years?Sex:??Male?:??1965?? Chief Complaint/Reason for Consultation discharged from [facility], there voluntarily, now having chest pain this morning, intermittent, used inhaler . 20gLAC History of Present Illness Patient is a 57-year-old male with past medical history significant for COPD, tobacco abuse, opioiduse disorder, cocaine use disorder, bipolar disorder, PTSD, hyperlipidemia, GERD presented to [facility]. ?? Patient states that the chest pain began this morning and the pain.?? Patient was recently discharged from the hospital 5 days ago patient denies any fevers, chills, swelling of lower extremities shortness of breath, nausea, vomiting, diarrhea.?? He does endorse syncope. Patient states that he had one episode of chest discomfort that lasted approximately 5 seconds. This episode occurred after eating. He denies any exertional chest pain or radiation of pain. He describes the pain as bounding out of my chest . He has not had any similar episodes since being in the hospital.?? No particular aggravating or relieving factor for this episode. ??Chest pain was sharp ? Upon presentation to emergency room WBC 7.9, hemoglobin 13.5 hematocrit 42.0 MCV 98.4, platelets 219.?? Basic metabolic panel shows sodium 137, potassium 3.7, chloride 104, bicarb 25, glucose 81, BUN18, creatinine 0.8, GFR 106.?? NT pro BNP was 81.?? High-sensitivity troponins were 44 and 39.?? Patient is hemodynamically stable temperature 97.8, pulse 67, respirations 15, blood pressure 119/76, oxygen 95% on room air. ?? Chest x-ray shows minor atelectasis to the right lung base without any evidence of acute cardiopulmonary disease.?? EKG shows normal sinus rhythm with a rate of 65.?? QTc is 397. Review of Systems Constitutional:??No weight loss, fever, chills, weakness or fatigue. Allergy/Immune: Denies any??Eczema or hives Eyes:??No visual loss, blurred vision, double vision or yellow sclera ENT:??No hearing loss, sneezing, congestion, runny nose or sore throat. Respiratory:??No shortness of breath, cough or sputum production. Cardiovascular:??No chest pain, chest pressure. One episode of chest discomfort.??? palpitations. No pedal edema. Gastrointestinal:??No anorexia, nausea, vomiting or diarrhea. No abdominal pain or blood in stool. Neurologic:??No headache, dizziness, syncope. No change in bowel or bladder control. Musculoskeletal:??No muscle pain, back pain, joint pain or stiffness. Psychiatric:??No depression or anxiety. ?? All other systems reviewed and negative except as above Objective Vital Signs?? Temperature: 97.8 DegF (01/21/23 09:06:00) Temperature Route: Oral (01/21/23 09:06:00) Pulse Rate: 67 bpm (01/21/23 09:06:00) Respiratory Rate:??15 br/min??Low (01/21/23 09:06:00) Systolic Blood Pressure: 119 mm Hg (01/21/23 09:06:00) Diastolic Blood Pressure: 76 mm Hg (01/21/23 09:06:00) Blood pressure sites: Arm, left (01/21/23 09:06:00) Mean Arterial Pressure: 90 mm Hg (01/21/23 09:06:00) Pulse Pressure: 43 mm Hg (01/21/23 09:06:00) Oxygen Saturation: 95 % (01/21/23 09:06:00) Mode of Delivery (Oxygen): Room air (01/21/23 09:06:00) Early Warning Score: 4 (01/21/23 09:07:25) ? Physical Exam Constitutional: Alert, in no distress. Mental Status: Oriented to person, place and time. Head: Normocephalic. Eyes: Pupils are equal, round and reactive to light. Extraocular muscles intact. Ear, Nose and Throat: Oropharynx clear, mucous membranes moist. Trachea midline. Neck: Supple, Full range of motion. Respiratory: Clear to auscultation. No wheezing, rales or rhonchi. Cardiovascular: S1 S2 regular. No murmurs, rubs or gallops. Gastrointestinal: Abdomen soft, non-tender, non-distended. Normal bowel sounds. No pulsatile mass. No hepatosplenomegaly. Neurologic: Cranial nerves II-XII grossly intact. No focal neurological deficits. Moves all extremities spontaneously. Sensation intact bilaterally. Skin: No rashes or lesions. No petechiae or purpura.?? Musculoskeletal: No cyanosis or clubbing. No gross deformities. Normal range of motion. Psychiatric: Normal mood and affect Assessment/Plan Patient is a 57-year-old male with past medical history significant for COPD, tobacco abuse, opioiduse disorder, cocaine use disorder, bipolar disorder, PTSD, hyperlipidemia, GERD presented to [facility]. ?? Chest Pain Cocaine Use Disorder Recent Pneumonia s/p Abx Patient presented from detox facility for 1 episode of??left-sided chest pain that lasted??approximately 5 seconds and then resolved. ??Patient had no radiation of chest pain.?? He says he felt like his heart was jumping out of his chest??for approximately 5 seconds.?? This episode happened after??eating.?? He does not have any exertional chest pain, shortness of breath, diaphoresis, swelling of lower extremities, radiation of pain??to the jaw or left arm.?? Patient does have a history of cocaine use which could cause chest pain. ??Patient has been in a detox facility has not had access to??any illicit substances.?? He denies any recent use of cocaine.?? Patient did have??a recent hospitalization for??pneumonia and recently completed a course of antibiotics.?? His pain does not sound pleuritic in nature. ??Chest x-ray shows improvement compared to previous.?Changing position does not??alleviate the pain.?? EKG has been normal sinus rhythm. ??Troponins??were 44 and 39. ??Patient hasnot had similar??experience in the hospital since being here. ??Most likely etiology??is either??palpitations??or GERD. ?? Recommendations: ? - Follow up with PCP ? - Return to detox facility ? - Continue Omeprazole Monitor for recurrence of symptoms Monitor on telemetry ?? Chronic Stable Medical Conditions: Tobacco Use Disorder: NRT Cocaine Use Disorder: In Rehab Opiate Use Disorder: Suboxone Bipolar Disorder: Quetiapine ?? Quality Measures Diet: Cardiac Access: Peripheral IV Anticoagulation: Lovenox Code status: FULL CODE Ongoing Medical Necessity: Discharge ?? Patient seen and discussed with the attending physician, Dr. Carrizales Isaac Velasquez, DO Internal Medicine Resident Pager #[phone] ?? This note was dictated??by BeCoup[employer] voice detection software,??for any errors??or clarifications, please do not hesitate to reach out for clarifications. ? Attending Attestation (Reinaldo Carrizales MD):??I have seen and evaluated this patient. ??I have discussed the case and its management with the resident and agree with the findings and plan as documentedin the resident???s note. ? Patient has T wave changes in inferior leads but??in lead III??T wave inversion has been present inthe past.?? Chest pain??is very atypical.?? Pulmonary embolism unlikely. ??ACS ruled out.?? Monitorfor recurrence of symptoms Monitor on telemetry ? Histories Allergies Allergies ?(Active and Proposed [...] (L4-L5, L3-L4) ? Social History Alcohol Details:??Use: Past. Employment/School Details:??Status: Disabled. Exercise Details:??Regular exercise: No. Home/Environment Details:??Living situation: Home/Independent. ??Lives with: friend. ??Feels unsafe at home: No. Nutrition/Health Details:??Diet: Regular. Sexual Details:??Sexually involved in last 6 months: No. ??Sexual orientation: Heterosexual. ??Gender identity: Male. ??Preferred pronoun: She/her. Substance Abuse Details:??Use: Past. ??Type: Cocaine, Prescription medications. Tobacco Details:??Use: 5-9 cigarettes (between 10/10 to 1/2 pack)/day in last 30 days. ??Tobacco user in household: Yes. ? Family History Father: Stroke; Throat cancer ? 14-OCT-2016 23:30:24<$> Mother (): Heart disease ? 08-MAR-2014 07:21:16<$> ? Medications Home Medications Albuterol (Albuterol (Eqv-ProAir HFA) 90 mcg/inh inhalation aerosol)?1?puff(s)?Inhalation?Every 6 hours?as needed? NEEDED FOR WHEEZING/SHORTNESS OF BREATH Albuterol/Ipratropium (albuterol-ipratropium 3 mg-0.5 mg/3 ml inhalation solution)?1?vials?Inhalation?4 times a day Buprenorphine-Naloxone (buprenorphine-naloxone 2 mg-0.5 mg sublingual film)?1?Film?Sublingual?Daily?for [...] oral tablet)?2 tablets?By Mouth?Daily at bedtime ? Inpatient Medications Medications (8) Active SCHEDULED: (1) NaCl 0.9% Flush 3ml (NaCL 0.9% Flush) ??3 mL, IV Push, Every 8 hours CONTINUOUS: (0) PRN: (7) Acetaminophen 325 mg Tablet (Acetaminophen Tablet) ??650 mg, By Mouth, Every 4 hours Dextromethorphan-Guaifenesin 20 mg-200 mg/10 mL Liqu UD (Robitussin DM Liquid) ??10 mL, By Mouth, Every 4 hours Melatonin 3 mg Tablet (Melatonin Tablet) ??3 mg, By Mouth, Daily at bedtime NaCl 0.9% Flush 3ml (NaCL 0.9% Flush) ??3 mL, IV Push, Every 8 hours Polyethylene Glycol 17 Gm Powder (MiraLax Powder) ??17 Gm 1 pack/packet, By Mouth, Daily Senna 8.6 mg / Docusate 50 mg tablet (Docusate/Senna Tablet) ??1 tablet, By Mouth, 2 times a day Simethicone 80 mg Chewable Tablet (Simethicone Tablet) ??80 mg, Chew, 3 times a day ? Results Recent Labs BLOOD COUNT & DIFF WBC 7.9 k/mm3 ()?? 01/20/2023 11:21 RBC 4.27 m/mm3 (Low)?? 01/20/2023 11:21 Hgb 13.5 Gm/dL (Low)?? 01/20/2023 11:21 Hct 42.0 % ()?? 01/20/2023 11:21 MCV 98.4 femtoliters (High)?? 01/20/2023 11:21 MCH 31.6 pg ()?? 01/20/2023 11:21 MCHC 32.1 g/dL (Low)?? 01/20/2023 11:21 Platelet Count 219 k/mm3 ()?? 01/20/2023 11:21 RDW-SD 47.8 femtoliters (High)?? 01/20/2023 11:21 MPV 9.1 femtoliters (Low)?? 01/20/2023 11:21 Nucleated RBC (Automated) 0.0 #/100 WBC'S ()?? 01/20/2023 11:21 Abs. NRBC 0.0 k/mm3 ()?? 01/20/2023 11:21 Abs. Neut 3.4 k/mm3 ()?? 01/20/2023 11:21 Abs. Lymph 3.4 k/mm3 (High)?? 01/20/2023 11:21 Abs. [place] 0.9 k/mm3 ()?? 01/20/2023 11:21 Abs. Eo 0.1 k/mm3 ()?? 01/20/2023 11:21 Abs. Baso 0.0 k/mm3 ()?? 01/20/2023 11:21 Neut % 42.8 % (Low)?? 01/20/2023 11:21 Lymph % 42.5 % ()?? 01/20/2023 11:21 [place] % 11.6 % (High)?? 01/20/2023 11:21 Eos % 1.6 % ()?? 01/20/2023 11:21 Baso % 0.4 % ()?? 01/20/2023 11:21 Imm Gran 1.1 % ()?? 01/20/2023 11:21 Abs. Imm Gran 0.1 k/mm3 ()?? 01/20/2023 11:21 ?? CARDIAC Nt-Probnp 81 pg/mL ()?? 01/20/2023 11:21 High Sensitivity Troponin (HSTnT) 39 ng/L (High)?? 01/20/2023 15:15 ?? CHEM GENERAL Sodium 137 mmol/L ()?? 01/20/2023 11:21 Potassium 4.7 mmol/L ()?? 01/20/2023 11:21 Chloride 104 mmol/L ()?? 01/20/2023 11:21 Bicarbonate Level 25 mmol/L ()?? 01/20/2023 11:21 Anion Gap 8 ()?? 01/20/2023 11:21 Glucose Level 81 mg/dL ()?? 01/20/2023 11:21 BUN 18 mg/dL ()?? 01/20/2023 11:21 Creatinine-Blood 0.8 mg/dL ()?? 01/20/2023 11:21 Estimated GFR Creatinine 106 ML/MIN/1.73 M2 ()?? 01/20/2023 11:21 Calcium 9.1 mg/dL ()?? 01/20/2023 11:21 ?? HEME OTHER Hold Blue Top SPECIMEN DISCARDED AFTER 4 HOURS. ()?? 01/20/2023 11:21 ?? VIROLOGY COVID-19 POC Result NEGATIVE ()?? 01/20/2023 09:27 ? EKG study * Event Display: ECG 12-Lead Authored Date: Please click on pdf link to open report * Event Display: ECG 12-Lead Authored Date: Ventricular Rate: 65 BPM Atrial Rate: 65 BPM P-R Interval: 154 ms QRS Duration: 80 ms Q-T Interval: 382 ms QTC Calculation(Bazett): 397 ms R [place]: -18 degrees T [place]: -24 degrees Suspect arm lead reversal, interpretation assumes no reversal Normal sinus rhythm Low voltage QRS Inferior infarct , age undetermined Abnormal ECG When compared with ECG of 20-JAN-2023 09:12, T wave inversion more evident in Inferior leads Confirmed by RADHA MOORE MD ([id number]) on 01/21/2023 6:40:06 PM Protection: RADHA MOORE MD * Event Display: ECG 12-Lead Authored Date: Please click on pdf link to open report * Event Display: ECG 12-Lead Authored Date: Ventricular Rate: 83 BPM Atrial Rate: 83 BPM P-R Interval: 166 ms QRS Duration: 82 ms Q-T Interval: 350 ms QTC Calculation(Bazett): 411 ms P [place]: 70 degrees R [place]: 30 degrees T [place]: 17 degrees Normal sinus rhythm Normal ECG When compared with ECG of 12-JAN-2023 06:43, No significant change was found Confirmed by DOROTHY CLARKE ([id number]) on 01/20/2023 11:32:12 AM Protection: DOROTHY CLARKE Note * Reinaldo Carrizales MD: MODIFY Reinaldo Carrizales MD: MODIFY, MODIFY Reinaldo Carrizales MD: MODIFY, MODIFY Reinaldo Carrizales MD: MODIFY, PERFORM Isaac Velasquez DO: PERFORM Event Display: Discharge/Transfer Note Hospital Authored Date: [id number] Patient: ??CATHRYN BROWN ? Age:??57 Years?Sex:??Male?:??1965?? Patient Information Discharge Location: [facility] Primary Care Physician: Mathieu Christina MD Admit Date/Time: 01/20/23 08:55 Discharge Date: 01/21/2023 Discharge Disposition Discharge Disposition: Snf Facility/Rehab Discharge Diagnosis Chest pain (R07.9) ?? _ Discharge Medications Albuterol (Albuterol (Eqv-ProAir HFA) 90 mcg/inh inhalation aerosol)?1?puff(s)?Inhalation?Every 6 hours?as needed? NEEDED FOR WHEEZING/SHORTNESS OF BREATH Albuterol/Ipratropium (albuterol-ipratropium 3 mg-0.5 mg/3 ml inhalation solution)?1?vials?Inhalation?4 times a day Buprenorphine-Naloxone (buprenorphine-naloxone 2 mg-0.5 mg sublingual film)?1?Film?Sublingual?Daily?for [...] Quality Measures Tobacco Use Treatment:? Medications Started None Medications Discontinued None Doses Changed None PCP Follow-Up/Heads-Up anemia Future Appointments Saturday. 2022 10:00 AM EDT ?? With: Mathieu Christina MD Where: [place] [address]- Hospital Course ??Patient was seen at [facility] for chest pain.?? Lab work was within normal limits.?? Troponins were??44 and 39. ??Patient not have any further episode of chest pain. ??EKG showed normal sinus rhythm without ischemic changes.?? Patient was on telemetry??which showed no abnormalities over the course of 24 hours.?? Patient not have any??repeat episodes of chest pain.?? Patient is hemodynamically stable on discharge. Objective Assessment and Plan Patient is a 57-year-old male with past medical history significant for COPD, tobacco abuse, opioiduse disorder, cocaine use disorder, bipolar disorder, PTSD, hyperlipidemia, GERD presented to [facility]. ?? Chest Pain Cocaine Use Disorder Recent Pneumonia s/p Abx Patient presented from detox facility for 1 episode of??left-sided chest pain that lasted??approximately 5 seconds and then resolved. ??Patient had no radiation of chest pain.?? He says he felt like his heart was jumping out of his chest??for approximately 5 seconds.?? This episode happened after??eating.?? He does not have any exertional chest pain, shortness of breath, diaphoresis, swelling of lower extremities, radiation of pain??to the jaw or left arm.?? Patient does have a history of cocaine use which could cause chest pain. ??Patient has been in a detox facility has not had access to??any illicit substances.?? He denies any recent use of cocaine.?? Patient did have??a recent hospitalization for??pneumonia and recently completed a course of antibiotics.?? His pain does not sound pleuritic in nature. ??Chest x-ray shows improvement compared to previous.?Changing position does not??alleviate the pain.?? EKG has been normal sinus rhythm. ??Troponins??were 44 and 39. ??Patient hasnot had similar??experience in the hospital since being here. ??Most likely etiology??is either??palpitations??or GERD. ?? Recommendations: ? - Follow up with PCP ? - SW consulted Vital Signs?? Temperature: 97.8 DegF (01/21/23 09:06:00) Temperature Route: Oral (01/21/23 09:06:00) Pulse Rate: 67 bpm (01/21/23 09:06:00) Respiratory Rate:??15 br/min??Low (01/21/23 09:06:00) Systolic Blood Pressure: 119 mm Hg (01/21/23 09:06:00) Diastolic Blood Pressure: 76 mm Hg (01/21/23 09:06:00) Blood pressure sites: Arm, left (01/21/23 09:06:00) Mean Arterial Pressure: 90 mm Hg (01/21/23 09:06:00) Pulse Pressure: 43 mm Hg (01/21/23 09:06:00) Oxygen Saturation: 95 % (01/21/23 09:06:00) Mode of Delivery (Oxygen): Room air (01/21/23 09:06:00) Early Warning Score: 4 (01/21/23 09:07:25) ? . Physical Exam Constitutional: Alert, in no distress. Mental Status: Oriented to person, place and time. Head: Normocephalic. Eyes: Pupils are equal, round and reactive to light. Extraocular muscles intact. Ear, Nose and Throat: Oropharynx clear, mucous membranes moist. Trachea midline. Neck: Supple, Full range of motion. Respiratory: Clear to auscultation. No wheezing, rales or rhonchi. Cardiovascular: S1 S2 regular. No murmurs, rubs or gallops. Gastrointestinal: Abdomen soft, non-tender, non-distended. Normal bowel sounds. No pulsatile mass. No hepatosplenomegaly. Neurologic: Cranial nerves II-XII grossly intact. No focal neurological deficits. Moves all extremities spontaneously. Sensation intact bilaterally. Skin: No rashes or lesions. No petechiae or purpura.?? Musculoskeletal: No cyanosis or clubbing. No gross deformities. Normal range of motion. Psychiatric: Normal mood and affect Pending Results No Pending Results Patient Education Titles Tips to Control Acid Reflux?? Noncardiac Chest Pain?? Uncertain Causes of Chest Pain?? Follow-Up Appointments Added Follow Up ?Time Frame ?Comments Mathieu Christina?1 to 2 weeks?also for anemia Home Health Face to Face ^[facility] Results Discharge Labs BLOOD COUNT & DIFF WBC 7.9 k/mm3 ()?? 01/20/2023 11:21 RBC 4.27 m/mm3 (Low)?? 01/20/2023 11:21 Hgb 13.5 Gm/dL (Low)?? 01/20/2023 11:21 Hct 42.0 % ()?? 01/20/2023 11:21 MCV 98.4 femtoliters (High)?? 01/20/2023 11:21 MCH 31.6 pg ()?? 01/20/2023 11:21 MCHC 32.1 g/dL (Low)?? 01/20/2023 11:21 Platelet Count 219 k/mm3 ()?? 01/20/2023 11:21 RDW-SD 47.8 femtoliters (High)?? 01/20/2023 11:21 MPV 9.1 femtoliters (Low)?? 01/20/2023 11:21 Nucleated RBC (Automated) 0.0 #/100 WBC'S ()?? 01/20/2023 11:21 Abs. NRBC 0.0 k/mm3 ()?? 01/20/2023 11:21 Abs. Neut 3.4 k/mm3 ()?? 01/20/2023 11:21 Abs. Lymph 3.4 k/mm3 (High)?? 01/20/2023 11:21 Abs. [place] 0.9 k/mm3 ()?? 01/20/2023 11:21 Abs. Eo 0.1 k/mm3 ()?? 01/20/2023 11:21 Abs. Baso 0.0 k/mm3 ()?? 01/20/2023 11:21 Neut % 42.8 % (Low)?? 01/20/2023 11:21 Lymph % 42.5 % ()?? 01/20/2023 11:21 [place] % 11.6 % (High)?? 01/20/2023 11:21 Eos % 1.6 % ()?? 01/20/2023 11:21 Baso % 0.4 % ()?? 01/20/2023 11:21 Imm Gran 1.1 % ()?? 01/20/2023 11:21 Abs. Imm Gran 0.1 k/mm3 ()?? 01/20/2023 11:21 ?? CARDIAC Nt-Probnp 81 pg/mL ()?? 01/20/2023 11:21 High Sensitivity Troponin (HSTnT) 39 ng/L (High)?? 01/20/2023 15:15 ?? CHEM GENERAL Sodium 137 mmol/L ()?? 01/20/2023 11:21 Potassium 4.7 mmol/L ()?? 01/20/2023 11:21 Chloride 104 mmol/L ()?? 01/20/2023 11:21 Bicarbonate Level 25 mmol/L ()?? 01/20/2023 11:21 Anion Gap 8 ()?? 01/20/2023 11:21 Glucose Level 81 mg/dL ()?? 01/20/2023 11:21 BUN 18 mg/dL ()?? 01/20/2023 11:21 Creatinine-Blood 0.8 mg/dL ()?? 01/20/2023 11:21 Estimated GFR Creatinine 106 ML/MIN/1.73 M2 ()?? 01/20/2023 11:21 Calcium 9.1 mg/dL ()?? 01/20/2023 11:21 ?? HEME OTHER Hold Blue Top SPECIMEN DISCARDED AFTER 4 HOURS. ()?? 01/20/2023 11:21 ? VIROLOGY COVID-19 POC Result NEGATIVE ()?? 01/20/2023 09:27 ? Imaging(s) ?Chest 2 Views Frontal and Lat ?? 01/20/2023 11:17??by Zulema Szymanski MD, I ?IMPRESSION: ?? Minor atelectasis at the right lung base. Otherwise no acute cardiopulmonary disease. ? 32??minutes spent on discharge ? Attending Attestation (Reinaldo Carrizales MD):??I have seen and evaluated this patient. ??I have discussed the case and its management with the resident and agree with the findings and plan as documentedin the resident???s note. ? Spoke to SW--unable to return to facility--Pt was provided info by SW. * Reinaldo Carrizales MD: PERFORM, SIGN, VERIFY Event Display: Patient Education Handout Authored Date: [id number] * Reinaldo Carrizales MD: PERFORM Event Display: Patient Education Leaflets Authored Date: [id number] Uncertain Causes of Chest Pain ?? [id number] Uncertain Causes of Chest Pain Chest pain can happen for a number of reasons. Sometimes the cause can't be determined. If your??condition does not seem serious, and your pain does not appear to be coming from your heart, your healthcare provider may recommend watching it closely. Sometimes the signs of a serious problem take more time to appear. Many problems not related to your heart can cause chest pain. These include: ??? Musculoskeletal. Costochondritis is an inflammation of the tissues around the ribs that can occur from trauma or overuse injuries, or a strain of the muscles of the chest wall. ??? Respiratory. Pneumonia, collapsed lung (pneumothorax), or inflammation of the lining of the chest and lungs (pleurisy). ??? Gastrointestinal. Esophageal reflux, heartburn, ulcers, or gallbladder disease. ??? Anxiety and panic disorders ??? Nerve compression and inflammation ??? Rare problems such as aortic aneurysm or aortic dissection (a swelling of the large artery coming out of the heart or a tear in the wall of the artery), or pulmonary embolism (a blood clot in the lungs). Home care After your visit, follow these recommendations: ??? Rest today and avoid strenuous activity. ??? Take any prescribed medicine as directed. ??? Be aware of any recurrent chest pain and notice any changes ?? Follow-up care Follow up with your healthcare provider if you don't start to feel better within 24 hours, or as advised. ?? Call 911 Call 911 if any of these occur: ??? A change in the type of pain: if it feels different, becomes more severe, lasts longer, or begins to spread into your shoulder, arm, neck, jaw or back ??? Shortness of breath or increased pain with breathing ??? Weakness, dizziness, or fainting ??? Rapid heartbeat ??? Crushing sensation in your chest ??? Coughing up more than a small amount of blood. ?? When to seek medical advice Call your healthcare provider right away if any of the following occur: ??? Cough with dark coloredsputum (phlegm) or small amount of blood ??? Fever of 100.4??F??(38??C) or higher, or as directed by your healthcare provider ??? Swelling, pain or redness in one leg ?? Last Reviewed Date: 2021 ?? [id number] The [employer]. All rights reserved. This information is not intended as a substitute for professional medical care. Always follow your healthcare professional's instructions. ?? * Isaac Velasquez DO: PERFORM Event Display: Patient Education Leaflets Authored Date: [id number] Tips to Control Acid Reflux ?? 22185 Tips to Control Acid Reflux To control acid reflux, you???ll need to make some basic diet and lifestyle changes. The simple steps outlined below may be all you???ll need to ease discomfort. Watch what you eat ??? Don't eat fatty or spicy foods. ??? Eat fewer acidic foods. These include foods with citrus and tomatoes. These can make your symptoms worse. ??? Limit drinks that are fizzy orhave alcohol or caffeine. These all increase acid reflux. ??? Limit foods and drinks with chocolate, peppermint, or spearmint.??These can make acid reflux worse in some people. ?? Watch when you eat ??? Don't lie down for??3??hours after eating. ??? Don't snack before going to bed. ?? Tilt your upper body Raise your upper body by 4 to 6 inches (10 to 15 cm) when you???re lying down. This helps limit reflux. Put blocks under the head of your bed frame or a wedge under your mattress to raise it. ?? Other changes ??? Lose weight, if you need to. ??? Don???t exercise near bedtime. ??? Don't wear tight-fitting clothes. ??? Limit your use of aspirin and ibuprofen. ??? Stop smoking, if you smoke. ?? Last Reviewed Date: 2021 ?? [employer]. All rights reserved. This information is not intended as a substitute for professional medical care. Always follow your healthcare professional's instructions. ?? * Isaac Velasquez DO: PERFORM Event Display: Patient Education Leaflets Authored Date: [id number] Noncardiac Chest Pain ?? [id number] Noncardiac Chest Pain In most cases, people who come to the emergency room with chest pain don???t have a problem with their heart. Instead, the pain is caused by other conditions. It's important for the healthcare team to be sure you are not having a life-threatening cause for chest pain such as: ??? Heart attack ??? Blood clot in the lungs ??? Collapsed lung ??? Ruptured esophagus ??? Tearing of the aorta Once these major causes have been ruled out, you may have further evaluation for other causes of chest pain. These may be problems with the lungs, muscles, bones, digestive tract, nerves, or mental health. They include: ??? Inflammation around the lungs (pleurisy) ??? Collapsed lung (pneumothorax) ??? Lung inflammation (pleuritis or pneumonitis) ??? Fluid around the lung (pleural effusion) ??? Lung cancer (rare cause of chest pain) ??? Inflamed cartilage between the ribs (costochondritis) ??? Fibromyalgia ??? Rheumatoid arthritis ??? Chest wall strain ??? Reflux ??? Stomach ulcer ??? Spasms of the esophagus ??? Gall stones ??? Gallbladder inflammation ??? Panic or anxiety attacks ??? Emotional distress Your pain doesn???t seem to be coming from your heart. But sometimes the signs of a serious problemtake more time to appear. Continue to watch for the warning signs listed below. Home care Follow these guidelines when caring for yourself at home: ??? Rest today and don't do any strenuousactivity. ??? Take any prescribed medicine as directed. ?? Follow-up care Follow up with your healthcare provider as advised. ?? Call 911 Call 911 if any of these occur: ??? A change in the type of pain: if it feels different, becomes more severe, lasts longer, or begins to spread into your shoulder, arm, neck, jaw or back ??? Shortness of breath or increased pain with breathing ??? Weakness, dizziness, or fainting ??? Rapid heart beat ??? Crushing sensation in your chest ?? When to seek medical advice Call your healthcare provider right away if any of these occur: ??? Cough with dark colored sputum (phlegm) or blood ??? Fever of 100.4??F (38??C) or higher, or as directed by your healthcare provider ??? Swelling, pain or redness in one leg ?? Last Reviewed Date: 2021 ?? [id number] [employer]. All rights reserved. This information is not intended as a substitute for professional medical care. Always follow your healthcare professional's instructions. ?? * BHSPowerscrikaterin , CIS S: ANKITA Szymanski MD, Zulema Leal: VERIFY Event Display: Result: Authored Date: [id number] Chest 2 Views Frontal and Lat Hx of Present Illness: Acute onset of LSCP after eating this morning. Non radiating and unable to reproduce. states he took 324 asa from EMS. denies any SOB or n v d.; Reason: Other:; Chest Pain; Clinical Question(s): Other: COMPARISON: 01/12/2023 and 10/14/2021 FINDINGS: LINES AND TUBES: None. LUNGS AND PLEURA: Improved atelectasis at the right lung base, with minor linear residual. Lungs otherwise clear. No pulmonary vascular congestion. No pleural effusion. No pneumothorax. HEART, MEDIASTINUM AND LESLY: Heart is normal in size. Normal mediastinal and hilar contour. BONES AND SOFT TISSUES: No acute abnormality. IMPRESSION: Minor atelectasis at the right lung base. Otherwise no acute cardiopulmonary disease. WSN: [id number] Ordering Physician: Javad Patel Dictated By: Zulema Szymanski MD, I Dictated Date/Time: 01/20/23 11:35 a Reviewed By: Zulema Szymanski MD, I Signed By: Zulema Szymanski MD, I Signed Date/Time: 01/20/23 11:35 am Transcribed By: DEEPTHI Transcribed Date/Time: 01/20/23 11:33 am Patient Care team information Care Team Personnel Name: Maverick Patel Position: [facility] Cardio/Pulm Mgr ([facility]) Member Role: Primary Care Nurse Name: Apryl Gray RN Position: [facility] RN Member Role: Primary Care Nurse Name: Mathieu Christina MD Position: [facility] Primary Care Physician Member Role: PCP Address: Address: [address] [place] [address] Name: *Lashawn ROSENBERG Attending Position: [facility] ED Medicine MD Name: Mona Butler Position: [facility] ED TA [facility] Member Role: Retread Technician Name: Bartolome Bryant RN Position: [facility] ED RN W/OE and Tasks Member Role: Patient Care Provider Name: Chriss Stephens RN Position: [facility] ED RN W/OE and Tasks Member Role: Patient Care Provider Name: Cheyenne Rich MD Position: [facility] Resident Member Role: ED Resident Address: Address: [address] [place] [address] Emergency Medicine [place], [place] [address] Care Team Related Persons Name: MONA MANUEL Address: home [address] [place] [address] Name: MONA MANUEL Address: home [address] [place] [address] Name: BOUCHRA VELOZ Address: home NONE GIVEN Name: MONA BROWN Address: home [address] [place] [address]
--- OUTSIDE RECORDS SUMMARY | 2023-05-24 01:00 | XMS_ITS | Continuity of Care Document ---
Author Name Unknown Organization [facility] ter Address [address] [place] [id number]- Care Team Providers Care Painter Hand Name Role Phone Mathieu Christina MD Primary Care Physician Encounter [facility] Date(s): 01/24/23 - 01/24/[address] [address]- Discharge Disposition: A-D/C Walkout Attending Physician: Not on Staff, Attending MD Admitting Physician: Not on Staff, Admitting MD Referring Physician: Not on Staff, Referring [...] pneumococcal 23-valent vaccine 10/20/11 Given 1Result Comment: [facility]# [id number] [facility] 1 [...] 8.5 each, 5 Refills, 11/08/22 15:58:00 EST, [facility]/pharmacy #1111, 30, 1 puffs Inhalation Every 6 hours,PRN: NEEDED FOR WHEEZING/SHORTNESS OF BREATH, 165, cm, ... Start Date: 11/08/22 Status: Ordered albuterol-ipratropium 3 mg-0.5 mg/3 ml inhalation solution 1 vials, Inhalation, 4 times a day, # 360 mL, 0 Refills, Maintenance, 11/08/22 15:58:00 EST, [facility]/pharmacy #1111, 30, 1 vials Inhalation 4 times a day, 165, cm, 08/17/22 7:14:00 EST, Height, 82, kg, 08/06/22 12:30:00 EDT, Dry Weight Start Date: 11/08/22 Status: Ordered buprenorphine-naloxone 2 mg-0.5 mg sublingual film 1 film, Sublingual, Daily, dissolve under the tongue, # 14 film, 0 Refills, Maintenance, 01/16/23 11:03:00 EDT, Film, [facility], Partial fill upon patient request if the prescription is for a schedule II opioid drug., 1 film Sublingual... Start Date: 01/16/23 Stop Date: 01/30/23 Status: Ordered buprenorphine-naloxone 8 mg-2 mg sublingual film 2 film, Sublingual, Daily, # 28 film, 0 Refills, Maintenance, 01/16/23 11:04:00 EDT, [facility], Partial fill upon patient request if the prescription is for a schedule II opioid drug., 2 film Sublingual Daily,x14 days, 164, cm, 04... Start Date: 01/16/23 Stop Date: 01/30/23 Status: Ordered docusate sodium 100 mg oral capsule 1 capsule, By Mouth, 2 times a day, PRN NEEDED FOR CONSTIPATION, # 100 capsule, 0 Refills, Maintenance, 09/13/20 17:22:00 EST, [facility], 166, cm, 07/26/20 9:41:00 EDT, Height, 87, kg, 01/08/19 13:06:00 EST, Dry Weight Start Date: 09/13/20 [...] EDT, Route to [facility]ically[facility], 165, cm, 05/30/22 13:27:00 EDT, Height, 78.6, [...] Exam Date Time Procedure Performing Provider Status 01/24/23 12:47 AM Chest 2 Views Frontal and Lat Desroch ers , Phyllis; Auth (Verified) Notes: (Chest 2 Views Frontal and Lat) Reason For Exam: Chest Pain;Other: RESULT: Chest 2 Views Frontal and Lat Chest 2 Views Frontal and Lat Hx of Present Illness: pt reports CP and SOB x 2 days, recent PNA that pt reports he completed antibx for, no recent fever or cough. Does endorse crack cocaine and etoh use, no hx withdrawal seizures.; Reason: Other:; Chest Pain; Clinical Question(s): Other: COMPARISON: 01/20/2023. FINDINGS: LINES AND TUBES: None. LUNGS AND PLEURA: Clear lungs. Normal pulmonary vascularity. No pleural effusion. No pneumothorax. HEART, MEDIASTINUM AND LESLY: Heart is normal in size. Normal mediastinal and hilar contour. BONES AND SOFT TISSUES: No acute abnormality. IMPRESSION: No acute abnormality. WSN: [id number] Ordering Physician: Yimi Jiménez Dictated By: Dexter Boss MD, V Dictated Date/Time: 01/24/23 7:53 am Reviewed By: Dexter Boss MD, V Signed By: Dexter Boss MD, V Signed Date/Time: 01/24/23 7:53 am Transcribed By: DEEPTHI Transcribed Date/Time: 01/24/23 7:51 am Vital Signs Most recent to oldest [Reference Range]: 1 2 3 Weight 77.2 kg (01/24/23 12:33 AM) Oxygen Saturation [94-100 %] 98 % (01/24/23 5:30 AM) 93 % *L* (01/24/23 2:38 AM) 96 % (01/24/23 12:23 AM) Pulse Rate [55-90 bpm] 87 bpm (01/24/23 5:30 AM) 75 bpm (01/24/23 2:38 AM) 87 bpm (01/24/23 12:23 AM) Blood Pressure [90-138/55-84 mm Hg] 145/89mm Hg *H* (01/24/23 5:30 AM) 108/63mm Hg (01/24/23 2:38 AM) 122/75mm Hg (01/24/23 12:23 AM) Respiratory Rate [16-30 br/min] 16 br/min (01/24/23 12:23 AM) 22 br/min (01/24/23 12:10 AM) Temperature [96.8-100.4 DegF] 98.3 DegF (01/24/23 5:30 AM) 98.5 DegF (01/24/23 2:38 AM) 98.9 DegF (01/24/23 12:23 AM) Mode of Delivery (Oxygen) Room air (01/24/23 5:30 AM) Room air (01/24/23 2:38 AM) Room air (01/24/23 12:23 AM) Blood pressure sites Arm, right (01/24/23 5:30 AM) Arm, left (01/24/23 12:23 AM) Temperature Route Oral (01/24/23 5:30 AM) Oral (01/24/23 2:38 AM) Oral (01/24/23:23 AM) Dry Weight 77.2 kg (01/24/23 12:33 AM) Weight Obtained Via Patient/family state d (01/24/23 12:33 AM) Dry Weight Obtained Via Patient/family s tated (01/24/23 12:33 AM) Social History Social History Type Response Smoking Status 5-9 cigarettes (betw een 1/4 to 1/2 pack)/day in last 30 days; Tobacco user in household: Yes entered on: 06/15/20 Sex EKG study * Event Display: EKG Authored Date: Note * BHSPowerscribe , CIS S: TRANSCRIBE Karyn LIND, Dexter V: VERIFY Event Display: Result: Authored Date: Chest 2 Views Frontal and Lat Hx of Present Illness: pt reports CP and SOB x 2 days, recent PNA that pt reports he completed antibx for, no recent fever or cough. Does endorse crack cocaine and etoh use, no hx withdrawal seizures.; Reason: Other:; Chest Pain; Clinical Question(s): Other: COMPARISON: 01/20/2023. FINDINGS: LINES AND TUBES: None. LUNGS AND PLEURA: Clear lungs. Normal pulmonary vascularity. No pleural effusion. No pneumothorax. HEART, MEDIASTINUM AND LESLY: Heart is normal in size. Normal mediastinal and hilar contour. BONES AND SOFT TISSUES: No acute abnormality. IMPRESSION: No acute abnormality. WSN: [id number] Ordering Physician: Yimi Jiménez Dictated By: Dexter Boss MD, V Dictated Date/Time: 01/24/23 7:53 am Reviewed By: Dexter Boss MD, V Signed By: Dexter Boss MD, V Signed Date/Time: 01/24/23 7:53 am Transcribed By: DEEPTHI Transcribed Date/Time: 01/24/23 7:51 am Patient Care team information Care Team Personnel Name: Maverick Patel Position: [facility] Cardio/Pulm Mgr ([facility]) Member Role: Primary Care Nurse Name: Apryl Gray RN Position: [facility] RN Member Role: Primary Care Nurse Name: Mathieu Christina MD Position: [facility] Primary Care Physician Member Role: PCP Address: Address: [address] [place] [address]- Care Team Related Persons Name: MONA MANUEL Address: home [address] [place] [address] Name: MONA MANUEL Address: home [address] [place] [address] Name: BOUCHRA VELOZ Address: home NONE GIVEN Name: MONA BROWN Address: home [address] [place] [address]
--- OUTSIDE RECORDS SUMMARY | 2023-05-24 01:00 | XMS_ITS | Continuity of Care Document ---
Author Name Unknown Organization [facility] Address [address] [place] [address]- Care Team Providers Care Fundraising Specialist Name Role Phone Mathieu Christina MD Primary Care Physician Encounter [facility] Date(s): 03/09/22 - [facility]08/[facility] [address] [place] [address]- [place] Allergies, Adverse Reactions, Alerts No Known [...] 10/20/11 Given 1Result Comment: [facility]# [id number] 2[facility] 1 [...] OF BREATH, # 8.5 each, 2 Refills, [facility], 30, TAKE 1 PUFF BY MOUTH EVERY 6 HOURS NEEDED FOR WHEEZING/SHORTNESS OF BREATH, 165, cm, 10/14/21 14:50:00 EST,... Start Date: 02/18/22 Status: Ordered albuterol-ipratropium 3 mg-0.5 mg/3 ml inhalation solution 1 vials, Inhalation, 4 times a day, # 360 mL, 0 Refills, Maintenance, 02/03/21 7:44:00 EDT, [facility], 30, USE 1 VIAL WITH NEBULIZER FOUR TIMES A DAY, 166, cm, 12/21/20 16:08:00 EDT, Height Start Date: 02/03/21 Status: Ordered betamethasone topical dipropionate 0.05% cream See Instructions, APPLY TO THE AFFECTED AREA TWICE A DAY, # 15 Gm, 3 Refills, Maintenance, 04/18/2110:54:00 EDT, [id number], 7, APPLY TO THE AFFECTED AREA TWICE A DAY, 166, cm, 04/18/21 10:20:00 EDT, Height Start Date: 04/18/21 Status: Ordered Colace Clear 50 mg oral capsule 1 capsule = 50 mg, By Mouth, Daily, Decrease use to every other day if diarrhea develops., # 30 capsule, 0 Refills, Maintenance, 07/20/21 13:29:00 EDT, [facility]/pharmacy #1111, Partial fill upon patient request if the prescription is for a schedule II opio... Start Date: 07/20/21 Stop Date: 08/19/21 Status: Ordered docusate sodium 100 mg oral capsule 1 capsule, By Mouth, 2 times a day, PRN NEEDED FOR CONSTIPATION, # 100 capsule, 0 Refills, Maintenance, 09/13/20 17:22:00 EST, [facility], 166, cm, 07/26/20 9:41:00 EDT, Height, 87, kg, 10/14/18 13:06:00 EST, Dry Weight Start Date: 09/13/20 Status: Ordered doxycycline monohydrate 100 mg oral tablet 1 tablet = 100 mg, By Mouth, 2 times a day, # 20 tablet, 0 Refills, Soft Stop, 07/20/21 13:29:00 EDT, [facility]/pharmacy #1111, Partial fill upon patient request if the prescription is for a schedule II opioid drug., 166, cm, 04/18/21 10:20:00 EDT, Height Start Date: 07/20/21 Stop Date: 07/30/21 Status: Ordered famotidine 40 mg oral tablet 1 tablet, By Mouth, Daily at bedtime, # 30 tablet, 2 Refills, Maintenance, 09/05/20 9:40:00 EST, [facility]/pharmacy #1111, 166, cm, 07/26/20 9:41:00 EDT, Height, 87, kg, 10/14/18 13:06:00 EST, Dry Weight Start Date: 09/05/20 Status: Ordered Flonase 50 mcg/inh nasal spray 2 sprays = 100 mcg, Nares, Both, 2 times a day, # 1 each, 5 Refills, Maintenance, 01/31/21 8:43:00 EDT, [place], [facility]/pharmacy #1111, 2 sprays Nares, Both 2 times a day, 166, cm, 12/21/20 16:08:00 EDT, Height Start Date: 01/31/21 Status: Ordered Hibiclens 4% soap See Instructions, Wash affected areas twice daily., # 240 mL, 1 Refills, Soft Stop, 07/20/21 13:30:00 EDT, [facility]/pharmacy #1111, Partial fill upon patient request if the prescription is for a schedule II opioid drug., Wash affected areas twice daily., 1... Start Date: 07/20/21 Status: Ordered ibuprofen 800 mg oral tablet 800 mg, 1, tablet, By Mouth, 2 times a day, with food or milk, # 60 tablet, Refills 1, Tot. Refills1, Maintenance, 01/28/19 10:46:50 EDT, Route to Pharmacy Electronically, [id number], [facility]/pharmacy #1111 Start Date: 01/28/19 Status: Ordered [...] 90 capsule, 0 Refills, 08/22/21 17:04:00 EST, [facility]/pharmacy #1111, 166, cm, 04/18/21 10:20:00 EDT, Height Start Date: 08/22/21 Status: Ordered permethrin 5% topical cream See Instructions, 1 application Topically Once Apply from head to toe, leave on for 8-14 hr, rinse;may reapply in 7 days if live mites reappear, # 60 Gm, 0 Refills, Maintenance, 06/01/21 12:45:00 EDT, Cream, [facility]/pharmacy #1111, Partial fill upon pat... Start [...] 3 Refills, Maintenance, 01/01/22 12:31:00 EDT, Tablet, [facility]/pharmacy #1111, 165, cm, 10/14/21 14:50:00 EST, Height, 78.6,kg, 10/14/21 14:50:00 EST, Dry Weight Start Date: 01/01/22 Status: Ordered simvastatin 10 mg oral tablet 1, tablet, By Mouth, Daily at bedtime, # 90 tablet, Refills 1, Route to Pharmacy Electronically, [facility], 165, cm, 10/14/21 14:50:00 EST, Height, 78.6, kg, 10/14/21 14:50:00 EST, Dry Weight Start Date: 01/13/22 Status: Ordered Suboxone 8 mg-2 mg sublingual film 2.5 each, Sublingual, Daily, 0 Refills, Maintenance, 06/08/15 10:28:14 EDT Start Date: 9/2/15 Status: Ordered SUMAtriptan 50 mg oral tablet 1 tablet, By Mouth, Daily, PRN NEEDED FOR MIGRAINES, MAY REPEAT DOSE AFTER 2 HOURS, MAXIMUM OF 2DOSES, # 9 tablet, 2 Refills, [facility], 165, cm, 10/14/21 14:50:00 EST, Height, 78.6, [...]
--- OUTSIDE RECORDS SUMMARY | 2023-05-24 01:00 | XMS_ITS | Continuity of Care Document ---
Author Name Unknown Organization [facility] Address [address] [place] [address]- Care Team Providers Care Cable Tool Operator Name Role Phone Mathieu Christina MD Primary Care Physician [phone] Encounter [facility] Date(s): 05/16/22 - [facility]15/[facility] [address] [place] [address]- [place] Allergies, Adverse Reactions, Alerts No Known [...] [facility]# [id number] 2Location History[facility] 1 each, See Instructions, # 1 each, Refills 0, Tot. Refills 0, Maintenance, please supply one knee brace. diagnosis: left knee injury, 01/15/19 13:39:43 EDT, Compound Start Date: 01/15/19 Status: Ordered Albuterol (Eqv-ProAir HFA) 90 mcg/inh inhalation aerosol 1 puffs, Inhalation, Every 6 hours, PRN NEEDED FOR WHEEZING/SHORTNESS OF BREATH, # 8.5 each, 5 Refills, [facility]64, 30, TAKE 1 PUFF BY MOUTH EVERY 6 HOURS NEEDED FOR WHEEZING/SHORTNESS OF BREATH, 165, cm, 10/14/21 14:50:00 EST, Height, 78.6... Start Date: 05/13/22 Status: Ordered albuterol-ipratropium 3 mg-0.5 mg/3 ml inhalation solution 1 vials, Inhalation, 4 times a day, # 360 mL, 0 Refills, Maintenance, 02/03/21 7:44:00 EDT, [facility] 00307, 30, USE 1 VIAL WITH NEBULIZER FOUR TIMES A DAY, 166, cm, 12/21/20 16:08:00 EDT, Height Start Date: 02/03/21 Status: Ordered betamethasone topical dipropionate 0.05% cream See Instructions, APPLY TO THE AFFECTED AREA TWICE A DAY, # 15 Gm, 3 Refills, Maintenance, 04/18/2110:54:00 EDT, [facility] #[id number], 7, APPLY TO THE AFFECTED AREA TWICE A DAY, 166, cm, 04/18/21 10:20:00 EDT, Height Start Date: 04/18/21 Status: Ordered Citrucel 2 gm/19 gm oral powder for reconstitution = 2 Gm, By Mouth, 2 times a day, # 507 Gm, 1 Refills, Maintenance, 03/27/21 9:12:00 EDT, [facility] #[id number], Partial fill upon patient request if the prescription is for a schedule II opioiddrug., 166, cm, 12/21/20 16:08:00 EDT, Height Start Date: 03/27/21 Status: Ordered Colace Clear 50 mg oral capsule 1 capsule = 50 mg, By Mouth, Daily, Decrease use to every other day if diarrhea develops., # 30 capsule, 0 Refills, Maintenance, 07/20/21 13:29:00 EDT, [facility]/pharmacy #1111, Partial fill upon patient request if the prescription is for a schedule II opio... Start Date: 07/20/21 Stop Date: 08/19/21 Status: Ordered docusate sodium 100 mg oral capsule 1 capsule, By Mouth, 2 times a day, PRN NEEDED FOR CONSTIPATION, # 100 capsule, 0 Refills, Maintenance, 09/13/20 17:22:00 EST, [facility] STORE 63682, 166, cm, 07/26/20 9:41:00 EDT, Height, 87, kg, 10/14/18 13:06:00 EST, Dry Weight Start Date: 09/13/20 Status: Ordered doxycycline monohydrate 100 mg oral tablet 1 tablet = 100 mg, By Mouth, 2 times a day, # 20 tablet, 0 Refills, Soft Stop, 07/20/21 13:29:00 EDT, [facility]/pharmacy #1111, Partial fill upon patient request if the prescription is for a schedule II opioid drug., 166, cm, 04/18/21 10:20:00 EDT, Height Start Date: 07/20/21 Stop Date: 07/30/21 Status: Ordered famotidine 40 mg oral tablet 1 tablet, By Mouth, Daily at bedtime, # 30 tablet, 2 Refills, Maintenance, 09/05/20 9:40:00 EST, [facility]/pharmacy #1111, 166, cm, 07/26/20 9:41:00 EDT, Height, 87, kg, 10/14/18 13:06:00 EST, Dry Weight Start Date: 09/05/20 Status: Ordered Flonase 50 mcg/inh nasal spray 2 sprays = 100 mcg, Nares, Both, 2 times a day, # 1 each, 5 Refills, Maintenance, 01/31/21 8:43:00 EDT, [place], [facility]/pharmacy #1111, 2 sprays Nares, Both 2 times a day, 166, cm, 12/21/20 16:08:00 EDT, Height Start Date: 01/31/21 Status: Ordered Hibiclens 4% soap See Instructions, Wash affected areas twice daily., # 240 mL, 1 Refills, Soft Stop, 07/20/21 13:30:00 EDT, [facility]/pharmacy #1111, Partial fill upon [...] 01/28/19 10:46:50 EDT, Route to Pharmacy Electronically, [id number], [facility]/pharmacy #1111 Start Date: 01/28/19 [...] mL, 0 Refills, Maintenance, 01/03/22 11:36:00 EDT, [facility], Partial fill upon patient [...] 3 Refills, Maintenance, 01/01/22 12:31:00 EDT, Tablet, [facility]/pharmacy #1111, 165, cm, 10/14/21 14:50:00 EST, Height, 78.6,kg, 10/14/21 14:50:00 EST, Dry Weight Start Date: 01/01/22 Status: Ordered simvastatin 10 mg oral tablet 1, tablet, By Mouth, Daily at bedtime, # 90 tablet, Refills 1, Route to [facility] Electronically, [facility], 165, cm, 10/14/21 14:50:00 EST, Height, 78.6, [...] # 9 tablet, 2 Refills, [facility], 165, cm, 10/14/21 14:50:00 EST, Height, 78.6, [...] Team Personnel Name: Mathieu Christina MD Address: [address] [place] [address] [facility], [place], [place] [address]
--- OUTSIDE RECORDS SUMMARY | 2023-05-24 01:00 | XMS_ITS | Continuity of Care Document ---
Author Name Unknown Organization [facility] Address [address] [place] [address]- Care Team Providers Care Candy Maker Name Role Phone Mathieu Christina MD Primary Care Physician Encounter [facility] Date(s): 03/30/22 - [facility]06/[facility] [address] [place] [address]- Attending Physician: Adeline WEINBERG, Chrystal Burrell Allergies, Adverse Reactions, Alerts No Known [...] 23-valent vaccine 10/20/11 Given 1Result Comment: [facility]# [id number] 2Location History: [facility] 1 [facility] 1 [...] OF BREATH, # 8.5 each, 2 Refills, [facility], 30, TAKE 1 PUFF BY MOUTH EVERY 6 HOURS NEEDED FOR WHEEZING/SHORTNESS OF BREATH, 165, cm, 10/14/21 14:50:00 EST,... Start Date: 02/18/22 Status: Ordered albuterol-ipratropium 3 mg-0.5 mg/3 ml inhalation solution 1 vials, Inhalation, 4 times a day, # 360 mL, 0 Refills, Maintenance, 02/03/21 7:44:00 EDT, [facility] 46726, 30, USE 1 VIAL WITH NEBULIZER FOUR TIMES A DAY, 166, cm, 12/21/20 16:08:00 EDT, Height Start Date: 02/03/21 Status: Ordered betamethasone topical dipropionate 0.05% cream See Instructions, APPLY TO THE AFFECTED AREA TWICE A DAY, # 15 Gm, 3 Refills, Maintenance, 04/18/2110:54:00 EDT, [facility] #[id number], 7, APPLY TO THE AFFECTED AREA TWICE A DAY, 166, cm, 04/18/21 10:20:00 EDT, Height Start Date: 04/18/21 Status: Ordered Colace Clear 50 mg oral capsule 1 capsule = 50 mg, By Mouth, Daily, Decrease use to every other day if diarrhea develops., # 30 capsule, 0 Refills, Maintenance, 07/20/21 13:29:00 EDT, [facility]/pharmacy #1111, Partial fill upon patient request if the prescription is for a schedule II opio... Start Date: 07/20/21 Stop Date: 08/19/21 Status: Ordered docusate sodium 100 mg oral capsule 1 capsule, By Mouth, 2 times a day, PRN NEEDED FOR CONSTIPATION, # 100 capsule, 0 Refills, Maintenance, 09/13/20 17:22:00 EST, [facility]ORE 68974, 166, cm, 07/26/20 9:41:00 EDT, Height, 87, kg, 10/14/18 13:06:00 EST, Dry Weight Start Date: 09/13/20 Status: Ordered doxycycline monohydrate 100 mg oral tablet 1 tablet = 100 mg, By Mouth, 2 times a day, # 20 tablet, 0 Refills, Soft Stop, 07/20/21 13:29:00 EDT, [facility]/pharmacy #1111, Partial fill upon patient request if the prescription is for a schedule II opioid drug., 166, cm, 04/18/21 10:20:00 EDT, Height Start Date: 07/20/21 Stop Date: 07/30/21 Status: Ordered famotidine 40 mg oral tablet 1 tablet, By Mouth, Daily at bedtime, # 30 tablet, 2 Refills, Maintenance, 09/05/20 9:40:00 EST, [facility]/pharmacy #1111, 166, cm, 07/26/20 9:41:00 EDT, Height, 87, kg, 10/14/18 13:06:00 EST, Dry Weight Start Date: 09/05/20 Status: Ordered Flonase 50 mcg/inh nasal spray 2 sprays = 100 mcg, Nares, Both, 2 times a day, # 1 each, 5 Refills, Maintenance, 01/31/21 8:43:00 EDT, [place], [facility]/pharmacy #1111, 2 sprays Nares, Both 2 times a day, 166, cm, 12/21/20 16:08:00 EDT, Height Start Date: 01/31/21 Status: Ordered Hibiclens 4% soap See Instructions, Wash affected areas twice daily., # 240 mL, 1 Refills, Soft Stop, 07/20/21 13:30:00 EDT, [facility]/pharmacy #1111, Partial fill upon patient request if the prescription is for a schedule II opioid drug., Wash affected areas twice daily., 1... Start Date: 07/20/21 Status: Ordered ibuprofen 800 mg oral tablet 800 mg, 1, tablet, By Mouth, 2 times a day, with food or milk, # 60 tablet, Refills 1, Tot. Refills1, Maintenance, 01/28/19 10:46:50 EDT, Route to Pharmacy Electronically, [id number], [facility]/pharmacy #1111 Start Date: 01/28/19 Status: Ordered Mouth [...] 90 capsule, 0 Refills, 08/22/21 17:04:00 EST, [facility]/pharmacy #1111, 166, cm, 04/18/21 10:20:00 EDT, Height Start Date: 08/22/21 Status: Ordered permethrin 5% topical cream See Instructions, 1 application Topically Once Apply from head to toe, leave on for 8-14 hr, rinse;may reapply in 7 days if live mites reappear, # 60 Gm, 0 Refills, Maintenance, 06/01/21 12:45:00 EDT, [place], [facility]/pharmacy #1111, Partial fill upon pat... Start Date: [...] 3 Refills, Maintenance, 01/01/22 12:31:00 EDT, Tablet, [facility]/pharmacy #1111, 165, cm, 10/14/21 14:50:00 EST, Height, 78.6,kg, 10/14/21 14:50:00 EST, Dry Weight Start Date: 01/01/22 Status: Ordered simvastatin 10 mg oral tablet 1, tablet, By Mouth, Daily at bedtime, # 90 tablet, Refills 1, Route to Pharmacy Electronically, [facility] STORE 94781, 165, cm, 10/14/21 14:50:00 EST, Height, 78.6, [...] # 9 tablet, 2 Refills, [facility], 165, cm, 10/14/21 14:50:00 EST, Height, 78.6, [...]
--- OUTSIDE RECORDS SUMMARY | 2023-05-24 01:00 | XMS_ITS | Continuity of Care Document ---
Author Name Unknown Organization [facility] Address [address] [place], [place] [address]- Care Team Providers Care Analog Ic Design Architect Name Role Phone Mathieu Christina MD Primary Care Physician Encounter [facility] Date(s): 04/25/21 - 05/25/21 [facility] [address] [place] [address]- [place] Allergies, Adverse Reactions, Alerts Substance Reaction Severity Status NKA Active Immunizations Given and Recorded Vaccine Date Status Refusal Reason influenza virus vaccine, inactivated 1 10/21/20 Gi angélica influenza virus vaccine, inactivated 2 08/22/16 Re corded influenza virus vaccine, inactivated 07/25/15 Give n influenza virus vaccine, inactivated 10/20/11 Give n tetanus/diphtheria/pertussis, acel(Tdap) 06/08/15 Given pneumococcal 23-valent vaccine 10/20/11 Given 1Result Comment: [facility]# [id number] 2Location History: [facility] each 1 each, See Instructions, # 1 each, Refills 0, Tot. Refills 0, Maintenance, please supply one knee brace. diagnosis: left knee injury, 01/15/19 13:39:43 EDT, Compound Start Date: 01/15/19 Status: Ordered albuterol-ipratropium 3 mg-0.5 mg/3 ml inhalation solution 1 vials, Inhalation, 4 times a day, # 360 mL, 0 Refills, Maintenance, 02/03/21 7:44:00 EDT, [facility], 30, USE 1 VIAL WITH NEBULIZER FOUR TIMES A DAY, 166, cm, 12/21/20 16:08:00 EDT, Height Start Date: 02/03/21 Status: Ordered betamethasone topical dipropionate 0.05% cream See Instructions, APPLY TO THE AFFECTED AREA TWICE A DAY, # 15 Gm, 3 Refills, Maintenance, 04/18/2110:54:00 EDT, [facility] #[id number], 7, APPLY TO THE AFFECTED AREA TWICE A DAY, 166, cm, 04/18/21 10:20:00 EDT, Height Start Date: 04/18/21 Status: Ordered docusate sodium 100 mg oral capsule 1 capsule, By Mouth, 2 times a day, PRN NEEDED FOR CONSTIPATION, # 100 capsule, 0 Refills, Maintenance, 09/13/20 17:22:00 EST, [facility] STORE 82155, 166, cm, 07/26/20 9:41:00 EDT, Height, 87, [...] each, 5 Refills, Maintenance, 01/31/21 8:43:00 EDT, [place], [facility]/pharmacy #1111, 2 sprays Nares, Both 2 times a day, 166, cm, 12/21/20 16:08:00 EDT, Height Start Date: 01/31/21 Status: Ordered ibuprofen 800 mg oral tablet 800 mg, 1, tablet, By Mouth, 2 times a day, with food or milk, # 60 tablet, Refills 1, Tot. Refills1, Maintenance, 01/28/19 10:46:50 EDT, Route to Pharmacy Electronically, [id number], [facility]/pharmacy #1111 Start Date: 01/28/19 Status: [...] mg, By Mouth, Daily, # 90 tablet, 0 Refills, Maintenance, 03/12/21 8:01:00 EDT, EC Tablet, [facility]/pharmacy #1111, 166, cm, 12/21/20 16:08:00 EDT, Height Start Date: 03/12/21 Stop Date: 06/10/21 Status: Ordered ProAir HFA 90 mcg/inh inhalation aerosol with adapter 1, puffs, Inhalation, Every 6 hours, PRN, # 18 Gm, Refills 5, Tot. Refills 5, Maintenance, 04/18/2110:54:00 EDT, Aerosol, Route to Pharmacy Electronically, [id number], [facility] #[id number], 166, cm, 04/18/21 10:20:00... Start Date: 04/18/21 [...] 01/23/21 16:37:00 EDT, Route to Pharmacy Electronically, [facility]/pharmacy #1111, 166, cm, 12/21/20 16:08:00 EDT, [...]
--- OUTSIDE RECORDS SUMMARY | 2023-05-24 01:00 | XMS_ITS | Continuity of Care Document ---
Author Name Unknown Organization [facility] Address [address] [place] [address]- Care Team Providers Care Beef Cattle Specialist Name Role Phone Mathieu Christina MD Primary Care Physician [phone] Encounter [facility] Date(s): 07/17/22 - 08/22/[address] [facility] [address] [place] [address]- Attending Physician: Mathieu Christina MD Allergies, Adverse [...] pneumococcal 23-valent vaccine 10/20/11 Given 1Result Comment: [facility]# [id number] 2Location History: [facility] each 1 each, See Instructions, # 1 each, Refills 0, Tot. Refills 0, Maintenance, please supply one knee brace. diagnosis: left knee injury, 01/15/19 13:39:43 EDT, Compound Start Date: 01/15/19 Status: Ordered Albuterol (Eqv-ProAir HFA) 90 mcg/inh inhalation aerosol 1 puffs, Inhalation, Every 6 hours, PRN NEEDED FOR WHEEZING/SHORTNESS OF BREATH, # 8.5 each, 5 Refills, [facility] 65062, 30, TAKE 1 PUFF BY MOUTH EVERY 6 HOURS NEEDED FOR WHEEZING/SHORTNESS OF BREATH, 165, cm, 10/14/21 14:50:00 EST, Height, 78.6... Start Date: 05/13/22 Status: Ordered albuterol-ipratropium 3 mg-0.5 mg/3 ml inhalation solution 1 vials, Inhalation, 4 times a day, # 360 mL, 0 Refills, Maintenance, 02/03/21 7:44:00 EDT, [facility] 35712, 30, USE 1 VIAL WITH NEBULIZER FOUR TIMES A DAY, 166, cm, 12/21/20 16:08:00 EDT, Height Start Date: 02/03/21 Status: Ordered betamethasone topical dipropionate 0.05% cream See Instructions, APPLY TO THE AFFECTED AREA TWICE A DAY, # 15 Gm, 3 Refills, Maintenance, 04/18/2110:54:00 EDT, [facility] #[id number], 7, APPLY TO THE AFFECTED AREA TWICE A DAY, 166, cm, 04/18/21 10:20:00 EDT, Height Start Date: 04/18/21 Status: Ordered Citrucel 2 gm/19 gm oral powder for reconstitution = 2 Gm, By Mouth, 2 times a day, # 507 Gm, 1 Refills, Maintenance, 03/27/21 9:12:00 EDT, [facility] #[id number], Partial fill upon patient request if the prescription is for a schedule II opioiddrug., 166, cm, 12/21/20 16:08:00 EDT, Height Start Date: 03/27/21 Status: Ordered Colace Clear 50 mg oral capsule 1 capsule = 50 mg, By Mouth, Daily, Decrease use to every other day if diarrhea develops., # 30 capsule, 0 Refills, Maintenance, 07/20/21 13:29:00 EDT, [facility]/pharmacy #1111, Partial fill upon patient request if the prescription is for a schedule II opio... Start Date: 07/20/21 Stop Date: 08/19/21 Status: Ordered docusate sodium 100 mg oral capsule 1 capsule, By Mouth, 2 times a day, PRN NEEDED FOR CONSTIPATION, # 100 capsule, 0 Refills, Maintenance, 09/13/20 17:22:00 EST, [facility] STORE 42324, 166, cm, 07/26/20 9:41:00 EDT, Height, 87, kg, 10/14/18 13:06:00 EST, Dry Weight Start Date: 09/13/20 Status: Ordered doxycycline hyclate 100 mg oral capsule 1 capsule = 100 mg, By Mouth, 2 times a day, for 10 days, # 20 capsule, 0 Refills, Acute 08/27/22 7:20:00 EST, 08/17/22 7:20:00 EST, Caps[place], [facility]/pharmacy #1111, Partial fill upon patient request if the prescription is for a schedule II opioid drug.,... Start Date: 08/17/22 Stop Date: 08/27/22 Status: Ordered famotidine 40 mg oral tablet 1 tablet, By Mouth, Daily at bedtime, # 30 tablet, 2 Refills, Maintenance, 09/05/20 9:40:00 EST, [facility]/pharmacy #1111, 166, cm, 07/26/20 9:41:00 EDT, Height, 87, kg, 10/14/18 13:06:00 EST, Dry Weight Start Date: 09/05/20 Status: Ordered Flonase 50 mcg/inh nasal spray 2 sprays = 100 mcg, Nares, Both, 2 times a day, # 1 each, 5 Refills, Maintenance, 01/31/21 8:43:00 EDT, [place], [facility]/pharmacy #1111, 2 sprays Nares, Both [...] 01/28/19 10:46:50 EDT, Route to Pharmacy Electronically, [id number], [facility]/pharmacy #1111 Start Date: 01/28/19 Status: [...] 3 Refills, Maintenance, 01/01/22 12:31:00 EDT, Tablet, [facility]/pharmacy #1111, 165, cm, 10/14/21 14:50:00 EST, Height, 78.6,kg, 10/14/21 14:50:00 EST, Dry Weight Start Date: 01/01/22 Status: Ordered simvastatin 10 mg oral tablet 1, tablet, By Mouth, Daily at bedtime, # 90 tablet, Refills 1, Maintenance, 07/12/22 17:09:00 EDT, Route to Pharmacy Electronically, [facility], 165, cm, 05/30/22 13:27:00 EDT, Height, 78.6, [...] # 9 tablet, 2 Refills, [facility], 165, cm, 10/14/21 14:50:00 EST, Height, 78.6, [...] Patel Position: [facility] Cardio/Pulm Mgr ([facility]) Member Role: Primary Care Nurse Name: Mathieu Christina MD Position: [facility] Primary Care Physician Member Role: PCP Address: Address: [address] [place] [address]- Care Team Related Persons Name: MONA MANUEL Address: home [address] [place] [id number] Name: MONA MANUEL Address: home [address] [place] [address] Name: BOUCHRA VELOZ Address: home NONE GIVEN Name: MONA BROWN Address: home [address], [place]
--- OUTSIDE RECORDS SUMMARY | 2023-05-24 01:00 | XMS_ITS | Continuity of Care Document ---
Author Name Unknown Organization [facility] Address [address] [place] [id number] Care Team Providers Care Commissary Steward Name Role Phone Mathieu Christina MD Primary Care Physician Encounter [facility] Date(s): 04/18/21 - 04/25/21 [facility] [address] [place] [id number]- Encounter Diagnosis Allergic dermatitis(Discharge Diagnosis) - 04/18/21 Attending Physician: Mathieu Christina MD Allergies, Adverse [...] vaccine 10/20/11 Given 1Result Comment: [facility]# [id number] 2Location History: [facility] Medications 1 each 1 each, See Instructions, # 1 each, Refills 0, Tot. Refills 0, Maintenance, please supply one knee brace. diagnosis: left knee injury, 01/15/19 13:39:43 EDT, Compound Start Date: 01/15/19 Status: Ordered albuterol-ipratropium 3 mg-0.5 mg/3 ml inhalation solution 1 vials, Inhalation, 4 times a day, # 360 mL, 0 Refills, Maintenance, 02/03/21 7:44:00 EDT, [facility], 30, USE 1 VIAL WITH NEBULIZER FOUR TIMES A DAY, 166, cm, 12/21/20 16:08:00 EDT, Height Start Date: 02/03/21 Status: Ordered betamethasone topical dipropionate 0.05% cream See Instructions, APPLY TO THE AFFECTED AREA TWICE A DAY, # 15 Gm, 3 Refills, Maintenance, 04/18/2110:54:00 EDT, [facility] #[id number], 7, APPLY TO THE AFFECTED AREA TWICE A DAY, 166, cm, 04/18/21 10:20:00 EDT, Height Start Date: 04/18/21 Status: Ordered docusate sodium 100 mg oral capsule 1 capsule, By Mouth, 2 times a day, PRN NEEDED FOR CONSTIPATION, # 100 capsule, 0 Refills, Maintenance, 09/13/20 17:22:00 EST, [facility] 14845, 166, cm, 07/26/20 9:41:00 EDT, Height, 87, kg, 10/14/18 13:06:00 EST, Dry Weight Start Date: 09/13/20 Status: Ordered famotidine 40 mg oral tablet 1 tablet, By Mouth, Daily at bedtime, # 30 tablet, 2 Refills, Maintenance, 09/05/20 9:40:00 EST, [facility]/pharmacy #1111, 166, cm, 07/26/20 9:41:00 EDT, Height, 87, kg, 10/14/18 13:06:00 EST, Dry Weight Start Date: 09/05/20 Status: Ordered Flonase 50 mcg/inh nasal spray 2 sprays = 100 mcg, Nares, Both, 2 times a day, # 1 each, 5 Refills, Maintenance, 01/31/21 8:43:00 EDT, [place], [facility]/pharmacy #1111, 2 sprays Nares, Both 2 times a day, 166, cm, 12/21/20 16:08:00 EDT, Height Start Date: 01/31/21 Status: Ordered ibuprofen 800 mg oral tablet 800 mg, 1, tablet, By Mouth, 2 times a day, with food or milk, # 60 tablet, Refills 1, Tot. Refills1, Maintenance, 01/28/19 10:46:50 EDT, Route to Pharmacy Electronically, [id number], [facility]/pharmacy #1111 Start Date: 01/28/19 Status: Ordered [...] Refills, Maintenance, 03/12/21 8:01:00 EDT, EC Tablet, [facility]/pharmacy #1111, 166, cm, 12/21/20 16:08:00 EDT, Height Start Date: 03/12/21 Stop Date: 06/10/21 Status: Ordered predniSONE 20 mg oral tablet 1 tablet = 20 mg, By Mouth, Daily, for 7 days, with food or milk, # 7 tablet, 0 Refills, Acute 05/02/21 11:50:00 EDT, 04/25/21 11:50:00 EDT, Tablet, [facility] #[id number], 166, cm, 04/18/21 10:20:00 EDT, Height Start Date: 04/25/21 Stop Date: 05/02/21 Status: Ordered ProAir HFA 90 mcg/inh inhalation aerosol with adapter 1, puffs, Inhalation, Every 6 hours, PRN, # 18 Gm, Refills 5, Tot. Refills 5, Maintenance, 04/18/2110:54:00 EDT, Aerosol, Route to Pharmacy Electronically, [id number], [facility] #[id number], 166, cm, 04/18/21 10:20:00... Start Date: 04/18/21 [...] 3 Refills, Maintenance, 06/15/20 8:01:00 EDT, Tablet, [facility]/pharmacy #1111, 166, cm, 06/15/20 7:38:00 EDT, Height, 87, kg,10/14/18 13:06:00 EST, Dry Weight Start Date: 06/15/20 Status: Ordered simvastatin 10 mg oral tablet 10 mg, 1, tablet, By Mouth, Daily at bedtime, # 90 tablet, Refills 1, Tot. Refills 1, Maintenance, 01/23/21 16:37:00 EDT, Route to Pharmacy Electronically, [facility]/pharmacy #1111, 166, cm, 12/21/20 16:08:00 EDT, [...] Effective Dates Health Status Clinical Service Informant Allergic dermatitis Discharge Diagnosis 04/18/21 Vital Signs Most recent to oldest [Reference Range]: 1 Height 166 cm (04/18/21 10:20 AM) Weight 79.8 kg (04/18/21 10:20 AM) Oxygen Saturation [94-100 %] 96 % (04/18/21 10:20 AM) Pulse Rate [55-90 bpm] 88 bpm (04/18/21 10:20 AM) Body Mass Index [18.5-24.99] 28.96 *H* (04/18/21 10:20 AM) Blood Pressure [90-138/55-84 mm Hg] 118/ 60mm Hg (04/18/21 10:20 AM) Liters per Minute 0 L/min (04/18/21 10:20 AM) Mode of Delivery (Oxygen) Room air (04/18/21 10:20 AM) Blood pressure sites Arm, left (04/18/21 10:20 AM) Weight Obtained Via Standing scale (04/18/21 10:20 AM) Social History Social History Type Response Smoking Status 5-9 cigarettes (betw een 1/4 to 1/2 pack)/day in last 30 days entered on: 04/18/21 Sex
--- OUTSIDE RECORDS SUMMARY | 2023-05-24 01:01 | XMS_ITS | Continuity of Care Document ---
Author Name Unknown Organization [facility] [facility] Address [address] [place] [address]- Care Team Providers Care Temperature Regulator Pyrometer Name Role Phone Mathieu Christina MD Primary Care Physician Encounter [facility] Date(s): 06/23/20 - [facility]23/[facility] [address] [place] [address]- Allergies, Adverse Reactions, Alerts Substance Reaction Severity [...] 15 Gm, 3 Refills, Maintenance, 208:01:00 EDT, [facility]/pharmacy #1111, 7, APPLY TO THE [...] 03/29/20 17:19:00 EDT, Route to Pharmacy Electronically, [facility]/pharmacy #1111,166, cm, 03/29/20 13:47:00 EDT, Height, 87, kg, ... Start Date: 03/29/20 Stop Date: 06/27/20 Status: Ordered famotidine 40 mg oral tablet 1 tablet = 40 mg, By Mouth, Daily at bedtime, # 30 tablet, 0 Refills, Maintenance, 07/06/20 11:50:00 EDT, Tablet, [facility]/pharmacy #1111, 166, cm, 07/06/20 11:19:00 EDT, Height, 87, kg, 10/14/18 13:06:00EST, Dry Weight Start Date: 07/06/20 Status: Ordered Flonase 50 mcg/inh nasal spray 2 sprays = 100 mcg, Nares, Both, 2 times a day, # 1 each, 5 Refills, Maintenance, 06/15/20 8:01:00 EDT, [place], [facility]/pharmacy #1111, 2 sprays Nares, Both 2 times a day, 166, cm, 06/15/20 7:38:00 EDT, Height, 87, kg, 10/14/18 13:06:00 EST, Dry Weight Start Date: 06/15/20 Status: Ordered ibuprofen 800 mg oral tablet 800 mg, 1, tablet, By Mouth, 2 times a day, with food or milk, # 60 tablet, Refills 1, Tot. Refills1, Maintenance, 01/28/19 10:46:50 EDT, Route to Pharmacy Electronically, [id number], [facility]/pharmacy #1111 Start Date: 01/28/19 Status: [...] 208:01:00 EDT, Aerosol, Route to Pharmacy Electronically, [id number], [facility]/pharmacy #1111, 166, cm, 06/15/20 7:38:00 [...]
--- OUTSIDE RECORDS SUMMARY | 2023-05-24 01:01 | XMS_ITS | Continuity of Care Document ---
Author Name Unknown Organization [facility] Address [address] [place] [address]- Care Team Providers Care Rn Manager Name Role Phone Mathieu Christina MD Primary Care Physician Encounter [facility] Date(s): 07/20/21 - 08/19/21 [facility] [address] [place] [address]- Attending Physician: AdmAustin dykes Admitting Physician: Admtr, [...] pneumococcal 23-valent vaccine 10/20/11 Given 1Result Comment: [facility]# [id number] 2Location History[facility] 1 each 1 each, See Instructions, # 1 each, Refills 0, Tot. Refills 0, Maintenance, please supply one knee brace. diagnosis: left knee injury, 01/15/19 13:39:43 EDT, Compound Start Date: 01/15/19 Status: Ordered albuterol-ipratropium 3 mg-0.5 mg/3 ml inhalation solution 1 vials, Inhalation, 4 times a day, # 360 mL, 0 Refills, Maintenance, 02/03/21 7:44:00 EDT, [facility], 30, USE 1 VIAL WITH NEBULIZER FOUR TIMES A DAY, 166, cm, 12/21/20 16:08:00 EDT, Height Start Date: 02/03/21 Status: Ordered betamethasone topical dipropionate 0.05% cream See Instructions, APPLY TO THE AFFECTED AREA TWICE A DAY, # 15 Gm, 3 Refills, Maintenance, 04/18/2110:54:00 EDT, [id number], 7, APPLY TO THE AFFECTED AREA TWICE [...] capsule, 0 Refills, Maintenance, 09/13/20 17:22:00 EST, [facility], 166, cm, 07/26/20 9:41:00 EDT, Height, 87, [...] each, 5 Refills, Maintenance, 01/31/21 8:43:00 EDT, [place], [facility]/pharmacy #1111, 2 sprays [...] 01/28/19 10:46:50 EDT, Route to Pharmacy Electronically, [id number], [facility]/pharmacy #1111 Start Date: [...] PER INSURANCE, # 90 capsule, 0 Refills, [facility] STORE 65780, 166, cm, 04/18/21 10:20:00 EDT, Height Start [...] 04/18/2110:54:00 EDT, Aerosol, Route to Pharmacy Electronically, [id number], [id number], 166, cm, 04/18/21 10:20:00... Start Date: 04/18/21 [...] Refills, Maintenance, 06/15/20 8:01:00 EDT, Tablet, [facility]/pharmacy #1111, 166, cm, 06/15/20 7:38:00 EDT, Height, 87, kg,10/14/18 13:06:00 EST, Dry Weight Start Date: 06/15/20 Status: Ordered simvastatin 10 mg oral tablet See Instructions, TAKE 1 TABLET BY MOUTH EVERYDAY AT BEDTIME, # 90 tablet, Refills 1, Instructions Replace Required Details, Route to Pharmacy Electronically, [id number], 166, cm, 04/18/21 10:20:00 EDT, Height Start [...]
--- OUTSIDE RECORDS SUMMARY | 2023-05-24 01:01 | XMS_ITS | Continuity of Care Document ---
Author Name Unknown Organization [facility] Address [address] [place] [address]- Care Team Providers Care Security Checker Name Role Phone Mathieu Christina MD Primary Care Physician Encounter [facility] Date(s): 09/17/22 - 10/17/22 [facility] [address] [place] [address]- Allergies, Adverse Reactions, Alerts No Known Allergies [...] 10/20/11 Given 1Result Comment: [facility]# [id number] 2Location History: [facility] 1 each 1 each, See Instructions, # 1 each, Refills 0, Tot. Refills 0, Maintenance, please supply one knee brace. diagnosis: left knee injury, 01/15/19 13:39:43 EDT, Compound Start Date: 01/15/19 Status: Ordered Albuterol (Eqv-ProAir HFA) 90 mcg/inh inhalation aerosol 1 puffs, Inhalation, Every 6 hours, PRN NEEDED FOR WHEEZING/SHORTNESS OF BREATH, # 8.5 each, 5 Refills, [facility], 30, TAKE 1 PUFF BY MOUTH EVERY 6 HOURS NEEDED FOR WHEEZING/SHORTNESS OF BREATH, 165, cm, 10/14/21 14:50:00 EST, Height, 78.6... Start Date: 05/13/22 Status: Ordered albuterol-ipratropium 3 mg-0.5 mg/3 ml inhalation solution 1 vials, Inhalation, 4 times a day, # 360 mL, 0 Refills, Maintenance, 02/03/21 7:44:00 EDT, [facility], 30, USE 1 VIAL WITH NEBULIZER FOUR TIMES A DAY, 166, cm, 12/21/20 16:08:00 EDT, Height Start Date: 02/03/21 Status: Ordered betamethasone topical dipropionate 0.05% cream See Instructions, APPLY TO THE AFFECTED AREA TWICE A DAY, # 15 Gm, 3 Refills, Maintenance, 04/18/2110:54:00 EDT, [facility] #[id number], 7, APPLY TO THE AFFECTED AREA TWICE A DAY, 166, cm, 04/18/21 10:20:00 EDT, Height Start Date: 04/18/21 Status: Ordered Citrucel 2 gm/19 gm oral powder for reconstitution = 2 Gm, By Mouth, 2 times a day, # 507 Gm, 1 Refills, Maintenance, 03/27/21 9:12:00 EDT, [facility] #[id number], Partial fill upon patient request if the [...] capsule, 0 Refills, Maintenance, 09/13/20 17:22:00 EST, [facility] 9[facility]48, 166, cm, 07/26/20 9:41:00 EDT, Height, 87, [...] each, 5 Refills, Maintenance, 01/31/21 8:43:00 EDT, [place], [facility]/pharmacy #1111, 2 sprays Nares, Both 2 times a day, 166, cm, 12/21/20 16:08:00 EDT, Height Start Date: 01/31/21 Status: Ordered Hibiclens 4% soap See Instructions, Wash affected areas twice daily., # 240 mL, 1 Refills, Soft Stop, 07/20/21 13:30:00 EDT, [facility]/pharmacy #1111, Partial fill upon [...] 01/28/19 10:46:50 EDT, Route to Pharmacy Electronically, [id number], [facility]/pharmacy #1111 Start Date: 01/28/19 Status: Ordered [...] EDT, Route to Pharmacy Electronically, [facility], 165, cm, 05/30/22 13:27:00 EDT, Height, 78.6, [...] # 9 tablet, 2 Refills, [facility], 165, cm, 10/14/21 14:50:00 EST, Height, 78.6, [...] Personnel Name: Maverick Patel Position: [facility] Cardio/Pulm Mgr ([facility]) Member Role: Primary Care Nurse Name: Mathieu Christina MD Position: [facility] Primary Care Physician Member Role: PCP Address: Address: [address] [place] [address] Care Team Related Persons Name: MONA MANUEL Address: home [address] [place] [address] Name: MONA MANUEL Address: home [address] [place] [address] Name: BOUCHRA VELOZ Address: home NONE GIVEN Name: MONA BROWN Address: home [address] [place] [address]
--- OUTSIDE RECORDS SUMMARY | 2023-05-24 01:01 | XMS_ITS | Continuity of Care Document ---
Author Name Unknown Organization [facility] Address [address] [place] [address]- Care Team Providers Care Microfilm Mounter Name Role Phone Mathieu Christina MD Primary Care Physician [phone] [facility] Date(s): 05/11/21 - 06/15/21 [facility] [address] [place] [address]- Attending Physician: Mathieu Christina MD Allergies, Adverse [...] 10/20/11 Given 1Result Comment: [facility]# [id number] 2Location History: [facility] Medications 1 each 1 each, See Instructions, # 1 each, Refills 0, Tot. Refills 0, Maintenance, please supply one knee brace. diagnosis: left knee injury, 01/15/19 13:39:43 EDT, Compound Start Date: 01/15/19 Status: Ordered albuterol-ipratropium 3 mg-0.5 mg/3 ml inhalation solution 1 vials, Inhalation, 4 times a day, # 360 mL, 0 Refills, Maintenance, 02/03/21 7:44:00 EDT, [facility], 30, USE 1 VIAL WITH NEBULIZER FOUR TIMES A DAY, 166, cm, 12/21/20 16:08:00 EDT, Height Start Date: 02/03/21 Status: Ordered betamethasone topical dipropionate 0.05% cream See Instructions, APPLY TO THE AFFECTED AREA TWICE A DAY, # 15 Gm, 3 Refills, Maintenance, 04/18/2110:54:00 EDT, [facility] #[id number], 7, APPLY TO THE AFFECTED AREA TWICE A DAY, 166, cm, 04/18/21 10:20:00 EDT, Height Start Date: 04/18/21 Status: Ordered docusate sodium 100 mg oral capsule 1 capsule, By Mouth, 2 times a day, PRN NEEDED FOR CONSTIPATION, # 100 capsule, 0 Refills, Maintenance, 09/13/20 17:22:00 EST, [facility] STORE 87336, 166, cm, 07/26/20 9:41:00 EDT, Height, 87, kg, 10/14/18 13:06:00 EST, Dry Weight Start Date: 09/13/20 Status: Ordered famotidine 40 mg oral tablet 1 tablet, By Mouth, Daily at bedtime, # 30 tablet, 2 Refills, Maintenance, 09/05/20 9:40:00 EST, [facility]/pharmacy #1111, 166, cm, 07/26/20 9:41:00 EDT, Height, 87, kg, 10/14/18 13:06:00 EST, Dry Weight Start Date: 09/05/20 Status: Ordered Flonase 50 mcg/inh nasal spray 2 sprays = 100 mcg, Nares, Both, 2 times a day, # 1 each, 5 Refills, Maintenance, 01/31/21 8:43:00 EDT, [place], [facility]/pharmacy #1111, 2 sprays Nares, Both 2 times a day, 166, cm, 12/21/20 16:08:00 EDT, Height Start Date: 01/31/21 Status: Ordered ibuprofen 800 mg oral tablet 800 mg, 1, tablet, By Mouth, 2 times a day, with food or milk, # 60 tablet, Refills 1, Tot. Refills1, Maintenance, 01/28/19 10:46:50 EDT, Route to Pharmacy Electronically, [id number], [facility]/pharmacy #1111 Start Date: 01/28/19 Status: [...] # 90 capsule, 0 Refills, [facility], 166, cm, 04/18/21 10:20:00 EDT, Height Start Date: 05/30/21 Status: Ordered permethrin 5% topical cream See Instructions, 1 application Topically Once Apply from head to toe, leave on for 8-14 hr, rinse;may reapply in 7 days if live mites reappear, # 60 Gm, 0 Refills, Maintenance, 06/01/21 12:45:00 EDT, [place], [facility]/pharmacy #1111, Partial fill upon pat... Start Date: 06/01/21 Status: Ordered ProAir HFA 90 mcg/inh inhalation aerosol with adapter 1, puffs, Inhalation, Every 6 hours, PRN, # 18 Gm, Refills 5, Tot. Refills 5, Maintenance, 04/18/2110:54:00 EDT, Aerosol, Route to Pharmacy Electronically, [id number], [facility], 166, cm, 04/18/21 10:20:00... Start Date: 04/18/21 [...] Refills, Maintenance, 06/15/20 8:01:00 EDT, Tablet, [facility]/pharmacy #1111, 166, cm, 06/15/20 7:38:00 EDT, Height, 87, kg,10/14/18 13:06:00 EST, Dry Weight Start Date: 06/15/20 Status: Ordered simvastatin 10 mg oral tablet 10 mg, 1, tablet, By Mouth, Daily at bedtime, # 90 tablet, Refills 1, Tot. Refills 1, Maintenance, 01/23/21 16:37:00 EDT, Route to Pharmacy Electronically, [facility]/pharmacy #1111, 166, cm, 12/21/20 16:08:00 EDT, Height [...]
--- OUTSIDE RECORDS SUMMARY | 2023-05-24 01:01 | XMS_ITS | Continuity of Care Document ---
Author Name Unknown Organization [facility] [employer] [facility] Address [address] [place] [address]- Care Team Providers Care Profile Stitching Machine Operator Name Role Phone Mathieu hCristina MD Primary Care Physician Encounter [facility] Date(s): 07/26/20 - [facility]02/[facility] [address] [place] [address]- Encounter Diagnosis Hives of unknown origin(Discharge Diagnosis) - 07/26/20 Hypertriglyceridemia(Discharge Diagnosis) - 07/26/20 IFG (impaired fasting glucose)(Discharge Diagnosis) - 07/26/20 Attending Physician: Mathieu Christina MD Allergies, Adverse [...] 15 Gm, 3 Refills, Maintenance, 208:01:00 EDT, [facility]/pharmacy #1111, 7, APPLY TO THE AFFECTED [...] 03/29/20 17:19:00 EDT, Route to Pharmacy Electronically, [facility]/pharmacy #1111,166, cm, 03/29/20 13:47:00 EDT, Height, 87, kg, ... Start Date: 03/29/20 Stop Date: 06/27/20 Status: Ordered famotidine 40 mg oral tablet 1 tablet, By Mouth, Daily at bedtime, # 30 tablet, 0 Refills, Maintenance, 08/02/20 9:11:00 EDT, [facility] STORE 02636, 166, cm, 07/26/20 9:41:00 EDT, Height, 87, kg, 10/14/18 13:06:00 EST, Dry Weight Start Date: 08/02/20 Status: Ordered Flonase 50 mcg/inh nasal spray 2 sprays = 100 mcg, Nares, Both, 2 times a day, # 1 each, 5 Refills, Maintenance, 06/15/20 8:01:00 EDT, [place], [facility]/pharmacy #1111, 2 sprays Nares, Both 2 times a day, 166, cm, 06/15/20 7:38:00 EDT, Height, 87, kg, 10/14/18 13:06:00 EST, Dry Weight Start Date: 06/15/20 Status: Ordered ibuprofen 800 mg oral tablet 800 mg, 1, tablet, By Mouth, 2 times a day, with food or milk, # 60 tablet, Refills 1, Tot. Refills1, Maintenance, 01/28/19 10:46:50 EDT, Route to Pharmacy Electronically, [id number], [facility]/pharmacy #1111 Start Date: 01/28/19 Status: Ordered omeprazole 20 mg oral delayed release tablet 1 tablet = 20 mg, By Mouth, Daily, # 90 tablet, 2 Refills, Maintenance, 06/15/20 8:01:00 EDT, [place] Tablet, [facility]/pharmacy #1111, 166, cm, 06/15/20 7:38:00 [...] 0 Refills, Maintenance, 07/26/20 10:00:00 EDT, Tablet, [facility]/pharmacy #1111, 166... Start Date: 07/26/20 Status: Ordered ProAir HFA 90 mcg/inh inhalation aerosol with adapter 1, puffs, Inhalation, Every 6 hours, PRN, # 18 Gm, Refills 5, Tot. Refills 5, Maintenance, 208:01:00 EDT, Aerosol, Route to Pharmacy Electronically, [id number], [facility]/pharmacy #1111, 166, cm, 06/15/20 7:38:00 [...] Refills, Maintenance, 06/15/20 8:01:00 EDT, Tablet, [facility]/pharmacy #1111, 166, cm, 06/15/20 7:38:00 EDT, Height, 87, kg,10/14/18 13:06:00 EST, Dry Weight Start Date: 06/15/20 Status: Ordered simvastatin 10 mg oral tablet 10 mg, 1, tablet, By Mouth, Daily at bedtime, # 30 tablet, Refills 5, Tot. Refills 5, Maintenance, 07/26/20 10:04:00 EDT, Route to Pharmacy Electronically, [facility]/pharmacy #1111, 166, cm, 07/26/20 9:41:00 [...] = 10 mg, By Mouth, Daily, # 90 tablet, 1 Refills, Maintenance, 08/01/20 11:42:00 EDT, Tablet, [facility]/pharmacy #1111, 166, cm, 07/26/20 9:41:00 EDT, Height, 87, kg, 10/14/18 13:06:00 EST, Dry Weight Start Date: 08/01/20 Status: Ordered Problem List Condition Effective Dates [...] Effective Dates Health Status Clinical Service Informant Hives of unknown origin Discharge Diagnosis 07/26/20 Hypertriglyceridemia Discharge Diagnosis 07/26/20 IFG (impaired fasting glucose) Discharge Diagnosis 07/26/20 Vital Signs Most recent to oldest [Reference Range]: 1 Height 166 cm (07/26/20 9:41 AM) Weight 82.5 kg (07/26/20 9:41 AM) Oxygen Saturation [94-100 %] 97 % (07/26/20 9:41 AM) Pulse Rate [55-90 bpm] 90 bpm (07/26/20 9:41 AM) Body Mass Index [18.5-24.99] 29.94 *H* (07/26/20 9:41 AM) Blood Pressure [90-138/55-84 mm Hg] 110/ 70mm Hg (07/26/20 9:41 AM) Liters per Minute 0 L/min (07/26/20 9:41 AM) Mode of Delivery (Oxygen) Room air (07/26/20 9:41 AM) Blood pressure sites Arm, left (07/26/20 9:41 AM) Weight Obtained Via Standing scale (07/26/20 9:41 AM) Social History Social History Type Response Smoking Status 5-9 cigarettes (betw een 1/4 to 1/2 pack)/day in last 30 days; Tobacco user in household: Yes entered on: 06/15/20 Sex
--- OUTSIDE RECORDS SUMMARY | 2023-05-24 01:01 | XMS_ITS | Continuity of Care Document ---
Author Name Unknown Organization [facility] [place] Address [address] [place] [address]- Care Team Providers Care Java Groovy Developer Name Role Phone Mathieu Christina MD Primary Care Physician Encounter [facility] Date(s): 01/12/20 - 01/19/20 [facility] [place] [address] [place] [address]- [facility] Encounter Diagnosis Chronic obstructive pulmonary disease (COPD)(Discharge Diagnosis) - 01/12/20 GERD (gastroesophageal reflux disease)(Discharge Diagnosis) - 01/12/20 Opioid dependence(Discharge Diagnosis) - 01/12/20 Bipolar disorder(Discharge Diagnosis) - 01/12/20 Attending Physician: Mathieu Christina MD Allergies, Adverse [...] each, 5 Refills, Maintenance, 01/12/20 9:32:00 EDT, [place], [facility]/pharmacy #1111, 2 sprays Nares, Both 2 times [...] 01/28/19 10:46:50 EDT, Route to Pharmacy Electronically, [id number], [facility]/pharmacy #1111 Start Date: 01/28/19 Status: Ordered MiraLax oral powder for reconstitution = 17 Gm, By Mouth, Daily, dissolve in water before taking, # 527 Gm, 5 Refills, Maintenance, 01/12/20 9:33:00 EDT, REC Powder, [facility]/pharmacy #1111, 17 Gm By Mouth Daily,Instr:dissolve in [...] 01/14/2015:26:00 EDT, Aerosol, Route to Pharmacy Electronically, [id number], [facility]/pharmacy #1111, 166, cm, 07/13/19 9:25:00 EDT, [place]... [...] Chronic obstructive pulmonary disease (COPD) Discharge Diagnosis 01/12/20 GERD (gastroesophageal reflux disease) Discharge Diagnosis 01/12/20 Opioid dependence Discharge Diagnosis 01/12/20 Bipolar disorder Discharge Diagnosis 01/12/20 Social History Social History Type Response Smoking Status 5-9 cigarettes (betw een 1/4 to 1/2 pack)/day in last 30 days; Tobacco user in household: Yes entered on: 10/23/18 Sex
--- OUTSIDE RECORDS SUMMARY | 2023-05-24 01:01 | XMS_ITS | Continuity of Care Document ---
Author Name Unknown Organization [facility] [employer] [facility] Address [address] [place] [address]- Care Team Providers Care Service Center Specialist Name Role Phone Mathieu Christina MD Primary Care Physician Encounter [facility] Date(s): 09/05/20 - 10/05/[facility] [address] [place] [address]- Allergies, Adverse Reactions, Alerts Substance Reaction Severity [...] 15 Gm, 3 Refills, Maintenance, 208:01:00 EDT, [facility]/pharmacy #1111, 7, APPLY TO THE AFFECTED AREA TWICE A DAY, 166, cm, 06/15/20 7:38:00 EDT, Height, 87, kg, 10/14/18 13:06:00 EST, Dry W... Start Date: 06/15/20 Status: Ordered docusate sodium 100 mg oral capsule 1 capsule, By Mouth, 2 times a day, PRN NEEDED FOR CONSTIPATION, # 100 capsule, 0 Refills, Maintenance, 09/13/20 17:22:00 EST, [facility] STORE 03460, 166, cm, 07/26/20 9:41:00 EDT, Height, 87, kg, 10/14/18 13:06:00 EST, Dry Weight Start Date: 09/13/20 Status: Ordered famotidine 40 mg oral tablet 1 tablet, By Mouth, Daily at bedtime, # 30 tablet, 2 Refills, Maintenance, 09/05/20 9:40:00 EST, [facility]/pharmacy #1111, 166, cm, 07/26/20 9:41:00 EDT, Height, 87, kg, 10/14/18 13:06:00 EST, Dry Weight Start Date: 09/05/20 Status: Ordered Flonase 50 mcg/inh nasal spray 2 sprays = 100 mcg, Nares, Both, 2 times a day, # 1 each, 5 Refills, Maintenance, 06/15/20 8:01:00 EDT, [place], [facility]/pharmacy #1111, 2 sprays Nares, Both 2 times a day, 166, cm, 06/15/20 7:38:00 EDT, Height, 87, kg, 10/14/18 13:06:00 EST, Dry Weight Start Date: 06/15/20 Status: Ordered ibuprofen 800 mg oral tablet 800 mg, 1, tablet, By Mouth, 2 times a day, with food or milk, # 60 tablet, Refills 1, Tot. Refills1, Maintenance, 01/28/19 10:46:50 EDT, Route to Pharmacy Electronically, [id number], [facility]/pharmacy #1111 Start Date: 01/28/19 Status: Ordered omeprazole 20 mg oral delayed release tablet 1 tablet = 20 mg, By Mouth, Daily, # 90 tablet, 2 Refills, Maintenance, 06/15/20 8:01:00 EDT, EC Tablet, [facility]/pharmacy #1111, 166, cm, 06/15/20 7:38:00 [...] 0 Refills, Maintenance, 07/26/20 10:00:00 EDT, Tablet, [facility]/pharmacy #1111, 166... Start Date: 07/26/20 Status: Ordered ProAir HFA 90 mcg/inh inhalation aerosol with adapter 1, puffs, Inhalation, Every 6 hours, PRN, # 18 Gm, Refills 5, Tot. Refills 5, Maintenance, 208:01:00 EDT, Aerosol, Route to Pharmacy Electronically, [id number], [facility], 166, cm, 06/15/20 7:38:00 EDT, Height... [...] Refills, Maintenance, 06/15/20 8:01:00 EDT, Tablet, [facility]/pharmacy #1111, 166, cm, 06/15/20 7:38:00 EDT, Height, 87, kg,10/14/18 13:06:00 EST, Dry Weight Start Date: 06/15/20 Status: Ordered simvastatin 10 mg oral tablet 10 mg, 1, tablet, By Mouth, Daily at bedtime, # 30 tablet, Refills 5, Tot. Refills 5, Maintenance, 07/26/20 10:04:00 EDT, Route to Pharmacy Electronically, [facility]/pharmacy #1111, 166, cm, 07/26/20 9:41:00 [...] 1 Refills, Maintenance, 08/01/20 11:42:00 EDT, Tablet, [facility]/pharmacy #1111, 166, cm, 07/26/20 9:41:00 [...]
--- OUTSIDE RECORDS SUMMARY | 2023-05-24 01:01 | XMS_ITS | Continuity of Care Document ---
Author Name Unknown Organization [facility] Address [address] [place] [address]- Care Team Providers Care Guest Experience Manager Name Role Phone Mathieu Christina MD Primary Care Physician Encounter [facility] Date(s): 05/30/22 - 06/06/22 [facility] [address] [place] [address]- Attending Physician: Charity Jo MD Allergies, Adverse Reactions, Alerts No Known [...] vaccine 10/20/11 Given 1Result Comment: [facility]# [id number] 2Location History[facility] 1 each, See Instructions, # 1 each, Refills 0, Tot. Refills 0, Maintenance, please supply one knee brace. diagnosis: left knee injury, 01/15/19 13:39:43 EDT, Compound Start Date: 01/15/19 Status: Ordered Albuterol (Eqv-ProAir HFA) 90 mcg/inh inhalation aerosol 1 puffs, Inhalation, Every 6 hours, PRN NEEDED FOR WHEEZING/SHORTNESS OF BREATH, # 8.5 each, 5 Refills, [id number], 30, TAKE 1 PUFF BY MOUTH EVERY 6 HOURS NEEDED FOR WHEEZING/SHORTNESS OF BREATH, 165, cm, 10/14/21 14:50:00 EST, Height, 78.6... Start Date: 05/13/22 Status: Ordered albuterol-ipratropium 3 mg-0.5 mg/3 ml inhalation solution 1 vials, Inhalation, 4 times a day, # 360 mL, 0 Refills, Maintenance, 02/03/21 7:44:00 EDT, [facility], 30, USE 1 VIAL WITH NEBULIZER FOUR TIMES A DAY, 166, cm, 12/21/20 16:08:00 EDT, Height Start Date: 02/03/21 Status: Ordered betamethasone topical dipropionate 0.05% cream See Instructions, APPLY TO THE AFFECTED AREA TWICE A DAY, # 15 Gm, 3 Refills, Maintenance, 04/18/2110:54:00 EDT, [id number], 7, APPLY TO THE AFFECTED AREA TWICE A DAY, 166, cm, 04/18/21 10:20:00 EDT, Height Start Date: 04/18/21 Status: Ordered Citrucel 2 gm/19 gm oral powder for reconstitution = 2 Gm, By Mouth, 2 times a day, # 507 Gm, 1 Refills, Maintenance, 03/27/21 9:12:00 EDT, [facility] #[id number], Partial fill upon patient request if the prescription is for a schedule II opioiddrug., 166, cm, 12/21/20 16:08:00 EDT, Height Start Date: 03/27/21 Status: Ordered Colace Clear 50 mg oral capsule 1 capsule = 50 mg, By Mouth, Daily, Decrease use to every other day if diarrhea develops., # 30 capsule, 0 Refills, Maintenance, 07/20/21 13:29:00 EDT, [facility]/pharmacy #1111, Partial fill upon patient request if the prescription is for a schedule II opio... Start Date: 07/20/21 Stop Date: 08/19/21 Status: Ordered docusate sodium 100 mg oral capsule 1 capsule, By Mouth, 2 times a day, PRN NEEDED FOR CONSTIPATION, # 100 capsule, 0 Refills, Maintenance, 09/13/20 17:22:00 EST, [id number], 166, cm, 07/26/20 9:41:00 EDT, Height, 87, kg, 10/14/18 13:06:00 EST, Dry Weight Start Date: 09/13/20 Status: Ordered doxycycline monohydrate 100 mg oral tablet 1 tablet = 100 mg, By Mouth, 2 times a day, # 20 tablet, 0 Refills, Soft Stop, 07/20/21 13:29:00 EDT, [facility]/pharmacy #1111, Partial fill upon patient request if the prescription is for a schedule II opioid drug., 166, cm, 04/18/21 10:20:00 EDT, Height Start Date: 07/20/21 Stop Date: 07/30/21 Status: Ordered famotidine 40 mg oral tablet 1 tablet, By Mouth, Daily at bedtime, # 30 tablet, 2 Refills, Maintenance, 09/05/20 9:40:00 EST, [facility]/pharmacy #1111, 166, cm, 07/26/20 9:41:00 EDT, Height, 87, kg, 10/14/18 13:06:00 EST, Dry Weight Start Date: 09/05/20 Status: Ordered Flonase 50 mcg/inh nasal spray 2 sprays = 100 mcg, Nares, Both, 2 times a day, # 1 each, 5 Refills, Maintenance, 01/31/21 8:43:00 EDT, [place], [facility]/pharmacy #1111, 2 sprays Nares, Both 2 times a day, 166, cm, 12/21/20 16:08:00 EDT, Height Start Date: 01/31/21 Status: Ordered Hibiclens 4% soap See Instructions, Wash affected areas twice daily., # 240 mL, 1 Refills, Soft Stop, 07/20/21 13:30:00 EDT, [facility]/pharmacy #1111, Partial fill upon patient request if the prescription is for a schedule II opioid drug., Wash affected areas twice daily., 1... Start Date: 07/20/21 Status: Ordered ibuprofen 800 mg oral tablet 800 mg, 1, tablet, By Mouth, 2 times a day, with food or milk, # 60 tablet, Refills 1, Tot. Refills1, Maintenance, 01/28/19 10:46:50 EDT, Route to Pharmacy Electronically, [id number], [facility]/pharmacy #1111 Start Date: 01/28/19 Status: Ordered [...] 1, Route to [facility] Electronically, [id number], 165, cm, 10/14/21 14:50:00 EST, Height, 78.6, [...] # 9 tablet, 2 Refills, [facility], 165, cm, 10/14/21 14:50:00 EST, Height, 78.6, [...] recent to oldest [Reference Range]: 1 Height 165 cm (05/30/22 1:27 PM) Weight 78.0 kg (05/30/22 1:27 PM) Oxygen Saturation [94-100 %] 95 % (05/30/22 1:27 PM) Pulse Rate [55-90 bpm] 102 bpm *H* (05/30/22 1:27 PM) Body Mass Index [18.5-24.99] 28.65 *H* (05/30/22 1:27 PM) Blood Pressure [90-138/55-84 mm Hg] 118/ 66mm Hg (05/30/22 1:27 PM) Temperature [96.8-100.4 DegF] 98.0 DegF (05/30/22 1:27 PM) Liters per Minute 0 L/min (05/30/22 1:27 PM) Mode of Delivery (Oxygen) Room air (05/30/22 1:27 PM) Blood pressure sites Arm, left (05/30/22 1:27 PM) Temperature Route Temporal (05/30/22 1:27 PM) Weight Obtained Via Standing scale (05/30/22 1:27 PM) Social History Social History Type Response Smoking Status 5-9 cigarettes (betw een 1/4 to 1/2 pack)/day in last 30 days; Tobacco user in household: Yes entered on: 06/15/20 Sex Care Team Personnel Name: Mathieu Christina MD Address: [address] [place] [address] Medical [facility], [address]
--- OUTSIDE RECORDS SUMMARY | 2023-05-24 01:01 | XMS_ITS | Continuity of Care Document ---
Author Name Unknown Organization [facility] Address [address] [place] [address]- Care Team Providers Care Leach Runner Name Role Phone Mathieu Christina MD Primary Care Physician Encounter [facility] Date(s): 03/29/20 - 04/05/20 [facility] [address] [place] [address]- [facility] Encounter Diagnosis Dermatitis(Discharge Diagnosis) - 03/29/20 Constipation(Discharge Diagnosis) - 03/29/20 Attending Physician: Mathieu Christina MD Allergies, Adverse [...] 0 Refills, Maintenance, 03/29/20 17:17:00 EDT, [place], [facility]/pharmacy #1111, 1 application Topically 2 times a day,Instr:to affected area, 166, cm, 03/29/20 13:47:00 EDT, Height, 87, kg,... Start Date: 03/29/20 Status: Ordered docusate sodium 100 mg oral capsule 100 mg, 1, capsule, By Mouth, 2 times a day, PRN, # 100 capsule, Refills 0, Tot. Refills 0, Maintenance, for constipation, 03/29/20 17:19:00 EDT, Route to Pharmacy Electronically, [facility]/pharmacy #1111,166, cm, 03/29/20 13:47:00 EDT, Height, 87, kg, ... Start Date: 03/29/20 Stop Date: 06/27/20 Status: Ordered Flonase 50 mcg/inh nasal spray 2 sprays = 100 mcg, Nares, Both, 2 times a day, # 1 each, 5 Refills, Maintenance, 01/12/20 9:32:00 EDT, [place], [facility]/pharmacy #1111, 2 sprays Nares, Both 2 times a day, 166, cm, 07/13/19 9:25:00 EDT, Height, 87, kg, 10/14/18 13:06:00 EST, Dry Weight Start Date: 01/12/20 Status: Ordered ibuprofen 800 mg oral tablet 800 mg, 1, tablet, By Mouth, 2 times a day, with food or milk, # 60 tablet, Refills 1, Tot. Refills1, Maintenance, 01/28/19 10:46:50 EDT, Route to Pharmacy Electronically, [id number], [facility]/pharmacy #1111 Start Date: 01/28/19 Status: [...] 01/14/2015:26:00 EDT, Aerosol, Route to Pharmacy Electronically, [id number], [facility]/pharmacy #1111, 166, cm, 07/13/19 9:25:00 EDT, Heigh... [...] Diagnosis Diagnosis Type Effective Dates Health Status Cl inical Service Informant Dermatitis Discharge Diagnosis 03/29/20 Constipation Discharge Diagnosis 03/29/20 Vital Signs Most recent to oldest [Reference Range]: 1 Height 166 cm (03/29/20 1:47 PM) Weight 91.3 kg (03/29/20 1:47 PM) Oxygen Saturation [94-100 %] 68 % *L* (03/29/20 1:47 PM) Pulse Rate [55-90 bpm] 86 bpm (03/29/20 1:47 PM) Body Mass Index [18.5-24.99] 33.13 *>HHI* (03/29/20 1:47 PM) Blood Pressure [90-138/55-84 mm Hg] 114/ 66mm Hg (03/29/20 1:47 PM) Social History Social History Type Response Smoking Status 5-9 cigarettes (betw een 1/4 to 1/2 pack)/day in last 30 days; Tobacco user in household: Yes entered on: 10/23/18 Sex
--- OUTSIDE RECORDS SUMMARY | 2023-05-24 01:01 | XMS_ITS | Continuity of Care Document ---
Author Name Unknown Organization [facility] Address [address] [place] [address]- Care Team Providers Care Software Team Leader Name Role Phone Mathieu Christina MD Primary Care Physician Encounter [facility] Date(s): 12/21/20 - 12/28/20 [facility] [address] [place] [address]- Encounter Diagnosis Chronic obstructive pulmonary disease (COPD)(Discharge Diagnosis) - 12/21/20 Bipolar disorder(Discharge Diagnosis) - 12/21/20 Opioid dependence(Discharge Diagnosis) - 12/21/20 IFG (impaired fasting glucose)(Discharge Diagnosis) - 12/21/20 Hypertriglyceridemia(Discharge Diagnosis) - 12/21/20 Attending Physician: Mathieu Christina MD Allergies, Adverse [...] pneumococcal 23-valent vaccine 10/20/11 Given 1Result Comment: [facility]# [id number] 2Location History: [facility] 1 each 1 each, See Instructions, # 1 each, Refills 0, Tot. Refills 0, Maintenance, please supply one knee brace. diagnosis: left knee injury, 01/15/19 13:39:43 EDT, Compound Start Date: 01/15/19 Status: Ordered albuterol 90 mcg/inh inhalation powder 2 puffs, Inhalation, Every 4 hours, PRN as needed, # 1 each, 6 Refills, Maintenance, 01/12/20 9:31:00 EDT, [place], [facility]/pharmacy #1111, 2 puffs Inhalation Every 4 hours,PRN:as [...] Gm, 3 Refills, Maintenance, 208:01:00 EDT, [facility]/pharmacy #1111, 7, APPLY TO THE AFFECTED AREA TWICE A DAY, 166, cm, 06/15/20 7:38:00 EDT, Height, 87, kg, 10/14/18 13:06:00 EST, Dry W... Start Date: 06/15/20 Status: Ordered docusate sodium 100 mg oral capsule 1 capsule, By Mouth, 2 times a day, PRN NEEDED FOR CONSTIPATION, # 100 capsule, 0 Refills, Maintenance, 09/13/20 17:22:00 EST, [facility], 166, cm, 07/26/20 9:41:00 EDT, Height, 87, kg, 10/14/18 13:06:00 EST, Dry Weight Start Date: 09/13/20 Status: Ordered famotidine 40 mg oral tablet 1 tablet, By Mouth, Daily at bedtime, # 30 tablet, 2 Refills, Maintenance, 09/05/20 9:40:00 EST, [facility]/pharmacy #1111, 166, cm, 07/26/20 9:41:00 EDT, Height, 87, kg, 10/14/18 13:06:00 EST, Dry Weight Start Date: 09/05/20 Status: Ordered Flonase 50 mcg/inh nasal spray 2 sprays = 100 mcg, Nares, Both, 2 times a day, # 1 each, 5 Refills, Maintenance, 06/15/20 8:01:00 EDT, [place], [facility]/pharmacy #1111, 2 sprays Nares, Both 2 times a day, 166, cm, 06/15/20 7:38:00 EDT, Height, 87, kg, 10/14/18 13:06:00 EST, Dry Weight Start Date: 06/15/20 Status: Ordered ibuprofen 800 mg oral tablet 800 mg, 1, tablet, By Mouth, 2 times a day, with food or milk, # 60 tablet, Refills 1, Tot. Refills1, Maintenance, 01/28/19 10:46:50 EDT, Route to Pharmacy Electronically, [id number], [facility]/pharmacy #1111 Start Date: 01/28/19 Status: Ordered omeprazole 20 mg oral delayed release tablet 1 tablet = 20 mg, By Mouth, Daily, # 90 tablet, 2 Refills, Maintenance, 06/15/20 8:01:00 EDT, EC Tablet, [facility]/pharmacy #1111, 166, cm, 06/15/20 7:38:00 EDT, Height, 87, kg, 10/14/18 13:06:00 EST, Dry Weight Start Date: 06/15/20 Stop Date: 03/12/21 Status: Ordered ProAir HFA 90 mcg/inh inhalation aerosol with adapter 1, puffs, Inhalation, Every 6 hours, PRN, # 18 Gm, Refills 5, Tot. Refills 5, Maintenance, :01:00 EDT, Aerosol, Route to Pharmacy Electronically, [id number], [facility]/pharmacy #1111, 166, cm, 06/15/20 7:38:00 [...] Refills, Maintenance, 06/15/20 8:01:00 EDT, Tablet, [facility]/pharmacy #1111, 166, cm, 06/15/20 7:38:00 EDT, Height, 87, kg,10/14/18 13:06:00 EST, Dry Weight Start Date: 06/15/20 Status: Ordered simvastatin 10 mg oral tablet 10 mg, 1, tablet, By Mouth, Daily at bedtime, # 30 tablet, Refills 5, Tot. Refills 5, Maintenance, 07/26/20 10:04:00 EDT, Route to Pharmacy Electronically, [facility]/pharmacy #1111, 166, cm, 07/26/20 9:41:00 [...] Chronic obstructive pulmonary disease (COPD) Discharge Diagnosis 12/21/20 Bipolar disorder Discharge Diagnosis 12/21/20 Opioid dependence Discharge Diagnosis 12/21/20 IFG (impaired fasting glucose) Discharge Diagnosis 12/21/20 Hypertriglyceridemia Discharge Diagnosis 12/21/20 Vital Signs Most recent to oldest [Reference Range]: 1 Height 166 cm (12/21/20 4:08 PM) Weight 87 kg (12/21/20 4:08 PM) Oxygen Saturation [94-100 %] 96 % (12/21/20 4:08 PM) Pulse Rate [55-90 bpm] 88 bpm (12/21/20 4:08 PM) Body Mass Index [18.5-24.99] 31.57 *>HHI* (12/21/20 4:08 PM) Blood Pressure [90-138/55-84 mm Hg] 110/ 70mm Hg (12/21/20 4:08 PM) Blood pressure sites Arm, left (12/21/20 4:08 PM) Weight Obtained Via Standing scale (12/21/20 4:08 PM) Social History Social History Type Response Smoking Status 5-9 cigarettes (betw een 1/4 to 1/2 pack)/day in last 30 days; Tobacco user in household: Yes entered on: 06/15/20 Sex
--- OUTSIDE RECORDS SUMMARY | 2023-05-24 01:01 | XMS_ITS | Continuity of Care Document ---
Author Name Unknown Organization [facility] Address [address] [place] [address]- Care Team Providers Care Trimming Machine Operator Name Role Phone Mathieu Christina MD Primary Care Physician [phone] Encounter [facility] Date(s): 10/18/20 - 11/19/20 [facility] [address] [place] [address]- Attending Physician: Mathieu Christina MD Allergies, Adverse [...] Comment: [facility]# [id number] 2Location History: [facility] 1 [...] Gm, 3 Refills, Maintenance, 208:01:00 EDT, [facility]/pharmacy #1111, 7, APPLY TO THE AFFECTED AREA TWICE A DAY, 166, cm, 06/15/20 7:38:00 EDT, Height, 87, kg, 10/14/18 13:06:00 EST, Dry W... Start Date: 06/15/20 Status: Ordered docusate sodium 100 mg oral capsule 1 capsule, By Mouth, 2 times a day, PRN NEEDED FOR CONSTIPATION, # 100 capsule, 0 Refills, Maintenance, 09/13/20 17:22:00 EST, [facility], 166, cm, 07/26/20 9:41:00 EDT, Height, 87, kg, 10/14/18 13:06:00 EST, Dry Weight Start Date: 09/13/20 Status: Ordered famotidine 40 mg oral tablet 1 tablet, By Mouth, Daily at bedtime, # 30 tablet, 2 Refills, Maintenance, 09/05/20 9:40:00 EST, [facility]/pharmacy #1111, 166, cm, 07/26/20 9:41:00 EDT, Height, 87, kg, 10/14/18 13:06:00 EST, Dry Weight Start Date: 09/05/20 Status: Ordered Flonase 50 mcg/inh nasal spray 2 sprays = 100 mcg, Nares, Both, 2 times a day, # 1 each, 5 Refills, Maintenance, 06/15/20 8:01:00 EDT, [place], [facility]/pharmacy #1111, 2 sprays Nares, [...] 01/28/19 10:46:50 EDT, Route to Pharmacy Electronically, [id number], [facility]/pharmacy #1111 Start Date: 01/28/19 [...] Refills, Maintenance, 07/26/20 10:00:00 EDT, Tablet, [facility]/pharmacy #1111, 166... Start Date: 07/26/20 Status: Ordered ProAir HFA 90 mcg/inh inhalation aerosol with adapter 1, puffs, Inhalation, Every 6 hours, PRN, # 18 Gm, Refills 5, Tot. Refills 5, Maintenance, 208:01:00 EDT, Aerosol, Route to Pharmacy Electronically, [id number], [facility]/pharmacy #1111, 166, cm, 06/15/20 [...] 10:04:00 EDT, Route to Pharmacy Electronically, [facility]/pharmacy #1111, 166, cm, 07/26/20 9:41:00 EDT, [...]
--- OUTSIDE RECORDS SUMMARY | 2023-05-24 01:01 | XMS_ITS | Continuity of Care Document ---
Author Name Unknown Organization [facility] Address [address] [place] [address]- Care Team Providers Care Ceramic Capacitor Processor Name Role Phone Mathieu Christina MD Primary Care Physician Encounter [facility] Date(s): 09/15/20 - 01/13/21 [facility] [address] [place] [address]- Attending Physician: Mathieu Christina MD Allergies, Adverse [...] 10/20/11 Given 1Result Comment: [facility]# [id number] 2Location History: [facility] 1 [...] 14:43:00 EDT, 01/09/21 14:43:00 EDT, Inhalation [facility], [facility], 166, cm, 12/21/20 16:08:00 EDT, Height [...] Refills, Maintenance, 09/13/20 17:22:00 EST, [facility], 166, cm, 07/26/20 9:41:00 EDT, Height, 87, [...] each, 5 Refills, Maintenance, 06/15/20 8:01:00 EDT, [place], [facility]/pharmacy #1111, 2 sprays Nares, Both 2 times a day, 166, cm, 06/15/20 7:38:00 EDT, Height, 87, kg, 10/14/18 13:06:00 EST, Dry Weight Start Date: 06/15/20 Status: Ordered ibuprofen 800 mg oral tablet 800 mg, 1, tablet, By Mouth, 2 times a day, with food or milk, # 60 tablet, Refills 1, Tot. Refills1, Maintenance, 01/28/19 10:46:50 EDT, Route to Pharmacy Electronically, [id number], [facility]/pharmacy #1111 Start Date: 01/28/19 Status: Ordered Mouth [...] Refills, Maintenance, 06/15/20 8:01:00 EDT, EC Tablet, [facility]/pharmacy #1111, 166, cm, 06/15/20 7:38:00 EDT, Height, 87, kg, 10/14/18 13:06:00 EST, Dry Weight Start Date: 06/15/20 Stop Date: 03/12/21 Status: Ordered ProAir HFA 90 mcg/inh inhalation aerosol with adapter 1, puffs, Inhalation, Every 6 hours, PRN, # 18 Gm, Refills 5, Tot. Refills 5, Maintenance, 09/09/208:01:00 EDT, Aerosol, Route to Pharmacy Electronically, [id number], [facility]/pharmacy #1111, 166, cm, 06/15/20 7:38:00 EDT, Height... [...] 3 Refills, Maintenance, 06/15/20 8:01:00 EDT, Tablet, [facility]/pharmacy #1111, 166, cm, 06/15/20 7:38:00 EDT, Height, 87, kg,10/14/18 13:06:00 EST, Dry Weight Start Date: 06/15/20 Status: Ordered simvastatin 10 mg oral tablet 10 mg, 1, tablet, By Mouth, Daily at bedtime, # 30 tablet, Refills 5, Tot. Refills 5, Maintenance, 07/26/20 10:04:00 EDT, [facility], 166, cm, 07/26/20 9:41:00 EDT, Height, [...]
--- OUTSIDE RECORDS SUMMARY | 2023-05-24 01:01 | XMS_ITS | Continuity of Care Document ---
Author Name Unknown Organization [facility] Address [address] [place] [address]- Care Team Providers Care V Belt Skiver Name Role Phone Mathieu Christina MD Primary Care Physician Encounter [facility] Date(s): 08/17/22 - 08/24/22 [facility] [address] [place] [id number]- Encounter Diagnosis COPD with acute bronchitis(Discharge Diagnosis) - 08/17/22 Nicotine dependence(Discharge Diagnosis) - 08/17/22 Attending Physician: Adeline WEINBERG, Chrystal Burrell Allergies, [...] pneumococcal 23-valent vaccine 10/20/11 Given 1Result Comment: [facility]# [id number] 2[facility] 1 each 1 each, See Instructions, # 1 each, Refills 0, Tot. Refills 0, Maintenance, please supply one knee brace. diagnosis: left knee injury, 01/15/19 13:39:43 EDT, Compound Start Date: 01/15/19 Status: Ordered Albuterol (Eqv-ProAir HFA) 90 mcg/inh inhalation aerosol 1 puffs, Inhalation, Every 6 hours, PRN NEEDED FOR WHEEZING/SHORTNESS OF BREATH, # 8.5 each, 5 Refills, [id number], 30, TAKE 1 PUFF BY MOUTH EVERY 6 HOURS NEEDED FOR WHEEZING/SHORTNESS OF BREATH, 165, cm, 10/14/21 14:50:00 EST, Height, 78.6... Start Date: 05/13/22 Status: Ordered albuterol-ipratropium 3 mg-0.5 mg/3 ml inhalation solution 1 vials, Inhalation, 4 times a day, # 360 mL, 0 Refills, Maintenance, 02/03/21 7:44:00 EDT, [facility], 30, USE 1 VIAL WITH NEBULIZER FOUR TIMES A DAY, 166, cm, 12/21/20 16:08:00 EDT, Height Start Date: 02/03/21 Status: Ordered betamethasone topical dipropionate 0.05% cream See Instructions, APPLY TO THE AFFECTED AREA TWICE A DAY, # 15 Gm, 3 Refills, Maintenance, 04/18/2110:54:00 EDT, [id number], 7, APPLY TO THE AFFECTED AREA TWICE A DAY, 166, cm, 04/18/21 10:20:00 EDT, Height Start Date: 04/18/21 Status: Ordered Citrucel 2 gm/19 gm oral powder for reconstitution = 2 Gm, By Mouth, 2 times a day, # 507 Gm, 1 Refills, Maintenance, 03/27/21 9:12:00 EDT, [facility] #[id number], Partial fill upon patient request if the prescription is for a schedule II opioiddrug., 166, cm, 12/21/20 16:08:00 EDT, Height Start Date: 03/27/21 Status: Ordered Colace Clear 50 mg oral capsule 1 capsule = 50 mg, By Mouth, Daily, Decrease use to every other day if diarrhea develops., # 30 capsule, 0 Refills, Maintenance, 07/20/21 13:29:00 EDT, [facility]/pharmacy #[id number], Partial fill upon patient request if the prescription is for a schedule II opio... Start Date: 07/20/21 Stop Date: 08/19/21 Status: Ordered docusate sodium 100 mg oral capsule 1 capsule, By Mouth, 2 times a day, PRN NEEDED FOR CONSTIPATION, # 100 capsule, 0 Refills, Maintenance, 09/13/20 17:22:00 EST, [id number], 166, cm, 07/26/20 9:41:00 EDT, Height, 87, kg, 10/14/18 13:06:00 EST, Dry Weight Start Date: 09/13/20 Status: Ordered doxycycline hyclate 100 mg oral capsule 1 capsule = 100 mg, By Mouth, 2 times a day, for 10 days, # 20 capsule, 0 Refills, Acute 08/27/22 7:20:00 EST, 08/17/22 7:20:00 EST, Capsule, [facility]/pharmacy #[id number], Partial fill upon patient request if the prescription is for a schedule II opioid drug.,... Start Date: 08/17/22 Stop Date: 08/27/22 Status: Ordered famotidine 40 mg oral tablet 1 tablet, By Mouth, Daily at bedtime, # 30 tablet, 2 Refills, Maintenance, 09/05/20 9:40:00 EST, [facility]/pharmacy #[id number], 166, cm, 07/26/20 9:41:00 EDT, Height, 87, kg, 10/14/18 13:06:00 EST, Dry Weight Start Date: 09/05/20 Status: Ordered Flonase 50 mcg/inh nasal spray 2 sprays = 100 mcg, Nares, Both, 2 times a day, # 1 each, 5 Refills, Maintenance, 01/31/21 8:43:00 EDT, [place], [facility]/pharmacy #[id number], 2 sprays Nares, Both 2 [...] 01/28/19 10:46:50 EDT, Route to Pharmacy Electronically, [id number], [facility]/pharmacy #1111 Start Date: 01/28/19 Status: Ordered [...] mL, 0 Refills, Maintenance, 07/17/21 13:06:00 EDT, [facility]/pharmacy #1111, Please fill with any available gallon colon prep, Drink 240... Start Date: 07/17/21 Status: Ordered NuLYTELY with Flavor Packs oral powder for reconstitution See Instructions, Drink 240mL every 15-20 minutes until first half is gone. Repeat 6 hours prior toprocedure., # 4,000 mL, 0 Refills, Maintenance, 07/12/22 9:55:00 EDT, [facility]/pharmacy #1111, Partial fill upon patient request if the prescription is for... Start Date: 07/12/22 Status: Ordered omeprazole 20 mg oral enteric coated capsule See Instructions, TAKE 1 CAPSULE BY MOUTH EVERY DAY -CAPS PER INSURANCE, # 90 capsule, 0 Refills, 08/22/21 17:04:00 EST, [facility]/pharmacy #[id number], 166, cm, 04/18/21 10:20:00 EDT, Height Start Date: 08/22/21 Status: Ordered permethrin 5% topical cream See Instructions, 1 application Topically Once Apply from head to toe, leave on for 8-14 hr, rinse;may reapply in 7 days if live mites reappear, # 60 Gm, 0 Refills, Maintenance, 06/01/21 12:45:00 EDT, Cream, [facility]/pharmacy #[id number], Partial fill upon pat... Start [...] 3 Refills, Maintenance, 01/01/22 12:31:00 EDT, Tablet, [facility]/pharmacy #[id number], 165, cm, 10/14/21 14:50:00 EST, Height, 78.6,kg, 10/14/21 14:50:00 EST, Dry Weight Start Date: 01/01/22 Status: Ordered simvastatin 10 mg oral tablet 1, tablet, By Mouth, Daily at bedtime, # 90 tablet, Refills 1, Maintenance, 07/12/22 17:09:00 EDT, Route to Pharmacy Electronically, [id number], 165, cm, 05/30/22 13:27:00 EDT, Height, 78.6, [...] OF 2DOSES, # 9 tablet, 2 Refills, [facility], 165, cm, 10/14/21 14:50:00 EST, Height, 78.6, [...] stress disorder Confirmed Active Reflux Confirmed Active Diagnosis Diagnosis Type Effective Dates Health Status Clinical Service Informant COPD with acute bronchitis Discharge Diagnosis 08/17/22 Nicotine dependence Discharge Diagnosis 08/17/22 Vital Signs Most recent to oldest [Reference Range]: 1 Height 165 cm (08/17/22 7:14 AM) Social History Social History Type Response Smoking Status 5-9 cigarettes (betw een 1/4 to 1/2 pack)/day in last 30 days; Tobacco user in household: Yes entered on: 06/15/20 Sex Note * Graciela French MA: PERFORM, SIGN, VERIFY Event Display: Patient Education/Instruction Authored Date: [id number] [facility] *BMP Quab Adlt Med Bltn Clinical Summary Name CATHRYN BROWN Age 57 Years 1965 PCP Mathieu Christina MD PCP Visit Date 08/17/2022 07:00:00 Additional Instructions: Scheduled Appointments?? Future Appointments ?No Future Appointments Scheduled Follow-Up Instructions ?? With: Address: When: Follow-up with PCP as needed. Diagnosis Nicotine dependence, unspecified, uncomplicated; Chronic obstructive pulmonary disease with (acute)lower respiratory infection Medications: Please continue your medications until treatment is completed or stopped by your provider. Discuss any questions related to medications with your provider. Medications to Continue Taking That Have Changed [facility]/pharmacy #[id number], [address], [place] [id number], [phone] - Doxycycline (doxycycline hyclate 100 mg oral capsule) 1 capsule Oral twice a day for 10 Days. Refills: 0. Next Dose: Medications to Continue with No Changes These medications were not printed or sent to your pharmacy Albuterol (Albuterol (Eqv-ProAir HFA) 90 mcg/inh inhalation aerosol) 1 puff(s) Inhalation every 6 hours as needed NEEDED FOR WHEEZING/SHORTNESS OF BREATH. Refills: 5. Next Dose: Albuterol/Ipratropium (albuterol-ipratropium 3 mg-0.5 mg/3 ml inhalation solution) 1 vials Inhalation 4 times a day. Refills: 0. Next Dose: Betamethasone Topical (betamethasone topical dipropionate 0.05% cream) APPLY TO THE AFFECTED AREA TWICE A DAY. Refills: 3. Next Dose: Buprenorphine-Naloxone (Suboxone 8 mg-2 mg sublingual film) 2.5 Each Sublingual Daily. Next Dose: Chlorhexidine Topical (Hibiclens 4% soap) Wash affected areas twice daily.. Refills: 1. Next Dose: Docusate (Colace Clear 50 mg oral capsule) 1 capsule Oral Daily for 30 Days. Decrease use to every other day if diarrhea develops.. Refills: 0. Next Dose: Docusate (docusate sodium 100 mg oral capsule) 1 capsule Oral twice a day as needed NEEDED FOR CONSTIPATION. Refills: 0. Next Dose: Durable Medical Equipment (1 each) please supply one knee brace. diagnosis: left knee injury. Refills: 0. Next Dose: Durable Medical Equipment (Mouth piece for Nebulizer) Use as instructed. Refills: 3. Next Dose: Famotidine (famotidine 40 mg oral tablet) 1 tab(s) Oral Daily at Bedtime. Refills: 2. Next Dose: Fluticasone Nasal (Flonase 50 mcg/inh nasal spray) 2 spray(s) Nares, Both twice a day. Refills: 5. Next Dose: Ibuprofen (ibuprofen 800 mg oral tablet) 1 tab(s) Oral twice a day. with food or milk. Refills: 1. Next Dose: Methylcellulose (Citrucel 2 gm/19 gm oral powder for reconstitution) 2 gram Oral twice a day. Refills: 1. Next Dose: Omeprazole (omeprazole 20 mg oral enteric coated capsule) TAKE 1 CAPSULE BY MOUTH EVERY DAY -CAPS PER INSURANCE. Refills: 0. Next Dose: PEG Electrolyte Solution (NuLYTELY with Flavor Packs oral powder for reconstitution) Drink 240mL every 15-20 minutes until first half is gone. Repeat 6 hours prior to procedure.. Refills: 0. Next Dose: PEG Electrolyte Solution (NuLYTELY with Flavor Packs oral powder for reconstitution) Drink 240mL every 15-20 minutes until first half is gone. Repeat 6 hours prior to procedure.. Refills: 0. Next Dose: Permethrin Topical (permethrin 5% topical cream) 1 application Topically Once Apply from head to toe, leave on for 8-14 hr, rinse; may reapply in 7 days if live mites reappear. Refills: 0. Next Dose: Quetiapine (QUEtiapine 25 mg oral tablet) 1 tab(s) Oral Daily as needed Anxiety. or agitation. Next Dose: Quetiapine (QUEtiapine 300 mg oral tablet) 2 tab(s) Oral Daily at Bedtime. Next Dose: Sildenafil (sildenafil 50 mg oral tablet) 1 tab(s) Oral Daily. 1 hour before sexual activity. Refills: 3. Next Dose: Simvastatin (simvastatin 10 mg oral tablet) 1 tab(s) Oral Daily at Bedtime. Refills: 1. Next Dose: Sumatriptan (SUMAtriptan 50 mg oral tablet) 1 tab(s) Oral Daily as needed NEEDED FOR MIGRAINES, MAY REPEAT DOSE AFTER 2 HOURS, MAXIMUM OF 2 DOSES. Refills: 2. Next Dose: Trazodone (traZODone 100 mg oral tablet) 2 tablets Oral Daily at Bedtime. Next Dose: Allergy Info:?? NKA Medications Given This Visit Future Orders ?No future orders Vital Signs Height 165 cm Weight BMI Blood Pressure / Temperature Pulse Rate Respiratory Rate 02 Sat Mode of Delivery / You can now view a summary of your hospital visit from the comfort of your home through a free online portal called [employer]. [employer] is a website that allows you to securely view your medical information including discharge summary, medications and follow-up visits. ??You can alsosend a secure electronic message to your doctor???s office to request appointments, renew medications or just ask a question. You can enroll at [email or web address] or register during your next office visit. Disclaimer:?? The information provided is of a general nature and is intended to be used in conjunction with the recommendations and advice of your health care practitioner. ??Every effort has been made to ensure that the information provided is accurate and complete at the time it is provided to you however, as your needs change, or, as new ??information becomes available, different or additional instructions may be required. If you have questions, please consult with your primary care provider or pharmacist, as appropriate. ??This information is not intended to serve as substitution for assessment and evaluation by a qualified health care provider. If you do not have a primary care provider, you may find a [facility] provider by calling [facility] [employer] at [phone]. For information about the plan of care including goals and instructions for your diagnosis, please see the patient education orders section of this document. Patient Education Materials?? The content of this educational material or handout may have been modified, supplemented, or adapted from its original content and format to support your individualized medical care. COPD Flare You have had a flare-up of your COPD. COPD, or chronic obstructive pulmonary disease, is a common lung disease. It causes your airways tobecome irritated and narrower. This makes it harder for you to breathe. Emphysema and chronic bronchitis are both types of COPD. This is a chronic condition, which means you always have it. Sometimesit gets worse. When this happens, it is called a flare-up. Symptoms of COPD People with COPD may have symptoms most of the time. In a flare-up, your symptoms get worse. These symptoms may mean you are having a flare-up: ??? Shortness of breath, shallow or rapid breathing, or wheezing that gets worse ??? Lung infection ??? Cough that gets worse ??? More mucus, thicker mucus or mucus of a different color ??? Tiredness, decreased energy, or trouble doing your usual activities ??? Fever ??? Chest tightness ??? Your symptoms don???t get better even when you use your usual medicines, inhalers, and nebulizer ??? Trouble talking ??? You feel confused Causes of flare-ups Unfortunately, a flare-up can happen even though you did everything right, and you followed your doctor???s instructions. Some causes of flare-ups are: ??? Smoking or secondhand smoke ??? Colds, the flu, or respiratory infections ??? Air pollution ??? Sudden change in the weather ??? Dust, irritating chemicals, or strong fumes ??? Not taking your medicines as prescribed Home care Here are some things you can do at home to treat a flare-up: ??? Try not to panic. This makes it harder to breathe, and keeps you from doing the right things. ??? Don???t smoke or be around others who are smoking. ??? Try to drink more fluids than usual during a flare-up, unless your doctor has told you not to because of heart and kidney problems. More fluids can help loosen the mucus. ??? Use your inhalers and nebulizer, if you have one, as you have been told to. ??? If you were given antibiotics, take them until they are used up or your doctor tells you to stop. It???s important to finish the antibiotics, even though you feel better. This will make sure the infection has cleared. ??? If you were given prednisone or another steroid, finish it even if you feel better. Preventing a flare-up Even though flare-ups happen, the best way to treat one is to prevent it before it starts. Here aresome pointers: ??? Don???t smoke or be around others who are smoking. ??? Take your medicines as you have been told. ??? Talk with your doctor about getting a flu shot every year. Also find out if you need a pneumonia shot. ??? If there is a weather advisory warning to stay indoors, try to stay inside when possible. ??? Try to eat healthy and get plenty of sleep. ??? Try to avoid things that usually set you off, like dust, chemical fumes, hairsprays, or strong perfumes. Follow-up care Follow up with your healthcare provider. If a culture was done, you will be told if your treatment needs to be changed. You can call as directed??for the results. If X-rays were done, and a radiologist had not seen them while you were there, they will be reviewed. You will be told if there is a change in the reading, especially if it affects your treatment. Call 911 Call 911 if any of these occur: ??? You have trouble breathing ??? You feel confused or it???s difficult to wake you up ??? You faint or lose consciousness ??? You have a rapid heart rate ??? You have new pain in your chest, arm, shoulder, neck or upper back When to seek medical advice Call your healthcare provider right away??if??any of these occur: ??? Wheezing or shortness of breath gets worse ??? You need to use your inhalers more often than usual without relief ??? Fever of 100.4??F??(38??C) or higher, or as directed ??? Coughing up lots of dark-colored or bloody sputum (mucus) ??? Chest pain with each breath ??? You do not start to get better within 24 hours ??? Swelling or your ankles gets worse ??? Dizziness or weakness ?? 6421-6635 [employer] [address] [place] [address]. All rights reserved. This information is not intended as a substitute for professional medical care. Always follow your healthcare professional's instructions. Patient Care team information Care Team Personnel Name: Maverick Patel Position: [facility] Cardio/Pulm Mgr ([facility]) Member Role: Primary Care Nurse Name: Mathieu Christina MD Position: [facility] Primary Care Physician Member Role: PCP Address: Address: [address] [place] [id number]- Care Team Related Persons Name: MONA MANUEL Address: home [address] [place] [address] Name: MONA MANUEL Address: home [address] [place] [address] Name: BOUCHRA VELOZ Address: home NONE GIVEN Name: MONA BROWN Address: home [address] [place] [address]
--- OUTSIDE RECORDS SUMMARY | 2023-05-24 01:01 | XMS_ITS | Continuity of Care Document ---
Author Name Unknown Organization [facility] Address [address] [place] [id number]- Care Team Providers Care Doper Operator Name Role Phone Mathieu Christina MD Primary Care Physician Encounter [facility] Date(s): 03/14/21 - 04/15/21 [facility] [address] [place] [id number]- Attending Physician: Not on Staff, Attending MD Allergies, Adverse Reactions, Alerts Substance Reaction Severity Status NKA Active Immunizations Given and Recorded Vaccine Date Status Refusal Reason influenza virus vaccine, inactivated 1 10/21/20 Gi angélica influenza virus vaccine, inactivated 2 08/22/16 Re corded influenza virus vaccine, inactivated 07/25/15 Give n influenza virus vaccine, inactivated 10/20/11 Give n tetanus/diphtheria/pertussis, acel(Tdap) 06/08/15 Given pneumococcal 23-valent vaccine 10/20/11 Given 1Result Comment: [facility]# [id number] 2[facility] 1 each 1 [...] mL, 0 Refills, Maintenance, 02/03/21 7:44:00 EDT, [id number], 30, USE 1 VIAL WITH NEBULIZER FOUR TIMES A DAY, 166, cm, 12/21/20 16:08:00 EDT, Height Start Date: 02/03/21 Status: Ordered betamethasone topical dipropionate 0.05% cream See Instructions, APPLY TO THE AFFECTED AREA TWICE A DAY, # 15 Gm, 3 Refills, Maintenance, 208:01:00 EDT, [facility] #[id number], 7, APPLY TO THE AFFECTED AREA TWICE A DAY, 166, cm, 06/15/20 7:38:00 EDT, Height, 87, kg, 10/14/18 13:06:00 EST, Dry W... Start Date: 06/15/20 Status: Ordered docusate sodium 100 mg oral capsule 1 capsule, By Mouth, 2 times a day, PRN NEEDED FOR CONSTIPATION, # 100 capsule, 0 Refills, Maintenance, 09/13/20 17:22:00 EST, [id number], 166, cm, 07/26/20 9:41:00 EDT, Height, 87, kg, 10/14/18 13:06:00 EST, Dry Weight Start Date: 09/13/20 Status: Ordered famotidine 40 mg oral tablet 1 tablet, By Mouth, Daily at bedtime, # 30 tablet, 2 Refills, Maintenance, 09/05/20 9:40:00 EST, [facility] #[id number], 166, cm, 07/26/20 9:41:00 EDT, Height, 87, kg, 10/14/18 13:06:00 EST, Dry Weight Start Date: 09/05/20 Status: Ordered Flonase 50 mcg/inh nasal spray 2 sprays = 100 mcg, Nares, Both, 2 times a day, # 1 each, 5 Refills, Maintenance, 01/31/21 8:43:00 EDT, [place], [facility] #1111, 2 sprays Nares, Both 2 times a day, 166, cm, 12/21/20 16:08:00 EDT, Height Start Date: 01/31/21 Status: Ordered ibuprofen 800 mg oral tablet 800 mg, 1, tablet, By Mouth, 2 times a day, with food or milk, # 60 tablet, Refills 1, Tot. Refills1, Maintenance, 01/28/19 10:46:50 EDT, Route to Pharmacy Electronically, [id number], [facility]/pharmacy #[id number] Start Date: 01/28/19 Status: [...] Maintenance, 03/12/21 8:01:00 EDT, EC Tablet, [facility]/pharmacy #[id number], 166, cm, 12/21/20 16:08:00 EDT, Height Start Date: 03/12/21 Stop Date: 06/10/21 Status: Ordered ProAir HFA 90 mcg/inh inhalation aerosol with adapter 1, puffs, Inhalation, Every 6 hours, PRN, # 18 Gm, Refills 5, Tot. Refills 5, Maintenance, 208:01:00 EDT, Aerosol, Route to Pharmacy Electronically, [id number], [facility]/pharmacy #1111, 166, cm, 06/15/20 7:38:00 [...] Refills, Maintenance, 06/15/20 8:01:00 EDT, Tablet, [facility]/pharmacy #[id number], 166, cm, 06/15/20 7:38:00 EDT, Height, 87, kg,10/14/18 13:06:00 EST, Dry Weight Start Date: 06/15/20 Status: Ordered simvastatin 10 mg oral tablet 10 mg, 1, tablet, By Mouth, Daily at bedtime, # 90 tablet, Refills 1, Tot. Refills 1, Maintenance, 01/23/21 16:37:00 EDT, Route to Pharmacy Electronically, [facility]/pharmacy #[id number], 166, cm, 12/21/20 16:08:00 EDT, [...]
--- OUTSIDE RECORDS SUMMARY | 2023-05-24 01:01 | XMS_ITS | Continuity of Care Document ---
Author Name Unknown Organization [facility] Address [address] [place] [address]- Care Team Providers Care Bottle Washing Machine Operator Name Role Phone Mathieu Christina MD Primary Care Physician Encounter [facility] Date(s): 04/17/21 - 05/24/21 [facility] [address] [place] [address]- Attending Physician: Mathieu Christina MD Allergies, Adverse [...] Comment: [facility] [place] 2[place]# [id number] 2Location History: [facility] Medications 1 each 1 each, See Instructions, # 1 each, Refills 0, Tot. Refills 0, Maintenance, please supply one knee brace. diagnosis: left knee injury, 01/15/19 13:39:43 EDT, Compound Start Date: 01/15/19 Status: Ordered albuterol-ipratropium 3 mg-0.5 mg/3 ml inhalation solution 1 vials, Inhalation, 4 times a day, # 360 mL, 0 Refills, Maintenance, 02/03/21 7:44:00 EDT, [facility], 30, USE 1 VIAL WITH NEBULIZER FOUR TIMES A DAY, 166, cm, 12/21/20 16:08:00 EDT, Height Start Date: 02/03/21 Status: Ordered betamethasone topical dipropionate 0.05% cream See Instructions, APPLY TO THE AFFECTED AREA TWICE A DAY, # 15 Gm, 3 Refills, Maintenance, 04/18/2110:54:00 EDT, [facility] #57031, 7, APPLY TO THE AFFECTED AREA TWICE A DAY, 166, cm, 04/18/21 10:20:00 EDT, Height Start Date: 04/18/21 Status: Ordered docusate sodium 100 mg oral capsule 1 capsule, By Mouth, 2 times a day, PRN NEEDED FOR CONSTIPATION, # 100 capsule, 0 Refills, Maintenance, 09/13/20 17:22:00 EST, [facility] STORE [facility]15, 166, cm, 07/26/20 9:41:00 EDT, Height, 87, kg, 10/14/18 13:06:00 EST, Dry Weight Start Date: 09/13/20 Status: Ordered famotidine 40 mg oral tablet 1 tablet, By Mouth, Daily at bedtime, # 30 tablet, 2 Refills, Maintenance, 09/05/20 9:40:00 EST, [facility]/pharmacy #1111, 166, cm, 07/26/20 9:41:00 EDT, Height, 87, kg, 10/14/18 13:06:00 EST, Dry Weight Start Date: 09/05/20 Status: Ordered Flonase 50 mcg/inh nasal spray 2 sprays = 100 mcg, Nares, Both, 2 times a day, # 1 each, 5 Refills, Maintenance, 01/31/21 8:43:00 EDT, [place], [facility]/pharmacy #1111, 2 sprays Nares, Both 2 times a day, 166, cm, 12/21/20 16:08:00 EDT, Height Start Date: 01/31/21 Status: Ordered ibuprofen 800 mg oral tablet 800 mg, 1, tablet, By Mouth, 2 times a day, with food or milk, # 60 tablet, Refills 1, Tot. Refills1, Maintenance, 01/28/19 10:46:50 EDT, Route to Pharmacy Electronically, [id number], [facility]/pharmacy #1111 Start Date: 01/28/19 Status: [...] Refills, Maintenance, 03/12/21 8:01:00 EDT, EC Tablet, [facility]/pharmacy #1111, 166, cm, 12/21/20 16:08:00 EDT, Height Start Date: 03/12/21 Stop Date: 06/10/21 Status: Ordered ProAir HFA 90 mcg/inh inhalation aerosol with adapter 1, puffs, Inhalation, Every 6 hours, PRN, # 18 Gm, Refills 5, Tot. Refills 5, Maintenance, 04/18/2110:54:00 EDT, Aerosol, Route to Pharmacy Electronically, [id number], [id number], 166, cm, 04/18/21 10:20:00... Start Date: 04/18/21 [...] 3 Refills, Maintenance, 06/15/20 8:01:00 EDT, Tablet, [facility]/pharmacy #1111, 166, cm, 06/15/20 7:38:00 EDT, Height, 87, kg,10/14/18 13:06:00 EST, Dry Weight Start Date: 06/15/20 Status: Ordered simvastatin 10 mg oral tablet 10 mg, 1, tablet, By Mouth, Daily at bedtime, # 90 tablet, Refills 1, Tot. Refills 1, Maintenance, 01/23/21 16:37:00 EDT, Route to Pharmacy Electronically, [facility]/pharmacy #1111, 166, cm, 12/21/20 16:08:00 [...]
--- OUTSIDE RECORDS SUMMARY | 2023-05-24 01:01 | XMS_ITS | Continuity of Care Document ---
Author Name Unknown Organization [facility] [place] Address [address] [place] [address]- Care Team Providers Care School Transportation Supervisor Name Role Phone Mathieu Christina MD Primary Care Physician Encounter [facility] Date(s): 03/27/21 - 04/26/21 [facility] [place] [address], [place] [address] Attending Physician: Admtr, [id number] Admitting Physician: Admtr, Ar8 Referring Physician: Admtr, [...] 10/20/11 Given 1Result Comment: [facility]# [id number] 2Location History[facility] 1 each 1 each, See Instructions, # 1 each, Refills 0, Tot. Refills 0, Maintenance, please supply one knee brace. diagnosis: left knee injury, 01/15/19 13:39:43 EDT, Compound Start Date: 01/15/19 Status: Ordered albuterol-ipratropium 3 mg-0.5 mg/3 ml inhalation solution 1 vials, Inhalation, 4 times a day, # 360 mL, 0 Refills, Maintenance, 02/03/21 7:44:00 EDT, [facility], 30, USE 1 VIAL WITH NEBULIZER FOUR TIMES A DAY, 166, cm, 12/21/20 16:08:00 EDT, Height Start Date: 02/03/21 Status: Ordered betamethasone topical dipropionate 0.05% cream See Instructions, APPLY TO THE AFFECTED AREA TWICE A DAY, # 15 Gm, 3 Refills, Maintenance, 04/18/2110:54:00 EDT, [facility] #[id number], 7, APPLY TO THE AFFECTED AREA TWICE A DAY, 166, cm, 04/18/21 10:20:00 EDT, Height Start Date: 04/18/21 Status: Ordered docusate sodium 100 mg oral capsule 1 capsule, By Mouth, 2 times a day, PRN NEEDED FOR CONSTIPATION, # 100 capsule, 0 Refills, Maintenance, 09/13/20 17:22:00 EST, [facility], 166, cm, 07/26/20 9:41:00 EDT, Height, 87, kg, 10/14/18 13:06:00 EST, Dry Weight Start Date: 09/13/20 Status: Ordered famotidine 40 mg oral tablet 1 tablet, By Mouth, Daily at bedtime, # 30 tablet, 2 Refills, Maintenance, 09/05/20 9:40:00 EST, [facility]/pharmacy #1111, 166, cm, 07/26/20 9:41:00 EDT, Height, 87, kg, 10/14/18 13:06:00 EST, Dry Weight Start Date: 09/05/20 Status: Ordered Flonase 50 mcg/inh nasal spray 2 sprays = 100 mcg, Nares, Both, 2 times a day, # 1 each, 5 Refills, Maintenance, 01/31/21 8:43:00 EDT, [place], [facility]/pharmacy #1111, 2 sprays Nares, Both 2 times a day, 166, cm, 12/21/20 16:08:00 EDT, Height Start Date: 01/31/21 Status: Ordered ibuprofen 800 mg oral tablet 800 mg, 1, tablet, By Mouth, 2 times a day, with food or milk, # 60 tablet, Refills 1, Tot. Refills1, Maintenance, 01/28/19 10:46:50 EDT, Route to Pharmacy Electronically, [id number], [facility]/pharmacy #1111 Start Date: 01/28/19 [...] Refills, Maintenance, 03/12/21 8:01:00 EDT, EC Tablet, [facility]/pharmacy #1111, 166, cm, 12/21/20 16:08:00 EDT, Height Start Date: 03/12/21 Stop Date: 06/10/21 Status: Ordered predniSONE 20 mg oral tablet 1 tablet = 20 mg, By Mouth, Daily, for 7 days, with food or milk, # 7 tablet, 0 Refills, Acute 05/02/21 11:50:00 EDT, 04/25/21 11:50:00 EDT, Tablet, [facility] #[id number], 166, cm, 04/18/21 10:20:00 EDT, Height Start Date: 04/25/21 Stop Date: 05/02/21 Status: Ordered ProAir HFA 90 mcg/inh inhalation aerosol with adapter 1, puffs, Inhalation, Every 6 hours, PRN, # 18 Gm, Refills 5, Tot. Refills 5, Maintenance, 04/18/2110:54:00 EDT, Aerosol, Route to Pharmacy Electronically, [id number], [facility] #[id number], 166, cm, 04/18/21 10:20:00... Start Date: 04/18/21 [...] 3 Refills, Maintenance, 06/15/20 8:01:00 EDT, Tablet, [facility]/pharmacy #1111, 166, cm, 06/15/20 7:38:00 EDT, Height, 87, kg,10/14/18 13:06:00 EST, Dry Weight Start Date: 06/15/20 Status: Ordered simvastatin 10 mg oral tablet 10 mg, 1, tablet, By Mouth, Daily at bedtime, # 90 tablet, Refills 1, Tot. Refills 1, Maintenance, 01/23/21 16:37:00 EDT, Route to Pharmacy Electronically, [facility]/pharmacy #1111, 166, cm, 12/21/20 [...]
--- OUTSIDE RECORDS SUMMARY | 2023-05-24 01:01 | XMS_ITS | Continuity of Care Document ---
Author Name Unknown Organization [facility] [employer] [facility] Address [address] [place] [address]- Care Team Providers Care Agricultural Produce Commission Agent Name Role Phone Mathieu Christina MD Primary Care Physician [phone] Encounter [facility] Date(s): 07/07/20 - 08/06/20 [facility] [facility] [address] [place] [address]- Allergies, Adverse Reactions, Alerts Substance Reaction Severity [...] Gm, 3 Refills, Maintenance, 208:01:00 EDT, [facility]/pharmacy #1111, 7, APPLY TO THE [...] 03/29/20 17:19:00 EDT, Route to Pharmacy Electronically, [facility]/pharmacy #1111,166, cm, 03/29/20 13:47:00 EDT, Height, 87, kg, ... Start Date: 03/29/20 Stop Date: 06/27/20 Status: Ordered famotidine 40 mg oral tablet 1 tablet, By Mouth, Daily at bedtime, # 30 tablet, 0 Refills, Maintenance, 08/02/20 9:11:00 EDT, [facility], 166, cm, 07/26/20 9:41:00 EDT, Height, 87, kg, 10/14/18 13:06:00 EST, Dry Weight Start Date: 08/02/20 Status: Ordered Flonase 50 mcg/inh nasal spray 2 sprays = 100 mcg, Nares, Both, 2 times a day, # 1 each, 5 Refills, Maintenance, 06/15/20 8:01:00 EDT, [place], [facility]/pharmacy #1111, 2 sprays [...] 01/28/19 10:46:50 EDT, Route to Pharmacy Electronically, [id number], [facility] Start Date: 01/28/19 Status: Ordered omeprazole [...] 0 Refills, Maintenance, 07/26/20 10:00:00 EDT, Tablet, [facility], 166... Start Date: 07/26/20 Status: Ordered ProAir HFA 90 mcg/inh inhalation aerosol with adapter 1, puffs, Inhalation, Every 6 hours, PRN, # 18 Gm, Refills 5, Tot. Refills 5, Maintenance, 208:01:00 EDT, Aerosol, Route to Pharmacy Electronically, [id number], [facility], 166, cm, 06/15/20 7:38:00 EDT, [...] Refills, Maintenance, 06/15/20 8:01:00 EDT, Tablet, [facility]/pharmacy #1111, 166, cm, 06/15/20 7:38:00 EDT, Height, 87, kg,10/14/18 13:06:00 EST, Dry Weight Start Date: 06/15/20 Status: Ordered simvastatin 10 mg oral tablet 10 mg, 1, tablet, By Mouth, Daily at bedtime, # 30 tablet, Refills 5, Tot. Refills 5, Maintenance, 07/26/20 10:04:00 EDT, Route to Pharmacy Electronically, [facility]/pharmacy #1111, 166, cm, [...] 1 Refills, Maintenance, 08/01/20 11:42:00 EDT, Tablet, [facility]/pharmacy #1111, 166, cm, [...]
--- OUTSIDE RECORDS SUMMARY | 2023-05-24 01:01 | XMS_ITS | Continuity of Care Document ---
Author Name Unknown Organization [facility] Address [address] [place] [address]- Care Team Providers Care Senior Interaction Designer Name Role Phone Mathieu Christina MD Primary Care Physician Encounter [facility] Date(s): 08/21/21 - 09/20/[facility] [address] [place] [address]- [place] Allergies, Adverse Reactions, Alerts Substance Reaction Severity Status NKA Active Immunizations Given and Recorded Vaccine Date Status Refusal Reason influenza virus vaccine, inactivated 1 10/21/20 Gi angélica influenza virus vaccine, inactivated 2 08/22/16 Re corded influenza virus vaccine, inactivated 07/25/15 Give n influenza virus vaccine, inactivated 10/20/11 Give n tetanus/diphtheria/pertussis, acel(Tdap) 06/08/15 Given pneumococcal 23-valent vaccine 10/20/11 Given 1Result Comment: [facility]# [id number] 2Location History[facility] 1 each 1 each, See Instructions, # 1 each, Refills 0, Tot. Refills 0, Maintenance, please supply one knee brace. diagnosis: left knee injury, 01/15/19 13:39:43 EDT, Compound Start Date: 01/15/19 Status: Ordered albuterol-ipratropium 3 mg-0.5 mg/3 ml inhalation solution 1 vials, Inhalation, 4 times a day, # 360 mL, 0 Refills, Maintenance, 02/03/21 7:44:00 EDT, [facility], 30, USE 1 VIAL WITH NEBULIZER FOUR TIMES A DAY, 166, cm, 12/21/20 16:08:00 EDT, Height Start Date: 02/03/21 Status: Ordered betamethasone topical dipropionate 0.05% cream See Instructions, APPLY TO THE AFFECTED AREA TWICE A DAY, # 15 Gm, 3 Refills, Maintenance, 04/18/2110:54:00 EDT, [facility] #[id number], 7, APPLY TO THE AFFECTED AREA TWICE A DAY, 166, cm, 04/18/21 10:20:00 EDT, Height Start Date: 04/18/21 Status: Ordered Colace Clear 50 mg oral capsule 1 capsule = 50 mg, By Mouth, Daily, Decrease use to every other day if diarrhea develops., # 30 capsule, 0 Refills, Maintenance, 07/20/21 13:29:00 EDT, [facility]/pharmacy #1111, Partial fill upon patient request if the prescription is for a schedule II opio... Start Date: 07/20/21 Stop Date: 08/19/21 Status: Ordered docusate sodium 100 mg oral capsule 1 capsule, By Mouth, 2 times a day, PRN NEEDED FOR CONSTIPATION, # 100 capsule, 0 Refills, Maintenance, 09/13/20 17:22:00 EST, [facility], 166, cm, 07/26/20 9:41:00 EDT, Height, 87, [...] each, 5 Refills, Maintenance, 01/31/21 8:43:00 EDT, [place], [facility]/pharmacy #1111, 2 sprays Nares, Both 2 times a day, 166, cm, 12/21/20 16:08:00 EDT, Height Start Date: 01/31/21 Status: Ordered Hibiclens 4% soap See Instructions, Wash affected areas twice daily., # 240 mL, 1 Refills, Soft Stop, 07/20/21 13:30:00 EDT, [facility]/pharmacy #1111, Partial fill upon patient request if the prescription is for a schedule II opioid drug., Wash affected areas twice daily., 1... Start Date: 07/20/21 Status: Ordered ibuprofen 800 mg oral tablet 800 mg, 1, tablet, By Mouth, 2 times a day, with food or milk, # 60 tablet, Refills 1, Tot. Refills1, Maintenance, 01/28/19 10:46:50 EDT, Route to Pharmacy Electronically, [id number], [facility]/pharmacy #1111 Start Date: 01/28/19 Status: [...] 0 Refills, Maintenance, 06/01/21 12:45:00 EDT, [place], [facility]/pharmacy #1111, Partial fill upon pat... Start Date: 06/01/21 Status: Ordered ProAir HFA 90 mcg/inh inhalation aerosol with adapter 1, puffs, Inhalation, Every 6 hours, PRN, # 18 Gm, Refills 5, Tot. Refills 5, Maintenance, 08/21/2111:56:00 EST, Aerosol, Route to Pharmacy Electronically, [id number], [facility]/pharmacy #1111, 166, cm, 04/18/21 10:20:00 EDT, [...] 3 Refills, Maintenance, 06/15/20 8:01:00 EDT, Tablet, [facility]/pharmacy #1111, 166, cm, 06/15/20 7:38:00 EDT, Height, 87, kg,10/14/18 13:06:00 EST, Dry Weight Start Date: 06/15/20 Status: Ordered simvastatin 10 mg oral tablet See Instructions, TAKE 1 TABLET BY MOUTH EVERYDAY AT BEDTIME, # 90 tablet, Refills 1, Instructions Replace Required Details, Route to Pharmacy Electronically, [facility] [address]129, 166, cm, 04/18/21 10:20:00 EDT, Height Start [...] 11/18/21 10:56:00 EST, 09/19/21 10:56:00 EST, Tablet, [facility]/pharmacy #1111, Partial fill upon pat... Start [...]
--- OUTSIDE RECORDS SUMMARY | 2023-05-24 01:01 | XMS_ITS | Continuity of Care Document ---
Author Name Unknown Organization [facility] Address [address] [place] [address]- Care Team Providers Care Branch Maker Name Role Phone Mathieu Christina MD Primary Care Physician Encounter [facility] Date(s): 05/16/21 - 06/15/21 [facility] [address] [place] [address]- Attending Physician: Admtr, Ar8 Admitting Physician: Admtr, [...] 23-valent vaccine 10/20/11 Given 1Result Comment: [facility] [place]# [id number] 2Location History: [facility] Medications 1 each 1 each, See Instructions, # 1 each, Refills 0, Tot. Refills 0, Maintenance, please supply one knee brace. diagnosis: left knee injury, 01/15/19 13:39:43 EDT, Compound Start Date: 01/15/19 Status: Ordered albuterol-ipratropium 3 mg-0.5 mg/3 ml inhalation solution 1 vials, Inhalation, 4 times a day, # 360 mL, 0 Refills, Maintenance, 02/03/21 7:44:00 EDT, [facility], 30, USE 1 VIAL WITH NEBULIZER FOUR TIMES A DAY, 166, cm, 12/21/20 16:08:00 EDT, Height Start Date: 02/03/21 Status: Ordered betamethasone topical dipropionate 0.05% cream See Instructions, APPLY TO THE AFFECTED AREA TWICE A DAY, # 15 Gm, 3 Refills, Maintenance, 04/18/2110:54:00 EDT, [facility] #68885, 7, APPLY TO THE AFFECTED AREA TWICE A DAY, 166, cm, 04/18/21 10:20:00 EDT, Height Start Date: 04/18/21 Status: Ordered docusate sodium 100 mg oral capsule 1 capsule, By Mouth, 2 times a day, PRN NEEDED FOR CONSTIPATION, # 100 capsule, 0 Refills, Maintenance, 09/13/20 17:22:00 EST, [facility]42, 166, cm, 07/26/20 9:41:00 EDT, Height, 87, [...] each, 5 Refills, Maintenance, 01/31/21 8:43:00 EDT, [place], [facility]/pharmacy #1111, 2 sprays Nares, Both 2 times a day, 166, cm, 12/21/20 16:08:00 EDT, Height Start Date: 01/31/21 Status: Ordered ibuprofen 800 mg oral tablet 800 mg, 1, tablet, By Mouth, 2 times a day, with food or milk, # 60 tablet, Refills 1, Tot. Refills1, Maintenance, 01/28/19 10:46:50 EDT, Route to Pharmacy Electronically, [id number], [facility]/pharmacy #1111 Start Date: 01/28/19 [...] # 90 capsule, 0 Refills, [facility], 166, cm, 04/18/21 10:20:00 EDT, Height Start [...] 04/18/2110:54:00 EDT, Aerosol, Route to Pharmacy Electronically, [id number], [facility] #09056, 166, cm, 04/18/21 10:20:00... Start Date: 04/18/21 [...] 3 Refills, Maintenance, 06/15/20 8:01:00 EDT, Tablet, [facility]/pharmacy #1111, 166, cm, 06/15/20 7:38:00 EDT, Height, 87, kg,10/14/18 13:06:00 EST, Dry Weight Start Date: 06/15/20 Status: Ordered simvastatin 10 mg oral tablet 10 mg, 1, tablet, By Mouth, Daily at bedtime, # 90 tablet, Refills 1, Tot. Refills 1, Maintenance, 01/23/21 16:37:00 EDT, Route to Pharmacy Electronically, [facility]/pharmacy #1111, 166, cm, 12/21/20 16:08:00 EDT, [...]
--- OUTSIDE RECORDS SUMMARY | 2023-05-24 01:01 | XMS_ITS | Continuity of Care Document ---
Author Name Unknown Organization [facility] Address [address] [place] [address]- Care Team Providers Care Induction Coordination Engineer Name Role Phone Mathieu Christina MD Primary Care Physician [phone] Encounter [facility] Date(s): 07/02/22 - 08/03/22 [facility] [address] [place] [address]- Attending Physician: Not on Staff, Attending MD Allergies, Adverse Reactions, Alerts No Known [...] pneumococcal 23-valent vaccine 10/20/11 Given 1Result Comment: [facility]# [id number] 2Location History: [facility] 1 each 1 each, See Instructions, # 1 each, Refills 0, Tot. Refills 0, Maintenance, please supply one knee brace. diagnosis: left knee injury, 01/15/19 13:39:43 EDT, Compound Start Date: 01/15/19 Status: Ordered Albuterol (Eqv-ProAir HFA) 90 mcg/inh inhalation aerosol 1 puffs, Inhalation, Every 6 hours, PRN NEEDED FOR WHEEZING/SHORTNESS OF BREATH, # 8.5 each, 5 Refills, [facility], 30, TAKE 1 PUFF BY MOUTH EVERY 6 HOURS NEEDED FOR WHEEZING/SHORTNESS OF BREATH, 165, cm, 10/14/21 14:50:00 EST, Height, 78.6... Start Date: 05/13/22 Status: Ordered albuterol-ipratropium 3 mg-0.5 mg/3 ml inhalation solution 1 vials, Inhalation, 4 times a day, # 360 mL, 0 Refills, Maintenance, 02/03/21 7:44:00 EDT, [facility] [address]18, 30, USE 1 VIAL WITH NEBULIZER FOUR TIMES A DAY, 166, cm, 12/21/20 16:08:00 EDT, Height Start Date: 02/03/21 Status: Ordered betamethasone topical dipropionate 0.05% cream See Instructions, APPLY TO THE AFFECTED AREA TWICE A DAY, # 15 Gm, 3 Refills, Maintenance, 04/18/2110:54:00 EDT, [email or web address] #[id number], 7, APPLY TO THE AFFECTED AREA TWICE A DAY, 166, cm, 04/18/21 10:20:00 EDT, Height Start Date: 04/18/21 Status: Ordered Citrucel 2 gm/19 gm oral powder for reconstitution = 2 Gm, By Mouth, 2 times a day, # 507 Gm, 1 Refills, Maintenance, 03/27/21 9:12:00 EDT, [email or web address] #[id number], Partial fill upon patient request if the prescription is for a schedule II opioiddrug., 166, cm, 12/21/20 16:08:00 EDT, Height Start Date: 03/27/21 Status: Ordered Colace Clear 50 mg oral capsule 1 capsule = 50 mg, By Mouth, Daily, Decrease use to every other day if diarrhea develops., # 30 capsule, 0 Refills, Maintenance, 07/20/21 13:29:00 EDT, [facility]/pharmacy #1111, Partial fill upon patient request if the prescription is for a schedule II opio... Start Date: 07/20/21 Stop Date: 08/19/21 Status: Ordered docusate sodium 100 mg oral capsule 1 capsule, By Mouth, 2 times a day, PRN NEEDED FOR CONSTIPATION, # 100 capsule, 0 Refills, Maintenance, 09/13/20 17:22:00 EST, [facility] STORE [address]153, 166, cm, 07/26/20 9:41:00 EDT, Height, 87, kg, 10/14/18 13:06:00 EST, Dry Weight Start Date: 09/13/20 Status: Ordered doxycycline monohydrate 100 mg oral tablet 1 tablet = 100 mg, By Mouth, 2 times a day, # 20 tablet, 0 Refills, Soft Stop, 07/20/21 13:29:00 EDT, [facility]/pharmacy #1111, Partial fill upon patient request if the prescription is for a schedule II opioid drug., 166, cm, 04/18/21 10:20:00 EDT, Height Start Date: 07/20/21 Stop Date: 07/30/21 Status: Ordered famotidine 40 mg oral tablet 1 tablet, By Mouth, Daily at bedtime, # 30 tablet, 2 Refills, Maintenance, 09/05/20 9:40:00 EST, [facility]/pharmacy #1111, 166, cm, 07/26/20 9:41:00 EDT, Height, 87, kg, 10/14/18 13:06:00 EST, Dry Weight Start Date: 09/05/20 Status: Ordered Flonase 50 mcg/inh nasal spray 2 sprays = 100 mcg, Nares, Both, 2 times a day, # 1 each, 5 Refills, Maintenance, 01/31/21 8:43:00 EDT, [place], [facility]/pharmacy #1111, 2 sprays Nares, Both 2 times a day, 166, cm, 12/21/20 16:08:00 EDT, Height Start Date: 01/31/21 Status: Ordered Hibiclens 4% soap See Instructions, Wash affected areas twice daily., # 240 mL, 1 Refills, Soft Stop, 07/20/21 13:30:00 EDT, [facility]/pharmacy #1111, Partial fill upon patient request if the prescription is for a schedule II opioid drug., Wash affected areas twice daily., 1... Start Date: 07/20/21 Status: Ordered ibuprofen 800 mg oral tablet 800 mg, 1, tablet, By Mouth, 2 times a day, with food or milk, # 60 tablet, Refills 1, Tot. Refills1, Maintenance, 01/28/19 10:46:50 EDT, Route to Pharmacy Electronically, [id number], [facility]/pharmacy #1111 Start Date: 01/28/19 Status: Ordered [...] Refills, Maintenance, 01/01/22 12:31:00 EDT, Tablet, [facility]/pharmacy #1111, 165, cm, 10/14/21 14:50:00 EST, Height, 78.6,kg, 10/14/21 14:50:00 EST, Dry Weight Start Date: 01/01/22 Status: Ordered simvastatin 10 mg oral tablet 1, tablet, By Mouth, Daily at bedtime, # 90 tablet, Refills 1, Maintenance, 07/12/22 17:09:00 EDT, Route to Pharmacy Electronically, [facility]85, 165, cm, 05/30/22 13:27:00 EDT, Height, 78.6, [...] # 9 tablet, 2 Refills, [facility], 165, cm, 10/14/21 14:50:00 EST, Height, 78.6, [...] Personnel Name: Mathieu Christina MD Address: Address: [address] [place] [address], [place], [place] [address]
--- OUTSIDE RECORDS SUMMARY | 2023-05-24 01:01 | XMS_ITS | Continuity of Care Document ---
Author Name Unknown Organization [facility] Address [address] [place] [address]- Care Team Providers Care Stoner Out Name Role Phone Mathieu Christina MD Primary Care Physician [phone] Encounter [facility] Date(s): 05/16/20 - 06/15/20 [facility] [place] [address] [place] [address]- [facility] Attending Physician: Admtr, [id number] Admitting Physician: Admtr, [...] 15 Gm, 3 Refills, Maintenance, 208:01:00 EDT, [facility]/pharmacy #[id number], 7, APPLY TO THE [...] 03/29/20 17:19:00 EDT, Route to Pharmacy Electronically, [facility]/pharmacy #[id number],166, cm, 03/29/20 13:47:00 EDT, Height, 87, kg, ... Start Date: 03/29/20 Stop Date: 06/27/20 Status: Ordered Flonase 50 mcg/inh nasal spray 2 sprays = 100 mcg, Nares, Both, 2 times a day, # 1 each, 5 Refills, Maintenance, 06/15/20 8:01:00 EDT, [place], [facility]/pharmacy #[id number], 2 sprays Nares, [...] 01/28/19 10:46:50 EDT, Route to Pharmacy Electronically, [id number], [facility]/pharmacy #[id number] Start Date: 01/28/19 Status: Ordered omeprazole 20 mg oral delayed release tablet 1 tablet = 20 mg, By Mouth, Daily, # 90 tablet, 2 Refills, Maintenance, 06/15/20 8:01:00 EDT, EC Tablet, [facility]/pharmacy #1111, 166, cm, 06/15/20 7:38:00 EDT, Height, 87, kg, 10/14/18 13:06:00 EST, Dry Weight Start Date: 06/15/20 Stop Date: 03/12/21 Status: Ordered ProAir HFA 90 mcg/inh inhalation aerosol with adapter 1, puffs, Inhalation, Every 6 hours, PRN, # 18 Gm, Refills 5, Tot. Refills 5, Maintenance, 208:01:00 EDT, Aerosol, Route to Pharmacy Electronically, [id number], [facility]/pharmacy #1111, 166, cm, 06/15/20 7:38:00 [...] 3 Refills, Maintenance, 06/15/20 8:01:00 EDT, Tablet, [facility]/pharmacy #1111, 166, cm, 06/15/20 7:38:00 [...]
--- OUTSIDE RECORDS SUMMARY | 2023-05-24 01:01 | XMS_ITS | Continuity of Care Document ---
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 Name Role Phone Mathieu Christina MD Primary Care Physician Encounter [facility] Date(s): 04/12/23 - 04/16/[address] [id number]- Encounter Diagnosis Acute kidney injury(Final) - 04/12/23 Discharge Disposition: Transfer to Psychiatric Facility Attending Physician: Claudia Schwartz MD Admitting Physician: Mahesh Quintero MD Referring Physician: Not on Staff, Referring [...] vaccine 10/20/11 Given 1Result Comment: [facility]# [id number] 2Location History[facility] acamprosate 333 mg oral delayed release tablet 168 each, 0 Refill(s), TAKE 2 TABLETS BY MOUTH 3 TIMES A DAY, 0 Refills, 04/13/23 20:14:00 EDT, Partial fill upon patient request if the prescription is for a schedule II opioid drug. Start Date: 04/13/23 Status: Ordered Albuterol (Eqv-ProAir HFA) 90 mcg/inh [...] Dry Weight Start Date: 11/08/22 Status: Ordered fluticasone-salmeterol 250 mcg-50 mcg inhalation powder 1, puffs, Inhalation, 2 times a day, # 180 each, Refills 0, Maintenance, 04/12/23 8:45:00 EDT, Powder Start Date: 04/12/23 Status: Ordered folic acid 1 mg oral tablet 1 mg, By Mouth, Daily, Refills 0, Maintenance, 04/16/23 11:24:00 EDT, Partial fill upon patient request if the prescription is for a schedule II opioid drug. Start Date: 04/16/23 Status: Ordered hydrOXYzine pamoate 25 mg oral capsule 56 each, 0 Refill(s), 0 Refills, 04/13/23 20:14:00 EDT, Partial fill upon patient request if the prescription is for a schedule II opioid drug. Start Date: 04/13/23 Status: Ordered Multivitamin Tablet 1 tablet, By Mouth, Daily, 0 Refills, Maintenance, 04/16/23 11:24:00 EDT, Tablet, Partial fill uponpatient request if the prescription is for a schedule II opioid drug. Start Date: 04/16/23 Status: Ordered nicotine 14 mg/24 hr transdermal film, extended release 1 patch, Topically, Daily, # 30 patch, 0 Refills, Maintenance, 04/12/23 8:45:00 EDT, Patch, Partialfill upon patient request if the prescription is for a schedule II opioid drug. Start Date: 04/12/23 Status: Ordered QUEtiapine 200 mg oral tablet 200 mg, By Mouth, Daily at bedtime, Refills 0, Maintenance, 04/16/23 11:24:00 EDT, Partial fill upon patient request if the prescription is for a schedule II opioid drug. Start Date: 04/16/23 Status: Ordered Suboxone 8 mg-2 mg sublingual film 1 film, Sublingual, 3 times a day, 0 Refills, Maintenance, 04/12/23 8:47:00 EDT, Partial fill upon patient request if the prescription is for a schedule II opioid drug. Start Date: 04/12/23 Status: Ordered thiamine 100 mg oral tablet 100 mg, By Mouth, Daily, Refills 0, Maintenance, 04/16/23 11:25:00 EDT, Partial fill upon patient request if the prescription is for a schedule II opioid drug. Start Date: 04/16/23 Status: Ordered traZODone 50 mg oral tablet 100 mg, By Mouth, Daily at bedtime, Refills 0, Maintenance, 04/16/23 11:24:00 EDT, Partial fill upon patient request if the prescription is for a schedule II opioid drug. Start Date: 04/16/23 Status: Ordered Problem List Condition Confirmation Course [...] Exam Date Time Procedure Performing Provider Status 04/12/23 4:16 AM Chest Portable Luis Block; Kelly (Verified) Notes: (Chest Portable) Reason For Exam: Shortness of Breath RESULT: Chest Portable Chest Portable performed at 4:06 AM Hx of Present Illness: states SI I need help leg pain and chest pain; Reason: Shortness of Breath; Clinical Question(s): CHF COMPARISON: Multiple prior chest x-rays, the most recent of which is dated 01/24/2023. FINDINGS: LINES AND TUBES: None. LUNGS AND PLEURA: Clear lungs. Normal pulmonary vascularity. No pleural effusion. No pneumothorax. HEART, MEDIASTINUM AND LESLY: Heart is normal in size. Normal mediastinal and hilar contour. BONES AND SOFT TISSUES: No acute abnormality. IMPRESSION: No acute abnormality. WSN: [id number] Ordering Physician: Sangita Hines Dictated By: Verónica Shetty MD Dictated Date/Time: 04/12/23 9:01 am Reviewed By: Verónica Shetty MD Signed By: Verónica Shetty MD Signed Date/Time: 04/12/23 9:01 am Transcribed By: DEEPTHI Transcribed Date/Time: 04/12/23 9:00 am Vital Signs Most recent to oldest [Reference Range]: 1 2 3 Height 165 cm (04/16/23 7:45 AM) 165 cm (04/15/23 4:11 PM) 165 cm (04/15/23 1:06 PM) Weight 76.41 kg (04/13/23 7:52 PM) 68.6 kg (04/13/23 1:49 AM) 68.6 kg (04/12/23 2:49 AM) Oxygen Saturation [94-100 %] 96 % (04/16/23 7:45 AM) 97 % (04/16/23 3:00 AM) 98 % (04/15/23 9:00 PM) Pulse Rate [55-90 bpm] 53 bpm *L* (04/16/23 7:45 AM) 54 bpm *L* (04/16/23 5:07 AM) 54 bpm *L* (04/16/23 3:00 AM) Body Mass Index [18.5-24.99 kg/m2] 28.07 kg/m2 *H* (04/13/23 7:52 PM) 25.2 kg/m2 *H* (04/13/23 1:49 AM) 25.2 kg/m2 *H* (04/12/23 2:49 AM) Blood Pressure [90-138/55-84 mm Hg] 101/67mm Hg (04/16/23 7:45 AM) 112/66mm Hg (04/16/23 5:07 AM) 112/66mm Hg (04/16/23 3:00 AM) Respiratory Rate [16-30 br/min] 17 br/min (04/16/23 7:45 AM) 20 br/min (04/16/23 5:07 AM) 20 br/min (04/16/23 3:00 AM) Temperature [96.8-100.4 DegF] 97.4 DegF (04/16/23 7:45 AM) 97.6 DegF (04/16/23 3:00 AM) 98.0 DegF (04/15/23 9:00 PM) Mode of Delivery (Oxygen) Room air (04/16/23 7:45 AM) Room air (04/16/23 3:00 AM) Room air (04/15/23 9:00 PM) Blood pressure sites Arm, right (04/16/23 7:45 AM) Arm, left (04/16/23 3:00 AM) Arm, left (04/15/23 9:00 PM) Temperature Route Oral (04/16/23 7:45 AM) Oral (04/16/23 3:00 AM) Oral (04/15/23 9:00 PM) Dry Weight 76.41 kg (04/13/23 7:52 PM) Social History Social History Type Response Smoking Status 5-9 cigarettes (betw een 1/4 to 1/2 pack)/day in last 30 days; Interested in cessation: Yes; Patient wants NRT during admission Yes; Tobacco user in household: Yes entered on: 04/16/23 Sex History and physical note * Balwinder LIND, Chacorta Burrell: PERFORM, MODIFY Event Display: History and Physical Hospital Authored Date: [id number] Patient: ??CATHRYN RIVER ? Age:??58 Years?Sex:??Male?:??1965?? Chief Complaint/Reason for Consultation Drugs and alcohol use and suicidal intent ?? History of Present Illness 58-year-old male with a history of COPD not on home oxygen, tobacco abuse, opioid use disorder, cocaine use disorder, bipolar disorder, PTSD, hyperlipidemia, GERD coming to the emergency department due to multiple vague??symptoms. Patient reports left-sided chest pain, intermittent, brief in nature, tightness quality intermittently all day. No associated shortness of breath. Denies cough, fevers or chills. Symptoms seem to be triggered when he is feeling especially anxious. Reports right upper quadrant abdominal pain for about the past couple hours, constant, sharp without radiation. Denies na usea/vomiting/diarrhea. Reports he is constipated and has not had a bowel movement a couple days, has not eaten much for the past few days. He is passing fluctuance.Denies hematuria or dysuria. Denies numbness. Reports he is use a lot of cocaine, snorting all day. He does drink about 10 nips in total throughout the day, denies history of alcohol withdrawal seizures, last drink prior to ED arrival. Reports he has been snorting heroin all day, last used prior to ED arrival. Denies IVDU. Reports he did leave the sober house in [place] recently. Reports he is suicidal and was hoping his substanceuse today would kill him. Denies HI. Denies auditory visual hallucinations. Admitted for further man agement of alcohol abuse and suicidal ideation Review of Systems Constitutional: No fever or chills. ENT: No sore throat or nasal congestion. Respiratory: No shortness of breath or cough??. Cardiovascular: No chest pain or??palpitation. Gastrointestinal: No nausea, vomiting or diarrhea. Skin: No rash or lesion Neurology: No speech problem no vision problem no focal weakness, no dizziness. Psychiatric:??Suicidal intent. Denies HI. Objective Vital Signs?? Temperature: 97.8 DegF (04/12/23 12:23:00) Temperature Route: Oral (04/12/23 12:23:00) Pulse Rate: 74 bpm (04/12/23 12:23:00) Respiratory Rate: 18 br/min (04/12/23 12:23:00) Systolic Blood Pressure: 108 mm Hg (04/12/23 12:23:00) Diastolic Blood Pressure: 63 mm Hg (04/12/23 12:23:00) Blood pressure sites: Arm, right (04/12/23 12:23:00) Mean Arterial Pressure: 78 mm Hg (04/12/23 12:23:00) Pulse Pressure: 45 mm Hg (04/12/23 12:23:00) Oxygen Saturation: 95 % (04/12/23 12:23:00) Mode of Delivery (Oxygen): Room air (04/12/23 12:23:00) Early Warning Score: 4 (04/12/23 12:24:06) ? Physical Exam ?Awake, alert, oriented, anxious Lungs: Clear to auscultation bilateral, no wheezing no rales Heart: Regular rate and rhythm, no murmur, no rub or gallop Abdomen: Soft, nontender, nondistended; Bowel sounds present Extremity: No edema cyanosis clubbing Neurological: No focal deficit Psychiatric: Expressed suicidal intent by taking more drugs Assessment/Plan Assessment/Plan ? 58 y/o?? male with a history of COPD not on home oxygen, tobacco abuse, opioid use disorder, cocaine use disorder, bipolar disorder, PTSD, hyperlipidemia, GERD coming to the emergency department due to multiple vague??symptoms following alcohol and drug abuse. Patient reports left-sided chest pain,intermittent, brief in nature, tightness quality intermittently all day and expressed suicidal intent ? Alcohol abuse Polysubstance abuse (F19.10): Acknowledged using??cocaine ?? Plan: Will admit to medical floor Will continue suboxone CIWA protocol Addiction consult SW consult ?? Suicidal ideation Still c/o suicidal ideation ?? Will put on suicide precaution Psychiatry consult ?? Acute kidney injury: Likely dehydration due to alcohol abuse/pre-renal WIll contineu IVF Follwo renal function ? Bipolar disorder (F31.9): Expressed SI ?? Will continue quetiapine as needed for anxiety, and trazodone daily at bedtime. Psychiatry consult as above ?? GERD (gastroesophageal reflux disease) (K21.9): PPI ?? VTE Prophylaxis: Lovenox 40 mg subcutaneously daily. ?? Code Status: FULL. ?? Histories Allergies Allergies ?(Active and Proposed Allergies [...] Prescription medications. Tobacco Details:??Use: 5-9 cigarettes (between 1/4 to 1/2 pack)/day in last 30 days. ??Tobacco user in household: Yes. ? Family History Father: Stroke; Throat cancer ? 20-JUL-2016 23:30:24<$> Mother (): Heart disease ? 12-DEC-2013 07:21:16<$> ? Medications Home Medications Albuterol (Albuterol (Eqv-ProAir HFA) 90 mcg/inh inhalation aerosol)?1?puff(s)?Inhalation?Every 6 hours?as needed? NEEDED FOR WHEEZING/SHORTNESS OF BREATH Albuterol/Ipratropium (albuterol-ipratropium 3 mg-0.5 mg/3 ml inhalation solution)?1?vials?Inhalation?4 times a day Buprenorphine-Naloxone (Suboxone 8 mg-2 mg sublingual film)?1?Film?Sublingual?3 times aday Durable Medical Equipment (1 each)?See Instructions?please supply one knee brace.diagnosis: left knee injury Durable Medical Equipment (Mouth piece for Nebulizer)?See Instructions?Use as instructed Fluticasone Nasal (Flonase 50 mcg/inh nasal spray)?1?spray(s)?Nares, Both?2 times a day Fluticasone-Salmeterol (fluticasone-salmeterol 250 mcg-50 mcg inhalation powder)?1?puff(s)?Inhalation?2 times a day Nicotine (nicotine 14 mg/24 hr transdermal film, extended release)?1?patch(es)?Topically?Daily Quetiapine (QUEtiapine 25 mg oral tablet)?50?Milligram?2?tablet?By Mouth?Daily?as needed?Anxiety Quetiapine (QUEtiapine 300 mg oral tablet)?2?tab(s)?600?Milligram?By Mouth?Daily at bedtime Trazodone (traZODone 100 mg oral tablet)?2 tablets?By Mouth?Daily at bedtime ? Results Recent Labs BLOOD COUNT & DIFF WBC 8.5 k/mm3 ()?? 04/12/2023 04:09 RBC 5.04 m/mm3 ()?? 04/12/2023 04:09 Hgb 15.5 Gm/dL ()?? 04/12/2023 04:09 Hct 46.5 % ()?? 04/12/2023 04:09 MCV 92.3 femtoliters ()?? 04/12/2023 04:09 MCH 30.8 pg ()?? 04/12/2023 04:09 MCHC 33.3 g/dL ()?? 04/12/2023 04:09 Platelet Count 248 k/mm3 ()?? 04/12/2023 04:09 RDW-SD 45.4 femtoliters ()?? 04/12/2023 04:09 MPV 9.7 femtoliters ()?? 04/12/2023 04:09 Nucleated RBC (Automated) 0.0 #/100 WBC'S ()?? 04/12/2023 04:09 Abs. NRBC 0.0 k/mm3 ()?? 04/12/2023 04:09 Abs. Neut 5.9 k/mm3 ()?? 04/12/2023 04:09 Abs. Lymph 1.9 k/mm3 ()?? 04/12/2023 04:09 Abs. [place] 0.6 k/mm3 ()?? 04/12/2023 04:09 Abs. Eo 0.0 k/mm3 ()?? 04/12/2023 04:09 Abs. Baso 0.1 k/mm3 ()?? 04/12/2023 04:09 Neut % 69.4 % ()?? 04/12/2023 04:09 Lymph % 22.8 % ()?? 04/12/2023 04:09 [place] % 6.8 % ()?? 04/12/2023 04:09 Eos % 0.1 % ()?? 04/12/2023 04:09 Baso % 0.7 % ()?? 04/12/2023 04:09 Imm Gran 0.2 % ()?? 04/12/2023 04:09 Abs. Imm Gran 0.0 k/mm3 ()?? 04/12/2023 04:09 ?? CARDIAC CK, Total 1073 units/L (High)?? 04/12/2023 04:09 Nt-Probnp 218 pg/mL (High)?? 04/12/2023 04:09 High Sensitivity Troponin (HSTnT) 9 ng/L ()?? 04/12/2023 05:33 ?? CHEM GENERAL Sodium 138 mmol/L ()?? 04/12/2023 09:00 Potassium 4.1 mmol/L ()?? 04/12/2023 09:00 Chloride 101 mmol/L ()?? 04/12/2023 09:00 Bicarbonate Level 23 mmol/L ()?? 04/12/2023 09:00 Anion Gap 14 ()?? 04/12/2023 09:00 Glucose Level 100 mg/dL (High)?? 04/12/2023 04:09 Glucose, POC 89 mg/dL ()?? 04/12/2023 04:28 BUN 26 mg/dL (High)?? 04/12/2023 09:00 Creatinine-Blood 1.7 mg/dL (High)?? 04/12/2023 09:00 Estimated GFR Creatinine 48 ML/MIN/1.73 M2 ()?? 04/12/2023 09:00 Calcium 10.5 mg/dL ()?? 04/12/2023 04:09 Magnesium 2.1 mg/dL ()?? 04/12/2023 09:00 Protein, Total 8.9 Gm/dL (High)?? 04/12/2023 04:09 Albumin 5.7 Gm/dL (High)?? 04/12/2023 04:09 AG Ratio 1.8 ()?? 04/12/2023 04:09 Alkaline Phosphatase 88 units/L ()?? 04/12/2023 04:09 Lipase 19 units/L ()?? 04/12/2023 04:09 AST (SGOT) 46 units/L (High)?? 04/12/2023 04:09 ALT (SGPT) 23 units/L ()?? 04/12/2023 04:09 Bilirubin, Total 0.8 mg/dL ()?? 04/12/2023 04:09 ?? ENDOCRINE/TUMOR MARKER TSH 1.27 uIU/mL ()?? 04/12/2023 04:09 ?? HEME OTHER Hold Lavender Top SPECIMEN DISCARDED AFTER 24 HOURS. ()?? 04/12/2023 04:09 Hold Blue Top SPECIMEN DISCARDED AFTER 4 HOURS. ()?? 04/12/2023 04:09 ?? TOXICOLOGY/TDM Salicylate Level <0.3 mg/dL (Low)?? 04/12/2023 04:09 Acetaminophen Level <5 mg/L (Low)?? 04/12/2023 04:09 ?? VIROLOGY COVID-19 by RT-PCR NEGATIVE ()?? 04/12/2023 03:32 ? * Balwinder LIND, Chacorta M: PERFORM Event Display: History and Physical Hospital Authored Date: Patient: ??CATHRYN RIVER ? Age:??58 Years?Sex:??Male?:??1965?? Review of Systems Constitutional: No fever or chills. ENT: No sore throat or nasal congestion. Respiratory: No shortness of breath or cough??. Cardiovascular: No chest pain or??palpitation. Gastrointestinal: No nausea, vomiting or diarrhea. Skin: No rash or lesion Neurology: No speech problem no vision problem no focal weakness, no dizziness. Psychiatric:??Suicidal intent. Denies HI. Objective Vital Signs?? Temperature: 97.8 DegF (04/12/23 12:23:00) Temperature Route: Oral (04/12/23 12:23:00) Pulse Rate: 74 bpm (04/12/23 12:23:00) Respiratory Rate: 18 br/min (04/12/23 12:23:00) Systolic Blood Pressure: 108 mm Hg (04/12/23:23:00) Diastolic Blood Pressure: 63 mm Hg (04/12/23 12:23:00) Blood pressure sites: Arm, right (04/12/23 12:23:00) Mean Arterial Pressure: 78 mm Hg (04/12/23 12:23:00) Pulse Pressure: 45 mm Hg (04/12/23 12:23:00) Oxygen Saturation: 95 % (04/12/23 12:23:00) Mode of Delivery (Oxygen): Room air (04/12/23 12:23:00) Early Warning Score: 4 (04/12/23 12:24:06) ? Physical Exam Awake, alert, oriented, anxious Lungs: Clear to auscultation bilateral, no wheezing no rales Heart: Regular rate and rhythm, no murmur, no rub or gallop Abdomen: Soft, nontender, nondistended; Bowel sounds present Extremity: No edema cyanosis clubbing Neurological: No focal deficit Psychiatric: Expressed suicidal intent by taking more drugs Assessment/Plan ?? 58 y/o?? male with a history of COPD not on home oxygen, tobacco abuse, opioid use disorder, cocaine use disorder, bipolar disorder, PTSD, hyperlipidemia, GERD coming to the emergency department due to multiple vague??symptoms following alcohol and drug abuse. Patient reports left-sided chest pain, intermittent, brief in nature, tightness quality intermittently all day and expressed suicidal intent ? . No associated shortness of breath. Denies cough, fevers or chills. Symptoms seem to be triggered when he is feeling especially anxious. Reports right upper quadrant abdominal pain for about the past couple hours,? Alcohol abuse Polysubstance abuse (F19.10): Acknowledged using??cocaine ?? Plan: Will admit to medical floor Will continue suboxone CIWA protocol Addiction consult SW consult ?? Suicidal ideation Still c/o suicidal ideation ?? Will put on suicide precaution Psychiatry consult ? Bipolar disorder (F31.9): Expressed SI ?? Will continue quetiapine as needed for anxiety, and trazodone daily at bedtime. Psychiatry consult as above ?? GERD (gastroesophageal reflux disease) (K21.9): PPI ?? VTE Prophylaxis: Lovenox 40 mg subcutaneously daily. ?? Code Status: FULL. ? Histories Allergies Allergies ?(Active and Proposed [...] Prescription medications. Tobacco Details:??Use: 5-9 cigarettes (between 1/4 to 1/2 pack)/day in last 30 days. ??Tobacco user in household: Yes. ? Family History Father: Stroke; Throat cancer ? 14-JUL-2015 23:30:24<$> Mother (): Heart disease ? 12-DEC-2013 07:21:16<$> ? Medications Home Medications Albuterol (Albuterol (Eqv-ProAir HFA) 90 mcg/inh inhalation aerosol)?1?puff(s)?Inhalation?Every 6 hours?as needed? NEEDED FOR WHEEZING/SHORTNESS OF BREATH Albuterol/Ipratropium (albuterol-ipratropium 3 mg-0.5 mg/3 ml inhalation solution)?1?vials?Inhalation?4 times a day Buprenorphine-Naloxone (Suboxone 8 mg-2 mg sublingual film)?1?Film?Sublingual?3 times aday Durable Medical Equipment (1 each)?See Instructions?please supply one knee brace.diagnosis: left knee injury Durable Medical Equipment (Mouth piece for Nebulizer)?See Instructions?Use as instructed Fluticasone Nasal (Flonase 50 mcg/inh nasal spray)?1?spray(s)?Nares, Both?2 times a day Fluticasone-Salmeterol (fluticasone-salmeterol 250 mcg-50 mcg inhalation powder)?1?puff(s)?Inhalation?2 times a day Nicotine (nicotine 14 mg/24 hr transdermal film, extended release)?1?patch(es)?Topically?Daily Quetiapine (QUEtiapine 25 mg oral tablet)?50?Milligram?2?tablet?By Mouth?Daily?as needed?Anxiety Quetiapine (QUEtiapine 300 mg oral tablet)?2?tab(s)?600?Milligram?By Mouth?Daily at bedtime Trazodone (traZODone 100 mg oral tablet)?2 tablets?By Mouth?Daily at bedtime ? Results Recent Labs BLOOD COUNT & DIFF WBC 8.5 k/mm3 ()?? 04/12/2023 04:09 RBC 5.04 m/mm3 ()?? 04/12/2023 04:09 Hgb 15.5 Gm/dL ()?? 04/12/2023 04:09 Hct 46.5 % ()?? 04/12/2023 04:09 MCV 92.3 femtoliters ()?? 04/12/2023 04:09 MCH 30.8 pg ()?? 04/12/2023 04:09 MCHC 33.3 g/dL ()?? 04/12/2023 04:09 Platelet Count 248 k/mm3 ()?? 04/12/2023 04:09 RDW-SD 45.4 femtoliters ()?? 04/12/2023 04:09 MPV 9.7 femtoliters ()?? 04/12/2023 04:09 Nucleated RBC (Automated) 0.0 #/100 WBC'S ()?? 04/12/2023 04:09 Abs. NRBC 0.0 k/mm3 ()?? 04/12/2023 04:09 Abs. Neut 5.9 k/mm3 ()?? 04/12/2023 04:09 Abs. Lymph 1.9 k/mm3 ()?? 04/12/2023 04:09 Abs. [place] 0.6 k/mm3 ()?? 04/12/2023 04:09 Abs. Eo 0.0 k/mm3 ()?? 04/12/2023 04:09 Abs. Baso 0.1 k/mm3 ()?? 04/12/2023 04:09 Neut % 69.4 % ()?? 04/12/2023 04:09 Lymph % 22.8 % ()?? 04/12/2023 04:09 [place] % 6.8 % ()?? 04/12/2023 04:09 Eos % 0.1 % ()?? 04/12/2023 04:09 Baso % 0.7 % ()?? 04/12/2023 04:09 Imm Gran 0.2 % ()?? 04/12/2023 04:09 Abs. Imm Gran 0.0 k/mm3 ()?? 04/12/2023 04:09 ?? CARDIAC CK, Total 1073 units/L (High)?? 04/12/2023 04:09 Nt-Probnp 218 pg/mL (High)?? 04/12/2023 04:09 High Sensitivity Troponin (HSTnT) 9 ng/L ()?? 04/12/2023 05:33 ?? CHEM GENERAL Sodium 138 mmol/L ()?? 04/12/2023 09:00 Potassium 4.1 mmol/L ()?? 04/12/2023 09:00 Chloride 101 mmol/L ()?? 04/12/2023 09:00 Bicarbonate Level 23 mmol/L ()?? 04/12/2023 09:00 Anion Gap 14 ()?? 04/12/2023 09:00 Glucose Level 100 mg/dL (High)?? 04/12/2023 04:09 Glucose, POC 89 mg/dL ()?? 04/12/2023 04:28 BUN 26 mg/dL (High)?? 04/12/2023 09:00 Creatinine-Blood 1.7 mg/dL (High)?? 04/12/2023 09:00 Estimated GFR Creatinine 48 ML/MIN/1.73 M2 ()?? 04/12/2023 09:00 Calcium 10.5 mg/dL ()?? 04/12/2023 04:09 Magnesium 2.1 mg/dL ()?? 04/12/2023 09:00 Protein, Total 8.9 Gm/dL (High)?? 04/12/2023 04:09 Albumin 5.7 Gm/dL (High)?? 04/12/2023 04:09 AG Ratio 1.8 ()?? 04/12/2023 04:09 Alkaline Phosphatase 88 units/L ()?? 04/12/2023 04:09 Lipase 19 units/L ()?? 04/12/2023 04:09 AST (SGOT) 46 units/L (High)?? 04/12/2023 04:09 ALT (SGPT) 23 units/L ()?? 04/12/2023 04:09 Bilirubin, Total 0.8 mg/dL ()?? 04/12/2023 04:09 ?? ENDOCRINE/TUMOR MARKER TSH 1.27 uIU/mL ()?? 04/12/2023 04:09 ?? HEME OTHER Hold Lavender Top SPECIMEN DISCARDED AFTER 24 HOURS. ()?? 04/12/2023 04:09 Hold Blue Top SPECIMEN DISCARDED AFTER 4 HOURS. ()?? 04/12/2023 04:09 ?? TOXICOLOGY/TDM Salicylate Level <0.3 mg/dL (Low)?? 04/12/2023 04:09 Acetaminophen Level <5 mg/L (Low)?? 04/12/2023 04:09 ?? VIROLOGY COVID-19 by RT-PCR NEGATIVE ()?? 04/12/2023 03:32 ? Admission evaluation note * Carson Sigala DO: MODIFY, MODIFY, MODIFY, MODIFY, MODIFY, MODIFY, MODIFY, MODIFY, MODIFY, MODIFY, MODIFY, MODIFY, MODIFY, MODIFY, MODIFY, MODIFY, MODIFY, MODIFY, MODIFY, MODIFY, MODIFY, PERFORM, MODIFY, MODIFY Event Display: Admission Note Authored Date: [id number] Patient: ??CATHRYN RIVER ? Age:??58 Years?Sex:??Male?:??1965?? Chief Complaint SI History of Present Illness Cathryn River is a??58-year-old male with a past psychiatric history of bipolar disorder, PTSD,??heroin use disorder/alcohol use disorder/crack cocaine use??and a previous suicide attempt, and a medicalhistory of COPD, hyperlipidemia, and GERD??who presents for admission to [facility]??for suicidal ideation.?? Cathryn??was interviewed in his room??on the [facility].?? He was awake, alert, and agreeable to conversation.?? He was alert and oriented x 3.?? He explained he was at the hospital for similar reasons :??He indicated he had suicidal ideation with chest pain,??belly pain,??and body aches.?? He also??admitted to substance use??and consuming alcohol??prior to admission.?? He wanted to explain he has had multiple life stressors,??including??divorce 4 months ago,??losing his place of living,??and the health of his brother, who he states is dying from HIV .?? With all these things going on,??his mental health was all over the place ??and he has had trouble focusing.?? He reports having thoughts of drinking, doing drugs, jumping off a bridge, or walking into traffic .?? He brought himself to the ED??to get help. ? He arrived at the [facility] emergency room on 04/12/2023.?? He was evaluated for left-sided chest painand upper right quadrant abdominal pain.?? High sensitivity troponins and EKG did not indicate an ischemic process.?EKG indicative of right atrial enlargement, QTc 457 ms. CMP was obtained to monitor for hepatobiliary process.?? CMP indicated JERSON with BUN/Cr 26/1.7??and acidosis with elevated anion gap which could be related to alcoholic/starvation ketosis. CK was elevated at 1073.?? Pro-BNP was elevated at 218.?? Protein and albumin were elevated at 8.9 and 5.7.?? AST was elevated at 46.?? Lipase, alk phos,, ALT, magnesium, and bilirubin WNL.?? He also reported suicidal ideation with plan.?? He denied HI/AVH. ??He was admitted to medicine??on 04/12/2023. ??His JERSON??improved. ??His vital signs were stable up to his [facility] admission. Psychiatry consult was requested and he was evaluated on 04/12/2023. He was also evaluated by addiction medicine on the same date. ?? Per Psychiatry Consult Note (04/12/23): Mr. River has a complex medical and psychiatric history. ??He carries diagnoses of bipolar disorder, PTSD, opiate use disorder, cocaine use disorder, and alcohol use disorder. ??Medically, he has COPD, hyperlipidemia, and GERD. ??He presented to the [facility] Emergency Room today with multiple complaints of pain including left- sided chest pain that was intermittent. ??He also complained of pains in his stomach, his legs, and his head. ??He reports that he had been in a sober house setting for 1 month up until 2 days ago. ??During his time in the sober house, he states he snorted cocaine a couple of times, but then 2 days ago, left to use heroin intranasally and to drink alcohol. ??He reported that he drinks about 10 nips a day. ??He states that he started having suicidal ideation when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 GFR Creatinine 101 ML/MIN/1.73 M2 ()?? 04/14/2023 05:56 ?? URINE OTHER Est Creatinine Clearance 79.60 mL/min ()?? 04/14/2023 10:40 ? [id number] Ventricular Rate: 93 ??BPM Atrial Rate: 93 ??BPM P-R Interval: 146 ??ms QRS Duration: 86 ??ms Q-T Interval: 368 ??ms QTC Calculation(Bazett): 457 ??ms P Wrens: 79 ??degrees R Wrens: 2 ??degrees T Wrens: 47 ??degrees Normal sinus rhythm Right atrial enlargement Borderline ECG Assessment/Plan ?Mr. River is a 58-year-old man with multiple medical problems, who we are asked to assess for suicidal ideation.??Pt was made a psychiatric bed search due to ongoing depression and SI. ?? While Pt endorses some improvements in??physical symptoms, does continue to endorse low mood, anxiety, poor sleep and thoughts of not wanting to live. He endorses he feels safe in the hospital but worries what will happen if he leaves without supports or sober living in place. He is currently agreeable to a voluntary psychiatric admission. ?? Pt reports Seroquel 600mg most effective.??Will continue to titrate Seroquel. ? DIAGNOSES: ??Depressive disorder, unspecified; PTSD, opioid dependence, on Suboxone maintenance treatment; alcohol use disorder and cocaine use disorder,? Recommendations: -Does not need 1:1 for SI -Will continue Voluntary Psychiatric bed search -Increase Seroquel to 200mg, repeat prn 100mg qhs if needed ? Greater than??35 minutes spent on this consult including review of patient???s chart, examination of the patient, writing chart notes, and communicating with health healthcare facility administrator and/or the patient???s family. ? Consult note * Maranda LIND, Austyn Li: MODIFY Event Display: Consultation Note Authored Date: [id number] CONSULTATION DATE: 04/12/2023 REFERRING MD: Chacorta Britt M.D. CONSULTING MD: Austyn Low M.D., Ph.D. IDENTIFYING DATA: Mr. River is a 58-year-old man with multiple medical problems, who we are asked to assess for suicidal ideation. In preparation for this consultation, I reviewed the chart and interviewed the patient. HISTORY OF PRESENT ILLNESS: Mr. River has a complex medical and psychiatric history. He carries diagnoses of bipolar disorder, PTSD, opiate use disorder, cocaine use disorder, and alcohol use disorder. Medically, he has COPD, hyperlipidemia, and GERD. He presented to the [facility] Emergency Room today with multiple complaints of pain including left-sided chest pain that was intermittent. He also complained of pains in his stomach, his legs, and his head. He reports that he had been in a sober house setting for 1 month up until 2 days ago. During his time in the sober house, he states he snorted cocaine a couple of times, but then 2 days ago, left to use heroin intranasally andto drink alcohol. He reported that he drinks about 10 nips a day. He states that he started having suicidal ideation when he left the sober house setting, triggered by his sense of helplessness in being able to ever become abstinent. He states that he had thoughts of hanging himself or jumping froma bridge. When he developed his physical symptoms today, he brought himself to the emergency room and reported suicidal ideation to the emergency room physician. The patient states that he has felt depressed for a while. He says that he has been dealing with multiple stressors including homelessness, which occurred when his asked him to leave their home in [place]. He states that he has chronicdifficulty sleeping and that his thoughts keep circling in his head, especially around his inability to stay sober. He states that his appetite is okay and he admits to suicidal ideation. He states that he is looking for help and is afraid that he will harm himself if he leaves the hospital. He states that here in the hospital, he believes he can keep himself safe. PAST PSYCHIATRIC HISTORY: The patient states that he had 1 overdose with suicidal intent when he was in his teens, but has not tried to take his life since then. When he overdosed, he was admitted toa psychiatric unit. He states that, that this was his only inpatient psychiatric hospitalization. He reports a history of depression as noted above as well as childhood trauma and reports ongoing intrusive reexperiencing, hypervigilance, avoidance and numbing. He also gives a history of bipolar disorder, but has more difficulty explaining whether he has ever had manic or hypomanic symptoms. He states that he has been getting outpatient psychiatric treatment through [facility] their [facility]. He states that he has been treated with quetiapine 600 mg p.o. at bedtime and 25 mg p.o. t.i.d. p.r.n. anxiety. Checking the external med rec, the only prescription for quetiapine is 50 mg p.o. once a day p.r.n. anxiety. SUBSTANCE USE HISTORY: The patient states that he has a long history of substance use disorders, including alcohol, opiates and cocaine. He was evaluated earlier today by Graciela MIRANDA of our Addictions Consult Service. The patient has been receiving Suboxone 3 films a day. As noted per HPI, he had been admitted to a sober house setting in [place], but left there 2 days ago in order to use substances again. PAST MEDICAL HISTORY: COPD, chronic right knee pain, hyperlipidemia, DJD, GERD, left knee pain. PSYCHIATRIC DIAGNOSES: Include bipolar disorder, PTSD and polysubstance use disorder. MEDICATIONS: The patient is receiving Suboxone 8 mg/2 mg sublingual film t.i.d., folic acid 1 mg p.o. daily, heparin 5000 units subcutaneous t.i.d., multivitamin 1 tablet p.o. daily, pyridoxine 50 mgp.o. daily, thiamine 100 mg p.o. b.i.d., trazodone 100 mg p.o. at bedtime. The patient is also ordered lorazepam per CIWA-Ar scale on a p.r.n. basis, melatonin 3 mg p.o. daily at bedtime p.r.n. insomnia and quetiapine 50 mg p.o. daily p.r.n. anxiety. ALLERGIES: No known drug allergies. FAMILY PSYCHIATRIC HISTORY: Unknown. SOCIAL HISTORY: The patient is , but had been asked to leave by his because he was unable to remain sober. He reports a history of childhood trauma and reports ongoing intrusive reexperiencing, hypervigilance, avoidance and numbing. Currently, he is homeless. He had been staying at a sober house in [place]; however, it is unclear whether he can return there having relapsed. REVIEW OF SYSTEMS: Noncontributory to 10-point review of systems except as noted per HPI. PHYSICAL EXAMINATION: VITAL SIGNS: Temperature 98.3, heart rate 81 beats per minute, respirations 20 per minute, blood pressure 107/66, oxygen saturation 94% on room air. LABORATORY VALUES: CBC and electrolytes are within normal limits. BUN and creatinine are 26/1.7. Calcium, magnesium, alkaline phosphatase, lipase, ALT and bilirubin are all within normal limits. Protein and albumin were high at 8.9 and 5.7 and AST is mildly elevated at 46. CK is elevated at 1073 with an NT-proBNP of 218. TSH is normal at 1.27. Salicylate and acetaminophen were undetectable. COVID-19 was negative by PCR. EKG revealed normal sinus rhythm with right atrial enlargement and a QTc of457 milliseconds. MENTAL STATUS EXAM: Mr. River is a middle-aged man, who appears his stated age. He is lying in a gurney, making restless movements of his hands and legs. He is anxious, but cooperative with the interview. His mood is depressed. Affect was mood congruent, and constricted with some lability. Speechwas fluent without latency or pressure. Thought process was goal-directed. He reports ongoing suicidal ideation. He denies any homicidal ideation. He states when he is intoxicated, he will become paranoid, but is not feeling that way right now. Cognition is grossly intact. Insight is limited in terms of his ability to utilize resources to stay sober. Judgment is limited in terms of his leaving the sober house in order to become intoxicated. DIAGNOSES: Depressive disorder, unspecified; PTSD, opioid dependence, on Suboxone maintenance treatment; alcohol use disorder and cocaine use disorder, COPD, DJD, GERD. IMPRESSION: Mr. River is a middle-aged man with a long history of mood disorder, opioid dependence,alcohol use disorder, and cocaine use disorder. It is difficult to state whether he truly has bipolar disorder or not based on history alone, especially with his recurrent use of cocaine. Nevertheless, he does make criteria for PTSD and depressive disorder, unspecified. He has been seen by our addictions consult service, who recommended continuing the Suboxone. They discussed possibly starting the patient on Campral to decrease his alcohol cravings. The patient has been on this before and agreed with that treatment. Please see their consult for recommendations. He was also counseled on abstine nce from cocaine. The patient, at this point, continues to report suicidal ideation with thoughts that he would hang himself or jump from a bridge if he was out on the streets again. He feels relatively safe in the hospital; nevertheless, we recommend continuing the constant site acquisition specialist for him when he goes to the general medical [facility]. Currently, he continues to feel the effects of the substances he used this morning; therefore, he will need to be reassessed once he is fully sober. If he continues to endorse suicidal ideation, we can pursue inpatient psychiatric hospitalization. In terms of hismedications, the external med rec does not show quetiapine 600 mg at bedtime; therefore, I would simply start the quetiapine 50 mg p.o. t.i.d. p.r.n. anxiety for now. Please reach out to the patient's pharmacy to verify what outpatient medications he should be on. We agree with continuing the trazodone as well as quetiapine p.r.n. as noted above. RECOMMENDATIONS: 1. Please continue constant site acquisition specialist. The patient may not leave the hospital against medical advice due to imminent risk of self-harm. 2. Please increase the quetiapine to 50 mg p.o. t.i.d. p.r.n. anxiety. 3. Continue trazodone p.r.n. at bedtime as ordered. 4. We agree with the recommendations by the addictions consult team. 5. Once the patient is medically cleared, please reach out to the psychiatry consultation service by paging them at [facility] for followup and referral to crisis services for possible inpatient psychiatric hospitalization. Thank you for this consult. The consult service is happy to follow this patient with you while he is in hospital. Please call with any questions. Dictated by: Austyn Low M.D., Ph.D. Signing Clinician: Austyn Low M.D., Ph.D. Dictated: 04/12/2023 04:05:03 Transcribed: 12:30:11 PM Transcribed by: LUIS DocID: [id number] PRELIMINARY REPORT UNLESS MANUALLY/ELECTRONICALLY SIGNED cc: Chacorta Britt M.D. [address], [address] * Graciela Chen: PERFORM Event Display: Consultation Note Authored Date: Patient: ??CATHRYN RIVER ? Age:??58 Years?Sex:??Male?:??1965?? Reason for Consultation Addiction Med Consult - substance use Requested by??Dr Britt History of Present Illness Cathryn River is a 58 yo male with a PMHx of opioid/cocaine/ETOH use, bipolar d/o, PTSD, HLD. He was admitted 04/12 after presenting with left sided chest pain ongoing intermittently through the day, along with some RUQ abd pain. Also reporting SI. Did endorse use of cocaine, ETOH and heroin prior to arrival. Pt is typically on suboxone 8mg TID and was resumed on this here. His last script per [facility] was filled 04/03, for a 13 day supply. ?? Met with pt this morning. He confirms that he has been taking 3 films of suboxone daily. He gets his suboxone from [facility], where he also receives PCP services. Pt says he has his next appt with them written down, but cannot think of the date right now. He is not sure if he has any films left, he says likely not. Pt would like to keep his suboxone dose as is for now, was only recently increased. He has been using heroin a few days a week still, 4-5 bundles. He only uses this nasally, states hedoes no IVDU. Pt does not endorse any overdose history. If pt is going to use heroin, then he will use cocaine that day as well. He says he tends to use a lot, but unable to report any particular amounts. While he has not experienced seizures or psychosisfrom cocaine use, he does report he has experienced chest pain from it before. He does admit that his chest discomfort may have been precipitated by some of his substance use. Additionally, pt does also drink ETOH on a regular basis. Typically 10 nips of liquor per day, again a few times a week. He does not endorse any withdrawal seizure history. Pt has tried medication for ETOH cravings in the past, and would be open to getting on campral. Sounds like he may have been on this in the past. Pt is not sure he wants to pursue any particular substance use resources right now, ultimately declines. Review of Systems Reporting mild headache, chest discomfort, body aches, sweats/chills Physical Exam Vitals & Measurements T:??97.8?F?? TMIN:??97.7?F?? TMAX:??97.9?F?? HR:??74??(Peripheral)?? RR:??18?? BP:??108/63?? SpO2:??95%?? WT:??68.6??kg?? General:??well developed, well nourished,??appears to be stated age.??No obvious rashes,??no jaundice.??Breathing is??even and unlabored.??In no acute distress,??no diaphoresis. Mental Status Exam: Appearance:??casual?? Attitude:??cooperative? Eye contact:??normal Motor activity:??calm, no aberrant movements? Mood:??euthymic? Affect:??congruent? Speech:??fluent, unimpaired? Judgment:??appears intact? Insight:??appears intact? Thought process:??linear? Reliability:??uncertain? Delusions or hallucinations:??denies Fund of knowledge:??intact Assessment/Plan Alcohol use disorder, severe, dependence (F10.20):??. Patient was counseled on consequences of meterman excessive ETOH consumption such as damage to thecardiovascular system, memory loss/dementia, falls/injury, cirrhosis, higher risk??for HCC,??liver failure, . Pt somewhat receptive. ?? Pt reporting that he has been on medication for ETOH cravings before. Since pt is on suboxone and plans to continue with this for the foreseeable future, campral would be the best option for now. Pt is agreeable, has been on this before. *Once ETOH w/d is complete, can start pt on campral. Pts Cr level was slightly high on admission at2.5. It is downtrending but if pts CrCl at the time of initiation is between 30-50mL/min, it would be best to start him at 333mg PO TID instead. If Cr improves to baseline, fine to start campral 666mg PO TID. Please continue this medication on d/c. Pt will need to follow up with his PCP for refills beyond that supply. ?? Continue with CIWA scoring and PRN ativan. Would recommend to d/c CIWA score after 5 days of hospitalization (less sensitive after this point). ?? Severe cocaine use disorder (F14.20):??. Patient counseled on risks of cocaine use, including seizures, psychosis, vascular complications such as heart attack and stroke. Explained to pt that cocaine acts as a??vasoconstrictor, and even if he has tolerated it in the past, ongoing heavy use??can have catastrophic health consequences. Also discussed risk of contamination in the cocaine supply with other substances such as fentanyl or heroin, which can lead to overdose. Pt somewhat receptive to counseling overall.. At this time, there are no viable medication options specific to cocaine use disorder. Other options may include motivational interviewing, cognitive behavioral therapy, as well as contingency management plans. ?? Severe opioid use disorder (F11.20):??. Pts suboxone dose was recently increased to 24mg total daily, continue with current regimen. There is limited evidence to support doses??higher than this, pt should likely stay on this dose for a bit and follow up with his clinic prior to further changes. ?? Pts last suboxone script should have gotten him through 04/16 (04/03 for 13 d supply), however pt reporting he may not have any films left. Whether these were lost is unclear.. Pt should contact his clinic to determine when his next follow up appt is??if he cannot recall while here. If pt is to d/c after the 04/16 date, he will need a bridge script to cover him until his appt (weusually don't recommend providing more than a week or so). Anyone with a [facility] # can prescribe this. If d/c is prior to 04/16 and pt truly is out of films, then he should see if his clinic can get him in later that day or the following day, as trying to prescribe the same dose before his last script was set to run out will just get bounced back by insurance. ?? *Pt did not want to pursue any specific substance use resources at this time. If he changes his mind he will let his medical team know. The addiction coordinator is out until 04/18, so if pt is requiring referrals prior to this time, then social work will need to be consulted. ?? Recommendations communicated via cortext to Dr Britt. Addiction??Service will sign off at this time. Feel free to reach out next week with any questions. Thank you for allowing us to participate in the care of this patient. Please contact me with any questions or concerns. ? Problem List/Past Medical History Ongoing Allergic rhinitis Bipolar disorder Chronic obstructive pulmonary disease (COPD) Chronic pain of right knee Combined hyperlipidemia Degeneration of lumbar intervertebral disc Depression Erectile dysfunction GERD (gastroesophageal reflux disease) Hoarseness IFG (impaired fasting glucose) Left knee pain Opioid dependence Polysubstance abuse Pterygium of left eye PTSD - Post-traumatic stress disorder Procedure/Surgical History ???Arthroscopy, right knee (x3)???Lumbar spine fusion x2, (L4-L5, L3-L4) Medications Inpatient Acetaminophen Tablet, 650 mg, By Mouth, Every 4 hours, PRN albuterol CFC free 90 mcg/inh inhalation aerosol, 180 mcg= 2 puffs, Inhalation, Every 4 hours, PRN Ativan Tablet, 1 mg, By Mouth, Every 2 hours, PRN Ativan Tablet, 2 mg, By Mouth, Every 2 hours, PRN Docusate/Senna Tablet, 1 tablet, By Mouth, 2 times a day, PRN Folic Acid Tablet, 1 mg, By Mouth, Daily Heparin Inj, 5000 units= 1 mL, Subcutaneous Injection, 3 times a day LORazepam Tablet, 2 mg, By Mouth, Every hour, PRN LR 1,000 mL, 1000 mL, IV Infusion Maalox Plus Liquid, 30 mL, By Mouth, Every 4 hours, PRN Melatonin Tablet, 3 mg, By Mouth, Daily at bedtime, PRN MiraLax Powder, 17 Gm= 1 pack/packet, By Mouth, Daily, PRN Multivitamin Tablet, 1 tablet, By Mouth, Daily NaCL 0.9% Flush, 3 mL, IV Push, Every 8 hours NaCL 0.9% Flush, 3 mL, IV Push, Every 8 hours, PRN Ondansetron Inj, 4 mg, IV Push, Every 6 hours, PRN Pyridoxine Tablet, 50 mg, By Mouth, Daily QUEtiapine 25 mg oral tablet, 50 mg, By Mouth, Daily, PRN Robitussin DM Liquid, 10 mL, By Mouth, Every 4 hours, PRN Simethicone Tablet, 80 mg, Chew, 3 times a day, PRN Suboxone 8 mg-2 mg Sublingual Film, 1 film, Sublingual, 3 times a day Thiamine Tablet, 100 mg, By Mouth, 2 times a day traZODone 50 mg oral tablet, 100 mg, By Mouth, Daily at bedtime Home 1 each, See Instructions Albuterol (Eqv-ProAir HFA) 90 mcg/inh inhalation aerosol, 1 puffs, Inhalation, Every 6 hours, PRN, 5 refills albuterol-ipratropium 3 mg-0.5 mg/3 ml inhalation solution, 1 vials, Inhalation, 4 times a day Flonase 50 mcg/inh nasal spray, 1 sprays, Nares, Both, 2 times a day fluticasone-salmeterol 250 mcg-50 mcg inhalation powder, 1 puffs, Inhalation, 2 times a day Mouth piece for Nebulizer, See Instructions, 3 refills nicotine 14 mg/24 hr transdermal film, extended release, 1 patch, Topically, Daily QUEtiapine 25 mg oral tablet, 50 mg= 2 tablet, By Mouth, Daily, PRN QUEtiapine 300 mg oral tablet, 600 mg= 2 tablet, By Mouth, Daily at bedtime Suboxone 8 mg-2 mg sublingual film, 1 film, Sublingual, 3 times a day traZODone 100 mg oral tablet, 2 tablets, By Mouth, Daily at bedtime Allergies NKA Social History Alcohol Use: Past. Employment/School Status: Disabled. Exercise Regular exercise: No. Home/Environment Living situation: Home/Independent. Lives with: friend. Feels unsafe at home: No. Nutrition/Health Diet: Regular. Sexual Sexually involved in last 6 months: No. Sexual orientation: Heterosexual. Gender identity: Male. Preferred pronoun: She/her. Substance Abuse Use: Past. Type: Cocaine, Prescription medications. Tobacco Use: 5-9 cigarettes (between 1/4 to 1/2 pack)/day in last 30 days. Tobacco user in household: Yes. Family History Heart disease 12-DEC-2013 07:21:16<$>: Mother. Stroke: Father. Throat cancer 20-JUL-2016 23:30:24<$>: Father. Immunizations Vaccine Date Status SARS-CoV-2 (COVID-19) mRNA-1273 vaccine 03/03/2021 Recorded SARS-CoV-2 (COVID-19) mRNA-1273 vaccine 02/02/2021 Recorded influenza virus vaccine, inactivated 10/21/2020 Given Comments : [facility]# [id number] influenza virus vaccine, inactivated 06/25/2019 Recorded influenza virus vaccine, inactivated 07/21/2018 Recorded influenza virus vaccine, inactivated 08/22/2016 Recorded Comments : [facility] influenza virus vaccine, inactivated 07/25/2015 Given tetanus/diphtheria/pertussis, acel(Tdap) 06/08/2015 Given pneumococcal 23-valent vaccine 10/20/2011 Given influenza virus vaccine, inactivated 10/20/2011 Given Note * Lana LIND, Claudia H: PERFORM Event Display: Discharge/Transfer Note Hospital Authored Date: [id number] Patient: ??CATHRYN RIVER ? Age:??58 Years?Sex:??Male?:??1965?? Patient Information Discharge Location: Primary Care Physician: Mathieu Christina MD Admit Date/Time: 04/12/23 06:53 Discharge Disposition Discharge Disposition: APTU Discharge Diagnosis Acute kidney injury (N17.9) Alcohol use disorder, severe, dependence (F10.20) Severe cocaine use disorder (F14.20) Suicidal ideation (R45.851) Bipolar disorder Depression PTSD - Post-traumatic stress disorder ?? _ Discharge Medications Acamprosate (acamprosate 333 mg oral delayed release tablet)?168 each, 0 Refill(s), TAKE 2 TABLETS BY MOUTH 3 TIMES A DAY Albuterol (Albuterol (Eqv-ProAir HFA) 90 mcg/inh inhalation aerosol)?1?puff(s)?Inhalation?Every 6 hours?as needed? NEEDED FOR WHEEZING/SHORTNESS OF BREATH Albuterol/Ipratropium (albuterol-ipratropium 3 mg-0.5 mg/3 ml inhalation solution)?1?vials?Inhalation?4 times a day Buprenorphine-Naloxone (Suboxone 8 mg-2 mg sublingual film)?1?Film?Sublingual?3 times aday Fluticasone-Salmeterol (fluticasone-salmeterol 250 mcg-50 mcg inhalation powder)?1?puff(s)?Inhalation?2 times a day Folic Acid (folic acid 1 mg oral tablet)?1?Milligram?By Mouth?Daily HydrOXYzine (hydrOXYzine pamoate 25 mg oral capsule)?56 each, 0 Refill(s) Multivitamin (Multivitamin Tablet)?1?tab(s)?By Mouth?Daily Nicotine (nicotine 14 mg/24 hr transdermal film, extended release)?1?patch(es)?Topically?Daily Quetiapine (QUEtiapine 200 mg oral tablet)?200?Milligram?By Mouth?Daily at bedtime Thiamine (thiamine 100 mg oral tablet)?100?Milligram?By Mouth?Daily Trazodone (traZODone 50 mg oral tablet)?100?Milligram?By Mouth?Daily at bedtime ? Hospital Course ?58 y/o?? male with a history of COPD not on home oxygen, tobacco abuse, opioid use disorder, cocaine use disorder, bipolar disorder, PTSD, hyperlipidemia, GERD coming to the emergency department due to multiple vague??symptoms following alcohol and drug abuse. Patient reports left-sided chest pain, intermittent, brief in nature, tightness quality intermittently all day and expressed suicidal intent. ?? -Seen and examined at bedside, in good spirits -Tolerating Suboxone well -Alcohol withdrawal well managed, -Medically cleared for psychiatric admission ? Alcohol abuse Polysubstance abuse (F19.10): Acknowledged using??cocaine, last alcohol drink was pior to admission ??Addiction medicine consulted CIWA low now, withdrawal complete now on??campral 666mg PO TID suboxone dose was recently increased to 24mg total daily, continue with current regimen. ?? Suicidal ideation Bipolar disorder (F31.9):- Still c/o suicidal ideation Psychiatry consulted?? quetiapine Continue trazodone Is medically cleared for psych bed 04/14 ?? Acute kidney injury:resolved Resolved ?? GERD (gastroesophageal reflux disease) (K21.9): PPI ? Objective Measurements?? Height: 165 cm (04/16/23) Weight: 76.41 kg (04/13/23) Dry Weight: 76.41 kg (04/13/23) Body Mass Index:??28.07 kg/m2??High (04/13/23) ? Vital Signs?? Temperature: 97.4 DegF (04/16/23 07:45:00) Temperature Route: Oral (04/16/23 07:45:00) Pulse Rate:??53 bpm??Low (04/16/23 07:45:00) Respiratory Rate: 17 br/min (04/16/23 07:45:00) Systolic Blood Pressure: 101 mm Hg (04/16/23 07:45:00) Diastolic Blood Pressure: 67 mm Hg (04/16/23 07:45:00) Blood pressure sites: Arm, right (04/16/23 07:45:00) Mean Arterial Pressure: 78 mm Hg (04/16/23 07:45:00) Pulse Pressure: 34 mm Hg (04/16/23 07:45:00) Oxygen Saturation: 96 % (04/16/23 07:45:00) Mode of Delivery (Oxygen): Room air (04/16/23 07:45:00) Early Warning Score: 2 (04/16/23 07:46:01) ? . Physical Exam ?? General :??No apparent distress?Respiratory??: Bilateral air entry fair. No wheeze or crackles. ?Cardiac??: Regular rate and rhythm, S1S2+ ?Abdomen/GI??: soft, non-tender, non-distended, bowel sounds present. ?Extremities??: No edema.?Neurologic??: Alert & oriented x 3, No focal neuro deficits .?? Pending Results No Pending Results Follow-Up Appointments Added Follow Up ?Time Frame ?Comments Mathieu Christina MD Patient Instructions ? -Managed for alcohol withdrawal successfully -Suicidal ideation,??inpatient psych admission recommended by psychiatry and transferred to [facility] ?? Post Discharge Care Diet: Regular Diet Activity: Ambulate with assistance ??3 times a day ??unless otherwise specified Code Status: ?? Full Resuscitation Condition: ?? Fair Discharge ?04/16/23 9:27:00 EDT Discharge Prescriptions ?ePrescribed, ??04/16/23 9:27:00 EDT Home Health Face to Face ^HomeHealthFTF Results Discharge Labs BLOOD COUNT & DIFF WBC 5.9 k/mm3 ()?? 04/14/2023 05:56 RBC 4.11 m/mm3 (Low)?? 04/14/2023 05:56 Hgb 12.7 Gm/dL (Low)?? 04/14/2023 05:56 Hct 39.6 % (Low)?? 04/14/2023 05:56 MCV 96.4 femtoliters (High)?? 04/14/2023 05:56 MCH 30.9 pg ()?? 04/14/2023 05:56 MCHC 32.1 g/dL (Low)?? 04/14/2023 05:56 Platelet Count 167 k/mm3 ()?? 04/14/2023 05:56 RDW-SD 47.5 femtoliters (High)?? 04/14/2023 05:56 MPV 10.4 femtoliters ()?? 04/14/2023 05:56 Nucleated RBC (Automated) 0.0 #/100 WBC'S ()?? 04/14/2023 05:56 Abs. NRBC 0.0 k/mm3 ()?? 04/14/2023 05:56 Abs. Neut 2.7 k/mm3 ()?? 04/13/2023 06:10 Abs. Lymph 4.1 k/mm3 (High)?? 04/13/2023 06:10 Abs. [place] 0.6 k/mm3 ()?? 04/13/2023 06:10 Abs. Eo 0.2 k/mm3 ()?? 04/13/2023 06:10 Abs. Baso 0.1 k/mm3 ()?? 04/13/2023 06:10 Neut % 34.7 % (Low)?? 04/13/2023 06:10 Lymph % 53.6 % (High)?? 04/13/2023 06:10 [place] % 8.2 % ()?? 04/13/2023 06:10 Eos % 2.5 % ()?? 04/13/2023 06:10 Baso % 0.9 % ()?? 04/13/2023 06:10 Imm Gran 0.1 % ()?? 04/13/2023 06:10 Abs. Imm Gran 0.0 k/mm3 ()?? 04/13/2023 06:10 ?? CARDIAC CK, Total 213 units/L ()?? 04/14/2023 05:56 Nt-Probnp 218 pg/mL (High)?? 04/12/2023 04:09 High Sensitivity Troponin (HSTnT) 9 ng/L ()?? 04/12/2023 05:33 ? CHEM GENERAL Sodium 137 mmol/L ()?? 04/14/2023 05:56 Potassium 4.6 mmol/L ()?? 04/14/2023 05:56 Chloride 104 mmol/L ()?? 04/14/2023 05:56 Bicarbonate Level 22 mmol/L ()?? 04/14/2023 05:56 Anion Gap 11 ()?? 04/14/2023 05:56 Glucose Level 106 mg/dL (High)?? 04/13/2023 06:10 Glucose, POC 89 mg/dL ()?? 04/12/2023 04:28 BUN 14 mg/dL ()?? 04/14/2023 05:56 Creatinine-Blood 0.9 mg/dL ()?? 04/14/2023 05:56 Estimated GFR Creatinine 101 ML/MIN/1.73 M2 ()?? 04/14/2023 05:56 Calcium 10.5 mg/dL ()?? 04/12/2023 04:09 Magnesium 1.8 mg/dL ()?? 04/13/2023 06:10 Protein, Total 8.9 Gm/dL (High)?? 04/12/2023 04:09 Albumin 5.7 Gm/dL (High)?? 04/12/2023 04:09 AG Ratio 1.8 ()?? 04/12/2023 04:09 Alkaline Phosphatase 88 units/L ()?? 04/12/2023 04:09 Lipase 19 units/L ()?? 04/12/2023 04:09 AST (SGOT) 46 units/L (High)?? 04/12/2023 04:09 ALT (SGPT) 23 units/L ()?? 04/12/2023 04:09 Bilirubin, Total 0.8 mg/dL ()?? 04/12/2023 04:09 ?? ENDOCRINE/TUMOR MARKER TSH 1.27 uIU/mL ()?? 04/12/2023 04:09 ? HEME OTHER Hold Lavender Top SPECIMEN DISCARDED AFTER 24 HOURS. ()?? 04/12/2023 04:09 Hold Blue Top SPECIMEN DISCARDED AFTER 4 HOURS. ()?? 04/12/2023 04:09 ?? TOXICOLOGY/TDM Salicylate Level <0.3 mg/dL (Low)?? 04/12/2023 04:09 Acetaminophen Level <5 mg/L (Low)?? 04/12/2023 04:09 ?? UA/URINALYSIS Appear/Color, Urine LIGHT YELLOW ()?? 04/13/2023 09:37 Specific [place], Urine 1.015 ()?? 04/13/2023 09:37 pH, Urine 6.0 ()?? 04/13/2023 09:37 Albumin, Urine NEGATIVE ()?? 04/13/2023 09:37 Glucose, Urine NEGATIVE ()?? 04/13/2023 09:37 Ketones, Urine NEGATIVE ()?? 04/13/2023 09:37 Bilirubin, Urine NEGATIVE ()?? 04/13/2023 09:37 Hemoglobin, Urine NEGATIVE ()?? 04/13/2023 09:37 Nitrite, Urine NEGATIVE ()?? 04/13/2023 09:37 Leukocyte, Urine NEGATIVE ()?? 04/13/2023 09:37 Urobilinogen NORMAL mg/dL ()?? 04/13/2023 09:37 WBC's, Urine 1 /HPF ()?? 04/13/2023 09:37 RBC's, Urine 1 /HPF ()?? 04/13/2023 09:37 Mucus SLIGHT /LPF ()?? 04/13/2023 09:37 Hold Urine Culture Testing available 48 hours from time of collection. ()?? 04/13/2023 09:37 ? URINE OTHER Est Creatinine Clearance 79.60 mL/min ()?? 04/14/2023 10:40 ? VIROLOGY COVID-19 by RT-PCR NEGATIVE ()?? 04/12/2023 03:32 ? Microbiology ?? COVID-19 (Novel Coronavirus), Rapid PCR?? Completed?? Source: Nasal Body Site: Nose Collected Dt/Tm: 04/12/2023 04:27 Last Updated Dt/Tm: 04/12/2023 05:36 ? 41_ minutes spent on discharge * Daisy Gomez LPN: PERFORM Event Display: Patient Education/Instruction Authored Date: [id number] Inpatient Adult Discharge Instructions [address] [address] Name: CATHRYN RIVER : 1965 Visit: 04/12/2023 06:53:00 Current Date: 04/16/2023 11:30 Account: [id number] Inpatient Adult Discharge Instructions We would like [...] and their families. Surveys are administered by [employer] ?? If further treatment with your primary care physician or another doctor is recommended, it is important for you to keep the appointment. Call your primary care physician or return to the Emergency Department immediately if your condition worsens, fails to improve, or new symptoms develop. If you need to find a doctor, you can call [facility] for a referral at [phone] or toll free at [phone] or log in to [email or web address].. ?? You can view and manage your care through the patient portal or by using a health care soto of your choosing. [employer] is a website that allows you to securely view your medical information including your hospital discharge summary, office visit summaries, medications and follow-up visits. You can also request appointments, renew medications, and request access to your medical information using a health care soto of your choosing, or just ask a question. You can enroll at [email or web address] or register during your next office visit. You have been discharged from [facility], Patient Care Unit: W4. If you have any questions regarding these instructions after you leave, please call us and we will be happy to assist you. [facility] Your Care Team Attending Physician Lana LIND, Claudia Ricci Consulting Providers Caity Hooks MD; Maranda LIND, Austyn Li; Silva Hdez MD Discharging Providers Lana LIND, Claudia Ricci Reason for Admission JERSON ETOH DEYHDRATION SI Your Diagnosis Acute kidney injury Acute kidney injury Severe cocaine use disorder Alcohol use disorder, severe, dependence Suicidal ideation Tests Performed Below is a partial list of the tests performed during your hospitalization. You may have had other tests and procedures not included in this list. Please discuss all test results with your provider. ACETAMINOPHEN BUN CBC CBC w/ Differential Comprehensive Metabolic Panel COVID-19 (Novel Coronavirus), Rapid PCR CPK Total Only Creatinine Electrolytes Glucose Level GLUCOSE POC High??Sensitivity??Troponin T Hold Blue Top Tube HOLD LAVENDER TUBE Lipase Lytes Magnesium Level ProBNP SALICYLATE Troponin T, High Sensitivity TSH with T4 Reflex (Adults Only) UA W/HOLD FOR CULTURE FOR [facility] ER ONLY XR Chest Portable Primary Care Provider Mathieu Christina MD Advance Directive Health Care Proxy on File No Discharge Vitals Temperature: 97.4 DegF Height: 165 cm Pulse Rate:??53 bpm??Low Weight: 76.41 kg Respiratory Rate: 17 br/min Body Mass Index:??28.07 kg/m2??High Systolic Blood Pressure: 101 mm Hg Body surface area: 1.77 Diastolic Blood Pressure: 67 mm Hg ?? Oxygen Saturation: 96 % ?? Studies Pending All tests and labs ordered during this hospital stay have been completed unless listed below. Please discuss all pending results with your provider listed above in these instructions. ?? No incomplete studies found What to do next Instructions From Your Doctor ? -Managed for alcohol withdrawal successfully -Suicidal ideation,??inpatient psych admission recommended by psychiatry and transferred to [facility] ?? Discharge Orders Diet:??Regular Diet Activity:??Ambulate with assistance 3 times a day unless otherwise specified Code Status:?? Full Resuscitation Condition:?? Fair You Need to Schedule the Following Appointments Follow Up with??Mathieu Christina MD Where: ?? Discharge Medications CATHRYN RIVER :1965 Visit Date:04/12/2023 Medications: Please continue your medications until treatment is completed or stopped by your provider. Medications not listed below should be discontinued. Discuss any questions related to medications with your provider. What How Much When Instructions Next Dose New Acamprosate (acamprosate 333 mg oral delayed release tablet) 168 each, 0 Refill(s), TAKE 2 TABLETS BY MOUTH 3 TIMES A DAY ?? today at 3pm New Folic Acid (folic acid 1 mg oral tablet) 1 Milligram Oral Daily tomorrow morning 9am New HydrOXYzine (hydrOXYzine pamoate 25 mg oral capsule) 56 each, 0 Refill(s) ?? as directed New Multivitamin (Multivitamin Tablet) 1 tab(s) Oral Daily tomorrow at 9am New Thiamine (thiamine 100 mg oral tablet) 100 Milligram Oral Daily tomorrow at 9am Changed Buprenorphine-Naloxone (Suboxone 8 mg-2 mg sublingual film) 1 Film Sublingual 3 times a day Today at 3pm Changed Quetiapine (QUEtiapine 200 mg oral tablet) 200 Milligram Oral Daily at Bedtime tonight at bedtime Changed Trazodone (traZODone 50 mg oral tablet) 100 Milligram Oral Daily at Bedtime tonight at bedtime Unchanged Albuterol (Albuterol (Eqv-ProAir HFA) 90 mcg/ inh inhalation aerosol) 1 puff(s) Inhalation Every 6 hours as needed for NEEDED FOR WHEEZING/SHORTNESS OF BREATH as needed as directed for SOB or wheezing Unchanged Albuterol/ Ipratropium (albuterol-ipratropium 3 mg-0.5 mg/ 3 ml inhalation solution) 1 vials Inhalation 4 times a day 3pm today as directed Unchanged Fluticasone-Salmeterol (fluticasone-salmeterol 250 mcg-50 mcg inhalation powder) 1 puff(s) Inhalation Twice a day as directed Unchanged Nicotine (nicotine 14 mg/ 24 hr transdermal film, extended release) 1 patch(es) Topically Daily tomorrow at 9am ?? What How Much When Why Comments Stop Taking Durable Medical Equipment (1 each) See instructions please supply one knee brace. diagnosis: left knee injury ?? Stop Taking Durable Medical Equipment (Mouth piece for Nebulizer) See instructions Chronic obstructive pulmonary disease Use as instructed ?? Stop Taking Fluticasone Nasal (Flonase 50 mcg/ inh nasal spray) 1 spray(s) Nares, Both Twice a day Test Results Below is a partial list of the most recent Laboratory test results done prior to this discharge. You may have had other tests and procedures not included in this list. Please discuss all test resultswith your provider. Est Creatinine Clearance - 79.60 mL/min (04/14/2023) ACETAMINOPHEN (04/12/2023) ? ?Acetaminophen Level - <5 mg/L BUN (04/14/2023) ???BUN - 14 mg/dL CBC (04/14/2023) ???WBC - 5.9 k/mm3???RBC - 4.11 m/mm3???Hgb - 12.7 Gm/dL???Hct - 39.6 %???MCV - 96.4 femtoliters???MCH - 30.9 pg???MCHC - 32.1 g/dL???Platelet Count - 167 k/mm3???RDW-SD - 47.5 femtoliters???MPV - 10.4 femtoliters???Nucleated RBC (Automated) - 0.0 #/100 WBC'S???Abs. NRBC - 0.0 k/mm3 CBC w/ Differential (04/13/2023) ???WBC - 7.7 k/mm3???RBC - 4.12 m/mm3???Hgb - 12.8 Gm/dL???Hct - 38.5 %???MCV - 93.4 femtoliters???MCH - 31.1 pg???MCHC - 33.2 g/dL???Platelet Count - 175 k/mm3???RDW-SD - 45.5 femtoliters???MPV - 10.1 femtoliters???Nucleated RBC (Automated) - 0.0 #/100 WBC'S???Abs. NRBC - 0.0 k/mm3???Abs. Neut - 2.7 k/mm3???Abs. Lymph - 4.1 k/mm3???Abs. [place] - 0.6 k/mm3???Abs. Eo - 0.2 k/mm3???Abs. Baso - 0.1 k/mm3???Neut % - 34.7 %???Lymph % - 53.6 %???[place] % - 8.2 %???Eos % - 2.5 %???Baso % - 0.9 %???Imm Gran - 0.1 %???Abs. Imm Gran - 0.0 k/mm3 Comprehensive Metabolic Panel (04/12/2023) ???Sodium - 136 mmol/L???Potassium - 4.1 mmol/L???Chloride - 94 mmol/L???Bicarbonate Level - 20 mmol/L???Anion Gap - 22???Glucose Level - 100 mg/dL???BUN - 29 mg/dL???Creatinine-Blood - 2.5 mg/dL???Estimated GFR Creatinine - 30 ML/MIN/1.73 M2???Calcium - 10.5 mg/dL???Protein, Total - 8.9 Gm/dL???Alb umin - 5.7 Gm/dL???AG Ratio - 1.8???Alkaline Phosphatase - 88 units/L???AST (SGOT) - 46 units/L???ALT (SGPT) - 23 units/L???Bilirubin, Total - 0.8 mg/dL COVID-19 (Novel Coronavirus), Rapid PCR (04/12/2023) ???COVID-19 by RT-PCR - NEGATIVE CPK Total Only (04/14/2023) ???CK, Total - 213 units/L Creatinine (04/14/2023) ???Creatinine-Blood - 0.9 mg/dL???Estimated GFR Creatinine - 101 ML/MIN/1.73 M2 Electrolytes (04/14/2023) ???Sodium - 137 mmol/L???Potassium - 4.6 mmol/L???Chloride - 104 mmol/L???Bicarbonate Level - 22 mmol/L???Anion Gap - 11 Glucose Level (04/13/2023) ???Glucose Level - 106 mg/dL GLUCOSE POC (04/12/2023) ???Glucose, POC - 89 mg/dL High??Sensitivity??Troponin T (04/12/2023) ???High Sensitivity Troponin (HSTnT) - 13 ng/L Hold Blue Top Tube (04/12/2023) ???Hold Blue Top - SPECIMEN DISCARDED AFTER 4 HOURS. HOLD LAVENDER TUBE (04/12/2023) ???Hold Lavender Top - SPECIMEN DISCARDED AFTER 24 HOURS. Lipase (04/12/2023) ???Lipase - 19 units/L Lytes (04/12/2023) ???Sodium - 138 mmol/L???Potassium - 4.1 mmol/L???Chloride - 101 mmol/L???Bicarbonate Level - 23 mmol/L???Anion Gap - 14 Magnesium Level (04/13/2023) ???Magnesium - 1.8 mg/dL ProBNP (04/12/2023) ???Nt-Probnp - 218 pg/mL SALICYLATE (04/12/2023) ? ?Salicylate Level - <0.3 mg/dL Troponin T, High Sensitivity (04/12/2023) ???High Sensitivity Troponin (HSTnT) - 9 ng/L TSH with T4 Reflex (Adults Only) (04/12/2023) ???TSH - 1.27 uIU/mL UA W/HOLD FOR CULTURE FOR [facility] ER ONLY (04/13/2023) ???Appear/Color, Urine - LIGHT YELLOW???Specific [place], Urine - 1.015???pH, Urine - 6.0???Albumin, Urine - NEGATIVE???Glucose, Urine - NEGATIVE???Ketones, Urine - NEGATIVE???Bilirubin, Urine - NEGATIVE???Hemoglobin, Urine - NEGATIVE???Nitrite, Urine - NEGATIVE???Leukocyte, Urine - NEGATIVE???Urobi linogen - NORMAL???WBC's, Urine - 1 /HPF???RBC's, Urine - 1 /HPF???Mucus - SLIGHT???Hold Urine Culture - Testing available 48 hours from time of collection. Allergies (NKA means No Known Allergies) NKA [...] Belongings I fully understand and agree that [facility] accepts no responsibility for all my [...] to send valuables and belongings home. ?? Safe envelope number: [id number] Review of Valuable and Belonging List: With witness Disposition of Belongings: Valuables Locked Date for Pt to Sign Valuables/Belongings: 04/13/23 19:58:00 ?? Other Discharge Information ? Pulmonary Rehab Status?? Pulmonary Rehab Discharge Status?? Respiratory Rate: 17 br/min ? Common Emergency Awareness Tips IS [...] are strongly encouraged to quit. Please call [facility] Link at [phone] or [phone] ([phone]) or log in to [email or web address] for referrals to smoking cessation programs. ?? 551 Suicide & Crisis Lifeline is available 29/04 if you or someone you know needs to find a reason to keep living. By calling 334 you'll be connected to a skilled, trained counselor at a crisis center in your area. INPATIENT DISCHARGE INSTRUCTIONS SIGNATURE CATHRYN BAHENA Location:[facility] Registration Date and Time:04/12/2023 06:53 EDT Primary Care Physician: Mathieu Christina MD, Attending Physician: Lana LIND, [facility], I CATHRYN RIVER, have received the above patient education materials/instructions and have verbalizedunderstanding. If ambulance or transport services are being used I further acknowledge being given a choice of service. ?? If you need to contact me, please call me at this number: . Patient/Procurement Specialist Name: Patient/Procurement Specialist Signature: Relationship to Patient: Witness Name/Signature: Date: Patient Care team information Care Team Personnel Name: Valentina Sandoval RN Position: [facility] RN Member Role: Primary Care Nurse Name: Maverick Patel Position: [facility] Cardio/Pulm Mgr ([facility]) Member Role: Primary Care Nurse Name: Apryl Gray RN Position: [facility] RN Member Role: Primary Care Nurse Name: Mathieu Christina MD Position: [facility] Physician - Primary Care Member Role: PCP Address: Address: [address] [place] [address] Name: Adrian More RN Position: [facility] RN Member Role: Primary Care Nurse Name: Lashawn OLIVARES Attending Position: [facility] ED Medicine Name: Roxanne Marley Position: [facility] ED TA [facility] Member Role: Account Services Associate Care Team Related Persons Name: MONA MANUEL Address: [address] [address] Name: MONA MANUEL Address: [address] [address] Name: BOUCHRA VELOZ Address: home NONE GIVEN Name: MONA RIVER Address: [address] [address]
--- OUTSIDE RECORDS SUMMARY | 2023-05-24 01:01 | XMS_ITS | Continuity of Care Document ---
Author Name Unknown Organization [facility] Address [address] [place] [address]- Care Team Providers Care Clinical Trial Leader Name Role Phone Mathieu Christina MD Primary Care Physician [phone] Encounter [facility] Date(s): 08/17/22 - 09/16/22 [facility] [address] [place] [address]- Attending Physician: AdmAustin dykes Admitting Physician: Admtr, [...] Given 1Result Comment: [facility]# [id number] 2Location History[facility] 1 each 1 each, See Instructions, # 1 each, Refills 0, Tot. Refills 0, Maintenance, please supply one knee brace. diagnosis: left knee injury, 01/15/19 13:39:43 EDT, Compound Start Date: 01/15/19 Status: Ordered Albuterol (Eqv-ProAir HFA) 90 mcg/inh inhalation aerosol 1 puffs, Inhalation, Every 6 hours, PRN NEEDED FOR WHEEZING/SHORTNESS OF BREATH, # 8.5 each, 5 Refills, [id number], 30, TAKE 1 PUFF BY MOUTH EVERY 6 HOURS NEEDED FOR WHEEZING/SHORTNESS OF BREATH, 165, cm, 10/14/21 14:50:00 EST, Height, 78.6... Start Date: 05/13/22 Status: Ordered albuterol-ipratropium 3 mg-0.5 mg/3 ml inhalation solution 1 vials, Inhalation, 4 times a day, # 360 mL, 0 Refills, Maintenance, 02/03/21 7:44:00 EDT, [facility], 30, USE 1 VIAL WITH NEBULIZER FOUR TIMES A DAY, 166, cm, 12/21/20 16:08:00 EDT, Height Start Date: 02/03/21 Status: Ordered betamethasone topical dipropionate 0.05% cream See Instructions, APPLY TO THE AFFECTED AREA TWICE A DAY, # 15 Gm, 3 Refills, Maintenance, 04/18/2110:54:00 EDT, [facility] #[id number], 7, APPLY TO THE AFFECTED AREA TWICE A DAY, 166, cm, 04/18/21 10:20:00 EDT, Height Start Date: 04/18/21 Status: Ordered Citrucel 2 gm/19 gm oral powder for reconstitution = 2 Gm, By Mouth, 2 times a day, # 507 Gm, 1 Refills, Maintenance, 03/27/21 9:12:00 EDT, [facility] #[id number], Partial fill upon patient request if the [...] capsule, 0 Refills, Maintenance, 09/13/20 17:22:00 EST, [facility] STORE 48453, 166, cm, 07/26/20 9:41:00 EDT, Height, 87, [...] each, 5 Refills, Maintenance, 01/31/21 8:43:00 EDT, [place], [facility]/pharmacy #1111, 2 sprays Nares, [...] 01/28/19 10:46:50 EDT, Route to Pharmacy Electronically, [id number], [facility]/pharmacy #1111 Start Date: 01/28/19 [...] 3 Refills, Maintenance, 01/01/22 12:31:00 EDT, Tablet, [facility]/pharmacy #1111, 165, cm, 10/14/21 14:50:00 EST, Height, 78.6,kg, 10/14/21 14:50:00 EST, Dry Weight Start Date: 01/01/22 Status: Ordered simvastatin 10 mg oral tablet 1, tablet, By Mouth, Daily at bedtime, # 90 tablet, Refills 1, Maintenance, 07/12/22 17:09:00 EDT, Route to [facility]acy Electronically, [facility], 165, cm, 05/30/22 13:27:00 EDT, Height, 78.6, [...] # 9 tablet, 2 Refills, [facility], 165, cm, 10/14/21 14:50:00 EST, Height, 78.6, [...] Care Team Personnel Name: Maverick Patel Position: [facility] Cardio/Pulm Mgr ([facility]) Member Role: Primary Care Nurse Name: Mathieu Christina MD Position: [facility] Primary Care Physician Member Role: PCP Address: Address: [address] [place] [address] Care Team Related Persons Name: MONA MANUEL Address: home [address] [place] [id number] Name: MONA MANUEL Address: home [address] [place] [id number] Name: BOUCHRA VELOZ Address: home NONE GIVEN Name: MONA BROWN Address: [place] [address]
--- OUTSIDE RECORDS SUMMARY | 2023-05-24 01:01 | XMS_ITS | Continuity of Care Document ---
Author Name Unknown Organization [facility] Address [address] [place] [id number]- Care Team Providers Care Guest Service Agent Name Role Phone Mathieu Christina MD Primary Care Physician Encounter [facility] Date(s): [facility]05[facility]20 [facility] [address] [place] [id number]- Allergies, Adverse Reactions, Alerts Substance Reaction Severity [...] 15 Gm, 3 Refills, Maintenance, 208:01:00 EDT, [facility]/pharmacy #1111, 7, APPLY TO THE [...] 17:19:00 EDT, Route to Pharmacy Electronically, [facility]/pharmacy #1111,166, cm, 03/29/20 13:47:00 EDT, Height, 87, kg, ... Start Date: 03/29/20 Stop Date: 06/27/20 Status: Ordered famotidine 40 mg oral tablet 1 tablet, By Mouth, Daily at bedtime, # 30 tablet, 0 Refills, Maintenance, 08/02/20 9:11:00 EDT, [facility], 166, cm, 07/26/20 9:41:00 EDT, Height, 87, kg, 10/14/18 13:06:00 EST, Dry Weight Start Date: 08/02/20 Status: Ordered Flonase 50 mcg/inh nasal spray 2 sprays = 100 mcg, Nares, Both, 2 times a day, # 1 each, 5 Refills, Maintenance, 06/15/20 8:01:00 EDT, [place], [facility]/pharmacy #1111, 2 sprays Nares, Both 2 times a day, 166, cm, 06/15/20 7:38:00 EDT, Height, 87, kg, 10/14/18 13:06:00 EST, Dry Weight Start Date: 06/15/20 Status: Ordered ibuprofen 800 mg oral tablet 800 mg, 1, tablet, By Mouth, 2 times a day, with food or milk, # 60 tablet, Refills 1, Tot. Refills1, Maintenance, 01/28/19 10:46:50 EDT, Route to Pharmacy Electronically, [id number], [facility] Start Date: 01/28/19 Status: Ordered [...] 208:01:00 EDT, Aerosol, Route to Pharmacy Electronically, [id number], [facility], 166, cm, 06/15/20 7:38:00 EDT, [...] 3 Refills, Maintenance, 06/15/20 8:01:00 EDT, Tablet, [facility]/pharmacy #1111, 166, cm, 06/15/20 7:38:00 EDT, Height, 87, kg,10/14/18 13:06:00 EST, Dry Weight Start Date: 06/15/20 Status: Ordered simvastatin 10 mg oral tablet 10 mg, 1, tablet, By Mouth, Daily at bedtime, # 30 tablet, Refills 5, Tot. Refills 5, Maintenance, 07/26/20 10:04:00 EDT, Route to Pharmacy Electronically, [facility]/pharmacy #1111, 166, cm, 07/26/20 9:41:00 [...] 1 Refills, Maintenance, 08/01/20 11:42:00 EDT, Tablet, [facility]/pharmacy #1111, 166, cm, 07/26/20 9:41:00 [...]
--- OUTSIDE RECORDS SUMMARY | 2023-05-24 01:01 | XMS_ITS | Continuity of Care Document ---
Author Name Unknown Organization [facility] Address [address] [place] [id number]- Care Team Providers Care Casting Director Name Role Phone Mathieu Christina MD Primary Care Physician Encounter [facility] Date(s): 01/31/21 - 03/02/21 [facility] [address] [place] [id number]- Allergies, Adverse Reactions, Alerts Substance Reaction Severity Status NKA Active Immunizations Given and Recorded Vaccine Date Status Refusal Reason influenza virus vaccine, inactivated 1 10/21/20 Gi angélica influenza virus vaccine, inactivated 2 08/22/16 Re corded influenza virus vaccine, inactivated 07/25/15 Give n influenza virus vaccine, inactivated 10/20/11 Give n tetanus/diphtheria/pertussis, acel(Tdap) 06/08/15 Given pneumococcal 23-valent vaccine 10/20/11 Given 1Result Comment: [facility]# [id number] 2Location History[facility] 1 each 1 [...] mL, 0 Refills, Maintenance, 02/03/21 7:44:00 EDT, [facility], 30, USE 1 VIAL WITH NEBULIZER FOUR TIMES A DAY, 166, cm, 12/21/20 16:08:00 EDT, Height Start Date: 02/03/21 Status: Ordered betamethasone topical dipropionate 0.05% cream See Instructions, APPLY TO THE AFFECTED AREA TWICE A DAY, # 15 Gm, 3 Refills, Maintenance, 208:01:00 EDT, [facility]/pharmacy #1111, 7, APPLY TO THE AFFECTED AREA TWICE A DAY, 166, cm, 06/15/20 7:38:00 EDT, Height, 87, kg, 10/14/18 13:06:00 EST, Dry W... Start Date: 06/15/20 Status: Ordered docusate sodium 100 mg oral capsule 1 capsule, By Mouth, 2 times a day, PRN NEEDED FOR CONSTIPATION, # 100 capsule, 0 Refills, Maintenance, 09/13/20 17:22:00 EST, [facility] 13145, 166, cm, 07/26/20 9:41:00 EDT, Height, 87, kg, 10/14/18 13:06:00 EST, Dry Weight Start Date: 09/13/20 Status: Ordered famotidine 40 mg oral tablet 1 tablet, By Mouth, Daily at bedtime, # 30 tablet, 2 Refills, Maintenance, 09/05/20 9:40:00 EST, [facility]/pharmacy #1111, 166, cm, 07/26/20 9:41:00 EDT, Height, 87, kg, 10/14/18 13:06:00 EST, Dry Weight Start Date: 09/05/20 Status: Ordered Flonase 50 mcg/inh nasal spray 2 sprays = 100 mcg, Nares, Both, 2 times a day, # 1 each, 5 Refills, Maintenance, 01/31/21 8:43:00 EDT, [place], [facility]/pharmacy #1111, 2 sprays Nares, Both 2 times a day, 166, cm, 12/21/20 16:08:00 EDT, Height Start Date: 01/31/21 Status: Ordered ibuprofen 800 mg oral tablet 800 mg, 1, tablet, By Mouth, 2 times a day, with food or milk, # 60 tablet, Refills 1, Tot. Refills1, Maintenance, 01/28/19 10:46:50 EDT, Route to Pharmacy Electronically, [id number], [facility]/pharmacy #1111 Start Date: 01/28/19 Status: Ordered [...] Refills, Maintenance, 06/15/20 8:01:00 EDT, EC Tablet, [facility]/pharmacy #1111, 166, cm, 06/15/20 7:38:00 EDT, Height, 87, kg, 10/14/18 13:06:00 EST, Dry Weight Start Date: 06/15/20 Stop Date: 03/12/21 Status: Ordered ProAir HFA 90 mcg/inh inhalation aerosol with adapter 1, puffs, Inhalation, Every 6 hours, PRN, # 18 Gm, Refills 5, Tot. Refills 5, Maintenance, 208:01:00 EDT, Aerosol, Route to Pharmacy Electronically, [id number], [facility]/pharmacy #1111, 166, cm, 06/15/20 7:38:00 EDT, Height... [...] 3 Refills, Maintenance, 06/15/20 8:01:00 EDT, Tablet, [facility]/pharmacy #1111, 166, cm, 06/15/20 7:38:00 EDT, Height, 87, kg,10/14/18 13:06:00 EST, Dry Weight Start Date: 06/15/20 Status: Ordered simvastatin 10 mg oral tablet 10 mg, 1, tablet, By Mouth, Daily at bedtime, # 90 tablet, Refills 1, Tot. Refills 1, Maintenance, 01/23/21 16:37:00 EDT, Route to Pharmacy Electronically, [facility]/pharmacy #1111, 166, cm, 12/21/20 16:08:00 EDT, Height [...]
--- OUTSIDE RECORDS SUMMARY | 2023-05-24 01:02 | XMS_ITS | Continuity of Care Document ---
Author Name Unknown Organization [facility] [employer] [facility] Address [address] [place] [id number]- Care Team Providers Care Electric Truck Operator Name Role Phone Mathieu Christina MD Primary Care Physician Encounter [facility] Date(s): 04/17/21 - 04/24/[facility] [address] [place] [address]- Attending Physician: Mathieu Christina MD Allergies, Adverse [...] pneumococcal 23-valent vaccine 10/20/11 Given 1Result Comment: [facility]# [id number] 2Location History: [facility] Medications 1 each 1 each, See Instructions, # 1 each, Refills 0, Tot. Refills 0, Maintenance, please supply one knee brace. diagnosis: left knee injury, 01/15/19 13:39:43 EDT, Compound Start Date: 01/15/19 Status: Ordered albuterol-ipratropium 3 mg-0.5 mg/3 ml inhalation solution 1 vials, Inhalation, 4 times a day, # 360 mL, 0 Refills, Maintenance, 02/03/21 7:44:00 EDT, [facility], 30, USE 1 VIAL WITH NEBULIZER FOUR TIMES A DAY, 166, cm, 12/21/20 16:08:00 EDT, Height Start Date: 02/03/21 Status: Ordered betamethasone topical dipropionate 0.05% cream See Instructions, APPLY TO THE AFFECTED AREA TWICE A DAY, # 15 Gm, 3 Refills, Maintenance, 04/18/2110:54:00 EDT, [facility] #[id number], 7, APPLY TO THE AFFECTED AREA TWICE A DAY, 166, cm, 04/18/21 10:20:00 EDT, Height Start Date: 04/18/21 Status: Ordered docusate sodium 100 mg oral capsule 1 capsule, By Mouth, 2 times a day, PRN NEEDED FOR CONSTIPATION, # 100 capsule, 0 Refills, Maintenance, 09/13/20 17:22:00 EST, [facility], 166, cm, 07/26/20 9:41:00 EDT, Height, 87, [...] each, 5 Refills, Maintenance, 01/31/21 8:43:00 EDT, [place], [facility]/pharmacy #1111, 2 sprays Nares, Both 2 times a day, 166, cm, 12/21/20 16:08:00 EDT, Height Start Date: 01/31/21 Status: Ordered ibuprofen 800 mg oral tablet 800 mg, 1, tablet, By Mouth, 2 times a day, with food or milk, # 60 tablet, Refills 1, Tot. Refills1, Maintenance, 01/28/19 10:46:50 EDT, Route to Pharmacy Electronically, [id number], [facility]/pharmacy #1111 Start Date: 01/28/19 Status: Ordered Mouth [...] Refills, Maintenance, 03/12/21 8:01:00 EDT, EC Tablet, [facility]/pharmacy #1111, 166, cm, 12/21/20 16:08:00 EDT, Height Start Date: 03/12/21 Stop Date: 06/10/21 Status: Ordered ProAir HFA 90 mcg/inh inhalation aerosol with adapter 1, puffs, Inhalation, Every 6 hours, PRN, # 18 Gm, Refills 5, Tot. Refills 5, Maintenance, 04/18/2110:54:00 EDT, Aerosol, Route to Pharmacy Electronically, [id number], [id number], 166, cm, 04/18/21 10:20:00... Start Date: 04/18/21 [...] 01/23/21 16:37:00 EDT, Route to Pharmacy Electronically, [facility]/pharmacy #1111, 166, cm, 12/21/20 16:08:00 EDT, Height [...] oldest [Reference Range]: 1 Height 166 cm (04/17/21 7:08 AM) Social History Social History Type Response Smoking Status 5-9 cigarettes (betw een 1/4 to 1/2 pack)/day in last 30 days entered on: 04/18/21 Sex
--- OUTSIDE RECORDS SUMMARY | 2023-05-24 01:02 | XMS_ITS | Continuity of Care Document ---
Author Name Unknown Organization [facility] Address [address] [place] [address]- Care Team Providers Care Telemarketing Supervisor Name Role Phone Mathieu Christina MD Primary Care Physician Encounter [facility] Date(s): 05/11/21 - 06/15/21 [facility] [address] [place] [address]- Attending Physician: Mathieu Christina MD Allergies, Adverse [...] 10/20/11 Given 1Result Comment: [facility]# [id number] 2Location History: [facility] Medications 1 each 1 each, See Instructions, # 1 each, Refills 0, Tot. Refills 0, Maintenance, please supply one knee brace. diagnosis: left knee injury, 01/15/19 13:39:43 EDT, Compound Start Date: 01/15/19 Status: Ordered albuterol-ipratropium 3 mg-0.5 mg/3 ml inhalation solution 1 vials, Inhalation, 4 times a day, # 360 mL, 0 Refills, Maintenance, 02/03/21 7:44:00 EDT, [facility], 30, USE 1 VIAL WITH NEBULIZER FOUR TIMES A DAY, 166, cm, 12/21/20 16:08:00 EDT, Height Start Date: 02/03/21 Status: Ordered betamethasone topical dipropionate 0.05% cream See Instructions, APPLY TO THE AFFECTED AREA TWICE A DAY, # 15 Gm, 3 Refills, Maintenance, 04/18/2110:54:00 EDT, [facility] #[id number], 7, APPLY TO THE AFFECTED AREA TWICE A DAY, 166, cm, 04/18/21 10:20:00 EDT, Height Start Date: 04/18/21 Status: Ordered docusate sodium 100 mg oral capsule 1 capsule, By Mouth, 2 times a day, PRN NEEDED FOR CONSTIPATION, # 100 capsule, 0 Refills, Maintenance, 09/13/20 17:22:00 EST, [facility] STORE 21443, 166, cm, 07/26/20 9:41:00 EDT, Height, 87, kg, 10/14/18 13:06:00 EST, Dry Weight Start Date: 09/13/20 Status: Ordered famotidine 40 mg oral tablet 1 tablet, By Mouth, Daily at bedtime, # 30 tablet, 2 Refills, Maintenance, 09/05/20 9:40:00 EST, [facility]/pharmacy #1111, 166, cm, 07/26/20 9:41:00 EDT, Height, 87, kg, 10/14/18 13:06:00 EST, Dry Weight Start Date: 09/05/20 Status: Ordered Flonase 50 mcg/inh nasal spray 2 sprays = 100 mcg, Nares, Both, 2 times a day, # 1 each, 5 Refills, Maintenance, 01/31/21 8:43:00 EDT, [place], [facility]/pharmacy #1111, 2 sprays Nares, Both 2 times a day, 166, cm, 12/21/20 16:08:00 EDT, Height Start Date: 01/31/21 Status: Ordered ibuprofen 800 mg oral tablet 800 mg, 1, tablet, By Mouth, 2 times a day, with food or milk, # 60 tablet, Refills 1, Tot. Refills1, Maintenance, 01/28/19 10:46:50 EDT, Route to Pharmacy Electronically, [id number], [facility]/pharmacy #1111 Start Date: 01/28/19 Status: Ordered Mouth [...] # 90 capsule, 0 Refills, [facility], 166, cm, 04/18/21 10:20:00 EDT, Height Start Date: 05/30/21 Status: Ordered permethrin 5% topical cream See Instructions, 1 application Topically Once Apply from head to toe, leave on for 8-14 hr, rinse;may reapply in 7 days if live mites reappear, # 60 Gm, 0 Refills, Maintenance, 06/01/21 12:45:00 EDT, Cream, [facility]/pharmacy #1111, Partial fill upon pat... Start Date: 06/01/21 Status: Ordered ProAir HFA 90 mcg/inh inhalation aerosol with adapter 1, puffs, Inhalation, Every 6 hours, PRN, # 18 Gm, Refills 5, Tot. Refills 5, Maintenance, 04/18/2110:54:00 EDT, Aerosol, Route to Pharmacy Electronically, [id number], [id number], 166, cm, 04/18/21 10:20:00... Start Date: 04/18/21 [...] Maintenance, 06/15/20 8:01:00 EDT, Tablet, [facility]/pharmacy #1111, 166, cm, 06/15/20 7:38:00 EDT, Height, 87, kg,10/14/18 13:06:00 EST, Dry Weight Start Date: 06/15/20 Status: Ordered simvastatin 10 mg oral tablet 10 mg, 1, tablet, By Mouth, Daily at bedtime, # 90 tablet, Refills 1, Tot. Refills 1, Maintenance, 01/23/21 16:37:00 EDT, Route to Pharmacy Electronically, [facility]/pharmacy #1111, 166, cm, 12/21/20 16:08:00 EDT, Height [...]
--- OUTSIDE RECORDS SUMMARY | 2023-05-24 01:02 | XMS_ITS | Continuity of Care Document ---
Author Name Unknown Organization [facility] Address [address] [place] [address]- Care Team Providers Care Drive Man Name Role Phone Mathieu Christina MD Primary Care Physician [phone] Encounter [facility] Date(s): 10/03/21 - 10/10/21 [facility] [address] [place] [address]- Attending Physician: Donny Navarrete Referring Physician: Mathieu Christina MD Allergies, Adverse [...] Given 1Result Comment: [facility]# [id number] 2[facility] 1 each 1 each, See Instructions, # 1 each, Refills 0, Tot. Refills 0, Maintenance, please supply one knee brace. diagnosis: left knee injury, 01/15/19 13:39:43 EDT, Compound Start Date: 01/15/19 Status: Ordered albuterol-ipratropium 3 mg-0.5 mg/3 ml inhalation solution 1 vials, Inhalation, 4 times a day, # 360 mL, 0 Refills, Maintenance, 02/03/21 7:44:00 EDT, [facility], 30, USE 1 VIAL WITH NEBULIZER FOUR TIMES A DAY, 166, cm, 12/21/20 16:08:00 EDT, Height Start Date: 02/03/21 Status: Ordered betamethasone topical dipropionate 0.05% cream See Instructions, APPLY TO THE AFFECTED AREA TWICE A DAY, # 15 Gm, 3 Refills, Maintenance, 04/18/2110:54:00 EDT, [facility] #52299, 7, APPLY TO THE AFFECTED AREA TWICE A DAY, 166, cm, 04/18/21 10:20:00 EDT, Height Start Date: 04/18/21 Status: Ordered Colace Clear 50 mg oral capsule 1 capsule = 50 mg, By Mouth, Daily, Decrease use to every other day if diarrhea develops., # 30 capsule, 0 Refills, Maintenance, 07/20/21 13:29:00 EDT, [facility]/pharmacy #1111, Partial fill upon patient request if the prescription is for a schedule II opio... Start Date: 07/20/21 Stop Date: 08/19/21 Status: Ordered docusate sodium 100 mg oral capsule 1 capsule, By Mouth, 2 times a day, PRN NEEDED FOR CONSTIPATION, # 100 capsule, 0 Refills, Maintenance, 09/13/20 17:22:00 EST, [facility] ST[facility] [address]33, 166, cm, 07/26/20 9:41:00 EDT, Height, 87, [...] tablet, 2 Refills, Maintenance, 09/05/20 9:40:00 EST, [facility]/pharmacy #1111, 166, cm, 07/26/20 9:41:00 EDT, Height, 87, kg, 10/14/18 13:06:00 EST, Dry Weight Start Date: 09/05/20 Status: Ordered Flonase 50 mcg/inh nasal spray 2 sprays = 100 mcg, Nares, Both, 2 times a day, # 1 each, 5 Refills, Maintenance, 01/31/21 8:43:00 EDT, [place], [facility]/pharmacy #1111, 2 sprays Nares, Both 2 times a day, 166, cm, 12/21/20 16:08:00 EDT, Height Start Date: 01/31/21 Status: Ordered Hibiclens 4% soap See Instructions, Wash affected areas twice daily., # 240 mL, 1 Refills, Soft Stop, 07/20/21 13:30:00 EDT, [facility]/pharmacy #1111, Partial fill upon patient request if the prescription is for a schedule II opioid drug., Wash affected areas twice daily., 1... Start Date: 07/20/21 Status: Ordered ibuprofen 800 mg oral tablet 800 mg, 1, tablet, By Mouth, 2 times a day, with food or milk, # 60 tablet, Refills 1, Tot. Refills1, Maintenance, 01/28/19 10:46:50 EDT, Route to Pharmacy Electronically, [id number], [facility]/pharmacy #1111 Start Date: 01/28/19 Status: Ordered Mouth [...] 90 capsule, 0 Refills, 08/22/21 17:04:00 EST, [facility]/pharmacy #1111, 166, cm, 04/18/21 10:20:00 EDT, Height Start Date: 08/22/21 Status: Ordered permethrin 5% topical cream See Instructions, 1 application Topically Once Apply from head to toe, leave on for 8-14 hr, rinse;may reapply in 7 days if live mites reappear, # 60 Gm, 0 Refills, Maintenance, 06/01/21 12:45:00 EDT, Cream, [facility]/pharmacy #1111, Partial fill upon pat... Start Date: 06/01/21 Status: Ordered ProAir HFA 90 mcg/inh inhalation aerosol with adapter 1, puffs, Inhalation, Every 6 hours, PRN, # 18 Gm, Refills 5, Tot. Refills 5, Maintenance, 08/21/2111:56:00 EST, Aerosol, Route to Pharmacy Electronically, [id number], [facility]/pharmacy #1111, 166, cm, 04/18/21 10:20:00 EDT, Height Start Date: 08/21/21 Status: Ordered propranolol 80 mg oral tablet 1 tablet, By Mouth, 2 times a day, for 30 days, # 60 tablet, 0 Refills, Physician Stop, [facility] STORE 27033, 166, cm, 09/19/21 10:45:00 EST, Height Start [...] 3 Refills, Maintenance, 06/15/20 8:01:00 EDT, Tablet, [facility]/pharmacy #1111, 166, cm, 06/15/20 7:38:00 EDT, Height, 87, kg,10/14/18 13:06:00 EST, Dry Weight Start Date: 06/15/20 Status: Ordered simvastatin 10 mg oral tablet See Instructions, TAKE 1 TABLET BY MOUTH EVERYDAY AT BEDTIME, # 90 tablet, Refills 1, Instructions Replace Required Details, Route to Pharmacy Electronically, [facility] STORE 97325, 166, cm, 04/18/21 10:20:00 EDT, Height Start [...] 01/17/22 10:56:00 EDT, 11/18/21 10:56:00 EST, Tablet, [facility], Partial fill [...]
--- OUTSIDE RECORDS SUMMARY | 2023-05-24 01:02 | XMS_ITS | Continuity of Care Document ---
Author Name Unknown Organization [facility] Address [address] [place] [address]- Care Team Providers Care Wood Barker Name Role Phone Mathieu Christina MD Primary Care Physician [phone] Encounter [facility] Date(s): 05/15/22 - [facility] [address] [place] [address]- [place] Allergies, Adverse Reactions, Alerts No Known [...] pneumococcal 23-valent vaccine 10/20/11 Given 1Result Comment: [facility]# [id number] 2Location History: [facility] 1 each 1 each, See Instructions, # 1 each, Refills 0, Tot. Refills 0, Maintenance, please supply one knee brace. diagnosis: left knee injury, 01/15/19 13:39:43 EDT, Compound Start Date: 01/15/19 Status: Ordered Albuterol (Eqv-ProAir HFA) 90 mcg/inh inhalation aerosol 1 puffs, Inhalation, Every 6 hours, PRN NEEDED FOR WHEEZING/SHORTNESS OF BREATH, # 8.5 each, 5 Refills, [facility] 16596, 30, TAKE 1 PUFF BY MOUTH EVERY 6 HOURS NEEDED FOR WHEEZING/SHORTNESS OF BREATH, 165, cm, 10/14/21 14:50:00 EST, Height, 78.6... Start Date: 05/13/22 Status: Ordered albuterol-ipratropium 3 mg-0.5 mg/3 ml inhalation solution 1 vials, Inhalation, 4 times a day, # 360 mL, 0 Refills, Maintenance, 02/03/21 7:44:00 EDT, [facility] 23869, 30, USE 1 VIAL WITH NEBULIZER FOUR TIMES A DAY, 166, cm, 12/21/20 16:08:00 EDT, Height Start Date: 02/03/21 Status: Ordered betamethasone topical dipropionate 0.05% cream See Instructions, APPLY TO THE AFFECTED AREA TWICE A DAY, # 15 Gm, 3 Refills, Maintenance, 04/18/2110:54:00 EDT, [facility] #[id number], 7, APPLY TO THE AFFECTED AREA TWICE A DAY, 166, cm, 04/18/21 10:20:00 EDT, Height Start Date: 04/18/21 Status: Ordered Citrucel 2 gm/19 gm oral powder for reconstitution = 2 Gm, By Mouth, 2 times a day, # 507 Gm, 1 Refills, Maintenance, 03/27/21 9:12:00 EDT, [facility] #[id number], Partial fill upon patient request if the prescription is for a schedule II opioiddrug., 166, cm, 12/21/20 16:08:00 EDT, Height Start Date: 03/27/21 Status: Ordered Colace Clear 50 mg oral capsule 1 capsule = 50 mg, By Mouth, Daily, Decrease use to every other day if diarrhea develops., # 30 capsule, 0 Refills, Maintenance, 07/20/21 13:29:00 EDT, [facility]/pharmacy #1111, Partial fill upon patient request if the prescription is for a schedule II opio... Start Date: 07/20/21 Stop Date: 08/19/21 Status: Ordered docusate sodium 100 mg oral capsule 1 capsule, By Mouth, 2 times a day, PRN NEEDED FOR CONSTIPATION, # 100 capsule, 0 Refills, Maintenance, 09/13/20 17:22:00 EST, [facility] STORE 27726, 166, cm, 07/26/20 9:41:00 EDT, Height, 87, kg, 10/14/18 13:06:00 EST, Dry Weight Start Date: 09/13/20 Status: Ordered doxycycline monohydrate 100 mg oral tablet 1 tablet = 100 mg, By Mouth, 2 times a day, # 20 tablet, 0 Refills, Soft Stop, 07/20/21 13:29:00 EDT, [facility]/pharmacy #1111, Partial fill upon patient request if the prescription is for a schedule II opioid drug., 166, cm, 04/18/21 10:20:00 EDT, Height Start Date: 07/20/21 Stop Date: 07/30/21 Status: Ordered famotidine 40 mg oral tablet 1 tablet, By Mouth, Daily at bedtime, # 30 tablet, 2 Refills, Maintenance, 09/05/20 9:40:00 EST, [facility]/pharmacy #1111, 166, cm, 07/26/20 9:41:00 EDT, Height, 87, kg, 10/14/18 13:06:00 EST, Dry Weight Start Date: 09/05/20 Status: Ordered Flonase 50 mcg/inh nasal spray 2 sprays = 100 mcg, Nares, Both, 2 times a day, # 1 each, 5 Refills, Maintenance, 01/31/21 8:43:00 EDT, [place], [facility]/pharmacy #1111, 2 sprays Nares, Both 2 times a day, 166, cm, 12/21/20 16:08:00 EDT, Height Start Date: 01/31/21 Status: Ordered Hibiclens 4% soap See Instructions, Wash affected areas twice daily., # 240 mL, 1 Refills, Soft Stop, 07/20/21 13:30:00 EDT, [facility]/pharmacy #1111, Partial fill upon patient request if the prescription is for a schedule II opioid drug., Wash affected areas twice daily., 1... Start Date: 07/20/21 Status: Ordered ibuprofen 800 mg oral tablet 800 mg, 1, tablet, By Mouth, 2 times a day, with food or milk, # 60 tablet, Refills 1, Tot. Refills1, Maintenance, 01/28/19 10:46:50 EDT, Route to Pharmacy Electronically, [id number], [facility]/pharmacy #1111 Start Date: 01/28/19 Status: Ordered [...] Refills, Maintenance, 01/01/22 12:31:00 EDT, Tablet, [facility]/pharmacy #1111, 165, cm, 10/14/21 14:50:00 EST, Height, 78.6,kg, 10/14/21 14:50:00 EST, Dry Weight Start Date: 01/01/22 Status: Ordered simvastatin 10 mg oral tablet 1, tablet, By Mouth, Daily at bedtime, # 90 tablet, Refills 1, Route to Pharmacy Electronically, [facility], 165, cm, 10/14/21 14:50:00 EST, Height, 78.6, [...] # 9 tablet, 2 Refills, [facility], 165, cm, 10/14/21 14:50:00 EST, Height, 78.6, [...] Team Personnel Name: Mathieu Christina MD Address: [address] [place] [address] [facility], [place], [place] [address]
--- OUTSIDE RECORDS SUMMARY | 2023-05-24 01:02 | XMS_ITS | Continuity of Care Document ---
Author Name Unknown Organization [facility] [place] Address [address] [place] [address]- Care Team Providers Care Vascular Specialists Name Role Phone Mathieu Christina MD Primary Care Physician Encounter [facility] Date(s): 08/03/22 - 09/02/22 [facility] [place] [address] [place] [address]- Allergies, Adverse Reactions, Alerts No Known Allergies [...] [facility]# [id number] 2Location History: [facility] 1 each, See Instructions, # 1 each, Refills 0, Tot. Refills 0, Maintenance, please supply one knee brace. diagnosis: left knee injury, 01/15/19 13:39:43 EDT, Compound Start Date: 01/15/19 Status: Ordered Albuterol (Eqv-ProAir HFA) 90 mcg/inh inhalation aerosol 1 puffs, Inhalation, Every 6 hours, PRN NEEDED FOR WHEEZING/SHORTNESS OF BREATH, # 8.5 each, 5 Refills, [facility], 30, TAKE 1 PUFF BY MOUTH EVERY 6 HOURS NEEDED FOR WHEEZING/SHORTNESS OF BREATH, 165, cm, 10/14/21 14:50:00 EST, Height, 78.6... Start Date: 05/13/22 Status: Ordered albuterol-ipratropium 3 mg-0.5 mg/3 ml inhalation solution 1 vials, Inhalation, 4 times a day, # 360 mL, 0 Refills, Maintenance, 02/03/21 7:44:00 EDT, [facility], 30, USE 1 VIAL WITH NEBULIZER FOUR TIMES A DAY, 166, cm, 12/21/20 16:08:00 EDT, Height Start Date: 02/03/21 Status: Ordered betamethasone topical dipropionate 0.05% cream See Instructions, APPLY TO THE AFFECTED AREA TWICE A DAY, # 15 Gm, 3 Refills, Maintenance, 04/18/2110:54:00 EDT, [facility] #[id number], 7, APPLY TO THE AFFECTED AREA TWICE A DAY, 166, cm, 04/18/21 10:20:00 EDT, Height Start Date: 04/18/21 Status: Ordered Citrucel 2 gm/19 gm oral powder for reconstitution = 2 Gm, By Mouth, 2 times a day, # 507 Gm, 1 Refills, Maintenance, 03/27/21 9:12:00 EDT, [facility] #[id number], Partial fill upon patient request if the prescription is for a schedule II opioiddrug., 166, cm, 12/21/20 16:08:00 EDT, Height Start Date: 03/27/21 Status: Ordered Colace Clear 50 mg oral capsule 1 capsule = 50 mg, By Mouth, Daily, Decrease use to every other day if diarrhea develops., # 30 capsule, 0 Refills, Maintenance, 07/20/21 13:29:00 EDT, [facility]/pharmacy #1111, Partial fill upon patient request if the prescription is for a schedule II opio... Start Date: 07/20/21 Stop Date: 08/19/21 Status: Ordered docusate sodium 100 mg oral capsule 1 capsule, By Mouth, 2 times a day, PRN NEEDED FOR CONSTIPATION, # 100 capsule, 0 Refills, Maintenance, 09/13/20 17:22:00 EST, [facility] STORE 86204, 166, cm, 07/26/20 9:41:00 EDT, Height, 87, kg, 10/14/18 13:06:00 EST, Dry Weight Start Date: 09/13/20 Status: Ordered famotidine 40 mg oral tablet 1 tablet, By Mouth, Daily at bedtime, # 30 tablet, 2 Refills, Maintenance, 09/05/20 9:40:00 EST, [facility]/pharmacy #1111, 166, cm, 07/26/20 9:41:00 EDT, Height, 87, kg, 10/14/18 13:06:00 EST, Dry Weight Start Date: 09/05/20 Status: Ordered Flonase 50 mcg/inh nasal spray 2 sprays = 100 mcg, Nares, Both, 2 times a day, # 1 each, 5 Refills, Maintenance, 01/31/21 8:43:00 EDT, [place], [facility]/pharmacy #1111, 2 sprays Nares, Both 2 times a day, 166, cm, 12/21/20 16:08:00 EDT, Height Start Date: 01/31/21 Status: Ordered Hibiclens 4% soap See Instructions, Wash affected areas twice daily., # 240 mL, 1 Refills, Soft Stop, 07/20/21 13:30:00 EDT, [facility]/pharmacy #1111, Partial fill upon patient request if the prescription is for a schedule II opioid drug., Wash affected areas twice daily., 1... Start Date: 07/20/21 Status: Ordered ibuprofen 800 mg oral tablet 800 mg, 1, tablet, By Mouth, 2 times a day, with food or milk, # 60 tablet, Refills 1, Tot. Refills1, Maintenance, 01/28/19 10:46:50 EDT, Route to Pharmacy Electronically, [id number], [facility]/pharmacy #1111 Start Date: 01/28/19 Status: [...] EDT, Route to [facility] Electronically, [facility], 165, cm, 05/30/22 13:27:00 EDT, Height, 78.6, [...] # 9 tablet, 2 Refills, [facility], 165, cm, 10/14/21 14:50:00 EST, Height, 78.6, [...] Care Team Personnel Name: Maverick Patel Position: [facility] Cardio/Pulm Mgr ([facility]) Member Role: Primary Care Nurse Name: Mathieu Christina MD Position: [facility] Primary Care Physician Member Role: PCP Address: Address: [address] [place] [address] Care Team Related Persons Name: OMNA MANUEL Address: home [address] [place] [address] Name: MONA MANUEL Address: home [address] [place] [address] Name: BOUCHRA VELOZ Address: home NONE GIVEN Name: MONA BROWN Address: home [address] [place] [address]
--- OUTSIDE RECORDS SUMMARY | 2023-05-24 01:02 | XMS_ITS | Continuity of Care Document ---
Author Name Unknown Organization [facility] Address [address] [place] [address]- Care Team Providers Care Mobile Ui Developer Name Role Phone Mathieu Christina MD Primary Care Physician Encounter [facility] Date(s): 10/18/20 - 10/25/20 [facility] [address] [place] [address]- Encounter Diagnosis Groin lump(Discharge Diagnosis) - 10/18/20 Attending Physician: Mathieu Christina MD Allergies, Adverse [...] Given 1Result Comment: [facility]# [id number] 2Location History: [facility] 1 [facility] 1 [...] 15 Gm, 3 Refills, Maintenance, 208:01:00 EDT, [facility]/pharmacy #1111, 7, APPLY TO THE AFFECTED AREA TWICE A DAY, 166, cm, 06/15/20 7:38:00 EDT, Height, 87, kg, 10/14/18 13:06:00 EST, Dry W... Start Date: 06/15/20 Status: Ordered docusate sodium 100 mg oral capsule 1 capsule, By Mouth, 2 times a day, PRN NEEDED FOR CONSTIPATION, # 100 capsule, 0 Refills, Maintenance, 09/13/20 17:22:00 EST, [facility] STORE 48768, 166, cm, 07/26/20 9:41:00 EDT, Height, 87, [...] each, 5 Refills, Maintenance, 06/15/20 8:01:00 EDT, [place], [facility]/pharmacy #1111, 2 sprays Nares, [...] 01/28/19 10:46:50 EDT, Route to Pharmacy Electronically, [id number], [facility]/pharmacy #1111 Start Date: 01/28/19 Status: Ordered omeprazole [...] 0 Refills, Maintenance, 07/26/20 10:00:00 EDT, Tablet, [facility]/pharmacy #1111, 166... Start Date: 07/26/20 Status: Ordered ProAir HFA 90 mcg/inh inhalation aerosol with adapter 1, puffs, Inhalation, Every 6 hours, PRN, # 18 Gm, Refills 5, Tot. Refills 5, Maintenance, 208:01:00 EDT, Aerosol, Route to Pharmacy Electronically, [id number], [facility], 166, cm, 06/15/20 7:38:00 EDT, [...] 3 Refills, Maintenance, 06/15/20 8:01:00 EDT, Tablet, [facility]/pharmacy #1111, 166, cm, 06/15/20 7:38:00 EDT, Height, 87, kg,10/14/18 13:06:00 EST, Dry Weight Start Date: 06/15/20 Status: Ordered simvastatin 10 mg oral tablet 10 mg, 1, tablet, By Mouth, Daily at bedtime, # 30 tablet, Refills 5, Tot. Refills 5, Maintenance, 07/26/20 10:04:00 EDT, Route to Pharmacy Electronically, [facility]/pharmacy #1111, 166, cm, 07/26/20 [...] 1 Refills, Maintenance, 08/01/20 11:42:00 EDT, Tablet, [facility]/pharmacy #1111, 166, cm, 07/26/20 [...] Dates Health Status Clini lori Service Informant Groin lump Discharge Diagnosis 10/18/20 Vital Signs Most recent to oldest [Reference Range]: 1 Height 166 cm (10/18/20 8:29 AM) Social History Social History Type Response Smoking Status 5-9 cigarettes (betw een 1/4 to 1/2 pack)/day in last 30 days; Tobacco user in household: Yes entered on: 06/15/20 Sex
--- OUTSIDE RECORDS SUMMARY | 2023-05-24 01:02 | XMS_ITS | Continuity of Care Document ---
Author Name Unknown Organization [facility] Address [address] [place] [address]- Care Team Providers Care Aerospace Products Sales Engineer Name Role Phone Mathieu Christina MD Primary Care Physician Encounter [facility] Date(s): 10/21/20 - [facility] [address] [place] [address]- Attending Physician: AdmAustin dykes Admitting Physician: AdmtrAustin Referring Physician: Admtr, Ar8 [...] pneumococcal 23-valent vaccine 10/20/11 Given 1Result Comment: [facility]# [id number] 2Location History: [facility] 1 [...] 15 Gm, 3 Refills, Maintenance, :01:00 EDT, [facility]/pharmacy #1111, 7, APPLY TO THE AFFECTED AREA TWICE A DAY, 166, cm, 06/15/20 7:38:00 EDT, Height, 87, kg, 10/14/18 13:06:00 EST, Dry W... Start Date: 06/15/20 Status: Ordered docusate sodium 100 mg oral capsule 1 capsule, By Mouth, 2 times a day, PRN NEEDED FOR CONSTIPATION, # 100 capsule, 0 Refills, Maintenance, 09/13/20 17:22:00 EST, [facility] STORE 38234, 166, cm, 07/26/20 9:41:00 EDT, Height, 87, kg, 10/14/18 13:06:00 EST, Dry Weight Start Date: 09/13/20 Status: Ordered famotidine 40 mg oral tablet 1 tablet, By Mouth, Daily at bedtime, # 30 tablet, 2 Refills, Maintenance, 09/05/20 9:40:00 EST, [facility]/pharmacy #1111, 166, cm, 07/26/20 9:41:00 EDT, Height, 87, kg, 10/14/18 13:06:00 EST, Dry Weight Start Date: 09/05/20 Status: Ordered Flonase 50 mcg/inh nasal spray 2 sprays = 100 mcg, Nares, Both, 2 times a day, # 1 each, 5 Refills, Maintenance, 06/15/20 8:01:00 EDT, [place], [facility]/pharmacy #1111, 2 sprays Nares, Both 2 times a day, 166, cm, 06/15/20 7:38:00 EDT, Height, 87, kg, 10/14/18 13:06:00 EST, Dry Weight Start Date: 06/15/20 Status: Ordered ibuprofen 800 mg oral tablet 800 mg, 1, tablet, By Mouth, 2 times a day, with food or milk, # 60 tablet, Refills 1, Tot. Refills1, Maintenance, 01/28/19 10:46:50 EDT, Route to Pharmacy Electronically, [id number], [facility]/pharmacy #1111 Start Date: 01/28/19 Status: Ordered omeprazole 20 mg oral delayed release tablet 1 tablet = 20 mg, By Mouth, Daily, # 90 tablet, 2 Refills, Maintenance, 06/15/20 8:01:00 EDT, EC Tablet, [facility]/pharmacy #1111, 166, cm, 06/15/20 7:38:00 [...] 0 Refills, Maintenance, 07/26/20 10:00:00 EDT, Tablet, [facility]/pharmacy #1111, 166... Start Date: 07/26/20 Status: Ordered ProAir HFA 90 mcg/inh inhalation aerosol with adapter 1, puffs, Inhalation, Every 6 hours, PRN, # 18 Gm, Refills 5, Tot. Refills 5, Maintenance, 208:01:00 EDT, Aerosol, Route to Pharmacy Electronically, [id number], [facility]/pharmacy #1111, 166, cm, 06/15/20 7:38:00 [...] 3 Refills, Maintenance, 06/15/20 8:01:00 EDT, Tablet, [facility]/pharmacy #1111, 166, cm, 06/15/20 7:38:00 EDT, Height, 87, kg,10/14/18 13:06:00 EST, Dry Weight Start Date: 06/15/20 Status: Ordered simvastatin 10 mg oral tablet 10 mg, 1, tablet, By Mouth, Daily at bedtime, # 30 tablet, Refills 5, Tot. Refills 5, Maintenance, 07/26/20 10:04:00 EDT, Route to Pharmacy Electronically, [facility]/pharmacy #1111, 166, cm, 07/26/20 9:41:00 [...]
--- OUTSIDE RECORDS SUMMARY | 2023-05-24 01:02 | XMS_ITS | Patient Health Record ---
Author Name Unknown Organization [facility] Address [address] [place], [place] [id number] Care Team Providers Care Warp Tier Name Role Phone Thania Lane [phone] ENCOUNTERS from 1965 to 2023-05-24 Encounter Location Date Provider Diagnosis [facility] [address] [place] [id number] Oct, Thania Lane SOCIAL HISTORY Sex Assigned At : Social History Observation Description Sex Assigned At Unknown REASON FOR REFERRAL No Information REASON FOR VISIT No Information MENTAL STATUS No Information PLAN OF TREATMENT No Information Insurance Providers Payer Name Payer Address Payer Phone Insured Name Patient Relationship to Insured Coverage Start Date Coverage End Date Subscriber Number Group Number [place] Medicaid Standard [address] [facility] [id number] [place] an Self - patient is the insured [id number] [facility] Be Healthy [address] [place] [facility] [id number] [place] an Self - patient is the insured [id number]
--- OUTSIDE RECORDS SUMMARY | 2023-05-24 01:02 | XMS_ITS | Continuity of Care Document ---
Author Name Unknown Organization [email or web address] Address [address] [place] [address]- Care Team Providers Care Install And Repair Technician Name Role Phone Mathieu Christina MD Primary Care Physician [phone] [facility] Date(s): 11/07/22 - 03/07/23 [facility] [address] [place] [address]- Attending Physician: Mathieu Christina MD Allergies, Adverse [...] Comment: [facility]# [id number] 2Location History: [facility] 1 [...] 8.5 each, 5 Refills, 11/08/22 15:58:00 EST, [facility]/pharmacy #1111, 30, 1 puffs Inhalation Every 6 hours,PRN: NEEDED FOR WHEEZING/SHORTNESS OF BREATH, 165, cm, ... Start Date: 11/08/22 Status: Ordered albuterol-ipratropium 3 mg-0.5 mg/3 ml inhalation solution 1 vials, Inhalation, 4 times a day, # 360 mL, 0 Refills, Maintenance, 11/08/22 15:58:00 EST, [facility]/pharmacy #1111, 30, 1 vials Inhalation 4 times a day, 165, cm, 08/17/22 7:14:00 EST, Height, 82, kg, 08/06/22 12:30:00 EDT, Dry Weight Start Date: 11/08/22 Status: Ordered buprenorphine-naloxone 2 mg-0.5 mg sublingual film 1 film, Sublingual, Daily, dissolve under the tongue, # 14 film, 0 Refills, Maintenance, 01/16/23 11:03:00 EDT, [place], [facility], Partial fill upon patient request if the prescription is for a schedule II opioid drug., 1 film Sublingual... Start Date: 01/16/23 Stop Date: 01/30/23 Status: Ordered buprenorphine-naloxone 8 mg-2 mg sublingual film 2 film, Sublingual, Daily, # 28 film, 0 Refills, Maintenance, 01/16/23 11:04:00 EDT, [place] Partial fill upon patient request if the prescription is for a schedule II opioid drug., 2 film Sublingual Daily,x14 days, 164, cm, 04... Start Date: 01/16/23 Stop Date: 01/30/23 Status: Ordered docusate sodium 100 mg oral capsule 1 capsule, By Mouth, 2 times a day, PRN NEEDED FOR CONSTIPATION, # 100 capsule, 0 Refills, Maintenance, 09/13/20 17:22:00 EST, [facility] STORE 24650, 166, cm, 07/26/20 9:41:00 EDT, Height, 87, kg, 10/14/18 13:06:00 EST, Dry Weight Start Date: 12/8/20 Status: Ordered Mouth piece for Nebulizer Mouth [...] 3 Refills, Maintenance, 01/01/22 12:31:00 EDT, Tablet, [facility]/pharmacy #1111, 165, cm, 10/14/21 14:50:00 EST, Height, 78.6,kg, 10/14/21 14:50:00 EST, Dry Weight Start Date: 01/01/22 Status: Ordered simvastatin 10 mg oral tablet 1, tablet, By Mouth, Daily at bedtime, # 90 tablet, Refills 1, Maintenance, 07/12/22 17:09:00 EDT, Route to Pharmacy Electronically, [facility] STORE 93288, 165, cm, 05/30/22 13:27:00 EDT, Height, 78.6, [...] Care team information Care Team Personnel Name: Amanda Maverick Position: [facility] Cardio/Pulm Mgr ([facility]) Member Role: Primary Care Nurse Name: Apryl Gray RN Position: [facility] RN Member Role: Primary Care Nurse Name: Mathieu Christina MD Position: [facility] Physician - Primary Care Member Role: PCP Address: Address: [address] [place] [address] Care Team Related Persons Name: MONA MANUEL Address: home [address] [place] [address] Name: MONA MANUEL Address: home [address] [place] [address] Name: BOUCHRA VELOZ Address: home NONE GIVEN Name: MONA BROWN Address: home [address] [place] [address]
--- OUTSIDE RECORDS SUMMARY | 2023-05-24 01:02 | XMS_ITS | Continuity of Care Document ---
Author Name Unknown Organization [facility] Address [address] [place] [address]- Care Team Providers Care Airport Location Manager Name Role Phone Mathieu Christina MD Primary Care Physician Encounter [facility] Date(s): 11/09/22 - [facility]09[facility] [address] [place] [address]- Attending Physician: AdmtrAustin Admitting Physician: AdmtrAustin Referring Physician: Admtr, Ar8 [...] Comment: [facility]# [id number] 2Location History: [facility] 1 [...] 8.5 each, 5 Refills, 11/08/22 15:58:00 EST, [facility]/pharmacy #1111, 30, 1 puffs Inhalation Every 6 hours,PRN: NEEDED FOR WHEEZING/SHORTNESS OF BREATH, 165, cm, ... Start Date: 11/08/22 Status: Ordered albuterol-ipratropium 3 mg-0.5 mg/3 ml inhalation solution 1 vials, Inhalation, 4 times a day, # 360 mL, 0 Refills, Maintenance, 11/08/22 15:58:00 EST, [facility]/pharmacy #1111, 30, 1 vials Inhalation 4 times a day, 165, cm, 08/17/22 7:14:00 EST, Height, 82, kg, 08/06/22 12:30:00 EDT, Dry Weight Start Date: 11/08/22 Status: Ordered betamethasone topical dipropionate 0.05% cream See Instructions, APPLY TO THE AFFECTED AREA TWICE A DAY, # 15 Gm, 3 Refills, Maintenance, 04/18/2110:54:00 EDT, [facility] #[id number], 7, APPLY TO THE AFFECTED AREA TWICE A DAY, 166, cm, 04/18/21 10:20:00 EDT, Height Start Date: 04/18/21 Status: Ordered Citrucel 2 gm/19 gm oral powder for reconstitution = 2 Gm, By Mouth, 2 times a day, # 507 Gm, 1 Refills, Maintenance, 03/27/21 9:12:00 EDT, [facility] #[id number], Partial fill upon patient request if the prescription is for a schedule II opioiddrug., 166, cm, 12/21/20 16:08:00 EDT, Height Start Date: 03/27/21 Status: Ordered Colace Clear 50 mg oral capsule 1 capsule = 50 mg, By Mouth, Daily, Decrease use to every other day if diarrhea develops., # 30 capsule, 0 Refills, Maintenance, 07/20/21 13:29:00 EDT, [facility]/pharmacy #1111, Partial fill upon patient request if the prescription is for a schedule II opio... Start Date: 07/20/21 Stop Date: 08/19/21 Status: Ordered docusate sodium 100 mg oral capsule 1 capsule, By Mouth, 2 times a day, PRN NEEDED FOR CONSTIPATION, # 100 capsule, 0 Refills, Maintenance, 09/13/20 17:22:00 EST, [facility] STORE 13952, 166, cm, 07/26/20 9:41:00 EDT, Height, 87, kg, 10/14/18 13:06:00 EST, Dry Weight Start Date: 09/13/20 Status: Ordered famotidine 40 mg oral tablet 1 tablet, By Mouth, Daily at bedtime, # 30 tablet, 2 Refills, Maintenance, 09/05/20 9:40:00 EST, [facility]/pharmacy #1111, 166, cm, 07/26/20 9:41:00 EDT, Height, 87, kg, 10/14/18 13:06:00 EST, Dry Weight Start Date: 09/05/20 Status: Ordered Flonase 50 mcg/inh nasal spray 2 sprays = 100 mcg, Nares, Both, 2 times a day, # 1 each, 5 Refills, Maintenance, 01/31/21 8:43:00 EDT, [place], [facility]/pharmacy #1111, 2 sprays Nares, Both 2 times a day, 166, cm, 12/21/20 16:08:00 EDT, Height Start Date: 01/31/21 Status: Ordered Hibiclens 4% soap See Instructions, Wash affected areas twice daily., # 240 mL, 1 Refills, Soft Stop, 07/20/21 13:30:00 EDT, [facility]/pharmacy #1111, Partial fill upon patient request if the prescription is for a schedule II opioid drug., Wash affected areas twice daily., 1... Start Date: 07/20/21 Status: Ordered ibuprofen 800 mg oral tablet 800 mg, 1, tablet, By Mouth, 2 times a day, with food or milk, # 60 tablet, Refills 1, Tot. Refills1, Maintenance, 01/28/19 10:46:50 EDT, Route to Pharmacy Electronically, [id number], [facility]/pharmacy #1111 Start Date: 01/28/19 Status: [...] 3 Refills, Maintenance, 01/01/22 12:31:00 EDT, Tablet, [facility]/pharmacy #1111, 165, cm, 10/14/21 14:50:00 EST, Height, 78.6,kg, 10/14/21 14:50:00 EST, Dry Weight Start Date: 01/01/22 Status: Ordered simvastatin 10 mg oral tablet 1, tablet, By Mouth, Daily at bedtime, # 90 tablet, Refills 1, Maintenance, 07/12/22 17:09:00 EDT, Route to Pharmacy Electronically, [facility], 165, cm, 05/30/22 13:27:00 EDT, Height, 78.6, [...] # 9 tablet, 2 Refills, [facility], 165, cm, 10/14/21 14:50:00 EST, Height, 78.6, [...] Care Team Personnel Name: Maverick Patel Position: [facility] Cardio/Pulm Mgr [place] Member Role: Primary Care Nurse Name: Mathieu Christina MD Position: [facility] Primary Care Physician Member Role: PCP Address: Address: [address] [place] [address]- Care Team Related Persons Name: MONA MANUEL Address: home [address] [place] [address] Name: MONA MANUEL Address: home [address] [place] [address] Name: BOUCHRA VELOZ Address: home NONE GIVEN Name: MONA BROWN Address: home [address] [place] [address]
--- OUTSIDE RECORDS SUMMARY | 2023-05-24 01:02 | XMS_ITS | Continuity of Care Document ---
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 Name Role Phone Mathieu Christina MD Primary Care Physician Encounter [facility] Date(s): 05/09/23 - 05/10/[address] [address]- Encounter Diagnosis Suicidal ideation(Final) - 05/09/23 Cocaine abuse(Final) - 05/09/23 Discharge Disposition: Transfer to [facility] Facility Attending Physician: Bart Pringle DO Admitting Physician: Bart Pringle DO Referring Physician: Not on Staff, Referring MD [...] pneumococcal 23-valent vaccine 10/20/11 Given 1Result Comment: [facility]# [id number] 2[facility] acamprosate 333 mg oral delayed release tablet 2 tablet = 666 mg, By Mouth, 3 times a day, # 180 tablet, 0 Refills, Maintenance, 04/22/23 11:10:00EDT, Tablet, [facility], Partial fill upon patient request if the prescription is fora schedule II opioid drug., 165, cm, 04/22/23 10:08... Start Date: 04/22/23 Status: Ordered Albuterol (Eqv-ProAir HFA) 90 mcg/inh inhalation aerosol 1 puffs, Inhalation, Every 6 hours, PRN NEEDED FOR WHEEZING/SHORTNESS OF BREATH, # 6.7 Gm, 0 Refills, 04/22/23 11:10:00 EDT, [facility], 1 puffs Inhalation Every 6 hours,PRN: NEEDED FOR WHEEZING/SHORTNESS OF BREATH, 165, cm, ... Start Date: 04/22/23 Status: Ordered buprenorphine-naloxone 8 mg-2 mg sublingual film 3 film, Sublingual, Daily before dinner, Take 2 strips in the AM and 1 strip in the PM dissolve under the tongue, # 21 film, 0 Refills, Maintenance, 04/22/23 11:10:00 EDT, Film, [facility], Partial fill upon patient request if the pre... Start Date: 04/22/23 Stop Date: 04/29/23 Status: Ordered Flonase 50 mcg/inh nasal spray 1 sprays = 50 mcg, Nares, Both, 2 times a day, PRN Nasal Congestion, # 16 Gm, 0 Refills, Maintenance, 04/22/23 11:14:00 EDT, Nasal [place], [facility], Partial fill upon patient request if the prescription is for a schedule II opioid drug.... Start Date: 04/22/23 Status: Ordered fluticasone-vilanterol 200 mcg-25 mcg/inh inhalation powder 1 puffs, Inhalation, Daily, # 1 kit, 0 Refills, Maintenance, 04/22/23 11:13:00 EDT, Inhaler, [facility], Partial fill upon patient request if the prescription is for a schedule II opioid drug., 1 puffs Inhalation Daily, 165, cm, 04/22/23... Start Date: 04/22/23 Status: Ordered folic acid 1 mg oral tablet 1 mg, 1, tablet, By Mouth, Daily, # 30 tablet, Refills 0, Tot. Refills 0, Maintenance, 04/22/23 11:11:00 EDT, Route to Pharmacy Electronically, [facility], Partial fill upon patient request if the prescription is for a schedule II opioid... Start Date: 04/22/23 Status: Ordered gabapentin 100 mg oral capsule 100 mg, 1, capsule, By Mouth, 3 times a day, # 90 capsule, Refills 0, Tot. Refills 0, Maintenance, 04/22/23 11:13:00 EDT, Route to Pharmacy Electronically, [facility], Partial fill uponpatient request if the prescription is for a schedu... Start Date: 04/22/23 Status: Ordered gabapentin 100 mg oral capsule 100 mg, Capsule, By Mouth, 05/10/23 9:00:00 EDT Start Date: 05/10/23 Stop Date: 05/10/23 Status: Completed gabapentin 100 mg oral capsule 100 mg, Capsule, By Mouth, 05/10/23 15:00:00 EDT Start Date: 05/10/23 Stop Date: 05/10/23 Status: Completed hydrOXYzine hydrochloride 50 mg oral tablet 1 tablet = 50 mg, By Mouth, Daily, PRN as needed for anxiety, # 30 tablet, 0 Refills, Maintenance, 04/22/23 11:11:00 EDT, Tablet, [facility], Partial fill upon patient request if the prescription is for a schedule II opioid drug., 165, c... Start Date: 04/22/23 Status: Ordered melatonin 3 mg oral tablet 1 tablet = 3 mg, By Mouth, Daily at bedtime, PRN Insomnia, # 30 tablet, 0 Refills, Maintenance, 04/22/23 11:14:00 EDT, Tablet, [facility], Partial fill upon patient request if the prescription is for a schedule II opioid drug., 165, cm,... Start Date: 04/22/23 Status: Ordered Nicoderm C-Q Clear 21 mg/24 hr transdermal film, extended release 1 patch, Topically, Daily, Remove before bed, # 30 patch, 0 Refills, Maintenance, 04/22/23 11:12:00EDT, Patch, [facility], Partial fill upon patient request if the prescription is for a schedule II opioid drug., 165, cm, 04/22/23 10:08:... Start Date: 04/22/23 Status: Ordered Protonix 40 mg oral delayed release tablet 1 tablet = 40 mg, By Mouth, Daily, # 30 tablet, 0 Refills, Maintenance, 04/22/23 11:14:00 EDT, EC Tablet, 165, cm, 04/22/23 10:08:00 EDT, Height, 76.41, kg, 04/16/23 14:42:00 EDT, Dry Weight Start Date: 04/22/23 Status: Ordered pyridoxine 50 mg oral tablet 50 mg, 1, tablet, By Mouth, Daily, # 30 tablet, Refills 0, Tot. Refills 0, Maintenance, 04/22/23 11:14:00 EDT, Route to Pharmacy Electronically, [facility], Partial fill upon patient request if the prescription is for a schedule II opioi... Start Date: 04/22/23 Status: Ordered QUEtiapine 300 mg oral tablet 1 tablet = 300 mg, By Mouth, Daily at bedtime, # 30 tablet, 0 Refills, Maintenance, 04/22/23 11:12:00 EDT, Tablet, [facility], Partial fill upon patient request if the prescription is for a schedule II opioid drug., 165, cm, 04/22/23 10:... Start Date: 04/22/23 Status: Ordered Therapeutic Multiple Vitamins oral capsule 1 capsule, By Mouth, Daily, # 30 capsule, 0 Refills, Maintenance, 04/22/23 11:12:00 EDT, Capsule, [facility], Partial fill upon patient request if the prescription is for a schedule II opioid drug., 1 capsule By Mouth Daily, 165, cm, ... Start Date: 04/22/23 Status: Ordered thiamine 100 mg oral tablet 100 mg, 1, tablet, By Mouth, 2 times a day, # 60 tablet, Refills 0, Tot. Refills 0, Maintenance, 04/22/23 11:12:00 EDT, Route to Pharmacy Electronically, [facility], Partial fill upon patient request if the prescription is for a schedule... Start Date: 04/22/23 Status: Ordered traZODone 100 mg oral tablet 100 mg, 1, tablet, By Mouth, Daily at bedtime, # 30 tablet, Refills 0, Tot. Refills 0, Maintenance,04/22/23 11:13:00 EDT, Route to Pharmacy Electronically, [facility], Partial fill upon patient request if the prescription is for a sched... Start Date: 04/22/23 Status: Ordered Problem List Condition Confirmation Course [...] Exam Date Time Procedure Performing Provider Status 05/09/23 7:50 AM Chest 2 Views Frontal and Lat Denia Linares; Kelly (Verified) Notes: (Chest 2 Views Frontal and Lat) Reason For Exam: Shortness of Breath, Fever;Other: RESULT: Chest 2 Views Frontal and Lat Chest 2 Views Frontal and Lat Hx of Present Illness: pt presenting with SI, plan to jump over canal , etoh, unable to state how much alcohol pt drank today, also endoring cocaine use today; Reason: Other:; Shortness of Breath, Fever; Clinical Question(s): Pneumonia COMPARISON: 04/12/2023 FINDINGS: LINES AND TUBES: None. LUNGS AND PLEURA: Clear lungs. Normal pulmonary vascularity. No pleural effusion. No pneumothorax. HEART, MEDIASTINUM AND LESLY: Heart is normal in size. Normal mediastinal and hilar contour. BONES AND SOFT TISSUES: No acute abnormality. Mild endplate degenerative changes of the thoracic spine. IMPRESSION: No acute abnormality. WSN: [id number] Ordering Physician: Cristina Gupta Dictated By: Lili Awad MD Dictated Date/Time: 05/09/23 7:52 am Reviewed By: Lili Awad MD Signed By: Lili Awad MD Signed Date/Time: 05/09/23 7:52 am Transcribed By: DEEPTHI Transcribed Date/Time: 05/09/23 7:52 am Vital Signs Most recent to oldest [Reference Range]: 1 2 3 Oxygen Saturation [94-100 %] 96 % (05/10/23 3:55 PM) 93 % *L* (05/10/23 9:56 AM) 95 % (05/09/23 8:40 PM) Pulse Rate [55-90 bpm] 84 bpm (05/10/23 3:55 PM) 70 bpm (05/10/23 9:56 AM) 59 bpm (05/09/23 8:40 PM) Blood Pressure [90-138/55-84 mm Hg] 103/68mm Hg (05/10/23 3:55 PM) 116/67mm Hg (05/10/23 9:56 AM) 117/79mm Hg (05/09/23 8:40 PM) Respiratory Rate [16-30 br/min] 18 br/min (05/10/23 5:08 PM) 18 br/min (05/10/23 3:55 PM) 16 br/min (05/10/23 10:30 AM) Temperature [96.8-100.4 DegF] 97.8 DegF (05/10/23 3:55 PM) 97.8 DegF (05/10/23 9:56 AM) 98.1 DegF (05/09/23 8:40 PM) Mode of Delivery (Oxygen) Room air (05/10/23 3:55 PM) Room air (05/10/23 9:56 AM) Room air (05/09/23 8:40 PM) Blood pressure sites Arm, right (05/10/23 3:55 PM) Arm, right (05/10/23 9:56 AM) Arm, right (05/09/23 8:40 PM) Temperature Route Oral (05/10/23 3:55 PM) Oral (05/10/23 9:56 AM) Oral (05/09/23 8:40 PM) Social History Social History Type Response Smoking Status 5-9 cigarettes (betw een 1/4 to 1/2 pack)/day in last 30 days; Interested in cessation: Yes; Patient wants NRT during admission Yes; Tobacco user in household: Yes entered on: 04/16/23 Sex Patient Care team information Care Team Personnel Name: Valentina Sandoval RN Position: [facility] RN Member Role: Primary Care Nurse Name: Maverick Patel Position: [facility] Cardio/Pulm Mgr ([facility]) Member Role: Primary Care Nurse Name: Apryl Gray RN Position: [facility] RN Member Role: Primary Care Nurse Name: Mathieu Christina MD Position: [facility] Physician - Primary Care Member Role: PCP Address: Address: [address], [place] [address]- [place] Name: Jessika Escobar RN Position: [facility] RN Member Role: Primary Care Nurse Name: Adrian More RN Position: [facility] RN Member Role: Primary Care Nurse Name: Cassy Norwood RN Position: [facility] RN Member Role: Primary Care Nurse Name: Mckenzie Sorto RN Position: [facility] RN Member Role: Primary Care [facility] Attending Position: [facility] ED Attendings Patient Name: Charley Rodriguez RN Position: [facility] ED RN W/OE and Tasks Member Role: Patient Care Provider Name: Charity Salmeron MD Position: [facility] Resident Address: Address: [address] [place] [address] [place] [address]- [place] Name: Bart Pringle DO Position: [facility] Resident Member Role: Admitting Physician Address: Address: [address] [place] [address] Dept [place] [address]- [place] Care Team Related Persons Name: MONA MANUEL Address: home [address] [place] [address] Name: MONA MANUEL Address: home [address], [place] Name: BOUCHRA VELOZ Address: home NONE GIVEN Name: MONA BROWN Address: home [address], [place]
--- NOTE | 2023-05-24 01:08 | ED.GENADULT ---
HPI - General Adult General Chief complaint: General Medical Stated complaint: cp crisis? Time Seen by Provider: 05/24/23 00:59 Source: patient Mode of arrival: EMS Limitations: no limitations History of Present Illness HPI narrative: Patient comes to the emergency room complaining of suicidal ideation and chest pain. Patient states that 2 days ago, patient stopped taking his psychiatric medications because he wanted to drink alcohol which she has been doing so. Patient states that he has considered jumping from a bridge into a river. Patient also complaining of chest pain that started approximately 2 days ago, no shortness of breath. Patient requesting to be seen by [facility] as he would like to go to a dual diagnosis facility again. Patient states he was recently discharged from a dual diagnosis hospital about a week ago Related Data Allergies Allergy/AdvReac Type Severity Reaction Status Date / Time No Known Allergies Allergy Verified 05/24/23 00:59 Review of Systems Review of Systems: Constitutional : No Weight loss, No Fever, No Chills, No Night Sweats, No Fatigue, No Malaise ENT/Mouth : No Hearing loss, No Ear Pain, No Nasal Congestion, No Sinus Pain, No Hoarseness, No sore throat, No Rhinorrhea, No Swallowing Difficulty Eyes: No Eye Pain, No Swelling, No Redness, No Foreign Body, No Discharge, No Vision Changes Cardiovascular : No Chest Pain, No SOB, No Dyspnea on Exertion, No Orthopnea, No Edema, No Palpitations Respiratory : No Cough, No Sputum, No Wheezing, No Smoke Exposure, No Dyspnea Gastrointestinal : No Nausea, No Vomiting, No Diarrhea, No Constipation, No abdominal Pain, No Hematochezia, No Melena Genitourinary : no irregular bleeding, No Dysuria, No Urinary Frequency, No Hematuria, No Urinary Incontinence, No Urgency, No Flank Pain, No Urinary Flow Changes, No Hesitancy Musculoskeletal : No joint pain, No Myalgias, No Joint Swelling Skin : No Skin Lesions, No rash Neuro : No Weakness, No Numbness, No Paresthesias, No Loss of Consciousness, No Dizziness, No Headache Psych : No Anxiety/Panic, complaining of depression, suicidal ideation, admits to substance abuse and alcohol abuse Heme/Lymph: No Bruising, No Bleeding,No Lymphadenopathy Endocrine : No Polyuria, No Polydipsia, No Temperature Intolerance PMFSH Past Medical History Medical History Bipolar disorder Substance abuse Social History Social History Advance Directives: No Advance Directives Information Provided: Yes Physical Exam ED Vital Signs: Vital Signs - 24 hr 05/24/23 00:11 05/24/23 00:40 05/24/23 01:38 Temperature 97.8 F 98.2 F Pulse Rate 91 95 86 Respiratory Rate 15 18 20 Blood Pressure 122/76 111/73 113/66 Pulse Oximetry 94 100 94 Oxygen Delivery Method Nasal Cannula Nasal Cannula Nasal Cannula Oxygen Flow Rate 1 1 BMI result Body Mass Index 32.8 Const Other: Appearance: Alert. Oriented X3. No acute distress. Eyes: Pupils equal, round and reactive to light. ENT: Pharynx normal. Neck: Normal inspection. Neck supple. No lymph nodes noted. No crepitus CVS: Normal heart rate and rhythm. Pulses normal. Normal S1 and S2 Respiratory: No respiratory distress. Breath sounds normal. No Wheezing. No rales Abdomen: Soft and nontender. No rigidity. No distention. Skin: Skin warm and dry. Normal skin color. Normal skin turgor. Extremities: No lower extremity edema. No Lacerations. No Rash Neuro: Oriented X 3. No motor deficit. No sensory deficit. Moving all extremities. No slurred speech. CN 2 through 12 grossly intact Psych: calm, cooperative, normal affect Course Course Course Narrative: -all of patient's labs pending -patient is on a Section 12, states he would jump from a bridge into the [place] -care team consult pending -physician observation started at 11:15 Medical Decision Making Medical Decision Making [facility] Narrative: -my interpretation of labs, positive for EtOH, -my interpretation of EKG: Normal sinus rhythm, heart rate 90, no ST segment depression or elevation, no T-wave inversion, QTC 469 Troponin pending -senna given to Dr. Conti -get name consult pending, patient on a Section 12 Differential Diagnosis Differential Diagnoses: The differential diagnosis associated with the presentation includes (Chest pain, anxiety, polysubstance abuse) Admission/Observation Consideration of admission/observation: Escalation of care including admission/observation considered (Patient came in complaining of chest pain for 24+ hours, admission considered) Lab Data [facility] Lab Attestation statement: I reviewed the patient's lab results. (Hematology and chemistry do not show any acute abnormality) 05/24/23 00:35 05/24/23 00:35 Labs: Lab Results 05/24/23 05/24/23 05/24/23 Range/Units 00:33 00:35 00:35 WBC 8.7 (4.8-10.8) X10*3/uL RBC 4.68 (4.60-5.80) X10*6/uL Hgb 14.4 (14.0-18.0) g/dl Hct 42.5 (42.0-52.0) % MCV 90.8 (80.0-98.0) fL MCH 30.8 (27.0-33.0) pg MCHC 33.9 (31.0-36.0) g/dl RDW 14.6 (11.0-16.0) % Plt Count 261 (160-400) X10*3/uL MPV 8.3 L (9.4-12.4) fL Immature Gran % (Auto) 0.3 (0.0-0.4) % Neut % (Auto) 56.1 (45-73) % Lymph % (Auto) 32.1 (20-40) % [place] % (Auto) 10.3 (2-11) % Eos % (Auto) 0.6 (0-4) % Baso % (Auto) 0.6 (0-2) % Lymph # (Auto) 2.8 (1.2-4.9) X10*3/uL [place] # (Auto) 0.9 (0.1-1.2) X10*3/uL Eos # (Auto) 0.1 (0.0-0.4) X10*3/uL Baso # (Auto) 0.1 (0.0-0.2) X10*3/uL Abs Immat Gran (auto) 0.03 (0.00-0.03) X10*3/uL Absolute Neuts (auto) 4.9 (2.0-8.3) x10*3/uL Absolute Nucleated RBC 0.000 (0.0-0.012) X10*3/uL Nucleated RBC % (auto) 0.0 (0.0-0.2) /100WBC Sodium 140 (135-145) mmol/L Potassium 3.8 (3.3-5.1) mmol/L Chloride 105 (96-108) mmol/L Carbon Dioxide 21 L (22-29) mmol/L Anion Gap 18 (12-20) BUN 22 H (9-16) mg/dL Creatinine 0.87 (0.5-1.4) mg/dL Estim Creat Clear Calc 97.4 Estimated GFR > 60 Random Glucose 109 (60-115) mg/dL Calcium 10.0 (8.4-10.2) mg/dL Total Bilirubin 0.3 (0.0-1.0) mg/dL AST 66 H (5-37) U/L ALT 42 H (0-40) U/L Alkaline Phosphatase 71 (39-117) U/L Total Protein 8.0 (6.5-8.0) g/dL Albumin 4.5 (3.5-5.0) g/dL Ethyl Alcohol 83 mg/dL COVID-19 (IVÁN) Negative (Negative) COVID-19 Clin Com See Note Critical Care Time Critical Care Time Critical Care Time: Yes Total Critical Care Time: 45 Attestation: I have personally provided critical care time. Time includes review of lab data, radiology results, discussion with consultants, and monitoring for potential decompensation. Intervention performed as documented. Discharge Plan Discharge Clinical Impression: Substance abuse, Atypical chest pain Patient Disposition: Still a Patient
[2023-05-24 01:15] LABS: COVID-19 Test Negative (Negative); IDNOW Serial# 08D9AD1C
[2023-05-24 01:38] VITALS: BP 113/66; PULSE 86; RESP 20; TEMP 36.8; O2SAT 94
[2023-05-24 01:59] LABS: Troponin-I High Sensitivity 11.2 ng/L (<3.5-35.0)
[2023-05-24 02:22] VITALS: BP 106/67; PULSE 89; RESP 15; O2SAT 92
--- NOTE | 2023-05-24 02:23 | PC.NURSE ---
pt medically cleared, this RN did medication rec. pt brought back to pod
[2023-05-24 02:54] LABS: Amphetamine Screen Urine Not Detected (Not Detect); Barbiturates, Urine Not Detected (Not Detect); Benzodiazepines Screen Urine POSITIVE (Not Detect); Cannabinoid Screen Urine Not Detected (Not Detect); Cocaine Screen Urine POSITIVE (Not Detect); Fentanyl, urine Not Detected (Not Detect); Opiate Screen Urine Not Detected (Not Detect); Phencyclidine Screen Urine Not Detected (Not Detect)
[2023-05-24 02:56] LABS: Appearance Urine Clear; Color Urine Yellow; Glucose Urine UA Negative (Negative); Leukocyte Esterase Urine Small (1+) (Negative); Nitrite Urine Negative (Negative); PH 5.5 (5.0-9.0); Specific Gravity - Urine 1.025 (1.005-1.025); UMIC TRIGGER UA YES; Urine Blood Negative (Negative); Urine Ketones Trace mg/dL (Negative); Urine Protein Trace mg/dL (Neg-Trace)
[2023-05-24 03:55] LABS: Bacteria Urine None Seen (None Seen); RBC Urine 0-2 /HPF (0-2); Squamous Epithelial Cell Urine 0-2 /HPF (0-2); WBC Urine >50 /HPF (0-5)
--- NOTE | 2023-05-24 05:35 | PC.NURSE ---
Patient slept through the night, no distress observed/reported, med rec completed/pending provider's approval, behavior non concerning, patient was assessed by Care Team, disposition recovery team referral, labs completed/resulted, will continue to monitor.
[2023-05-24] MEDS: LORazepam 1 MG TABLET 2 MG PO (10:09)
[2023-05-24] MEDS: Buprenorphine/Naloxone 4/1 mg FILM 1 FILM SUBLINGUAL (11:02)
[2023-05-24] MEDS: Gabapentin 100 MG CAPSULE PO ×3 (11:08→21:00)
--- NOTE | 2023-05-24 11:38 | MHC.RECOVSUP ---
Addendum entered by Charles Alvarado 05/25/23 12:25: Trey informs he has still been denied at this time for the Troponin and there are no beds available at this time. ATS bed search exhausted pt to follow up form the community. Addendum entered by Charles Alvarado 05/24/23 18:39: Trey wanted pts Troponin to go down from 11.5 but was informed that it was a normal score according to pts provider. Trey was requested to follow up with [facility] once they review. Original Note: Met with pt in [facility] who is here for chest pain and COLLEEN. Pt informs he is smoking about $200 of crack, drinking a 30 pack of beer, and $50 a day of opiate nasally. Pt is on 24mg of Suboxone from [facility] and has no history of OD. Pt is currently experiencing withdrawals and is interested in ATS. Bed search in process. Pt had no other questions or concerns at this time.
--- NOTE | 2023-05-24 16:20 | PC.NURSE ---
Pt currently denies any pain or discomfort, fluids requested and given.
[2023-05-24] MEDS: Buprenorphine/Naloxone 8/2 mg FILM 1 FILM SUBLINGUAL (21:00)
[2023-05-24] MEDS: traZODone HCL 100 MG TABLET PO (21:00)
[2023-05-24 21:12] VITALS: BP 115/73; PULSE 82; RESP 20; TEMP 36.3; O2SAT 94
[2023-05-24] MEDS: QUEtiapine Fumarate 300 MG TABLET PO (21:32)
--- NOTE | 2023-05-25 06:26 | PC.NURSE ---
Pt condition remained unchanged overnight. Pt has been resting, pleasant, A&Ox4, GCS 15 throughout the night. Pt has been eating and drinking without complication, pt has also been ambulatory with no problems. Pt denies SI/HI. Plan is for pt to be sent to detox and hopefully sober living. Recovery/CARE team to reevaluate this morning.
[2023-05-25 06:39] VITALS: BP 94/65; PULSE 60; RESP 14; TEMP 36.8; O2SAT 93
--- NOTE | 2023-05-25 07:52 | PC.NURSE ---
patient sitting in bed, eating his breakfast. patient shows no signs of distress, able to make his needs known
[2023-05-25 09:11] VITALS: BP 100/68; PULSE 78; RESP 18; TEMP 36.8; O2SAT 94
[2023-05-25] MEDS: Gabapentin 100 MG CAPSULE PO (09:12)
[2023-05-25] MEDS: Omeprazole 20 MG CAPSULE.DR PO (09:12)
[2023-05-25] MEDS: Buprenorphine/Naloxone 4/1 mg FILM 1 FILM SUBLINGUAL (09:14)
[2023-05-25] MEDS: Buprenorphine/Naloxone 8/2 mg FILM 1 FILM SUBLINGUAL (09:14)
--- NOTE | 2023-05-25 11:39 | PC.NURSE ---
continues to rest comfortably on stretcher, vss, no signs/symptoms of distress. pending dispo of recovery team.
[2023-05-25] MEDS: Naloxone HCl Nasal TAKE HOME 4 MG SPRAY 8 MG NOSTRILALT (14:04)
== END 2023-05-25 14:28 | disposition home or self-care (01) ==
PROVIDERS: Emergency Medicine; Emergency Provider Emergency Medicine Emergency Medical Services; PCP Internal Medicine
DX: R45.851 Suicidal ideations (principal); R07.89 Other chest pain; F19.10 Other psychoactive substance abuse, uncomplicated; F31.9 Bipolar disorder, unspecified; Z91.128 Patient's intentional underdosing of medication regimen for other reason; T43.96XA Underdosing of unspecified psychotropic drug, initial encounter; Y92.9 Unspecified place or not applicable; Z20.822 Contact with and (suspected) exposure to COVID-19
CPT/HCPCS: 80053; 80307; 81001; 81003; 84484; 85025; 87635; 93005; 99285; S9485

== ENCOUNTER 2023-06-18 15:23 | Outpatient (REF) | payer OTHER, SELFPAY ==
[2023-06-19 04:07] LABS: HBS Num1 0.07 mIU/mL (0-7.99); ~Hepatitis B Surface Antibody NONREACTIVE (Nonreactive)
[2023-06-20 11:57] LABS: RPR Rapid Plasma Reagin NON-REACTIVE (NON-REACTIVE)
[2023-06-20 14:43] LABS: TS Negative Control Passed; TS Panel A 1; TS Panel B 0; TS Positive Control Passed; TSpotTB Negative (Negative)
== END 2023-06-18 15:24 | disposition home or self-care (01) ==
LOC: HO.HHCL 15:23
PROVIDERS: Visit Provider Emergency Medicine
DX: F11.20 Opioid dependence, uncomplicated (principal)
CPT/HCPCS: 36415; 86481; 86592; 86706